=== PATIENT | female | born 1955 | race Caucasian/White ===

== ENCOUNTER → 2018-04-14 12:47 | Outpatient (CLI) | payer MEDICAID, SELFPAY ==
--- NOTE | 2018-04-14 12:51 | BI_ITS ---
MAMMOGRAPHY - BILATERAL SCREENING REASON FOR EXAM: Female, 62 years old. Routine annual screening examination. PERTINENT HISTORY: Mother with breast cancer. History of prior right stereotactic breast biopsy. Aunts with breast cancer. TECHNIQUE: Digital bilateral breast nilsa (3D mammographic acquisition) in the CC and MLO projections. 2-D mediolateral oblique (MLO) and craniocaudad (CC) views of both breasts were obtained. CAD: Full Field Digital Mammography with Computer Added Detection was performed. COMPARISON: Comparison is made with prior study dated April 21, 2016 and January 08, 2015. FINDINGS: Breast Composition: The breasts are heterogeneously dense, which may obscure small masses. There are no dominant masses or suspicious calcifications. Small bilateral axillary lymph nodes. A tissue clip marker is seen in the upper medial portion of the right breast. No other significant abnormalities are identified. There has been no significant change since the prior study. BI/SCREENING MAMM (CAD), BILAT IMPRESSION: Stable bilateral screening mammogram. Yearly follow-up mammogram recommended. (A) ASSESSMENT CATEGORY: BIRADS Category 2: Benign. A letter regarding these results will be sent to the patient by the facility within 30 days. Approximately 10% of breast cancers are not detected by mammography. A normal mammogram should not delay biopsy of a clinically suspicious abnormality. [id number] Electronically Signed: Ronnie Noriega, at 15:11 EST , Service support ,
== END ==
PROVIDERS: Family Provider Family Medicine; PCP Family Medicine; Visit Provider Family Medicine
DX: Z12.31 Encounter for screening mammogram for malignant neoplasm of breast (principal)
CPT/HCPCS: 77063; 77067

== ENCOUNTER 2019-04-11 10:25 | Observation (INO) | payer MEDICAID, SELFPAY ==
[2019-04-11] VITALS (34 sets, daily range): BP systolic 69–135; BP diastolic 39–104; PULSE 57–110; RESP 12–32; TEMP 35.8–36.7; O2SAT 61–99; BMI 22.6
--- NOTE | 2019-04-11 06:07 | PCM.HP.STD ---
Problem List (1) Screening for intestinal cancer Status: Acute History of Present Illness Date of Admission: 04/11/19 The patient is a 63 year old F who presents for screening colonoscopy today. The patient has a personal history of colon polyps. She is a twin sister also with a history of colon polyps. Her most recent colonoscopy was June 23, [address] Luther Quiros. 1 diminutive polyp in the proximal transverse colon was removed. The patient was noted to have a tortuous colon. Final pathology was a minute tubular adenoma less than 2 mm on the slide. The patient now returns for follow-up examination. The patient now states that apparently approximately once a year she will have severe cramping and then feeling as if she is going to faint and then explosive diarrhea. This happened to her fairly recently where she actually did faint. She denies bright red blood per rectum or melena. She denies any current abdominal pain. She has increased her fiber and fiber supplement and MiraLAX and has not had a recurrent problem. Past Medical History Allergies Sulfa (Sulfonamide Antibiotics) Allergy (Verified 04/10/19 09:17) not known zolpidem [From Ambien] Allergy (Verified 04/10/19 09:17) Unknown Home Medications: Ambulatory Orders Medication Instructions Recorded Citalopram [Celexa] 20 mg PO DAILY 12/18/13 Lorazepam [Ativan] 0.5 mg PO DAILY PRN PRN 12/18/13 Simvastatin [Zocor] 20 mg PO QHS 12/18/13 Meclizine HCl [Antivert] 25 mg PO BID PRN PRN 04/10/19 Smoking Status: Current every day smoker Tobacco Use: Cigarettes Review of Systems Constitutional: Denies: Anorexia HEENT: Denies: Difficulty Swallowing Cardiovascular: Denies: Chest Pain Respiratory: Denies: Cough Gastrointestinal: Denies: Abdominal Pain, Melena Endocrine: Denies: Change in Body Habitus VTE Information - Inpt Only VTE Present on Admission: No Patient Problems: Active and Suspected Problems Screening for intestinal cancer (Acute) - Physical Exam General: Alert, Oriented x3, Cooperative, No apparent distress HEENT: Atraumatic Oral: Moist Mucosa Lungs: Clear to auscultation Cardiovascular: Regular rate, Regular Rhythm Abdomen: Bowel Sounds Present, Soft, Non Tender Extremities: No Calf Tenderness Assessment/Plan All Active Problems Screening for intestinal cancer (Acute) The patient presents via our open access program today. I anticipate proceeding with a colonoscopy with possible biopsy or polypectomy is indicated. She has had an opportunity to ask and have questions answered. We will proceed as noted. Eduardo Caputo M.D., F.A.C.S.
[2019-04-11] MEDS: Lactated Ringers 1,000 ML 100 ML IV ×2 (06:28→11:25)
--- NOTE | 2019-04-11 07:00 | COLBX_PTH ---
PATIENT: SAKINA JASON LOC: [facility] U#:[id number] AGE/SX: 63/F ROOM: ICU04 RE04/11/[address]: Dr. Eduardo Caputo MD : 1955 BED: 1 DIS: 04/12/2019 SPEC #: [id number] RECD: 04/11/19 10:45 STATUS: IGOR REReza #: [id number] REECE: 04/11/19 07:[address]: Eduardo aCputo DEPT: SURGICAL PATHOLOGY RECD BY: Wilmer Hearn ENTERED: 04/11/19 13:31 SP TYPE: COLON BX OTHR DR: MD Dr. John Hernandez III, MD Dr. Mark Tereletsky, DO Tissues: Ascending colon Procedures: Surgery Specimen Level IV HEADER OPERATION: Colonoscopy - open access (MAC) PRE-OP DIAGNOSIS: Screening TISSUE SUBMITTED: Distal ascending colon polyp biopsies MICROSCOPIC DIAGNOSIS Distal ascending colon polyp, biopsy: Fragments of tubular adenoma. HAWA:rei 04/12/19 MICROSCOPIC DESCRIPTION Slides are reviewed. GROSS DESCRIPTION Received in fixative is one container labeled with the patient's name and designated distal ascending colon polyp biopsy. The specimen consists of multiple irregular fragments of light hermosillo soft tissue that in aggregate measure 0.7 x 0.5 x 0.1 cm. The specimen is totally submitted in one cassette. / HAWA:rei 04/11/19 TC:1 CPT: 87606
--- NOTE | 2019-04-11 07:29 | OP.COLON_ITS ---
Patient Name: Jaymie Trotter Procedure Date: 04/11/2019 6:58 AM Date of : 1955 Age: 63 Procedure: Colonoscopy Indications: High risk colon cancer surveillance: Personal history of colonic polyps Providers: Eduardo Caputo MD Referring MD: John Caputo Iii Medicines: See the Anesthesia note for documentation of the administered medications Patient Profile: This is a 63 year old female. Last Colonoscopy: 2011. Complications: No immediate complications. Procedure: Pre-Anesthesia Assessment: - Prior to the procedure, a History and Physical was performed, and patient medications and allergies were reviewed. The patient's tolerance of previous anesthesia was also reviewed. The risks and benefits of the procedure and the sedation options and risks were discussed with the patient. All questions were answered, and informed consent was obtained. Prior Anticoagulants: The patient has taken no previous anticoagulant or antiplatelet agents. ASA Grade Assessment: II - A patient with mild systemic disease. After reviewing the risks and benefits, the patient was deemed in satisfactory condition to undergo the procedure. After I obtained informed consent, the scope was passed under direct vision. Throughout the procedure, the patient's blood pressure, pulse, and oxygen saturations were monitored continuously. The colonoscope was introduced through the anus and advanced to the cecum, identified by appendiceal orifice and ileocecal valve. The colonoscopy was performed with moderate difficulty due to a tortuous colon. Successful completion of the procedure was aided by using manual pressure. Scope In: 7:07:09 AM Scope Withdrawal Time 0 hours 6 minutes 34 seconds Scope Out: 7:20:58 AM Total Procedure Duration Time 0 hours 13 minutes 49 seconds Findings: Hemorrhoids were found on perianal exam. Multiple diverticula were found in the sigmoid colon. The sigmoid colon and descending colon were moderately tortuous. Two sessile polyps were found in the distal ascending colon. The polyps were 3 mm in size. These polyps were removed with a cold biopsy forceps. Resection and retrieval were complete. Impression: - Hemorrhoids found on perianal exam. - Diverticulosis in the sigmoid colon. - Tortuous colon. - No specimens collected. Recommendation: - Await pathology results. - Repeat colonoscopy in 5 years for surveillance. - Telephone my office for pathology results in 1 week. - Resume previous diet. - Continue present medications. Procedure Code(s): --- Professional --- 45129, Colonoscopy, flexible; with biopsy, single or multiple Diagnosis Code(s): --- Professional --- Z86.010, Personal history of colonic polyps K64.9, Unspecified hemorrhoids K57.30, Diverticulosis of large intestine without perforation or abscess without bleeding Q43.8, Other specified congenital malformations of intestine CPT copyright 2017 [employer] [place] [employer]. All rights reserved. The codes documented in this report are preliminary and upon information security engineer review may be revised to meet current compliance requirements. Eduardo Caputo MD 04/11/2019 7:28:29 AM This report has been signed electronically. Number of Addenda: 0 Note Initiated On: 04/11/2019 6:58 AM
--- NOTE | 2019-04-11 07:29 | OP.CCLET_ITS ---
04/11/2019 John Caputo Iii [address] [place] [address] Re : Colonoscopy procedure for Jaymie Trotter Dear Dr. Caputo This procedure was performed on Thursday, April 11, 2019. My impressions and recommendations are as follows: Impressions : - Hemorrhoids found on perianal exam. - Diverticulosis in the sigmoid colon. - Tortuous colon. - No specimens collected. Recommendations : - Await pathology results. - Repeat colonoscopy in 5 years for surveillance. - Telephone my office for pathology results in 1 week. - Resume previous diet. - Continue present medications. My findings are described in the full procedure note, which is enclosed. If I can be of further assistance, please feel free to contact me at Doctor phone number(s): Work: . Sincerely, Eduardo Caputo MD 04/11/2019 7:28:29 AM This report has been signed electronically.
--- NOTE | 2019-04-11 07:30 | SUR.PHASEI ---
pt arrives to pacu laying on lt side, hob flat, immediately connected to monitor to find pt in NSR with HR in 70's, bp wnl, but limited resp and sp02 found to be 60-62% immediately turned pt over to back noted lips dusky, attempts to stimulate pt, some moaning noted and grunting resp immediate chin thrust/head tilt to open arirway with no effects, begin bagging pt with 10 lm o2 connected spo2 up to 90-91% within minute and dr murillo to bedside to assess. See orders
--- NOTE | 2019-04-11 08:03 | EKG12_ITS ---
Test Reason : ARRYTH Blood Pressure : / mmHG Vent. Rate : 069 BPM Atrial Rate : 069 BPM P-R Int : 156 ms QRS Dur : 066 ms QT Int : 404 ms P-R-T Axes : 068 039 042 degrees QTc Int : 432 ms Sinus rhythm with occasional Premature ventricular complexes Otherwise normal ECG When compared with ECG of 31-DEC-2004 15:32, Premature ventricular complexes are now Present Confirmed by MINI FREY, GUSTAVO ([id number]), society editor CAIN SANTANA ([id number]) on 04/17/2019 4:10:12 PM Referred By: John Caputo Confirmed By:GUSTAVO MORSE MD
--- NOTE | 2019-04-11 08:03 | RAD_ITS ---
STUDY: X-RAY CHEST REASON FOR EXAM: Female, 63 years old. DYSPNEA S/P COLONOSCOPY TECHNIQUE: Single AP portable view of the chest. COMPARISON: None. FINDINGS: The lungs are clear and expanded. There is no demonstrated pleural abnormality. Normal size heart. Normal mediastinum and ingrid. Normal visualized pulmonary arteries. Normal visualized aortic arch and descending thoracic aorta. Normal visualized thoracic spine. Normal visualized ribs, clavicles, and shoulders. There is no demonstrated abnormality of the visualized soft tissue structures of the upper abdomen. RAD/Chest 1 View (Portable) IMPRESSION: Normal x-ray examination of the chest. Electronically Signed: Kraig Graham MD at 8:18 EST Tel , Service support ,
[2019-04-11] MEDS: Ipratropium/Albuterol Sulfate 3 ML AMPUL.NEB INHALATION ×3 (08:15→19:02)
[2019-04-11 09:06] LABS: Allen Test POS; Base Excess -2 mmol/L (-2 to +2); Bicarbonate 22.5 mmol/L (22-26); Blood Gas Specimen Type ART; EPAP 6; FI02 30; IPAP 12; PO2 56 mmHG (75-100); RR 12; SITE L Radial; SO2 90 % (95-99); Time Given 910; Total Carbon Dioxide 23 mmol/L; pH 7.43 (7.35-7.45)
[2019-04-11 10:00] LABS: Absolute Lymphocyte Count 1.43 X10^3/uL (0.83-4.51); Absolute Neutrophil Count 9.9 X10^3/uL (2.0-7.7); Basophil# 0.03 X10^3/uL; Basophil% 0.3 % (0-1); Eosinophil# 0.02 X10^3/uL; Eosinophils% 0.2 % (0-5); Hematocrit 38.2 % (37-47); Hemoglobin 12.6 g/dL (12.0-15.0); Lymphocyte # 1.43 X10^3/ul (4.0); Mean Corpuscular Hgb 31.9 pg (27.0-32.0); Mean Corpuscular Volume 96.7 fL (81-99); Mean Platelet Vol. 9.2 fl (6.2-12.0); Monocyte# 0.54 X10^3/uL; Monocyte% 4.5 % (0-10); NRBC Flagged by Analyzer 0 % (0-5); Neutrophil # 9.91 X10^3/uL (2.7-7.7); Neutrophil % 82.7 % (47-70); Platelet Count 242 K/mm3 (150-450); RBC Distribution Width CV 13.2 % (11.6-14.6); RBC Distribution Width SD 47.1 fl (35.1-43.9); Red Blood Count 3.95 M/mm3 (4.2-5.4)
[2019-04-11 10:19] LABS: Anion Gap 5 (5-15); BUN 13 mg/dL (7-18); BUN/Creat Ratio 16.7 RATIO (10-20); Chloride 110 mmol/L (98-107); Creatinine, Serum 0.78 mg/dL (0.55-1.02); EST Glomerular Filtration Rate 79 mL/min (>60); Est Glom Filt Rate - Afr Amer 96 mL/min (>60); Estimated Creatinine Clearance 61.07 ml/min; Glucose 111 mg/dL (74-106); Magnesium 1.8 mg/dL (1.6-2.6); Potassium 3.4 mmol/L (3.5-5.1); Sodium Level 141 mmol/L (136-145)
--- NOTE | 2019-04-11 11:45 | RAD_ITS ---
STUDY: X-RAY CHEST REASON FOR EXAM: Female, 63 years old. RESPIRATORY FAILURE; -- S/P COLONOSCOPY THIS AM TECHNIQUE: Single AP portable view of the chest. COMPARISON: None. FINDINGS: Alveolar opacity in the lower left lung which silhouettes left heart border consistent with lingular pneumonia. This may be from aspiration. There is no demonstrated pleural abnormality. Normal size heart. Normal mediastinum and ingrid. Normal visualized pulmonary arteries. Normal visualized aortic arch and descending thoracic aorta. Normal visualized thoracic spine. Normal visualized ribs, clavicles, and shoulders. There is no demonstrated abnormality of the visualized soft tissue structures of the upper abdomen. RAD/Chest 1 View (Portable) IMPRESSION: Lingular pneumonia or aspiration. Electronically Signed: Kraig Graham MD at 12:36 EST Tel , Service support ,
--- NOTE | 2019-04-11 14:08 | PCM.CON.CC ---
Problem List (1) Acute respiratory failure with hypoxia Status: Acute (2) COPD (chronic obstructive pulmonary disease) Status: Suspected Qualifiers: Emphysema type: unspecified (3) Screening for intestinal cancer Status: Acute Reason for Consult Date of Consultation: 04/11/19 Reason for Consultation: Respiratory failure History of Present Illness: The patient is a 63 year old F, with past medical history listed below, who presented to [facility] 04[facility]11/2019 secondary to a screening colonoscopy. Patient did have a history of colon polyps in the past. With a reported tortuous colon. Patient has had episodes of severe cramping and then explosive diarrhea in the past. Patient denied any bright red blood or melena from the rectum. Patient presented and was reportedly of her usual health. Patient denied any recent increase in cough, fever, chills, nausea or vomiting. Patient did report some shortness of breath with significant exertion, but overall felt her breathing was at its usual. Patient did report coughing at baseline of clear to white sputum, typically in the morning upon waking from sleep. Following the colonoscopy, patient reportedly was transported to the PACU and became significantly cyanotic. Patient was noted to have perioral cyanosis and a saturation of 60%. Patient received bag mask ventilation for a short period of time and then had to be placed on BiPAP therapy. Patient received multiple medications in PACU, but I was asked to evaluate the patient following these interventions. On my evaluation in the PACU, patient was essentially BiPAP dependent. Patient did have some conversational dyspnea, but was very clear that she was fine before all of this. Patient did feel better with BiPAP in place and had stated that she had a cough productive of pink frothy sputum immediately following the procedure. Patient also reported that she has seen a documentation engineer in the past, approximately 5 years ago, at [facility] and was told that she was at 70% lung function. Patient does not use any inhalers at baseline. Patient does smoke on a daily basis, but denies any vaping or environmental exposures. Patient denies any exposure to TB or asbestos. Following PACU stay, patient was transported to the intensive care unit. Patient continues to improve and is now back on 4 to 5 L nasal cannula oxygen. Patient states her cough is improving and denies any chest pain. Patient does have some abdominal cramping, but does not believe that this is significant. Review of systems otherwise negative from a constitutional, HEENT, respiratory, cardiovascular, GI, genitourinary, musculoskeletal, skin, neurologic, psychiatric and hematologic system unless stated above. Past Medical History Allergies Sulfa (Sulfonamide Antibiotics) Allergy (Verified 04/10/19 09:17) not known zolpidem [From Ambien] Allergy (Verified 04/10/19 09:17) Unknown Home Medications: Ambulatory Orders Medication Instructions Recorded Citalopram [Celexa] 20 mg PO DAILY 12/18/13 Lorazepam [Ativan] 0.5 mg PO DAILY PRN PRN 12/18/13 Simvastatin [Zocor] 20 mg PO QHS 12/18/13 Meclizine HCl [Antivert] 25 mg PO BID PRN PRN 04/10/19 Smoking Status: Current every day smoker Tobacco Use: Cigarettes Review of Systems Comment: See HPI Patient Problems: Active and Suspected Problems Screening for intestinal cancer (Acute) Acute respiratory failure with hypoxia (Acute) COPD (chronic obstructive pulmonary disease) (Suspected) - Physical Exam Vitals/I&O's: Vital Signs Temp Pulse Resp BP Pulse Ox 36.6 C 96 28 H 114/70 96 04/11/19 11:41 04/11/19 13:41 04/11/19 13:41 04/11/19 11:41 04/11/19 13:41 Oxygen Flow Rate (L/min) 3 Oxygen Delivery Method Nasal Cannula Weight: 57.9 kg Body Mass Index (BMI) 22.6 Intake and Output for Last 24 Hours 04/09/19 04/10/19 04/11/19 23:59 23:59 23:59 Intake Total 710 / 710 Output Total 150 / 150 Balance 560 / 560 General: Alert, Oriented x3, Cooperative, Well developed, Well nourished, - - Significant dyspnea with BiPAP initially. Improved significantly in the ICU HEENT: Atraumatic, PERRLA, EOMI, Normocephalic Oral: Moist Mucosa, No Gingival or Mucosal Lesions/ Ulcerations Neck: Supple, No JVD, No Nodes, Trachea Midline Lungs: No wheeze, Diminished, Rales - Right Cardiovascular: Regular rate, Regular Rhythm, Normal S1, Normal S2, No murmurs, No rub noted, No Gallop Abdomen: Bowel Sounds Present, Soft, Non Tender, Non-Distended Extremities: No clubbing, No cyanosis, No edema, Capillary Refill Less than 3 Seconds Skin: No rashes, No breakdown Musculoskeletal: No Tenderness to Palpation of Joints or Extremities Lymphatic: No Cervical, Supraclavicular, or Inguinal Adenopathy Neurological: Cranial nerves II-XII grossly intact, Neuro grossly intact, Motor Exam 5/5 strength throughout Psych/Mental Status: Alert and oriented to time, place, person, mood and affect Laboratory Results 04/11/19 09:03: Specimen Type ART, Sample Site L Radial, pH 7.43, Bicarbonate Actual 22.5, POC Total CO2 23, Base Excess -2, O2 Saturation 90 L, O2 % 30, ABG pCO2 34.0 L, ABG pO2 56 L, Abdelrahman Test POS, Respiration Rate 12, O2 Delivery Device Bi / C PAP, EPAP 6, IPAP 12, Blood Gas Notified Whom OTHER, Blood Gas Notified Time 910 04/11/19 09:54: WBC 12.0 H, RBC 3.95 L, Hgb 12.6, Hct 38.2, MCV 96.7, MCH 31.9, MCHC 33.0, RDW Std Deviation 47.1 H, RDW Coeff of Twan 13.2, Plt Count 242, MPV 9.2, Immature Gran % (Auto) 0.300, Neut % (Auto) 82.7 H, Lymph % (Auto) 12.0 L, [place] % (Auto) 4.5, Eos % (Auto) 0.2, Baso % (Auto) 0.3, Absolute Neuts (auto) 9.9 H, Absolute Lymphs (auto) 1.43, Nucleated RBC % 0 04/11/19 09:54: Sodium 141, Potassium 3.4 L, Chloride 110 H, Carbon Dioxide 26.0, Anion Gap 5, BUN 13, Creatinine 0.78, Estim Creat Clear Calc 61.07, Est GFR (MDRD) Af Amer 96, Est GFR (MDRD) Non-Af 79, BUN/Creatinine Ratio 16.7, Glucose 111 H, Calcium 9.0, Magnesium 1.8, Troponin I < 0.015 04/11/19 13:00: Troponin I < 0.015 Current Medications Albuterol/Ipratropium (Duoneb) 3 ml INHALATION Q6H.RT CHARLES Last Admin: 04/11/19 13:20 Dose: 3 ml Documented by: Prochlorperazine Edisylate (Compazine Iv) 5 mg IV Q4H PRN PRN PRN Reason: Breakthrough Nausea/Vomiting Sodium Chloride () 10 - 40 ml IV UD PRN PRN Reason: SALINE FLUSH Clinical Impression(s) from Imaging Studies Chest X-Ray 04/11/19 08:03 IMPRESSION: Normal x-ray examination of the chest. Electronically Signed: Kraig Graham MD at 8:18 EST Tel , Service support , Chest X-Ray 04/11/19 11:45 IMPRESSION: Lingular pneumonia or aspiration. Electronically Signed: Kraig Graham MD at 12:36 EST Tel , Service support , Assessment/Plan Active and Suspected Problems Screening for intestinal cancer (Acute) Acute respiratory failure with hypoxia (Acute) COPD (chronic obstructive pulmonary disease) (Suspected) RECOMMENDATIONS: 1. Continue supportive care as necessary 2. BiPAP PRN 3. OK to initiate bronchodilators, but would avoid steroid therapy 4. Outpatient complete PFT 5. Hold on any diuretics. 6. Okay to take p.o. from a pulmonary perspective. Please check with surgery prior to initiation IMPRESSIONS: 1. Acute hypoxic respiratory failure secondary to probable negative pressure pulmonary edema Patient reported pink frothy sputum initially with significant hypoxemia. Chest x-ray was relatively unremarkable, but patient did respond to BiPAP therapy. Patient is slowly improving on her own. It is unlikely the diuretics are needed actively. Patient can use BiPAP therapy as rescue if necessary, but anticipate slow improvement from this point forward. Okay to use bronchodilators, but would not suggest steroid therapy at this time. Patient may be able to be discharged tomorrow. 2. Probable COPD Patient does have an extensive smoking history with a chronic daily cough. Would recommend patient having outpatient complete PFT for quantification and clarification of lung function. Patient is not giving any history that would be suggestive of a COPD exacerbation prior to colonoscopy. 3. Anxiety/depression/hyperlipidemia Uppercase care, management, recovery and prognosis. Okay to continue with baseline medications from my perspective. May avoid Ativan given respiratory issues initially. Code Visit Inpatient E&M: 06013 Init Hosp L3
--- NOTE | 2019-04-11 15:54 | PCM.HP.STD ---
Problem List (1) Respiratory failure Status: Acute Qualifiers: Chronicity: acute Respiratory failure complication: hypoxia Qualified Code(s): J96.01 - Acute respiratory failure with hypoxia History of Present Illness Date of Admission: 04/11/19 Chief Complaint: Respiratory failure The patient is a 63 year old F who was admitted directly to ICU following a colonoscopy. Patient went into respiratory failure after the colonoscopy, she was given Benadryl and epinephrine subcu by anesthesia due to concerns of allergic reaction. Patient had a chest x-ray performed which was unremarkable. Patient was placed on BiPAP lab was performed and she was transferred to the ICU. At the time of my examination later on, patient was on nasal cannula O2 and was alert and did not appear to be in respiratory distress. Lab obtained in PACU showed an elevated white blood cell count at 12, blood gas on BiPAP showed a pH 7.43, PCO2 was 34, and PO2 was 56. Chemistry profile showed a potassium of 3.4-otherwise was unremarkable. Troponin was normal. Again patient was placed in the ICU under observation care, she will be seen by pulmonary medicine. Past Medical History Allergies Sulfa (Sulfonamide Antibiotics) Allergy (Verified 04/10/19 09:17) not known zolpidem [From Ambien] Allergy (Verified 04/10/19 09:17) Unknown Home Medications: Ambulatory Orders Medication Instructions Recorded Citalopram [Celexa] 20 mg PO DAILY 12/18/13 Lorazepam [Ativan] 0.5 mg PO DAILY PRN PRN 12/18/13 Simvastatin [Zocor] 20 mg PO QHS 12/18/13 Meclizine HCl [Antivert] 25 mg PO BID PRN PRN 04/10/19 Surgical History: noncontributory Psychiatric History: No pertinent psych hx ORDER ADMINISTRATOR History: No pertinent ORDER ADMINISTRATOR history Smoking Status: Current every day smoker Tobacco Use: Cigarettes Alcohol: None Drugs: None - *Family History Maternal History Items: No pertinent history Paternal History Items: No pertinent history Review of Systems Constitutional: Denies: Anorexia, Chills, Fever, Night Sweats, Malaise, Weakness, Weight Change Eyes: Denies: Cataracts, Conjunctivae Inflammation, Double vision, Drainage, Redness, Vision Change HEENT: Denies: Difficulty Swallowing, Dysphasia, Ear Pain, Eye Pain, Hearing Changes, Nasal bleeding, Nasal Congestion, Post Nasal Drip Cardiovascular: Denies: Chest Pain, Claudication, Chest Pressure, Chest Tightness, Edema, Palpitations Respiratory: Reports: Shortness of Breath, Shortness of breath at rest, Shortness of breath upon exertion. Denies: Cough, Hemoptysis, Pleuritic Pain, Sputum production, Wheezing Gastrointestinal: Denies: Abdominal Pain, Constipation, Diarrhea, Hematemesis, Hematochezia, Nausea, Melena, Vomiting Genitourinary: Denies: Dysuria, Frequency, Hematuria, Hesitancy, Nocturia, Urgency Musculoskeletal: Denies: Back Pain, Foot Pain, Hand Pain, Joint Pain, Joint stiffness, Joint swelling, Joint Tenderness, Leg Pain Skin: Denies: Dryness, Pruritis, Rash Neurological: Denies: Blurred vision, Double vision, Change in Speech, Slurred speech, Difficulty swallowing, Focal weakness, Headaches, Incoordination, Numbness, Tingling Psychiatric: Denies: Anxiety, Depression, Homicidal Ideations, Suicidal Ideations Endocrine: Denies: Change in Body Habitus, Heat/ Cold Intolerance, Polydipsia, Polyuria Hematologic/ Lymphatic: Denies: Adenopathy, Anemia, Easy Bruising, Easy Bleeding, Petechiae, Purpura VTE Information - Inpt Only VTE Present on Admission: No VTE Mechan Device Prophylaxis: None VTE Pharm Prophylaxis ordered?: No Reason prophylaxis not ordered:: Treatment Not Indicated Patient Problems: Active and Suspected Problems Screening for intestinal cancer (Acute) Acute respiratory failure with hypoxia (Acute) COPD (chronic obstructive pulmonary disease) (Suspected) Respiratory failure (Acute) - Physical Exam Vitals/I&O's: Vital Signs Temp Pulse Resp BP Pulse Ox 97.9 F 96 28 H 114/70 95 04/11/19 12:00 04/11/19 14:00 04/11/19 13:41 04/11/19 12:00 04/11/19 15:22 Oxygen Flow Rate (L/min) 3 Oxygen Delivery Method Nasal Cannula Weight: 57.9 kg Body Mass Index (BMI) 22.6 Intake and Output for Last 24 Hours 04/09/19 04/10/19 04/11/19 23:59 23:59 23:59 Intake Total 710 / 710 Output Total 150 / 150 Balance 560 / 560 General: Alert, Oriented x3, Cooperative, No apparent distress, Well developed HEENT: Atraumatic, PERRLA, EOMI, Normocephalic Oral: Moist Mucosa Neck: Supple, No JVD, Trachea Midline, Thyroid Normal Size and Texture Lungs: Clear to auscultation, Normal air movement, No rhonchi, No wheeze, No rales Cardiovascular: Regular rate, Regular Rhythm, Normal S1, Normal S2, No murmurs, PMI Normal, No rub noted Abdomen: Bowel Sounds Present, Soft, Non Tender, Non-Distended Extremities: No clubbing, No cyanosis, No edema, Capillary Refill Less than 3 Seconds Skin: No rashes, No breakdown Musculoskeletal: No Tenderness to Palpation of Joints or Extremities Neurological: Cranial nerves II-XII grossly intact, Neuro grossly intact, Sensory exam intact to light touch and pain Psych/Mental Status: Normal Affect, Appropriate, Alert and oriented to time, place, person, mood and affect Laboratory Results 04/11/19 09:03: Specimen Type ART, Sample Site L Radial, pH 7.43, Bicarbonate Actual 22.5, POC Total CO2 23, Base Excess -2, O2 Saturation 90 L, O2 % 30, ABG pCO2 34.0 L, ABG pO2 56 L, Abdelrahman Test POS, Respiration Rate 12, O2 Delivery Device Bi / C PAP, EPAP 6, IPAP 12, Blood Gas Notified Whom OTHER, Blood Gas Notified Time 910 04/11/19 09:54: WBC 12.0 H, RBC 3.95 L, Hgb 12.6, Hct 38.2, MCV 96.7, MCH 31.9, MCHC 33.0, RDW Std Deviation 47.1 H, RDW Coeff of Twan 13.2, Plt Count 242, MPV 9.2, Immature Gran % (Auto) 0.300, Neut % (Auto) 82.7 H, Lymph % (Auto) 12.0 L, [place] % (Auto) 4.5, Eos % (Auto) 0.2, Baso % (Auto) 0.3, Absolute Neuts (auto) 9.9 H, Absolute Lymphs (auto) 1.43, Nucleated RBC % 0 04/11/19 09:54: Sodium 141, Potassium 3.4 L, Chloride 110 H, Carbon Dioxide 26.0, Anion Gap 5, BUN 13, Creatinine 0.78, Estim Creat Clear Calc 61.07, Est GFR (MDRD) Af Amer 96, Est GFR (MDRD) Non-Af 79, BUN/Creatinine Ratio 16.7, Glucose 111 H, Calcium 9.0, Magnesium 1.8, Troponin I < 0.015 04/11/19 13:00: Troponin I < 0.015 Current Medications Albuterol/Ipratropium (Duoneb) 3 ml INHALATION Q6H.RT CHARLES Last Admin: 04/11/19 13:20 Dose: 3 ml Documented by: Prochlorperazine Edisylate (Compazine Iv) 5 mg IV Q4H PRN PRN PRN Reason: Breakthrough Nausea/Vomiting Sodium Chloride () 10 - 40 ml IV UD PRN PRN Reason: SALINE FLUSH Assessment/Plan All Active Problems Screening for intestinal cancer (Acute) Acute respiratory failure with hypoxia (Acute) Respiratory failure (Acute) #1 acute hypoxic respiratory failure-most likely secondary to negative pressure pulmonary edema-patient at this time is on nasal cannula O2, she states she is afraid to go home tonight, I will continue to wean oxygen #2 chronic obstructive pulmonary disease-pulmonary medicine is seeing patient #3 anxiety/depression Code Visit OBSV E&M: 66168 Initial observation care L3
[2019-04-12] VITALS (22 sets, daily range): BP systolic 86–118; BP diastolic 55–84; PULSE 67–87; RESP 10–27; TEMP 37.2–37.4; O2SAT 87–97
[2019-04-12] MEDS: Ipratropium/Albuterol Sulfate 3 ML AMPUL.NEB INHALATION ×3 (01:20→13:57)
[2019-04-12] MEDS: LORazepam 0.5 MG Tablet PO (02:03)
--- NOTE | 2019-04-12 06:03 | PN.SURG_ITS ---
Patient Problems: Active and Suspected Problems Screening for intestinal cancer (Acute) Acute respiratory failure with hypoxia (Acute) COPD (chronic obstructive pulmonary disease) (Suspected) Respiratory failure (Acute) Subjective: Pt states she feels much better, no abdominal pain - Physical Exam Vitals/I&O's: Vital Signs Temp Pulse Resp BP Pulse Ox 98.9 F 68 21 H 96/61 96 04/12/19 04:00 04/12/19 05:00 04/12/19 05:00 04/12/19 05:00 04/12/19 05:00 Oxygen Flow Rate (L/min) 2 Oxygen Delivery Method Nasal Cannula Weight: 125 lb 7.088 oz Body Mass Index (BMI) 22.6 Intake and Output for Last 24 Hours 04/10/19 04/11/19 04/12/19 23:59 23:59 23:59 Intake Total 1010 / 1490 480 / 480 Output Total 800 / 800 Balance 210 / 690 480 / 480 Abdomen: Bowel Sounds Present, Soft, Non Tender Laboratory Results 04/11/19 09:03: Specimen Type ART, Sample Site L Radial, pH 7.43, Bicarbonate Actual 22.5, POC Total CO2 23, Base Excess -2, O2 Saturation 90 L, O2 % 30, ABG pCO2 34.0 L, ABG pO2 56 L, Abdelrahman Test POS, Respiration Rate 12, O2 Delivery Device Bi / C PAP, EPAP 6, IPAP 12, Blood Gas Notified Whom OTHER, Blood Gas Notified Time 910 04/11/19 09:54: WBC 12.0 H, RBC 3.95 L, Hgb 12.6, Hct 38.2, MCV 96.7, MCH 31.9, MCHC 33.0, RDW Std Deviation 47.1 H, RDW Coeff of Twan 13.2, Plt Count 242, MPV 9.2, Immature Gran % (Auto) 0.300, Neut % (Auto) 82.7 H, Lymph % (Auto) 12.0 L, [place] % (Auto) 4.5, Eos % (Auto) 0.2, Baso % (Auto) 0.3, Absolute Neuts (auto) 9.9 H, Absolute Lymphs (auto) 1.43, Nucleated RBC % 0 04/11/19 09:54: Sodium 141, Potassium 3.4 L, Chloride 110 H, Carbon Dioxide 26.0, Anion Gap 5, BUN 13, Creatinine 0.78, Estim Creat Clear Calc 61.07, Est GFR (MDRD) Af Amer 96, Est GFR (MDRD) Non-Af 79, BUN/Creatinine Ratio 16.7, Glucose 111 H, Calcium 9.0, Magnesium 1.8, Troponin I < 0.015 04/11/19 13:00: Troponin I < 0.015 Current Medications Albuterol/Ipratropium (Duoneb) 3 ml INHALATION Q6H.RT CHARLES Last Admin: 04/12/19 01:20 Dose: 3 ml Documented by: Prochlorperazine Edisylate (Compazine Iv) 5 mg IV Q4H PRN PRN PRN Reason: Breakthrough Nausea/Vomiting Sodium Chloride () 10 - 40 ml IV UD PRN PRN Reason: SALINE FLUSH Medical Necessity - Tobacco Use Smoking Status: Current every day smoker Tobacco Use: Cigarettes Assessment/Plan All Active Problems Screening for intestinal cancer (Acute) Acute respiratory failure with hypoxia (Acute) Respiratory failure (Acute) Pt instructed re: two small polyps and we will contact her with pathology Further diagnosis and care as per Anesth, hospitalist, and manager of community relations in treatment of post anesthetic complication Appreciate the assistance
--- NOTE | 2019-04-12 07:36 | PCM.PN.PUL ---
Patient Problems: Active and Suspected Problems Screening for intestinal cancer (Acute) Acute respiratory failure with hypoxia (Acute) COPD (chronic obstructive pulmonary disease) (Suspected) Respiratory failure (Acute) Subjective: Patient did well overnight. Patient states that she feels drained from yesterday's events. Patient was on supplemental oxygen overnight for comfort. Patient states that her incentive spirometer tends to make her cough. Patient is not reporting any chest pain, abdominal pain, nausea or vomiting. No fevers were noted overnight. - Physical Exam Vitals/I&O's: Vital Signs Temp Pulse Resp BP Pulse Ox 37.2 C 73 21 H 110/84 H 90 04/12/19 04:00 04/12/19 07:00 04/12/19 07:00 04/12/19 07:00 04/12/19 07:00 Oxygen Flow Rate (L/min) 2 Oxygen Delivery Method Room Air Weight: 56.9 kg Body Mass Index (BMI) 22.6 Intake and Output for Last 24 Hours 04/10/19 04/11/19 04/12/19 23:59 23:59 23:59 Intake Total 1010 / 1490 720 / 720 Output Total 800 / 800 Balance 210 / 690 720 / 720 General: Alert, Oriented x3, Cooperative, No apparent distress, Well developed, Well nourished HEENT: Atraumatic, PERRLA, EOMI, Normocephalic, - - No scleral icterus or injection noted Oral: Moist Mucosa, No Gingival or Mucosal Lesions/ Ulcerations Neck: Supple, No JVD, No Nodes, Trachea Midline Lungs: No rhonchi, No wheeze, Diminished, Rales - Right greater than left base, - - Symmetric expansion. Cough with deep inhalation. Cardiovascular: Regular rate, Regular Rhythm, Normal S1, Normal S2, No murmurs, No rub noted, No Gallop Abdomen: Bowel Sounds Present, Soft, Non Tender, Non-Distended Extremities: No clubbing, No cyanosis, No edema, Capillary Refill Less than 3 Seconds Skin: No rashes, No breakdown Musculoskeletal: No Tenderness to Palpation of Joints or Extremities Lymphatic: No Cervical, Supraclavicular, or Inguinal Adenopathy Neurological: Cranial nerves II-XII grossly intact, Neuro grossly intact, Motor Exam 5/5 strength throughout Psych/Mental Status: Alert and oriented to time, place, person, mood and affect Laboratory Results 04/11/19 09:03: Specimen Type ART, Sample Site L Radial, pH 7.43, Bicarbonate Actual 22.5, POC Total CO2 23, Base Excess -2, O2 Saturation 90 L, O2 % 30, ABG pCO2 34.0 L, ABG pO2 56 L, Abdelrahman Test POS, Respiration Rate 12, O2 Delivery Device Bi / C PAP, EPAP 6, IPAP 12, Blood Gas Notified Whom OTHER, Blood Gas Notified Time 910 04/11/19 09:54: WBC 12.0 H, RBC 3.95 L, Hgb 12.6, Hct 38.2, MCV 96.7, MCH 31.9, MCHC 33.0, RDW Std Deviation 47.1 H, RDW Coeff of Twan 13.2, Plt Count 242, MPV 9.2, Immature Gran % (Auto) 0.300, Neut % (Auto) 82.7 H, Lymph % (Auto) 12.0 L, [place] % (Auto) 4.5, Eos % (Auto) 0.2, Baso % (Auto) 0.3, Absolute Neuts (auto) 9.9 H, Absolute Lymphs (auto) 1.43, Nucleated RBC % 0 04/11/19 09:54: Sodium 141, Potassium 3.4 L, Chloride 110 H, Carbon Dioxide 26.0, Anion Gap 5, BUN 13, Creatinine 0.78, Estim Creat Clear Calc 61.07, Est GFR (MDRD) Af Amer 96, Est GFR (MDRD) Non-Af 79, BUN/Creatinine Ratio 16.7, Glucose 111 H, Calcium 9.0, Magnesium 1.8, Troponin I < 0.015 04/11/19 13:00: Troponin I < 0.015 Current Medications Albuterol/Ipratropium (Duoneb) 3 ml INHALATION Q6H.RT CHARLES Last Admin: 04/12/19 06:53 Dose: 3 ml Documented by: Prochlorperazine Edisylate (Compazine Iv) 5 mg IV Q4H PRN PRN PRN Reason: Breakthrough Nausea/Vomiting Sodium Chloride () 10 - 40 ml IV UD PRN PRN Reason: SALINE FLUSH Clinical Impression(s) from Imaging Studies Chest X-Ray 04/11/19 08:03 IMPRESSION: Normal x-ray examination of the chest. Electronically Signed: Kraig Graham MD at 8:18 EST Tel , Service support , Chest X-Ray 04/11/19 11:45 IMPRESSION: Lingular pneumonia or aspiration. Electronically Signed: Kraig Graham MD at 12:36 EST Tel , Service support , Medical Necessity - Tobacco Use Smoking Status: Current every day smoker Tobacco Use: Cigarettes Assessment/Plan All Active Problems Screening for intestinal cancer (Acute) Acute respiratory failure with hypoxia (Acute) Respiratory failure (Acute) RECOMMENDATIONS: 1. Continue supportive care as necessary 2. Encouraging aggressive incentive spirometer 3. OK to continue bronchodilators, but would avoid steroid therapy 4. Outpatient complete PFT 5. Walking oximetry prior to discharge 6. Possible discharge later today if no supplemental oxygen requirements IMPRESSIONS: 1. Acute hypoxic respiratory failure secondary to probable negative pressure pulmonary edema Patient reported pink frothy sputum initially with significant hypoxemia. Chest x-ray was relatively unremarkable, but patient did respond to BiPAP therapy. Patient is slowly improving on her own. It is unlikely the diuretics are needed actively. Okay to use bronchodilators, but would not suggest steroid therapy at this time. Clinical suspicion for decreased saturations secondary to atelectasis. Patient was advised to use incentive spirometer aggressively. Will need to have a walking oximetry prior to discharge. If does not require supplemental oxygen, likely discharge later today. 2. Probable COPD Patient does have an extensive smoking history with a chronic daily cough. Would recommend patient having outpatient complete PFT for quantification and clarification of lung function. Patient is not giving any history that would be suggestive of a COPD exacerbation prior to colonoscopy. 3. Anxiety/depression/hyperlipidemia Complicates care, management, recovery and prognosis. Okay to continue with baseline medications from my perspective. May avoid Ativan given respiratory issues initially. Code Visit Inpatient E&M: 48006 [facility] Hosp L2
--- NOTE | 2019-04-12 10:26 | CASEMGMT ---
RN CM Note. Per nursing, pt pulse ox 88% with ambulation. Spoke with Dr. Garay re: need for home O2. Recommendation was to ambulate pt more today and retest for Home Oxygen after pt has been more active. -Per insurance review on website- [employer] [facility]) is nearest supplier. Call to company to confirm they do take [facility] Community Plan KAMRAN Gautam [address] [place] [address] (PH) [phone] (FX) [phone] -Pt is aware she may need home O2. Ignacio LANIERN RN ACM
--- NOTE | 2019-04-12 11:10 | CASEMGMT ---
Addendum entered by Devyn Johnson 04/12/19 12:09: Call to [place] office of medical service company (will be servicing this area) (ph) [phone]. Per Estela, she is processing request and once approved, will send mechanic driver with tank to [facility]. Ignacio HAWKINS Original Note: RN CM Note. Discussed need for Home O2 with pt and her insurance choice was [facility] in [place]. Pt is agreeable. Clinical documentation, demographics and script for Home O2 faxed to [employer] with request for portable tank be delivered to [facility] ICU bed 4. Ignacio PRAKASH RN ACM
--- NOTE | 2019-04-12 11:10 | PCM.HOSP.N ---
Hospitalist Note Patient's oxygen sat today was 92%, it was 87% on room air when ambulating, it was 93 % on 2 liters with ambulation. Patient needs home oxygen and is ambulating in the home. She is expected to wear oxygen and has agreed to wear oxygen.
--- NOTE | 2019-04-12 11:40 | DCINST_ITS ---
- Discharge Diagnoses Current Active Problems: Current Active and Chronic Problems Screening for intestinal cancer (Acute) Acute respiratory failure with hypoxia (Acute) Respiratory failure (Acute) You will use the following diet at home:: No restrictions Your food should be the consistency of: Regular Your liquids should be the consistency of: Regular/Thin Discharge Activity: Return to Normal Activity Additional Instructions: do not smoke Allergies/Adverse Reactions: Allergies Sulfa (Sulfonamide Antibiotics) Allergy (Verified 04/10/19 09:17) not known zolpidem [From Ambien] Allergy (Verified 04/10/19 09:17) Unknown Medications to take at Discharge Citalopram [Celexa] 20 mg PO DAILY 12/18/13 Lorazepam [Ativan] 0.5 mg PO DAILY PRN PRN 12/18/13 Simvastatin [Zocor] 20 mg PO QHS 12/18/13 Meclizine HCl [Antivert] 25 mg PO BID PRN PRN 04/10/19 Primary Care Physician: John Caputo III, MD [Primary Care Provider] - Please follow up with your Primary Care Physician in: in 2-3 weeks Test Results: Test results from this visit will be discussed in further detail at your follow- up appointment, if applicable. Please Follow Up With: Shahzad Garay MD When: in 2 weeks
--- NOTE | 2019-04-12 14:33 | CASEMGMT ---
RN CM Note: call to [facility], message left requesting time of portable oxygen delivery. Ignacio PRAKASH RN ACM
--- NOTE | 2019-04-12 15:03 | CASEMGMT ---
CORTNEY CM Note: portable Oxygen tank has been delivered. Ignacio LANIERN CORTNEY ACM
--- NOTE | 2019-04-13 17:42 | PCM.DC.SUM ---
Discharge Date and Diagnosis Date of Admission: 04/11/19 Date of Discharge: 04/12/19 - Primary Discharge Diagnosis #1 acute hypoxic respiratory failure-most likely secondary to negative pressure pulmonary edema #2 chronic obstructive pulmonary disease #3 anxiety/depression Hospital Course and Treatment Operations: None Procedures: None Summary of Care Provided: The patient is a 63 year old F who was placed in observation status in the ICU after undergoing colonoscopy and experiencing acute hypoxic respiratory failure afterwards in recovery. It was felt that the patient probably had negative pressure pulmonary edema. Patient was seen in consultation by pulmonary medicine in the ICU, initially she was on BiPAP from PACU and this was titrated downward to nasal cannula O2. With following day, patient was evaluated and was found to need oxygen as an outpatient at the time of discharge to home. On 04/12/2019, patient was seen and examined: On examination she appeared in good health and spirits. Vital signs as documented. Skin warm and dry and without overt rashes. Neck without JVD. Lungs clear. Heart exam notable for regular rhythm, normal sounds and absence of murmurs, rubs or gallops. Abdomen unremarkable and without evidence of organomegaly, masses, or abdominal aortic enlargement. Extremities nonedematous. Neuro: Cranial nerves II through XII are grossly intact, no focal motor deficits were noted, sensation to light touch and pinprick is intact. Psych: Patient is alert and oriented x3, she does not appear anxious or depressed On 04/12/2019, patient was seen and examined and felt to be stable for discharge home, she was set up for home O2. - Physical Exam Vitals/I&O's: Vital Signs Temp Pulse Resp BP Pulse Ox 98.9 F 84 20 H 118/65 92 04/12/19 12:00 04/12/19 15:11 04/12/19 15:11 04/12/19 15:11 04/12/19 15:11 Oxygen Flow Rate (L/min) [ 2 AMBULATION with Oxygen] Oxygen Flow Rate (L/min) 2 Oxygen Delivery Method Room Air Weight: 56.9 kg Body Mass Index (BMI) 22.6 Intake and Output for Last 24 Hours 04/11/19 04/12/19 04/13/19 23:59 23:59 23:59 Intake Total 1010 / 1490 720 / 720 Output Total 800 / 800 Balance 210 / 690 720 / 720 Discharge Activity: Return to Normal Activity Home Medications: Medications to take at Discharge Citalopram [Celexa] 20 mg PO DAILY 12/18/13 Lorazepam [Ativan] 0.5 mg PO DAILY PRN PRN 12/18/13 Simvastatin [Zocor] 20 mg PO QHS 12/18/13 Meclizine HCl [Antivert] 25 mg PO BID PRN PRN 04/10/19 Primary Care Physician: John Caputo III, MD [Primary Care Provider] - Please follow up with your Primary Care Physician in: in 2-3 weeks Please Follow Up With: Shahzad Garay MD When: in 2 weeks Disposition: Home Minutes spent on discharge:: 30 Patient Condition:: Stable Medical Necessity - Tobacco Use Smoking Status: Current every day smoker Tobacco Use: Cigarettes Meaningful Use Info Meaningful Use Diagnoses (Choose all that apply): None applicable OBSV E&M: 41505 Observation care discharge
== END 2019-04-12 15:26 | disposition home or self-care (01) ==
LOC: ICU 04-12 07:00 → EN 04-12 07:00 → ICU 04-12 07:00
PROVIDERS: Anesthesiology; Admitting Provider Internal Medicine; PCP Family Medicine; Referring Provider Family Medicine; Visit Provider Surgery
PROC: 0DJD8ZZ Inspection of Lower Intestinal Tract, Via Natural or Artificial Opening Endoscopic (ICD-10-PCS; CPT 45378; principal; 2019-04-11 06:55)
DX: J96.01 Acute respiratory failure with hypoxia (principal); Z12.11 Encounter for screening for malignant neoplasm of colon; D12.2 Benign neoplasm of ascending colon; K64.9 Unspecified hemorrhoids; K57.30 Diverticulosis of large intestine without perforation or abscess without bleeding; Q43.8 Other specified congenital malformations of intestine; F17.210 Nicotine dependence, cigarettes, uncomplicated; J44.9 Chronic obstructive pulmonary disease, unspecified; E78.5 Hyperlipidemia, unspecified; F41.9 Anxiety disorder, unspecified; F32.9 Major depressive disorder, single episode, unspecified; Z86.010 Personal history of colon polyps; Z79.899 Other long term (current) drug therapy
CPT/HCPCS: 45380; 36415; 36600; 71045; 80048; 82803; 83735; 84484; 85025; 88305; 93005; 94002; 94003; 94640; 96360; 96361; 99218; 99406; J7120; G0378; G0379; J2405

== ENCOUNTER → 2019-04-26 14:37 | Outpatient (CLI) | payer MEDICAID, SELFPAY ==
[2019-04-11 11:41] VITALS: BMI 22.6
--- NOTE | 2019-04-26 14:41 | BI_ITS ---
MAMMOGRAPHY - BILATERAL SCREENING REASON FOR EXAM: Female, 63 years old. Routine annual screening examination. PERTINENT HISTORY: Mother with breast cancer. Aunts with breast cancer. Prior right stereotactic breast biopsy. TECHNIQUE: Digital bilateral breast candy (3D mammographic acquisition) in the CC and MLO projections. 2-D mediolateral oblique (MLO) and craniocaudad (CC) views of both breasts were obtained. CAD: Full Field Digital Mammography with Computer Added Detection was performed. COMPARISON: Comparison is made with prior examination of April 14, 2018 and April 21, 2016. FINDINGS: Breast Composition: The breasts are heterogeneously dense, which may obscure small masses. There are no dominant masses or suspicious calcifications. A tissue clip marker is seen in the upper the selectively medial portion of the right breast. Stable benign-appearing bilateral axillary lymph nodes. No other significant abnormalities are identified. There has been no significant change since the prior study. BI/SCREEN MAMM (CAD) W/CANDY BILAT IMPRESSION: Stable bilateral screening mammogram. Yearly follow-up mammogram recommended. (A) ASSESSMENT CATEGORY: BIRADS Category 2: Benign. A letter regarding these results will be sent to the patient by the facility within 30 days. Approximately 10% of breast cancers are not detected by mammography. A normal mammogram should not delay biopsy of a clinically suspicious abnormality. [id number] Electronically Signed: Ronnie Noriega, at 8:20 EDT , Service support ,
== END ==
PROVIDERS: PCP Family Medicine; Referring Provider Family Medicine; Visit Provider Family Medicine
DX: Z12.31 Encounter for screening mammogram for malignant neoplasm of breast (principal)
CPT/HCPCS: 77063; 77067

== ENCOUNTER → 2019-04-27 | Outpatient (CLI) | payer MEDICAID, SELFPAY ==
[2019-04-11 11:41] VITALS: BMI 22.6
--- NOTE | 2019-04-27 08:29 | CT_ITS ---
STUDY: CT ABDOMEN AND PELVIS WITH CONTRAST REASON FOR EXAM: Female, 63 years old. PT STATED LOWER ABDOM PAIN POST COLONOSCOPY ON 04/11/19 RADIATION DOSAGE (If Supplied By Facility): CTDIvol = ( 9.75 ) mGy, DLP = ( 450.01 ) mGycm TECHNIQUE: Transaxial images were obtained from the dome of the diaphragm to the symphysis pubis with oral contrast. Oral and amp; IV Readi-CAT and amp; 100mL Isovue-300 was administered. Sagittal and coronal images were reconstructed. Individualized dose optimization techniques were used for this CT. COMPARISON: None. FINDINGS: Minimal thickening of the left major fissure. The visualized portions of the heart are within normal limits. Normal liver. Normal gallbladder and extrahepatic biliary system. Normal spleen. Normal pancreas. There is a small, circumscribed, smooth, low attenuation right adrenal mass, consistent with an adrenal adenoma. This measures 1 cm. Normal left adrenal gland. Normal right kidney. Normal left kidney. There is a small hiatal hernia. Normal small intestine. Normal colon. The appendix is visualized and appears normal. Normal abdominal aorta. Normal inferior vena cava. Normal retroperitoneum. The bladder is empty at the time of the examination. Phleboliths are seen within the pelvis. Normal abdominal wall. Straightening of the normal lumbar lordosis. CT/Abdomen/Pelvis WITH Contrast IMPRESSION: 1 cm adenoma in the right adrenal gland. Straightening of the normal lumbar lordosis. Electronically Signed: Ronnie Noriega, at 9:59 EDT , Service support ,
== END | disposition home or self-care (01) ==
LOC: CT 08:29
PROVIDERS: PCP Family Medicine; Referring Provider Surgery; Visit Provider Surgery
DX: R10.30 Lower abdominal pain, unspecified (principal)
CPT/HCPCS: 74177; Q9967

== ENCOUNTER → 2019-08-14 | Outpatient (CLI) | payer MEDICAID, SELFPAY ==
[2019-05-01 08:14] VITALS: BMI 23.7
[2019-08-14 11:20] VITALS: PULSE 65; PULSE 66; PULSE 81; PULSE 83; PULSE 84; PULSE 85; PULSE 86; O2SAT 95; O2SAT 96; O2SAT 97
--- NOTE | 2019-08-14 12:06 | PCM.PSN.6M ---
PSN 6 Minute Walk Test - 6 Minute Walk Test 6 Minute Walk Test: 6 Minute Walk Test PSN:6-Minute Walk Test Start: 08/14/19 11:20 Freq: Status: Active Protocol: RESP.6MINW Document 08/14/19 11:20 BRIANNA (Rec: 08/14/19 11:22 BRIANNA [id number]) 6 Minute Walk Test Date Performed 08/14/19 Time Performed 11:00 Height 5 ft 3 in Weight: 58.967 kg Weight in Pounds 130.[address]: Inga Ferrell Assistive device used: None Pre-test Oxygen Delivery Method Room Air Pulse Ox (%) 95 Pulse Rate (60-100 beats/min) 65 Dyspnea Obed Scale (0-10) 0 Exertion Obed Scale (6-20) 6 1st minute Oxygen Delivery Method Room Air Pulse Ox (%) 95 Pulse Rate (60-100 beats/min) 81 2nd minute Oxygen Delivery Method Room Air Pulse Ox (%) 96 Pulse Rate (60-100 beats/min) 83 3rd minute Oxygen Delivery Method Room Air Pulse Ox (%) 95 Pulse Rate (60-100 beats/min) 83 4th minute Oxygen Delivery Method Room Air Pulse Ox (%) 96 Pulse Rate (60-100 beats/min) 84 5th minute Oxygen Delivery Method Room Air Pulse Ox (%) 95 Pulse Rate (60-100 beats/min) 85 6th minute Oxygen Delivery Method Room Air Pulse Ox (%) 96 Pulse Rate (60-100 beats/min) 86 Dyspnea Obed Scale (0-10) 0.5 Exertion Obed Scale (6-20) 13 Post-test Oxygen Delivery Method Room Air Pulse Ox (%) 97 Pulse Rate (60-100 beats/min) 66 Full Laps Walked 22 Partial Lap, Number of Tiles Walked 52 Total Distance Walked (ft) 1350 - Interpretation Interpretation: The patient was able to ambulate 1350 feet over the course of 6 minutes on room air with no assistive devices or breaks. The patient experienced no significant desaturation or tachycardia during testing. These findings are consistent with a normal walking oximetry. - Recommendations Recommendations: No supplemental oxygen is indicated at this time.
== END | disposition home or self-care (01) ==
LOC: PSN 10:56
PROVIDERS: PCP Family Medicine; Referring Provider Nurse Practitioner Acute Care; Visit Provider Nurse Practitioner Acute Care
DX: J44.9 Chronic obstructive pulmonary disease, unspecified (principal)
CPT/HCPCS: 94618

== ENCOUNTER → 2019-08-15 | Outpatient (CLI) | payer MEDICAID, SELFPAY ==
[2019-05-01 08:14] VITALS: BMI 23.7
--- NOTE | 2019-08-15 14:25 | PFTCOMP_ITS ---
COMPLETE PULMONARY FUNCTION TEST INTERPRETATION Brief HPI: Patient is a 64 year old female, currently under the care of myself, who presents to [facility] for complete pulmonary function tests secondary to diagnosis of dyspnea. Respiratory therapist reports good effort and reproducible results. Interpretation: Forced expiration spirometry shows a moderate large airways obstructive ventilatory defect with an FEV1 of 77% predicted. There is a significant bronchodilator response in FEV1 by strict ATS criteria. Spirograms are of good quality and plateau slowly, indicating slowly emptying areas of the lungs. The respiratory flow volume loop shows decreased expiratory flow rates at all lung volumes consistent with airway obstruction. Lung volumes by body plethysmography show a normal total lung capacity at 4.23 L, 91% predicted. All other lung volumes are within normal limits. Diffusion capacity by carbon monoxide is normal at 77% predicted. The airway resistance is elevated. No previous pulmonary function tests were available for review. Impression: Fully reversible moderate large airways obstructive ventilatory defect and a pattern consistent with asthma
== END | disposition home or self-care (01) ==
LOC: PSN 12:55
PROVIDERS: PCP Family Medicine; Referring Provider Nurse Practitioner Acute Care; Visit Provider Nurse Practitioner Acute Care
DX: J44.9 Chronic obstructive pulmonary disease, unspecified (principal)
CPT/HCPCS: 94060; 94726; 94729

== ENCOUNTER 2020-02-02 12:14 | Emergency (ER) | payer MEDICAID, SELFPAY ==
[2019-11-27 14:04] VITALS: BMI 22.6
[2020-02-02 12:14] VITALS: BP 186/83; PULSE 67; RESP 18; TEMP 36.6; O2SAT 99; BMI 23.0
--- NOTE | 2020-02-02 12:31 | ED.VISSUMM ---
- ER Visit Summary Date of Service: 02/02/20 Chief Complaint: [Rash and itching] History of Present Illness: The patient is a 64 F [presents to the emergency department with suspected allergic reaction. Patient states that 2 days ago she put an old coat and about a hour later she developed a red itchy rash on her wrists.] Patient states that she felt relatively well yesterday until the evening when she started experiencing severe itching. Patient tells me that she is not had any new soaps or detergents. The only new medications are ibuprofen and amoxicillin which she has been on for a extracted tooth. Patient states that she only has 1 or 2 tablets left of the amoxicillin to take. Patient states her tooth is feeling better. Patient also complains of itching to her lips. She denies lip or throat swelling. She denies difficulty breathing. Physical Examination: [HEENT-PERRLA, EOMI. Cranial nerves II through XII grossly intact. TMs clear. Mucous membranes moist. No adenopathy. No evidence of angioedema to the oropharynx or the lips or tongue. Cardiovascular-regular rate and rhythm without murmur or ectopy Lungs-clear to auscultation, chest wall stable without crepitus or subcu emphysema Abdomen-normoactive bowel sounds, soft, nontender, no rebound or rigidity, no peritoneal signs. Skin exam-patient does have a faint slightly raised erythematous rash that is diffuse. Patient has some faint erythema to the palms. No ulcerations or vesicles noted. No purpura noted. Extremities-intact ?4, normal range of motion, normal pulses, atraumatic] Test Results: [None indicated] Emergency Department Course and Treatment: [Patient was started on prednisone and Atarax. I suspect patient likely reacting to the amoxicillin.] Treatment Plan: [Patient advised to discontinue the amoxicillin and she will be treated with prednisone and Atarax for itching. Patient advised to return if increased difficulty breathing, lip or tongue swelling, or condition should worsen anyway.] Patient advised to avoid amoxicillin and penicillin based drugs in the future. Disposition: [Discharged home in stable condition] Impression: [Drug eruption rash Allergic reaction to amoxicillin] This note was generated with [employer]en[employer] software. It may contain incorrect words, spelling, and punctuation that were not noted in review of the chart prior to signing ED Disposition - Plan for ED Patient: Referrals: Jhon Caputo III, MD [Primary Care Provider] -
--- NOTE | 2020-02-02 12:33 | ED.DEP ---
ED Disposition - Plan for ED Patient: Instructions: ED Drug Reaction, Other Prescriptions: hydrOXYzine tablet [Atarax tablet] 10 mg PO 4X/DAY PRN PRN #20 tab PRN Reason: Itching Prescription Printed Prednisone [Deltasone] 20 mg PO DAILY #10 tab Prescription Printed Referrals: John Caputo III, MD [Primary Care Provider] - 5-7 Days
[2020-02-02] MEDS: predniSONE 20 MG Tablet 40 MG PO (12:45)
[2020-02-02] MEDS: hydrOXYzine 10 MG Tablet PO (12:45)
[2020-02-02 12:57] VITALS: PULSE 72; RESP 16; O2SAT 98
== END 2020-02-02 13:04 | disposition home or self-care (01) ==
LOC: ED 13:00
PROVIDERS: Emergency Provider Emergency Medicine; PCP Family Medicine
DX: L27.0 Generalized skin eruption due to drugs and medicaments taken internally (principal); T36.0X5A Adverse effect of penicillins, initial encounter; J44.9 Chronic obstructive pulmonary disease, unspecified; Z79.51 Long term (current) use of inhaled steroids
CPT/HCPCS: 99283

== ENCOUNTER → 2020-06-24 12:35 | Outpatient (CLI) | payer MEDICAID, SELFPAY ==
[2020-03-04 15:08] VITALS: BMI 22.6
[2020-06-05 08:01] VITALS: BMI 22.6
--- NOTE | 2020-06-24 12:37 | BI_ITS ---
MAMMOGRAPHY - BILATERAL SCREENING 3-D TOMOSYNTHESIS REASON FOR EXAM: Female, 64 years old. Routine screening PERTINENT HISTORY: Mother with breast cancer.. TECHNIQUE: 2-D mammograms and 3-D Tomosynthesis of the breast (s) were performed. CAD was performed. COMPARISON: 04/14/2018 FINDINGS: The breast composition is composed of scattered fibroglandular density. Scattered benign calcifications are seen. No dense spiculated masses or suspicious microcalcifications are identified. No architectural distortion is identified. There is no skin thickening or retraction. There has been no significant change since the prior study. BI/SCRN MAMM (CAD)W/CANDY BILAT IMPRESSION: No mammographic signs of malignancy. Routine yearly mammograms recommended. ASSESSMENT CATEGORY: BIRADS Category 2: Benign. A letter regarding these results will be sent to the patient by the facility within 30 days. FOLLOW UP RECOMMENDATION: Yearly follow up mammogram recommended. (A) Approximately 10% of breast cancers are not detected by mammography. A normal mammogram should not delay biopsy of a clinically suspicious abnormality. Electronically Signed: Jose Hartley MD at 13:49 EDT , Service support ,
== END ==
PROVIDERS: PCP Family Medicine; Referring Provider Family Medicine; Visit Provider Family Medicine
DX: Z12.31 Encounter for screening mammogram for malignant neoplasm of breast (principal)
CPT/HCPCS: 77063; 77067

== ENCOUNTER → 2020-10-09 | Outpatient (CLI) | payer MEDICARE, SELFPAY ==
[2020-10-15 23:49] LABS: HPV Reflexed? NOT INDICATED
== END | disposition home or self-care (01) ==
LOC: LABSPEC 15:18
PROVIDERS: PCP Family Medicine; Visit Provider Obstetrics & Gynecology
DX: Z12.4 Encounter for screening for malignant neoplasm of cervix (principal)
CPT/HCPCS: 88175; G0145

== ENCOUNTER → 2020-12-11 12:52 | Outpatient (CLI) | payer MEDICARE, SELFPAY ==
--- NOTE | 2020-12-11 12:55 | ECHOD_ITS ---
Reason For Study: DYSPNEA/SOB Procedure This was a 2D Doppler, Color Flow transthoracic echocardiogram. The study was technically difficult. PT struggled with arthritic pain throughout exam and had difficulty tolerating probe pressure. Exam performed in department. Left Ventricle Normal LV size. Left ventricular systolic function is normal. The estimated ejection fraction is 60 %. No evidence for diastolic dysfunction. No regional wall motion abnormalities noted. Right Ventricle Normal RV size. Normal systolic function. Atria Normal left atrium. Normal right atrium. No doppler evidence for ASD. Mitral Valve There is no mitral annular calcification. Normal mitral valve. Mild (1+) mitral valve insufficiency. Tricuspid Valve Normal tricuspid valve. Mild tricuspid valve insufficiency. Right ventricular systolic pressure estimated to be 21 mmHg. Aortic Valve Trisinus/trileaflet aortic valve. Normal aortic valve. Mild (1+) aortic valve insufficiency. Pulmonic Valve The pulmonic valve is not well visualized. Great Vessels Normal sized aortic root. Pericardium/Pleural No pericardial effusion. MMode/2D Measurements & Calculations LVIDd: 4.2 cm IVSd: 0.93 cm Ao root diam: 3.1 cm LVIDs: 2.6 cm LVPWd: 0.86 cm RVDd: 3.2 cm FS: 38.9 % LAV(MOD-bp): 38.3 ml LA A4 area: 15.2 cm2 LA dimension(2D): 2.7 cm LAV(MOD-bp) Indexed: 24.2 ml/m2 LAV(MOD-sp2): 38.1 ml LAV(MOD-sp4): 38.3 ml RA A4 area: 12.6 cm2 Time Measurements MV dec time: 0.21 sec Doppler Measurements & Calculations MV E max kelvin: 56.2 cm/sec Lat Peak E' Kelvin: 6.7 cm/sec Med Peak E' Kelvin: 5.7 cm/sec MV A max kelvin: 60.3 cm/sec E/E' lat: 8.4 E/E' med: 9.9 MV E/A: 0.93 Ao V2 max: 119.8 cm/sec AI max kelvin: 413.8 cm/sec LV V1 max: 104.0 cm/sec Ao max P.7 mmHg AI max P.5 mmHg LV V1 max P.3 mmHg AI dec slope: 158.9 cm/sec2 AI P1/2t: 763.0 msec PA V2 max: 83.5 cm/sec TR max kelvin: 211.3 cm/sec TR max P.9 mmHg ECHO/Echo Complete Interpretation Summary The study was technically difficult. Left ventricular systolic function is normal. The estimated ejection fraction is 60 %. Mild (1+) mitral valve insufficiency. Mild tricuspid valve insufficiency. Mild (1+) aortic valve insufficiency. Right ventricular systolic pressure estimated to be 21 mmHg. No evidence for diastolic dysfunction. Ordering Physician: Shahzad Garay Referring Physician: Richie Forde Performed By: Tracey Beckwith RDCS, RVT
== END ==
PROVIDERS: PCP Family Medicine; Referring Provider Internal Medicine Critical Care Medicine; Visit Provider Internal Medicine Critical Care Medicine
DX: J96.01 Acute respiratory failure with hypoxia (principal); R06.02 Shortness of breath; R06.00 Dyspnea, unspecified
CPT/HCPCS: 93306

== ENCOUNTER → 2020-12-30 09:39 | Outpatient (CLI) | payer MEDICARE, SELFPAY ==
--- NOTE | 2020-12-30 14:00 | PFTCOMP_ITS ---
COMPLETE PULMONARY FUNCTION TEST INTERPRETATION Brief HPI: Patient is a 65 year old female, currently under the care of myself, who presents to [facility] for complete pulmonary function tests secondary to diagnosis of asthma. Respiratory therapist reports good effort and reproducible results. Interpretation: Forced expiration spirometry shows no large airways obstructive ventilatory defect with an FEV1 of 74% predicted. There is no significant bronchodilator response by strict ATS criteria. Spirograms are of good quality and plateau slowly, indicating slowly emptying areas of the lungs. The respiratory flow volume loop shows decreased expiratory flow rates at high lung volumes co nsistent with small airways obstruction. Lung volumes by body plethysmography show a slightly decreased total lung capacity at 3.8 L, 82% predicted. All other lung volumes are reduced symmetrically. Diffusion capacity by carbon monoxide is normal at 77% predicted. The airway resistance is elevated. Compared to previous pulmonary function tests from 08/15/2019, there has been no significant change. Impression: Grossly normal pulmonary function test with some stigmata of small airways disease. There has been no significant change compared to 2019.
== END ==
PROVIDERS: PCP Family Medicine; Referring Provider Internal Medicine Critical Care Medicine; Visit Provider Internal Medicine Critical Care Medicine
DX: J45.40 Moderate persistent asthma, uncomplicated (principal)
CPT/HCPCS: 94060; 94726; 94729

== ENCOUNTER → 2021-07-15 | Outpatient (CLI) | payer MEDICARE, SELFPAY ==
--- NOTE | 2021-07-15 11:57 | BI_ITS ---
MAMMOGRAPHY - BILATERAL SCREENING REASON FOR EXAM: Female, 65 years old. Routine annual screening examination. PERTINENT HISTORY: Mother with breast cancer. Aunts with breast cancer. TECHNIQUE: Digital bilateral breast candy (3D mammographic acquisition) in the CC and MLO projections. 2-D mediolateral oblique (MLO) and craniocaudad (CC) views of both breasts were obtained. CAD: Full Field Digital Mammography with Computer Added Detection was performed. COMPARISON: Comparison is made with prior study dated 06/24/2020 and 04/26/2019. FINDINGS: Breast Composition: There are scattered areas of fibroglandular density. There are no dominant masses or suspicious calcifications. Stable small benign-appearing bilateral axillary lymph nodes. Once again, a tissue clip marker is seen in the deep upper slightly medial aspect of the right breast. No other significant abnormalities are identified. There has been no significant change since the prior study. BI/SCRN MAMM (CAD)W/CANDY BILAT IMPRESSION: Stable bilateral screening mammogram. Yearly follow-up mammogram recommended. (A) ASSESSMENT CATEGORY: BIRADS Category 2: Benign. A letter regarding these results will be sent to the patient by the facility within 30 days. Approximately 10% of breast cancers are not detected by mammography. A normal mammogram should not delay biopsy of a clinically suspicious abnormality. [id number] Electronically Signed: Ronnie Noriega MD at 13:39 EDT ,
== END | disposition home or self-care (01) ==
LOC: OPBI 11:55
PROVIDERS: PCP Family Medicine; Visit Provider Family Medicine
DX: Z12.31 Encounter for screening mammogram for malignant neoplasm of breast (principal); Z85.3 Personal history of malignant neoplasm of breast
CPT/HCPCS: 77063; 77067

== ENCOUNTER 2021-11-01 10:57 | Emergency (ER) | payer MEDICARE, SELFPAY ==
[2021-11-01 10:58] VITALS: BP 143/76; PULSE 71; RESP 16; TEMP 36; O2SAT 100; BMI 22.0
--- NOTE | 2021-11-01 11:43 | CT_ITS ---
STUDY: CT ABDOMEN AND PELVIS WITH CONTRAST REASON FOR EXAM: Female, 66 years old. Left lower quadrant pain RADIATION DOSAGE (If Supplied By Facility): CTDIvol = ( 15.25 ) mGy, DLP = ( 338.69 ) mGycm TECHNIQUE: Transaxial images were obtained from the dome of the diaphragm to the symphysis pubis without oral contrast. IV 100mL Isovue-370 was administered. Sagittal and coronal images were reconstructed. Individualized dose optimization techniques were used for this CT. COMPARISON: 04/27/2019 FINDINGS: The visualized lung bases are unremarkable. The visualized portions of the heart are within normal limits. Small cyst in the left lower the liver unchanged. Normal gallbladder and extrahepatic biliary system. Normal spleen. Normal pancreas. There is a small, circumscribed, smooth, low attenuation right adrenal mass, consistent with an adrenal adenoma measuring about 1 cm unchanged. Normal left adrenal gland. Normal right kidney. Normal left kidney. Normal visualized stomach. Normal small intestine. Mild thickening and inflammatory changes of the proximal sigmoid colon consistent with diverticulitis. No evidence of drainable abscess. Adjacent mild free fluid. The appendix is visualized and appears normal. Normal abdominal aorta. Normal inferior vena cava. Normal retroperitoneum. Normal urinary bladder. Probable small right inguinal hernia containing fat. No demonstrated acute osseous changes. CT/Abdomen/Pelvis W IV Cont ONLY IMPRESSION: Mild thickening and inflammatory changes of the sigmoid colon with adjacent mild fluid consistent with acute diverticulitis. No evidence of drainable abscess or free air. Otherwise no focal acute inflammatory process. Stable right adrenal adenoma. Electronically Signed: Alvaro Donovan MD at 13:07 EDT ,
--- NOTE | 2021-11-01 11:44 | EDS_ITS ---
HPI History of Present Illness Chief Complaint: Abd Pain Informant: patient Narrative Narrative: 66-year-old female presenting to the emergency room with the chief complaint of abdominal pain. She notes the pain is in the left lower quadrant. Symptoms been present for approximately 4 days. She notes constipation which is not exactly abnormal for her but has been more pronounced in the past few days. No blood in the stool. She states that she has not had any vomiting or fevers. She has had prior colonoscopy and states that that was normal. She notes an allergy to penicillin but that has been questioned recently through allergy testing. [facility] Medical History Acute respiratory failure with hypoxia COPD (chronic obstructive pulmonary disease) Respiratory failure Screening for intestinal cancer Home Medications citalopram 10 mg tablet 20 mg PO DAILY 12/18/13 [History Last Taken Unknown] lorazepam 0.5 mg tablet 0.5 mg PO DAILY PRN PRN Anxiety 12/18/13 [History Last Taken Unknown] hydroxyzine HCl 10 mg tablet 10 mg PO 4X/DAY PRN PRN Itching #20 tabs 02/02/20 [ Rx Last Taken Unknown] montelukast 5 mg chewable tablet 10 mg PO DAILY #180 tabs 02/27/21 [Rx Last Taken Unknown] budesonide-formoterol HFA 80 mcg-4.5 mcg/actuation aerosol inhaler 2 inh inhalation BID #10.2 grams 03/04/21 [Rx Last Taken Unknown] meclizine 25 mg tablet 25 mg PO TID PRN dizziness 08/20/21 [History Last Taken Unknown] simvastatin 20 mg tablet 20 mg PO DAILY 08/20/21 [History Last Taken Unknown] Allergy/AdvReac Type Severity Reaction Status Date / Time amoxicillin Allergy Intermediate Rash Verified 11/01/21 10:58 Sulfa (Sulfonamide Allergy not known Verified 11/01/21 10:58 Antibiotics) zolpidem [From Ambien] Allergy Unknown Verified 11/01/21 10:58 Family History Aunt Cancer Breast Surgical History Hx of rotator cuff surgery Social History (Updated 11/01/21 @ 11:[address] Aaron Poon, DO) current gender identity: female Smoking Status: Current every day smoker tobacco type: cigarettes Tobacco: How many years used: 40 ROS ROS ED Constitutional Constitutional ED: Denies chills or weight loss Eyes Eyes: Denies change in vision or diplopia ENT ENT ED: Denies ear pain, rhinorrhea or sore throat Cardiovascular Cardiovascular: Denies chest pain, orthopnea, palpitations or racing heartbeat Respiratory/Chest Respiratory/Chest: Denies cough, dyspnea or orthopnea Gastrointestinal Gastrointestinal: Reports abdominal pain and constipation; Denies diarrhea, nausea or vomiting Genitourinary Genitourinary ED: Denies dysuria, hematuria or urinary frequency Musculoskeletal Musculoskeletal: Denies arthralgias or myalgias Integumentary Denies abscess or rash Neurologic Neurologic: Denies headache(s) or weakness Psychiatric Psychiatric: Denies anxiety, depression, suicidal ideation or suicidal thoughts Endocrine Endocrinology: Denies polydipsia, polyphagia or polyuria Allergic/Immunologic Allergic/Immunologic ED: Denies mouth swelling, tongue swelling or urticaria EXAM Physical Exam Const Vital Signs: 11/01/21 10:58 Temperature 96.8 F L Temperature Source Temporal Pulse Rate 71 Respiratory Rate 16 Blood Pressure 143/76 H Blood Pressure Mean 98 Pulse Ox 100 Oxygen Delivery Method Room Air Positive well nourished and well developed General Appearance ED: well developed HEENT Reports normocephalic, head/scalp atraumatic and moist mucous membranes Eyes PERRL and EOMs intact bilaterally Neck no lymphadenopathy, supple and no JVD Resp normal respiratory effort and clear to auscultation bilaterally Cardio regular rate, regular rhythm and no murmurs GI Auscultation: normoactive bowel sounds Palpation: soft and tender LLQ; Negative for guarding or rebound tenderness present Back/Spine no CVA tenderness and normal ROM Extremity normal to inspection General Extremety ED: Negative for edema General Extremity: Negative for edema Neuro oriented x3 and CN's II-XII intact bilaterally Sensorium / Orientation: alert Motor Exam: strength 5/5 throughout Psych mental status grossly normal Mood & Affect: Negative for depressed or tearful Skin no rashes or lesions noted and no wounds Discharge Plan Triage Chief Complaint: Abd Pain ED Provider: Aaron Poon Dx/Rx/DC Orders Prescriptions: No Action montelukast 5 mg tablet,chewable 10 mg PO DAILY Qty: 180 3RF meclizine 25 mg tablet 25 mg PO TID PRN (Reason: dizziness) simvastatin 20 mg tablet 20 mg PO DAILY citalopram 10 MG tablet 20 mg PO DAILY lorazepam 0.5 MG tablet 0.5 mg PO DAILY PRN PRN (Reason: Anxiety) hydroxyzine HCl 10 MG tablet 10 mg PO 4X/DAY PRN PRN (Reason: Itching) Qty: 20 0RF budesonide-formoterol 80-4.5 mcg/actuation HFA aerosol inhaler 2 inh inhalation BID Qty: 10.2 6RF Primary Care Provider: Juan Manuel Forde Referrals: Juan Manuel Forde MD [Primary Care Provider] -
[2021-11-01 11:58] LABS: Absolute Lymphocyte Count 2.19 X10^3/uL (0.83-4.51); Absolute Neutrophil Count 8.7 X10^3/uL (2.0-7.7); Basophil# 0.03 X10^3/uL; Basophil% 0.3 % (0-1); Eosinophil# 0.06 X10^3/uL; Eosinophils% 0.5 % (0-5); Hematocrit 39.9 % (37-47); Hemoglobin 13.4 g/dL (12.0-15.0); Lymphocyte # 2.19 X10^3/ul (0.83-4.51); Lymphocyte % 18.6 % (19-41); Mean Corp Hgb Conc 33.6 g/dL (32-36); Mean Corpuscular Hgb 32.6 pg (27.0-32.0); Mean Corpuscular Volume 97.1 fL (81-99); Mean Platelet Vol. 9.6 fl (6.2-12.0); Monocyte# 0.78 X10^3/uL; Monocyte% 6.6 % (0-10); NRBC Flagged by Analyzer 0 % (0-5); Neutrophil # 8.69 X10^3/uL (2.7-7.7); Neutrophil % 73.7 % (47-70); Platelet Count 278 K/mm3 (150-450); RBC Distribution Width CV 12.5 % (11.6-14.6); RBC Distribution Width SD 45.1 fl (35.1-43.9); Red Blood Count 4.11 M/mm3 (4.2-5.4); White Blood Count 11.8 K/mm3 (4.4-11.0)
[2021-11-01 12:10] LABS: ALB/GLOB Ratio 1.1 RATIO (0.9-2.4); AST(SGOT) 20 U/L (15-37); Alanine Aminotransfer ALT/SGPT 45 U/L (13-56); Alkaline Phosphatase 96 U/L (45-117); Anion Gap 8 (5-15); BUN 15 mg/dL (7-18); Calcium,Total 9.6 mg/dL (8.5-10.1); Chloride 104 mmol/L (98-107); Creatinine, Serum 0.75 mg/dL (0.55-1.02); EST Glomerular Filtration Rate 82 mL/min (>60); Est Glom Filt Rate - Afr Amer 99 mL/min (>60); Estimated Creatinine Clearance 45.78 ml/min; Globulin 3.5 g/dL (2.2-4.2); Glucose 113 mg/dL (74-106); Lipase 75 U/L (73-393); Potassium 3.7 mmol/L (3.5-5.1); Protein, Total 7.5 g/dL (6.4-8.2); Sodium Level 138 mmol/L (136-145)
[2021-11-01 12:15] LABS: Bacteria 0 SEEN /hpf (None Seen); Mucous, Urine 0 SEEN /hpf (<or=2+); Red Blood Cells-Urine 0 SEEN /hpf (0-5); Squamous Epithelial Cells - UA 0 SEEN /hpf (5-10); White Blood Cells 0 SEEN /hpf (0-5)
[2021-11-01 12:22] LABS: Color, Urine Yellow (Yellow); Glucose, Dipstick Normal (Normal); Ketone-Dipstick Negative (Negative); Leukocyte Esterase-Dipstick Negative /ul (Negative); Nitrite-Dipstick Negative (Negative); Occult Blood-Urine Negative /ul (Negative); Protein-Dipstick Negative (Negative); Specific Gravity, Urine 1.005 (1.002-1.030); Urine Bilirubin Dipstick Negative (Negative); Urine Clarity Clear (Clear); Urine Urobilinogen Normal (Normal)
[2021-11-01 13:35] VITALS: BP 134/78; PULSE 82; RESP 15; O2SAT 98
== END 2021-11-01 13:36 | disposition home or self-care (01) ==
PROVIDERS: Emergency Provider Emergency Medicine; PCP Family Medicine; Visit Provider Emergency Medicine
DX: R10.32 Left lower quadrant pain (principal); J44.9 Chronic obstructive pulmonary disease, unspecified; F17.210 Nicotine dependence, cigarettes, uncomplicated; K59.00 Constipation, unspecified
CPT/HCPCS: 74177; 80053; 81001; 83690; 85025; 99283; Q9967; A4216

== ENCOUNTER 2021-12-08 15:58 | Observation (INO) | payer MEDICARE, SELFPAY ==
--- NOTE | 2021-11-26 12:20 | EKG12_ITS ---
Test Reason : PRE OP Blood Pressure : / mmHG Vent. Rate : 059 BPM Atrial Rate : 059 BPM P-R Int : 168 ms QRS Dur : 078 ms QT Int : 420 ms P-R-T Axes : 078 059 062 degrees QTc Int : 415 ms Sinus bradycardia Otherwise normal ECG Confirmed by FELIZ FREY, BRAYDEN ([id number]), assignment editor GOLDIE BERGER ([id number]) on 11/27/2021 12:44:46 PM Referred By: Balaji Auguste Confirmed By:BRAYDEN PIPER MD
[2021-11-26 12:28] LABS: Absolute Lymphocyte Count 1.92 X10^3/uL (0.83-4.51); Absolute Neutrophil Count 4.5 X10^3/uL (2.0-7.7); Basophil# 0.04 X10^3/uL; Basophil% 0.6 % (0-1); Eosinophils% 1.4 % (0-5); Hematocrit 38.4 % (37-47); Hemoglobin 13.3 g/dL (12.0-15.0); Lymphocyte # 1.92 X10^3/ul (0.83-4.51); Lymphocyte % 27.2 % (19-41); Mean Corp Hgb Conc 34.6 g/dL (32-36); Mean Corpuscular Hgb 33.2 pg (27.0-32.0); Mean Corpuscular Volume 95.8 fL (81-99); Mean Platelet Vol. 9.1 fl (6.2-12.0); Monocyte# 0.51 X10^3/uL; Monocyte% 7.2 % (0-10); NRBC Flagged by Analyzer 0 % (0-5); Neutrophil # 4.47 X10^3/uL (2.7-7.7); Neutrophil % 63.2 % (47-70); Platelet Count 226 K/mm3 (150-450); RBC Distribution Width CV 12.8 % (11.6-14.6); RBC Distribution Width SD 45.4 fl (35.1-43.9); Red Blood Count 4.01 M/mm3 (4.2-5.4); White Blood Count 7.1 K/mm3 (4.4-11.0)
--- NOTE | 2021-11-26 12:40 | RAD_ITS ---
STUDY: X-RAY CHEST REASON FOR EXAM: Female, 66 years old. Pre-op for abdominal surgery TECHNIQUE: PA and lateral views of the chest. COMPARISON: 04/11/2019 FINDINGS: The lungs are clear and expanded. There is no demonstrated pleural abnormality. Normal size heart. Normal mediastinum and ingrid. Normal visualized pulmonary arteries. Normal visualized aortic arch and descending thoracic aorta. Normal visualized thoracic spine. Normal visualized ribs, clavicles, and shoulders. There is no demonstrated abnormality of the visualized soft tissue structures of the upper abdomen. RAD/Chest PA and Lateral IMPRESSION: Normal x-ray examination of the chest. Electronically Signed: Jose Hartley MD at 12:55 EDT ,
[2021-11-26 12:54] LABS: Anion Gap 8 (5-15); BUN 18 mg/dL (7-18); BUN/Creat Ratio 20.6 RATIO (10-20); Calcium,Total 9.1 mg/dL (8.5-10.1); Chloride 105 mmol/L (98-107); Creatinine, Serum 0.87 mg/dL (0.55-1.02); EST Glomerular Filtration Rate 69 mL/min (>60); Est Glom Filt Rate - Afr Amer 83 mL/min (>60); Glucose 110 mg/dL (74-106); Sodium Level 138 mmol/L (136-145)
[2021-12-08] VITALS (16 sets, daily range): BP systolic 99–138; BP diastolic 46–83; PULSE 56–103; RESP 16–18; TEMP 36.2–36.6; O2SAT 96–100; BMI 21.8
[2021-12-08] MEDS: Lactated Ringers 1,000 ML 15 ML IV (10:40)
[2021-12-08 11:25] LABS: Bedside Glucose 92 mg/dL (74-106)
[2021-12-08] MEDS: Magnesium 1 GM over 15 mins IV (11:25)
[2021-12-08] MEDS: Scopolamine 1mg/72hr Patch 1 PATCH TD (11:26)
[2021-12-08] MEDS: Acetaminophen 500 MG Tablet 1000 MG PO (11:28)
[2021-12-08] MEDS: Ipratropium/Albuterol Sulfate 3 ML AMPUL.NEB INHALATION (12:04)
--- NOTE | 2021-12-08 13:00 | FEM_PTH ---
PATIENT: SAKINA JASON LOC: MS3 U#:[id number] AGE/SX: 66/F ROOM: [facility] RE12/08/[address]: Dr. Balaji Auguste MD : 1955 BED: 1 DIS: 12/09/2021 SPEC #: [id number] RECD: 12/09/21 08:26 STATUS: IGOR REReza #: [id number] REECE: 12/08/21 13:[address]: Balaji Auguste DEPT: SURGICAL PATHOLOGY RECD BY: Evelin Knutson ENTERED: 12/09/21 08:52 SP TYPE: FEM HEAD OTHR DR: MD Dr. Luis Maria MD Tissues: Femoral region, NOS Procedures: Decalcification bone/plaque Surgery Specimen Level IV HEADER OPERATION: ERAS, total hip replacement PRE-OP DIAGNOSIS: Right hip grade 4 primary osteoarthritis TISSUE SUBMITTED: Right femoral head MICROSCOPIC DIAGNOSIS Right femoral head, total hip resection: Severe degenerative joint disease. AM:rei 12/12/2021 MICROSCOPIC DESCRIPTION Slides are reviewed. GROSS DESCRIPTION Received is one container labeled with the patient's name and designated right femoral head. The specimen consists of a slightly deformed hermosillo femoral head measuring 5 x 4 x 4 cm. The articular surface displays prominent osteophyte formation, eburnation and bone erosion. Also present in the specimen container are multiple irregular fragments of bone reamings measuring in aggregate 7 x 6 x 1 cm. Tumor Registrar sections are submitted in two cassettes as follows: 1 - bone reamings, 2 - bone after decalcification. / AM:rei 12/09/2021 TC:5 CPT: 29441, 84493
--- NOTE | 2021-12-08 13:47 | SUR.PREOP ---
update given about surgery delay
[2021-12-08] MEDS: Cefazolin 2 GM in 0.9% Normal Saline 100 ML IV (14:02)
[2021-12-08] MEDS: TXA 1000mg in NS100 100ml (IVPB at Incision) 660 MG IV (14:14)
[2021-12-08] MEDS: TXA 1000mg in NS100 100ml (IVPB at Closure) 660 MG IV (15:15)
--- NOTE | 2021-12-08 15:23 | OP.PCM_ITS ---
Operative Report Date of Procedure: 12/08/21 Preoperative diagnosis: [Right] hip primary osteoarthritis Postoperative diagnosis: Same Operation: [Right] total hip replacement surgery Surgeon: Dr. Balaji Auguste MD Licensing Director: Ciarra Morris PA-C Second certified medical assistant or nurse Anesthesia: Spinal Anesthesiologist Dr. Ndiaye/EFREN Special medications: 2 gm IV [Ancef], IV Tranexamic acid Indications for surgery : Patient is a [ 66]-year-old female with a long- standing history of [right] severe hip pain that has failed adequate no noperative treatment. Due to persistent pain and disability, they decided to proceed with hip replacement surgery. Appropriate informed consent was obtained and signed. Appropriate medical workup was performed preoperatively and patient was deemed safe for surgery by the anesthesia department as well. assistant construction superintendent, physician certified medical assistant, was utilized throughout the entire procedure. They were vital in helping with patient positioning, holding of retractors, exposing the tissues adequately for safe completion of the procedure including cutting of the bone, helping architectural drafter appropriate alignment and sizing of the components, implantation of the components, as well as wound closure, bandage application, and safe patient transfer. Without surgical assist, physician certified medical assistant, surgical time would have been significantly increased, and surgical outcome would have been less optimal. Operative findings: Patient had severe arthritis of the involved hip joint. They underwent a small posterior approach to the hip. We utilized a size [5 press-fit Accolade 2 stem] 127 degree neck angle, a press fit acetabular component size [50] titanium cluster, Trident X3 polyethylene liner with a 36 mm inner diameter, a Biolox ceramic femoral head size [36] with a +0 neck length. 6.5 mm x 25 mm screw in the acetabular component. This reproduced their anatomy nicely. Clinically good leg lengths were noted. Good hip stability through range of motion with no undue pistoning. Standard wound closure in layers, followed by maldonado, followed by Mepilex dressing Details of procedure: Patient was taken to the operating room and transferred to the operating table. Given appropriate anesthetic agent by that department. Patient was then rolled into a lateral decubitus position with the involved painful hip up in the air. Appropriate timeouts had been performed. Hip had been appropriately marked with my initials. Padded anterior and posterior position was utilized. Axillary roll placed. ANITA hose and SCDs on the nonoperative limb utilized throughout the procedure. Tranexamic acid and IV antibiotics given preoperatively. Operative lower extremity was prepped padded and draped in the usual orthopedic sterile fashion for the procedure. I injected the pain relieving solution in the standard sterile technique of the soft tissues of the hip carefully. Incision was made curving over the tip of the greater trochanter posteriorly. Full thickness skin flaps are raised down on the fascia kirsten. Fascia kirsten was opened in length with our incision. Charnley self-retaining hip retractor was carefully placed by the surgeon. Leg was appropriately rotated and held by the certified medical assistant. Retractor was used to lift the abductors anteriorly to visualize the piriformis tendon and external rotators. Area was infiltrated with pain relieving cocktail. Piriformis tendon and external rotators released off the greater trochanter with the Bovie. Tagging suture was placed in each of these separately. We then split the tissue superior to the piriformis tendon through capsule and onto the pelvis. Acetabular labrum was also divided. With traction and manipulation arthritic femoral head was dislocated from the acetabulum. Retractors were carefully placed around the femoral neck. Cutting guide was utilized to map out the proposed cut approximately 1 fingerbreadth above the lesser trochanter. This femoral neck cut was carried out with a saw. Arthritic femoral head removed and measured and inspected. Inferior acetabular retractor was placed by the surgeon, held by the certified medical assistant. Bone hook utilized to pull the proximal femur anteriorly. Labrum removed from about the acetabulum a long knife. Tissue removed from the depth of the acetabulum with the Bovie. Arthritic acetabulum was noted. We began reaming with the appropriate sized reamer based on the measurement of the femoral head. Reaming was done with 45? of abduction, 20? of anteversion, reproducing there anatomy. Reaming was done incrementally up to the appropriate size creating a smooth cylindrical acetabulum and was done down to healthy bone. Trial acetabular component 1 millimeters smaller than the largest reamer was utilized with the outrigger device. Appropriate abduction and anteversion confirmed as well as size and position of cup. We irrigated with bulb syringe saline. Appropriate acetabular opponent was opened and hammered into position with the outrigger device, with 45? of abduction and 20 degrees of anteversion. We could see through the hole in the cup it was ad equately down onto the bone in the pelvis. Good stability was noted. 1 acetabular bone screw was placed to further stabilize the cup. trial liner was appropriately positioned. Acetabular retractors removed. A proximal femoral elevator utilized. Held by the certified medical assistant. We used a sharp awl entering down inside the bone of the proximal femur. Utilized the teresa cutting osteotome in the proximal lateral greater trochanteric region. The fragment removed. Broaching was then done from the smallest broach, upto the appropriate size. Good stability was confirmed. We then trialed the construct with a standard neck length and appropriate sized femoral head on 127? angle neck. We were happy with the construct. Good stability to flexion, rotation by the certified medical assistant. At this point trials removed. I now placed the appropriate polyethylene acetabular liner into a clean dry previously placed shell. This was hammered into position. Suction device was used to confirm its stability. We now exposed the proximal femur with appropriate retractors in place, held by the certified medical assistant, actual femoral stem was checked, opened, and then hammered into the proximal femur and seated down to a similar position as the trial had. We now again trialed appropriate neck length upon. It was then opened. Now impacted the appropriate sized femoral head, neck construct onto the clean dried trunion. Was noted to be stable. Hip was inspected, and joint was reduced for a final time. Good hip stability and leg lengths noted. This was then irrigated with saline and cleaned. Next the remainder of the pain relieving solution was injected carefully throughout the soft tissues of the hip joint. Closure was carried out with a combination of #1 Vicryl, running #2 strata fix in the fascia kirsten, followed by mid layer #1 Vicryl with #1 strata fix running. Next running 0 strata fix, followed by skin maldonado, Xeroform, Mepilex dressing. We placed ANITA hose and SCD on the operative leg. Patient awoken from the anesthetic and transferred back to room bed in recovery room in satisfactory condition. Patient will be brought into the hospital for pain management, PT, IV antibiotics, medication for DVT prevention. Hospitalist consulted for postoperative medical management. Hopeful discharge to home tomorrow Ancef 2 g IV was given preoperatively. We will plan aspirin 81 mg chew twice daily for 1 month for DVT prevention. This note was generated with [employer] dictation software. It may contain incorrect words, spelling, and punctuation that were not noted in checking the note before signing.
--- NOTE | 2021-12-08 15:55 | RAD_ITS ---
STUDY: X-RAY - PELVIS AND RIGHT HIP REASON FOR EXAM: Female, 66 years old. Post Op -- AP both hips on single conrad/lateral of op hip PACU TECHNIQUE: 2 views of the pelvis and hip. COMPARISON: None. FINDINGS: Status post right hip replacement. Acetabular and femoral components are in situ. Alignment is anatomic. Postsurgical changes include soft tissue gas and skin maldonado. Left hip shows no fracture or dislocation. Normal hip joint. Phleboliths in the pelvis. Soft tissues and bony structures are otherwise unremarkable. RAD/Hip Min 2 Views (Portable) IMPRESSION: Anatomic alignment status post right hip replacement. Electronically Signed: Nuria Palacios MD at 17:21 EDT Reading Location ID and State: [id number] / Tel , Service support ,
--- NOTE | 2021-12-08 16:54 | CON.PCM.HO_ITS ---
Assessment & Plan Assessment/Plan (1) Arthritis of right hip: PLAN: Plan The patient is a 66 y/o F w/ PMHx: HLD, Asthma/COPD, Tobacco use, BPPV, Anxiety and Depression, OA, RLS, GERD who presents to the [facility] on 12/08/21 secondary to severe ongoing right hip osteoarthritis which failed outpatient conservative th erapies and interventions for planned right total hip replacement per Dr. Auguste. #1. Severe Osteoarthritis, right hip: Failed conservative therapies and treatments, admitted per Dr. Aguuste for planned 12/08/2021 right total hip replaced, post-operative pain management, bowel regimen, DVT Prophylaxis, PT/OT/CM per Orthopedic surgery discretion. #2. Chronic COPD/Asthma with allergic rhinitis: Continue patient budesonide aerosols with as needed albuterol as needed, encourage HOB, IS parameters, continue patient home montelukast regimen. #3. Tobacco Abuse: Patient with recently decreased tobacco intake over the last several weeks in preparation for surgery, no cigarette usage at all for the last week, encouraged continued cessation, inpatient consultation per RT, NR if desired. #4. Anxiety and depression: We will continue patient home citalopram and hydroxyzine regimen. #5. Restless leg syndrome: From current list not any chronic regimen, if necessary may add Mirapex. #6. Hyperlipidemia: We will continue patient on statin therapy. #7. DVT prophylaxis: SCDs, chemoprophylaxis per surgery discretion given recent OR. HPI Consult Data Date of Consult: 12/08/21 HPI Narrative Reason for Consultation: Medical consultation. HPI Narrative: The patient is a 66 y/o F w/ PMHx: HLD, Asthma/COPD, Tobacco use, BPPV, Anxiety and Depression, OA, RLS, GERD who presents to the [facility] on 12/08/21 secondary to severe ongoing right hip osteoarthritis which failed outpatient conservative therapies and interventions for planned right total hip replacement per Dr. Auguste. In PACU patient denies any pain however spinal effects are still ongoing with diminished sensation and movement ability to bilateral lower extr emity. Patient tolerating ice chips and liquids without issue. Hospitalist service requested medical management consultation. [facility] Medical History (Updated 12/08/21 @ 17:[address] Latia Green MD) Acute respiratory failure with hypoxia Ambulates with cane Anxiety and depression Arthritis Asthma Benign paroxysmal positional vertigo COPD (chronic obstructive pulmonary disease) Difficulty swallowing GERD (gastroesophageal reflux disease) History of pain when walking HLD (hyperlipidemia) Injury of head and neck Loss of hearing Migraine headache Post-menopausal Restless legs Smoker Tortuous colon Vasovagal episode Vertigo Wears glasses Home Medications citalopram 10 mg tablet 20 mg PO DAILY 12/18/13 [History Last Taken Unknown] budesonide-formoterol HFA 80 mcg-4.5 mcg/actuation aerosol inhaler 2 inh inhalation BID #10.2 grams 03/04/21 [Rx Last Taken Unknown] meclizine 25 mg tablet 25 mg PO TID PRN dizziness 08/20/21 [History Last Taken Unknown] simvastatin 20 mg tablet 40 mg PO DAILY 08/20/21 [History Last Taken Unknown] albuterol sulfate 90 mcg/actuation aerosol inhaler 1 inh inhalation Q6H PRN SOB 11/24/21 [History Last Taken Unknown] hydroxyzine HCl 10 mg tablet 25 mg PO 4X/DAY PRN PRN Anxiety 11/24/21 [History Last Taken 12/08/21] montelukast 5 mg chewable tablet 10 mg PO QHS 11/24/21 [History Last Taken Unknown] Allergy/AdvReac Type Severity Reaction Status Date / Time amoxicillin Allergy Intermediate Rash Verified 12/08/21 11:04 Sulfa (Sulfonamide Allergy not known Verified 12/08/21 11:04 Antibiotics) zolpidem [From Ambien] Allergy Unknown Verified 12/08/21 11:04 Family History (Updated 12/08/21 @ 16:[address] Latia Green MD) Aunt Cancer Breast Mother Heart disease Father COPD (chronic obstructive pulmonary disease) Concurrent tobacco use history. Liver cancer Unclear if was metastatic, was not worked up. Surgical History (Updated 12/08/21 @ 16:[address] Latia Green MD) History of total right hip replacement Hx of colonoscopy Hx of rotator cuff surgery Social History (Updated 12/08/21 @ 16:[address] Latia Green MD) Smoking Status: Current every day smoker tobacco type: cigarettes Tobacco: How many years used: 40 how long ago did patient quit smoking: Decreased chronic 1ppd->2-3 cig x 4-6 weeks, now no cig x 1 week. substance use type: does not use ROS ROS Narrative Admission Review of Systems: CONSTITUTIONAL: No weight loss, fever, chills, + weakness or fatigue. HEENT: Eyes: No visual loss, blurred vision, double vision or yellow sclerae. Ears, Nose, Throat: No hearing loss, sneezing, congestion, runny nose or sore throat. SKIN: + s/p R THR, dressing in place, no drainage. CARDIOVASCULAR: No chest pain, chest pressure or chest discomfort, palpitations, edema, orthopnea, syncopal events. RESPIRATORY: + Chronic nonproductive cough. No shortness of breath, wheezing, hemoptysis. GASTROINTESTINAL: + Chronic swallowing issues. No anorexia, nausea, vomiting or diarrhea, abdominal pain, melena, BRBPR. GENITOURINARY: No dysuria, frequency, urgency or retention. NEUROLOGICAL: + Currently s/p spinal--lack of sensation BL LE, focal weakness associated. No headache, dizziness, syncope, change in bowel or bladder control, seizure. MUSCULOSKELETAL: + muscle, back pain, joint pain or stiffness. HEMATOLOGIC: No anemia, bleeding or bruising. LYMPHATICS: No enlarged nodes. No history of splenectomy. PSYCHIATRIC: + history of depression or anxiety. ENDOCRINOLOGIC: No reports of sweating, cold or heat intolerance. No polyuria or polydipsia. ALLERGIES: + history of asthma. Physical Exam Narrative Physical Examination: General: Awake, alert, oriented x 3 and cooperative, seated upright in the PACU bed, NAD, denies pain but still has effects of spinal. Skin: Normal color, normal turgor, no icterus, no cyanosis except for right hip with incision status post right total hip replacement with no drainage, ecchymoses expected. HEENT: AT/NC, EOMI, PERRLA, mildly dry MM, no carotid bruits or JVD noted. Lungs: Diminished, greater bases, appropriate for no rales, ronchi or wheezing. Heart: Regular rate and rhythm; no gallop, rub audible. Abdomen: Soft, NTTP, ND, mildly hyperactive BS, no HSM. Extremities: No cyanosis, clubbing, or edema, status post right total hip replacement, dressing in place, no drainage, still ongoing effects of spinal with lack of sensation and diminished movement abilities. Neurological: Patient awake, alert, oriented as noted, cognitive function intact; pupils equally reactive to light and accommodation, cranial nerves II- XII grossly normal, ongoing effects of spinal, bilateral lower extremities with lack of sensation and diminished movement ability, strength accordingly moderately to severely global decreased. Psychiatric: Affect appears normal, no acute evidence of depressive or anxiety feelings. Lab / Micro Data Result Diagrams: 11/26/21 12:09 11/26/21 12:09 Labs: Laboratory Results - last 24 hr 12/08/21 10:53: POC Glucose 92 Charges/Coding Visit Charges Office Visits / Consults: 31664 OP Consult L3
[2021-12-08] MEDS: Lactated Ringers 1,000 ML 125 ML IV ×2 (17:55→20:32)
[2021-12-08] MEDS: Budesonide Respules 0.5 MG/2 ML AMPUL.NEB. INHALATION (18:33)
[2021-12-08] MEDS: Albuterol 2.5 MG/3 ML VIAL.NEB. INHALATION (18:33)
[2021-12-08] MEDS: Acetaminophen 650 MG/20 ML UDC PO (20:14)
[2021-12-08] MEDS: Senna/Docusate Sodium 1 Tablet 2 TABLET PO (20:17)
[2021-12-08] MEDS: Montelukast 10 MG Tablet PO (20:18)
[2021-12-08] MEDS: Atorvastatin Calcium 20 MG Tablet PO (20:18)
[2021-12-08] MEDS: Cefazolin 1 GM/50 ML BAG IV (20:31)
[2021-12-08] MEDS: oxyCODONE Soln 5 MG/0.25 ML PO.SYRINGE SL ×2 (21:57→23:00)
[2021-12-09] VITALS (9 sets, daily range): BP systolic 98–125; BP diastolic 57–76; PULSE 52–65; RESP 17–20; TEMP 36.3–37.2; O2SAT 97–100
[2021-12-09] MEDS: Acetaminophen 650 MG/20 ML UDC PO ×3 (00:38→14:43)
[2021-12-09] MEDS: hydrOXYzine PAM 25 MG Capsule PO (00:39)
[2021-12-09] MEDS: Morphine 4 MG/ML Syringe IV (01:21)
[2021-12-09 05:49] LABS: Hematocrit 32.5 % (37-47); Mean Corp Hgb Conc 33.8 g/dL (32-36); Mean Corpuscular Hgb 32.8 pg (27.0-32.0); Mean Platelet Vol. 9.5 fl (6.2-12.0); Platelet Count 247 K/mm3 (150-450); RBC Distribution Width CV 13.2 % (11.6-14.6); RBC Distribution Width SD 47.8 fl (35.1-43.9); Red Blood Count 3.35 M/mm3 (4.2-5.4); White Blood Count 11.3 K/mm3 (4.4-11.0)
[2021-12-09] MEDS: Cefazolin 1 GM/50 ML BAG IV (06:09)
[2021-12-09] MEDS: oxyCODONE Soln 5 MG/0.25 ML PO.SYRINGE SL ×3 (06:11→16:38)
[2021-12-09 06:24] LABS: Anion Gap 6 (5-15); BUN 7 mg/dL (7-18); BUN/Creat Ratio 9.2 RATIO (10-20); Calcium,Total 8.8 mg/dL (8.5-10.1); Chloride 104 mmol/L (98-107); Creatinine, Serum 0.76 mg/dL (0.55-1.02); EST Glomerular Filtration Rate 81 mL/min (>60); Est Glom Filt Rate - Afr Amer 98 mL/min (>60); Glucose 102 mg/dL (74-106); Potassium 4.1 mmol/L (3.5-5.1); Sodium Level 137 mmol/L (136-145)
[2021-12-09] MEDS: Albuterol 2.5 MG/3 ML VIAL.NEB. INHALATION ×2 (06:42→14:15)
[2021-12-09] MEDS: Budesonide Respules 0.5 MG/2 ML AMPUL.NEB. INHALATION (06:42)
--- NOTE | 2021-12-09 07:24 | PN.HOSP_ITS ---
Subjective Subjective Follow-up for the right hip total replacement. Objective Data Objective Data Vital Signs: Vital Signs Temp Pulse Resp BP Pulse Ox O2 Del Method O2 Flow Rate 97.3 F L 54 L 18 125/76 H 98 Room Air 4 12/09/21 05:55 12/09/21 06:42 12/09/21 06:42 12/09/21 05:55 12/09/21 06:42 12/09/21 06:42 12/09/21 01:20 Oxygen Flow Rate (L/min) 4 Oxygen Delivery Method Room Air Weight: 114 lb 5.231 oz Body Mass Index (BMI) 20.0 Intake & Output: Intake and Output for Last 24 Hours 12/07/21 12/08/21 12/09/21 23:59 23:59 23:59 Intake Total 923.33 / 2423.33 3041.67 / 3041.67 Output Total 400 / 400 Balance 923.33 / 2023.33 2641.67 / 2641.67 Lab / Micro Data Result Diagrams: 12/09/21 04:37 12/09/21 04:37 Labs: Laboratory Results - last 24 hr 12/08/21 10:53: POC Glucose 92 12/09/21 04:37: WBC 11.3 H, RBC 3.35 L, Hgb 11.0 L, Hct 32.5 L, MCV 97.0, MCH 32.8 H, MCHC 33.8, RDW Std Deviation 47.8 H, RDW Coeff of Twan 13.2, Plt Count 247, MPV 9.5 12/09/21 04:37: Sodium 137, Potassium 4.1, Chloride 104, Carbon Dioxide 27.0, Anion Gap 6, BUN 7, Creatinine 0.76, Estim Creat Clear Calc 45.30, Est GFR (MDRD) Af Amer 98, Est GFR (MDRD) Non-Af 81, BUN/Creatinine Ratio 9.2 L, Glucose 102, Calcium 8.8 Micro: Microbiology 11/26/21 12:09 Swab (Method) Nasal Screen MRSA/MSSA - Final Radiography Diagnostic Testing: Radiology Impression Hip X-Ray 12/08/21 15:55 IMPRESSION: Anatomic alignment status post right hip replacement. Electronically Signed: Nuria Palacios MD at 17:21 EDT Reading Location ID and State: [place] / Tel , Service support , Physical Exam Narrative Physical exam Heart rate and blood pressure controlled. General: Alert, Oriented x3, Cooperative HEENT: Atraumatic, PERRLA, EOMI, Normocephalic Oral: No Gingival or Mucosal Lesions/ Ulcerations Neck: Supple, No JVD, Negative Carotid Bruits Lungs: Air entry diminished in bilateral lung bases. No crepitation/rhonchi Cardiovascular: Regular rate, Regular Rhythm, Normal S1, Normal S2, No murmurs Abdomen: Bowel Sounds Present, Soft, Non Tender, Non-Distended : No renal angle tenderness. No suprapubic tenderness. Extremities: No edema, Capillary Refill Less than 3 Seconds Skin: Surgical dressing over right hip posterior lateral is dry. No hematoma or bruise. Rash over right upper thigh and groin area probably due to allergy from ANITA hose. Musculoskeletal: Mild tenderness over perioperative region around right hip. No Tenderness to Palpation of other joints or Extremities Neurological: Cranial nerves II-XII grossly intact, DTR 2+/4 and Symmetrical, Neuro grossly intact Psych/Mental Status: Normal Affect, Appropriate. Assessment & Plan Assessment/Plan (1) Arthritis of right hip: PLAN: Plan The patient is a 66 y/o F was admitted after elective right hip total replacement after failed conservative management of prolonged protracted course of right hip osteoarthritis #1. Right hip primary osteoarthritis status post total hip replacement by Dr. Balaji Auguste: The patient had right hip total replacement on 12/08/2021. Patient on perioperative IV antibiotic, pain management, bowel regimen VTE prophylaxis, PT OT. VT prophylaxis as per discretion of orthopedic surgeon. Patient had rash around anterior medial upper thigh and groin region probably due to ANITA hose. Does not look penicillin or antibiotic rash. Hydrocortisone cream ordered. #2. COPD/Asthma with allergic rhinitis: Continue patient budesonide aerosols with as needed albuterol as needed, encourage incentive spirometry, continue pat ient home montelukast regimen. #3. Tobacco Abuse: Patient with recently decreased tobacco intake over the last several weeks in preparation for surgery, no cigarette usage at all for the last week, encouraged continued cessation. #4. Anxiety and depression: continue patient home citalopram and hydroxyzine regimen. #5. Restless leg syndrome: Mirapex. #6. Hyperlipidemia: continue patient on statin therapy. #7. DVT prophylaxis: SCDs, Charges/Coding Visit Charges OBSV E&M: 40391 Subsequent observation care L2
[2021-12-09] MEDS: Aspirin 81 MG TAB.CHEW PO ×2 (08:20→16:38)
[2021-12-09] MEDS: Citalopram 20 MG Tablet PO (08:20)
[2021-12-09] MEDS: Senna/Docusate Sodium 1 Tablet 2 TABLET PO (08:20)
--- NOTE | 2021-12-09 10:25 | CASEMGMT ---
RN KELSY Face to Face with patient for initial transition planning/care coordination assessment. RN CM introduced self and role at [facility]. Patient lying in bed, alert and oriented. Patient willing to participate in assessment and is able to answer all questions appropriately. Care providers, pharmacy, and demographics verified. Patient wishes to discharge home and is scheduled for outpatient therapy at [facility]. Patient states she has no further needs or concerns at this time. CM to follow for discharge planning needs that may arise. PCP: Eula Specialists: [facility]; [facility] Preferred Pharmacy: [facility]. Insurance: [email or web address] Prescription Benefit: yes Living Will/HPOA: yes, sister Geraldine Stiles, HPOA LNOK: sister Living Arrangements: Patient lives alone in a single story home with 3 steps and railing to enter the home. Patient states she was independent prior to surgery. Patient's sister will be staying with patient while recovering at home. Transportation: sister DME/HHC: Patient states she has shower chair, BSC, raised toilet, cane, grab bars, hip kit, walker, wheelchair, and pulse ox at home. Patient denies previous HHC or SNF Disposition Plan: Patient to discharge home with family support and follow-up plans in place. Lamar PRAKASH, RN, CM
--- NOTE | 2021-12-09 11:02 | CASEMGMT ---
Social Work SW met with pt to verify advanced directives. Pt named sister Geraldine Gómez as HCPOA agent. Pt made aware documents are not on file at [facility] [place]. Pt to bring them in when possible in future. LAMAR Handley
--- NOTE | 2021-12-09 11:05 | CASEMGMT ---
Social Work While in pt room to verify AD pt discussed discharge plan with SW. Pt reports has appointment set to meet with Dr. Auguste tomorrow at [facility] for OP therapy. PLAN: OP therapy with [facility], upon discharge LAMAR Handley
[2021-12-09] MEDS: Hydrocortisone 2.5% Crm 1 APPLIC TOPICAL (11:09)
--- NOTE | 2021-12-09 15:27 | PCM.PN.ORT ---
Subjective Subjective Patient is s/p right sided total hip arthroplasty with Dr. Auguste. Patient resting comfortably in bed. Rates pain 5/ 10 at rest. With movement 8/10. States taking Tylenol and oxycodone and ice help to relieve pain. Patient has been up with therapy. Walking with the assit of a walker. Afebrile, no chest pain, shortness of breath, negative calf pain/ erythema, and no other signs of DVT. Objective Data Objective Data Vital Signs: Vital Signs Temp Pulse Resp BP Pulse Ox O2 Del Method O2 Flow Rate 99.0 F 62 18 104/57 L 99 Room Air 4 12/09/21 14:49 12/09/21 14:49 12/09/21 14:49 12/09/21 14:49 12/09/21 14:49 12/09/21 14:49 12/09/21 14:49 Oxygen Flow Rate (L/min) 4 Oxygen Delivery Method Room Air Weight: 51.858 kg Body Mass Index (BMI) 20.0 Intake & Output: Intake and Output for Last 24 Hours 12/07/21 12/08/21 12/09/21 23:59 23:59 23:59 Intake Total 923.33 / 2423.33 3156.67 / 3156.67 Output Total 400 / 400 Balance 923.33 / 2023.33 2756.67 / 2756.67 Lab / Micro Data Result Diagrams: 12/09/21 04:37 12/09/21 04:37 Labs: Laboratory Results - last 24 hr 12/09/21 04:37: WBC 11.3 H, RBC 3.35 L, Hgb 11.0 L, Hct 32.5 L, MCV 97.0, MCH 32.8 H, MCHC 33.8, RDW Std Deviation 47.8 H, RDW Coeff of Twan 13.2, Plt Count 247, MPV 9.5 12/09/21 04:37: Sodium 137, Potassium 4.1, Chloride 104, Carbon Dioxide 27.0, Anion Gap 6, BUN 7, Creatinine 0.76, Estim Creat Clear Calc 45.30, Est GFR (MDRD) Af Amer 98, Est GFR (MDRD) Non-Af 81, BUN/Creatinine Ratio 9.2 L, Glucose 102, Calcium 8.8 Micro: Microbiology 11/26/21 12:09 Swab (Method) Nasal Screen MRSA/MSSA - Final Radiography Diagnostic Testing: Radiology Impression Hip X-Ray 12/08/21 15:55 IMPRESSION: Anatomic alignment status post right hip replacement. Electronically Signed: Nuria Palacios MD at 17:21 EDT , Physical Exam Narrative Patient resting comfortably in bed No signs of acute distress Satting well on room air Limb is warm to touch, Sensation intact throughout entire lower extremity, including saphenous, sural, superficial and deep peroneal, and tibial distribution. DP/PT pulses bounding. Dorsiflexion strength 5/5 Dressing [with small amount of sanguinous draining at the most superior aspect] Calf nontender to palpation, no erythema, no edema. Negative Homans Assessment & Plan Assessment/Plan (1) Arthritis of right hip: (2) S/P total right hip arthroplasty: PLAN: 1. Will continue PT today. Weightbearing as tolerated 2. plan for discharge this afternoon following PT 3. Patient will follow up for post op appointment in 2 weeks as previously scheduled 4. Patient has outpatient PT appointment scheduled 5. WBC 11.3 acute reactive leukocytosis: secondary to pre operative decadron. no acute systemic signs of infection. will monitor, and likely self resolve. 6. H/H 11.32.5: post operavtive anemia secondary to acute blood loss intraoperatively. Patient is asymptomatic at this time. No intraoperative complications. will continue to monitor. no acute interventions. 7. DVT prophylaxis : Aspirin 81 mg twice daily x4 weeks 8. Pain control: patient instructed to take tylenol 500mg 2 tablets TID. and oxycodone 1-2 tablets every 4-6 hours only as needed for pain control.
--- NOTE | 2021-12-09 15:32 | DCINST_ITS ---
Discharge Instructions Diet Discharge Diet: No restrictions Activity Discharge Activity: Return to Normal Activity and May Shower Weight Bearing Status: Weight bearing as tolerated Dressing / Incision Call your doctor if your incision/area has: Continuous Slow Oozing, Sudden Increased Bleeding, Increased Pain/ Swelling, Increased Redness, Foul Smelling Discharge and Swelling at the incision site Call your doctor if you observe: Fever of 101 or Higher, Shortness of breath, Dizziness, Chest pain and Calf discomfort Remove Dressing in: 5 days Cleanse incision/area with: Soap & Water and Keep Dressing Clean & Dry Follow Up Care Test Results: Test results from this visit will be discussed in further detail at your follow- up appointment, if applicable. Discharge Plan Admission Admit Date/Time: 12/08/21 15:58 Attending Provider: Balaji Auguste Primary Care Provider: Juan Manuel Forde Consulting Providers: Luis Rodriguez Discharge Orders/Prescriptions Prescriptions: No Action meclizine 25 mg tablet 25 mg PO TID PRN (Reason: dizziness) simvastatin 20 mg tablet 40 mg PO DAILY citalopram 10 MG tablet 20 mg PO DAILY montelukast 5 mg tablet,chewable 10 mg PO QHS hydroxyzine HCl 10 MG tablet 25 mg PO 4X/DAY PRN PRN (Reason: Anxiety) albuterol sulfate 90 mcg/actuation Hfa Aerosol Inhaler 1 inh INHALATION Q6H PRN (Reason: SOB) budesonide-formoterol 80-4.5 mcg/actuation HFA aerosol inhaler 2 inh inhalation BID Qty: 10.2 6RF Referrals / Follow Up: Juan Manuel Forde MD [Primary Care Provider] -
== END 2021-12-09 17:15 | disposition home or self-care (01) ==
LOC: SDC 16:11 → MS3 16:11
PROVIDERS: Admitting Provider Orthopaedic Surgery; PCP Family Medicine; Referring Provider Orthopaedic Surgery; Visit Provider Orthopaedic Surgery
PROC: 0SR90JZ Replacement of Right Hip Joint with Synthetic Substitute, Open Approach (ICD-10-PCS; CPT 27130; principal; 2021-12-08 12:35)
DX: M16.11 Unilateral primary osteoarthritis, right hip (principal); J44.9 Chronic obstructive pulmonary disease, unspecified; F17.210 Nicotine dependence, cigarettes, uncomplicated; F41.9 Anxiety disorder, unspecified; E78.5 Hyperlipidemia, unspecified; Z79.899 Other long term (current) drug therapy; F32.A Depression, unspecified; R13.10 Dysphagia, unspecified; Z87.19 Personal history of other diseases of the digestive system; Q43.8 Other specified congenital malformations of intestine; R00.1 Bradycardia, unspecified; K21.9 Gastro-esophageal reflux disease without esophagitis; G25.81 Restless legs syndrome
CPT/HCPCS: 27130; 01214; 36415; 71046; 73502; 80048; 82962; 83735; 85025; 85027; 87081; 88305; 88307; 88311; 93005; 94640; 96361; 96365; 96366; 96375; 97110; 97116; 97162; 97166; 97530; 97535; 99218; 99251; 99406; C1776; J7120; G0378; G0463; J3475

== ENCOUNTER → 2022-04-01 | Outpatient (CLI) | payer MEDICARE, SELFPAY ==
--- NOTE | 2022-04-01 16:34 | RAD_ITS ---
INDICATION: PRESENCE OF ARTIFICIAL HIP JOINT EXAMINATION/TECHNIQUE: X-RAY - XR Bone Length Studies Scanograms 3 frontal frontal images of the lower legs with additional composite image. COMPARISON: Chest radiograph November 26, 2021. FINDINGS: 1 to 2 degrees leftward down pelvic tilt. Right hip arthroplasty with expected alignment with no evidence of hardware failure. Right superior acetabulum to distal intercondylar notch 47.7 cm Right superior acetabulum to ankle tibial plafond 87.1 cm Left superior acetabulum to distal intercondylar notch 46.1 cm Left superior acetabulum to ankle tibial plafond 86.1 cm No abnormal genu valgus or varus. No abnormal coxa valgus or varus. RAD/Bone Length IMPRESSION: Right hip arthroplasty in expected alignment without evidence of hardware failure. Left leg measures 1 cm shorter than right from superior acetabulum to ankle tibial plafond with mild leftward down pelvic tilt Electronically Signed: Ousmane Velázquez MD at 6:29 EST ,
[2022-04-01 17:11] LABS: Absolute Lymphocyte Count 1.93 X10^3/uL (0.83-4.51); Absolute Neutrophil Count 7.3 X10^3/uL (2.0-7.7); Basophil# 0.04 X10^3/uL; Basophil% 0.4 % (0-1); Eosinophil# 0.06 X10^3/uL; Eosinophils% 0.6 % (0-5); Hematocrit 42.4 % (37-47); Hemoglobin 13.8 g/dL (12.0-15.0); Lymphocyte # 1.93 X10^3/ul (0.83-4.51); Lymphocyte % 19.5 % (19-41); Mean Corp Hgb Conc 32.5 g/dL (32-36); Mean Corpuscular Hgb 31.7 pg (27.0-32.0); Mean Corpuscular Volume 97.2 fL (81-99); Mean Platelet Vol. 9.2 fl (6.2-12.0); Monocyte# 0.51 X10^3/uL; Monocyte% 5.2 % (0-10); NRBC Flagged by Analyzer 0 % (0-5); Neutrophil % 73.8 % (47-70); Platelet Count 313 K/mm3 (150-450); RBC Distribution Width SD 46.4 fl (35.1-43.9); Red Blood Count 4.36 M/mm3 (4.2-5.4); White Blood Count 9.9 K/mm3 (4.4-11.0)
[2022-04-01 17:32] LABS: CRP < 2.90 mg/L (0.0-3.0)
[2022-04-01 17:45] LABS: Erythrocyte Sedimentation Rate 3 mm/hr (0-30)
== END | disposition home or self-care (01) ==
PROVIDERS: PCP Family Medicine; Referring Provider Orthopaedic Surgery; Visit Provider Orthopaedic Surgery
DX: Z96.641 Presence of right artificial hip joint (principal)
CPT/HCPCS: 36415; 77073; 85025; 85652; 86140

== ENCOUNTER → 2022-08-17 | Outpatient (CLI) | payer MEDICARE, SELFPAY ==
--- NOTE | 2022-08-17 12:42 | BI_ITS ---
MAMMOGRAPHY - BILATERAL SCREENING REASON FOR EXAM: Female, 67 years old. Routine annual screening examination. PERTINENT HISTORY: Mother with breast cancer. Prior right stereotactic breast biopsy. Aunts with breast cancer TECHNIQUE: Digital bilateral breast candy (3D mammographic acquisition) in the CC and MLO projections. 2-D mediolateral oblique (MLO) and craniocaudad (CC) views of both breasts were obtained. CAD: Full Field Digital Mammography with Computer Added Detection was performed. COMPARISON: Comparison is made with prior study dated July 15, 2021 and June 24, 2020. FINDINGS: Breast Composition: There are scattered areas of fibroglandular density. There are no dominant masses or suspicious calcifications. Stable small benign appearing bilateral axillary lymph nodes. A tissue clip marker is once again seen in the upper slightly medial aspect of the right breast. No other significant abnormalities are identified. There has been no significant change since the prior study. BI/SCRN MAMM (CAD)W/CANDY BILAT IMPRESSION: Stable bilateral screening mammogram. Yearly follow-up mammogram recommended. (A) ASSESSMENT CATEGORY: BIRADS Category 2: Benign. A letter regarding these results will be sent to the patient by the facility within 30 days. Approximately 10% of breast cancers are not detected by mammography. A normal mammogram should not delay biopsy of a clinically suspicious abnormality. [id number] Electronically Signed: Ronnie Noriega MD at 14:54 EDT ,
== END | disposition home or self-care (01) ==
PROVIDERS: PCP Family Medicine; Referring Provider Family Medicine; Visit Provider Family Medicine
DX: Z12.31 Encounter for screening mammogram for malignant neoplasm of breast (principal); Z80.3 Family history of malignant neoplasm of breast
CPT/HCPCS: 77063; 77067

== ENCOUNTER → 2022-08-31 | Outpatient (CLI) | payer MEDICARE, SELFPAY ==
--- NOTE | 2022-08-31 13:31 | RAD_ITS ---
INDICATION: dyspnea EXAMINATION/TECHNIQUE: X-RAY - XR Chest 2 Views COMPARISON: November 26, 2021. FINDINGS: LINES/DEVICES: None. LUNGS: No consolidation, edema or effusion. No pneumothorax. MEDIASTINUM AND CARDIOVASCULAR STRUCTURES: Cardiac silhouette not enlarged. BONES AND SOFT TISSUES: Unremarkable. Lower thoracic vertebral bridging osteophytes. RAD/Chest PA and Lateral IMPRESSION: No radiographic evidence of acute cardiopulmonary disease. Electronically Signed: Ousmane Velázquez MD at 4:13 EDT ,
== END | disposition home or self-care (01) ==
LOC: RAD 13:30
PROVIDERS: PCP Family Medicine; Referring Provider Internal Medicine Critical Care Medicine; Visit Provider Internal Medicine Critical Care Medicine
DX: J45.40 Moderate persistent asthma, uncomplicated (principal)
CPT/HCPCS: 71046

== ENCOUNTER → 2022-09-10 | Outpatient (CLI) | payer MEDICARE, SELFPAY ==
--- NOTE | 2022-09-10 13:48 | ECHOD_ITS ---
Reason For Study: DYSPNEA Procedure This was a 2D Doppler, Color Flow transthoracic echocardiogram. Exam performed in department. Left Ventricle Normal LV size. The estimated ejection fraction is 55 %. No evidence for diastolic dysfunction. No regional wall motion abnormalities noted. Right Ventricle Normal RV size. Normal systolic function. Atria Normal left atrium. Normal right atrium. No doppler evidence for ASD. Mitral Valve There is no mitral valve stenosis. Trivial mitral valve insufficiency. Tricuspid Valve There is no tricuspid stenosis. Mild tricuspid valve insufficiency. Pulmonary artery systolic pressure is 20 mmHg. Aortic Valve Trisinus/trileaflet aortic valve. There is no aortic stenosis. Mild (1+) aortic valve insufficiency. Pulmonic Valve There is no pulmonic valvular stenosis. No pulmonic valve insufficiency. Great Vessels Normal aortic root. Pericardium/Pleural No pericardial effusion. MMode/2D Measurements & Calculations LVIDd: 4.2 cm IVSd: 0.63 cm Ao root diam: 3.2 cm LVIDs: 2.8 cm LVPWd: 1.00 cm FS: 34.5 % LAV(MOD-bp): 32.7 ml LVAd ap4: 20.5 cm2 SV(MOD-sp4): 26.8 ml LAV(MOD-bp) Indexed: 21.0 ml/m2 LVLd ap4: 7.3 cm LAV(MOD-sp2): 32.9 ml EDV(MOD-sp4): 46.4 ml LAV(MOD-sp4): 31.1 ml EDV(sp4-el): 48.7 ml LVAs ap4: 11.6 cm2 LVLs ap4: 6.3 cm ESV(MOD-sp4): 19.6 ml ESV(sp4-el): 18.1 ml EF(MOD-sp4): 57.7 % EF(sp4-el): 62.8 % SV(sp4-el): 30.6 ml LA A4 area: 13.2 cm2 LA dimension(2D): 2.8 cm RA A4 area: 12.8 cm2 TAPSE: 2.1 cm Time Measurements MV dec time: 0.27 sec Doppler Measurements & Calculations MV E max kelvin: 55.4 cm/sec Lat Peak E' Kelvin: 11.1 cm/sec Med Peak E' Kelvin: 6.5 cm/sec MV A max kelvin: 53.3 cm/sec E/E' lat: 5.0 E/E' med: 8.5 MV E/A: 1.0 MV V2 max: 67.1 cm/sec Ao V2 max: 128.1 cm/sec MV max P.8 mmHg MV dec slope: 206.3 cm/sec2 Ao max P.6 mmHg MV V2 mean: 42.8 cm/sec Ao V2 mean: 84.3 cm/sec MV mean P.81 mmHg Ao mean P.3 mmHg MV V2 VTI: 30.8 cm Ao V2 VTI: 26.8 cm AV (velocity ratio): 0.80 LV V1 max: 102.9 cm/sec PA V2 max: 85.0 cm/sec LV V1 max P.2 mmHg PA V2 mean: 62.0 cm/sec LV V1 mean P.2 mmHg LV V1 mean: 68.9 cm/sec LV V1 VTI: 21.4 cm ECHO/Echo Complete Interpretation Summary The estimated ejection fraction is 55 %. No evidence for diastolic dysfunction. Mild (1+) aortic valve insufficiency. Ordering Physician: Shahzad Garay Referring Physician: Shahzad Garay Performed By: Pham Parra RCS
== END | disposition home or self-care (01) ==
LOC: CVS 13:41
PROVIDERS: PCP Family Medicine; Referring Provider Internal Medicine Critical Care Medicine; Visit Provider Internal Medicine Critical Care Medicine
DX: J96.01 Acute respiratory failure with hypoxia (principal)
CPT/HCPCS: 93306

== ENCOUNTER → 2022-09-21 | Outpatient (CLI) | payer MEDICARE, SELFPAY ==
--- NOTE | 2022-09-22 09:50 | PFT ---
INTRODUCTION: The patient is a 67-year-old female who presents for pulmonary function studies secondary to a diagnosis of asthma. Respiratory therapy reported good patient effort. Bronchodilators were used during testing. INTERPRETATION: Forced expiration spirometry demonstrates no evidence of a large airways obstructive ventilatory defect. There was no significant response to aerosolized bronchodilators. Spirograms are of good quality and plateau gradually indicating slow emptying of the lungs. Body plethysmography was performed and revealed lung volumes to be within normal limits. Diffusing capacity by single breath CO was also within normal limits. IMPRESSION: Grossly normal pulmonary function studies.
== END | disposition home or self-care (01) ==
PROVIDERS: PCP Family Medicine; Referring Provider Internal Medicine Critical Care Medicine; Visit Provider Internal Medicine Critical Care Medicine
DX: J45.40 Moderate persistent asthma, uncomplicated (principal)
CPT/HCPCS: 94060; 94726; 94729

== ENCOUNTER → 2022-12-09 | Outpatient (CLI) | payer MEDICARE, SELFPAY ==
--- NOTE | 2022-12-09 17:40 | CT_ITS ---
INDICATION: smoker EXAMINATION: - CT Low Dose CT Chest for Lung Cancer Screening A radiation dose optimization technique was used for this scan. Radiation CTDIvol 1.59 Radiation DLP 49.63 COMPARISON: Chest radiograph 08/31/2022 FINDINGS: Noncontrast serial CT axial images through the chest with coronal and sagittal reformatted series. MEDIASTINUM: Minimal coronary artery atherosclerotic calcifications. Noncontrast mediastinum is otherwise unremarkable. LUNG PARENCHYMA: No acute pulmonary parenchymal abnormality. 2 mm posterior right upper lobe pulmonary nodule on axial image 82 of series 2 and coronal image 42 of series 601. PLEURA: No pleural effusion. No pneumothorax. BONES: Osseous structures are unremarkable for age. UPPER ABDOMEN: Unremarkable. CT/Low Dose CT Lung Screening IMPRESSION: 2 mm posterior right upper lobe pulmonary nodule. Lung-RADS CATEGORY 2: Benign Appearance Nodules. Annual screening with low dose CT in 12 months. Electronically Signed: Nicholas Norman MD at 23:53 EDT ,
== END | disposition home or self-care (01) ==
PROVIDERS: PCP Family Medicine; Referring Provider Nurse Practitioner Acute Care; Visit Provider Nurse Practitioner Acute Care
DX: F17.210 Nicotine dependence, cigarettes, uncomplicated (principal)
CPT/HCPCS: 71271

== ENCOUNTER → 2023-02-17 | Outpatient (CLI) | payer MEDICARE, SELFPAY ==
--- NOTE | 2023-02-16 15:15 | ASPS_PTH ---
PATHOLOGY RESULTS PATIENT: SAKINA JASON LOC: [facility] U#:[id number] AGE/SX: 67/F ROOM: RE02/17/[address]: Dr. Eduardo Caputo MD : 1955 BED: DIS: 02/17/2023 SPEC #: [id number] RECD: 02/17/23 07:21 STATUS: IGOR QUIGLEY #: [id number] REECE: 02/16/23 15:[address]: Eduardo Caputo DEPT: CYTOLOGY RECD BY: Sadie Diaz ENTERED: 02/17/23 07:23 SP TYPE: ASPIRATION OTHR DR: Dr. Juan Manuel Forde MD Tissues: Thyroid isthmus Thyroid isthmus Procedures: Special Stain Group II Cytology Other HEADER OPERATION: Fine needle aspiration, right and left thyroid nodules PRE-OP DIAGNOSIS: Right and left thyroid nodules TISSUE SUBMITTED: A - Right thyroid nodule x6 slides, B - Left thyroid nodule x6 slides DIAGNOSIS CYTOLOGY A. Right thyroid nodule, fine needle aspiration (smears): Atypical follicular cells of undetermined significance (Acton Category III). Adequate for evaluation. See comment. B. Left thyroid nodule, fine needle aspiration (smears): Atypical follicular cells of undetermined significance (Acton Category III). Adequate for evaluation. See comment. SJ:rg 02/17/2023 COMMENT A & B. Per recommendations and a clinician-approved plan (a call was made to the referring doctor about the recommendation), genomic testing (Afirma) has been submitted. Results will be reported as an addendum and faxed to clinician. Correlation with clinical, radiologic findings and appropriate follow up are necessary. The Acton System for thyroid diagnostic categorization was used in the evaluation of this case. Case has been reviewed in consultation with Dr. Gibbons who concurs with the above diagnosis. IDC:AM CYTOLOGY STUDY Slides are reviewed. CYTOLOGY GROSS A - Received are six smears labeled with the patient's name and designated per the requisition as right thyroid nodule. Submitted for staining. B - Received are six smears labeled with the patient's name and designated per the requisition as left thyroid nodule. Submitted for staining. / rei 02/16/2023 TC:5 CPT: 20818 x2 ADDENDUM ADDENDUM 03/04/2023 10:04 [place] RESULTS REPORT RESULTS INTERPRETATION: A. The result of this 1.5 cm Acton III nodule A is Afirma GSC benign, which suggests a low risk of cancer of approximately 4%. B. The result of this 2.6 cm Acton III nodule B is Afirma GSC benign, which suggests a low risk of cancer of approximately 4%. Please see complete report in e-chart or EMR
--- OUTSIDE RECORDS SUMMARY | 2023-02-17 07:23 | XMS RPT_ITS | CCD ---
Author Name Unknown Address [address] [place] [address] Organization [facility] Care Team Providers Care Cyber Software Engineer Name Role Phone Vin Davila MD Unavailable Divina Forde MD Primary Care Provider Divina Forde MD Primary Care Provider Divina Forde MD Primary Care Provider Divina Forde MD Primary Care Provider DIVINA FORDE Attending Unavailab DIVINA Carranza Primary Care Unavailab TERA Adams Referring Unavailable DIVINA FORDE Primary Care Unavailab le PODLOGKEYANA STARR Referring Unavailable DIVINA FORDE Primary Care Unavailab le KEYANA MCNULTY Attending Unavailable DIVINA FORDE Referring Unavailab MARICARMEN Campbell Attending Unavailable DIVINA FORDE Primary Care Unavailab DIVINA Carranza Referring Unavailab DIVINA Carranza Primary Care Unavailab DIVINA Carranza Primary Care Unavailab le DIVINA FORDE Referring Unavailab le Allergies Allergy Classification Reported Allergen(s) Allergy Type Date of Onset Reaction(s) Facility (1 source) sulfacetamide Drug Allergy [address] [facility] Work Phone: (20 sources) Amoxicillin; Translations: [AMOXICILLIN] Drug Allergy 1 Other: See Comments [facility] (20 sources) Sulfonamides (Antibiotic); Translations: [SULFA (SULFONAMIDE ANTIBIOTICS)] Drug Allergy 6 Kevin [facility] (20 sources) zolpidem; Translations: [ZOLPIDEM TARTRATE] Drug Allergy 6 Other: See Comments [facility] Medications Current Medications Medication Drug Class(es) Dates Sig (Normalized) Sig (Original) citalopram 20 mg oral tablet (20 sources) Serotonin Reuptake Inhibitor Start: 01-05-2023 End: 07-04-2023 take 1 tablet by mouth once daily citalopram (CELEXA) 20 mg tablet Indications: Anxiety state Take 1 tablet by mouth once daily. 90 tablet 1 01/05/2023 07/04/2023 Active Completed/Discontinued Medications Medication Drug Class(es) Dates Sig (Normalized) Sig (Original) [id number] 200 actuat albuterol 0.09 mg/actuat metered dose inhaler (20 sources) beta2-Adrenergic Agonist Start: 07-31-2020 take 2 puff(s) by inhalation every four hours as needed for wheezing albuterol HFA (VENTOLIN HFA) 90 mcg/actuation inhaler Inhale 2 Puffs as instructed every 4 hours as needed for wheezing/shortnes s of breath. 0 07/31/2020 Active Problems Active Problems Problem Classification Problem Date Documented Date Episodic/Chronic Abdominal pain (1 source) Lower abdominal pain; Translations: [Lower abdominal pain, unspecified] Episodic Anxiety disorders (20 sources) Anxiety state; Translations: [Generalized anxiety disorder] Onset: 03-02-2005 11-26-2014 Chronic Asthma (20 sources) Asthma; Translations: [Unspecified asthma, uncomplicated] Onset: 07-31-2020 07-31-2020 Chronic Chronic obstructive pulmonary disease and bronchiectasis (20 sources) Chronic obstructive lung disease; Translations: [Chronic obstructive pulmonary disease, unspecified] Onset: 05-04-2019 05-04-2019 Chronic Disorders of lipid metabolism (20 sources) Hyperlipidemia; Translations: [Hyperlipidemia, unspecified] Onset: 11-26-2014 11-26-2014 Chronic Diverticulosis and diverticulitis (1 source) Diverticulitis; Translations: [Diverticulitis of intestine, part unspecified, without perforation or abscess without bleeding] Chronic Nonmalignant breast conditions (20 sources) Fibrocystic disease of breast; Translations: [Diffuse cystic mastopathy of unspecified breast] Onset: 04-24-2009 04-24-2009 Chronic Osteoarthritis (1 source) Osteoarthritis of right hip joint; Translations: [Unilateral primary osteoarthritis, right hip] Chronic Osteoporosis (19 sources) Osteoporosis; Translations: [Age-related osteoporosis without current pathological fracture] Onset: 11-07-2021 Chronic Other aftercare (1 source) Post-discharge follow-up; Translations: [Encounter for follow-up examination after completed treatment for conditions other than malignant neoplasm] Episodic Other connective tissue disease (1 source) Impingement syndrome of shoulder region; Translations: [Impingement syndrome of right shoulder] Onset: 07-20-2017 07-20-2017 Episodic Other nervous system disorders (1 source) Impairment of balance; Translations: [Other abnormalities of gait and mobility] 09-22-2022 Episodic Other non-traumatic joint disorders (1 source) Pain in right hip joint; Translations: [Pain in right hip] Episodic Other screening for suspected conditions (not mental disorders or infectious disease) (3 sources) Patient encounter status; Translations: [Encounter for screening mammogram for malignant neoplasm of breast] Episodic Residual codes; unclassified (2 sources) Postmenopausal state; Translations: [Asymptomatic menopausal state] Episodic Substance-related disorders (20 sources) Tobacco user; Translations: [Nicotine dependence, unspecified, uncomplicated] Onset: 04-24-2009 04-24-2009 Chronic Superficial injury; contusion (2 sources) Contusion of trunk; Translations: [Contusion of abdominal wall, initial encounter] Onset: 01-13-2023 01-14-2023 Episodic Thyroid disorders (5 sources) Thyroid nodule; Translations: [Nontoxic single thyroid nodule] Onset: 01-13-2023 01-13-2023 Chronic Transient cerebral ischemia (3 sources) Cerebral ischemia; Translations: [Transient cerebral ischemic attack, unspecified] Chronic Past or Other Problems Problem Classification Problem Date Documented Date Episodic/Chronic Complications of surgical procedures or medical care (20 sources) Postprocedural respiratory failure; Translations: [Acute postprocedural respiratory failure] Onset: 05-04-2019 05-04-2019 Episodic Conditions associated with dizziness or vertigo (20 sources) Benign paroxysmal positional vertigo; Translations: [Benign paroxysmal vertigo, left ear] Onset: 03-16-2017 03-16-2017 Episodic Hemorrhoids (20 sources) Internal hemorrhoids; Translations: [Other hemorrhoids] Onset: 06-23-2011 06-23-2011 Episodic Other aftercare (20 sources) Supraspinatus tear; Translations: [Supraspinatus tendon tear, right, subsequent encounter] Onset: 03-16-2017 03-16-2017 Episodic Other and unspecified benign neoplasm (20 sources) Tubular adenoma of colon; Translations: [Benign neoplasm of colon, unspecified] Onset: 06-23-2011 02-09-2019 Episodic Other lower respiratory disease (20 sources) History of acute respiratory failure; Translations: [Personal history of other diseases of the respiratory system] Onset: 05-04-2019 05-04-2019 Episodic Other nervous system disorders (1 source) Other abnormalities of gait and mobility; Translations: [Balance problems] Onset: 09-22-2022 Episodic Spondylosis; intervertebral disc disorders; other back problems (20 sources) Radiculopathy due to lumbar intervertebral disc disorder; Translations: [Intervertebral disc disorders with radiculopathy, lumbar region] Onset: 11-26-2014 11-26-2014 Episodic Sprains and strains (20 sources) Injury of superior glenoid labrum of shoulder joint; Translations: [Superior glenoid labrum lesion of right shoulder, initial encounter] Onset: 03-16-2017 03-16-2017 Episodic Unclassified (1 source) Problem Results Test Name Value Interpretation Reference Range Facil ity Vital Signs Date Time Vital Sign Value Performing Clinician Facility 01-13-2023 16:20-0500 Body weight 57.15 kg Divina Forde MD Work Phone: [facility] 01-13-2023 16:20-0500 Diastolic blood pressure 80 mm[Hg] Divina Forde MD Work Phone: [facility] 01-13-2023 16:20-0500 Heart rate 60 /min Divina Forde MD Work Phone: [facility] 01-13-2023 16:20-0500 Respiratory rate 16 /min Divian Forde MD Work Phone: [facility] 01-13-2023 16:20-0500 Systolic blood pressure 130 mm[Hg] Divina Forde MD Work Phone: [facility] 09-22-2022 13:01-0400 Body height 159 cm Keyana Mcnulty APRN.CNP Work Phone: [facility] 09-22-2022 13:01-0400 Body weight 54.88 kg Keyana Podlogar SATELLITE COMMUNICATIONS ENGINEER.BULL GANG WORKER Work Phone: [facility] 09-22-2022 13:01-0400 Diastolic blood pressure 72 mm[Hg] Keyana Podlogar SATELLITE COMMUNICATIONS ENGINEER.BULL GANG WORKER Work Phone: [facility] 09-22-2022 13:01-0400 Heart rate 68 /min Keyana Podlogar SATELLITE COMMUNICATIONS ENGINEER.BULL GANG WORKER Work Phone: [facility] 09-22-2022 13:01-0400 Respiratory rate 20 /min Keyana Podlogar SATELLITE COMMUNICATIONS ENGINEER.BULL GANG WORKER Work Phone: [facility] 09-22-2022 13:01-0400 SaO2% (BldA) [Mass fraction] 98 % Keyana Podlogar SATELLITE COMMUNICATIONS ENGINEER.BULL GANG WORKER Work Phone: [facility] 09-22-2022 13:01-0400 Systolic blood pressure 116 mm[Hg] Keyana Podlogar SATELLITE COMMUNICATIONS ENGINEER.BULL GANG WORKER Work Phone: [facility] 11-07-2021 11:41-0400 Body temperature 97.39 [degF] Keyana Podlogar SATELLITE COMMUNICATIONS ENGINEER.BULL GANG WORKER Work Phone: [facility] 11-07-2021 11:41-0400 Body weight 55.97 kg Keyana Podlogar SATELLITE COMMUNICATIONS ENGINEER.BULL GANG WORKER Work Phone: [facility] 11-07-2021 11:41-0400 Diastolic blood pressure 82 mm[Hg] Keyana Podlogar SATELLITE COMMUNICATIONS ENGINEER.BULL GANG WORKER Work Phone: [facility] 11-07-2021 11:41-0400 Heart rate 66 /min Keyana Podlogar SATELLITE COMMUNICATIONS ENGINEER.BULL GANG WORKER Work Phone: [facility] 11-07-2021 11:41-0400 Respiratory rate 16 /min Keyana Podlogar SATELLITE COMMUNICATIONS ENGINEER.BULL GANG WORKER Work Phone: [facility] 11-07-2021 11:41-0400 SaO2% (BldA) [Mass fraction] 98 % Keyana Podlogar SATELLITE COMMUNICATIONS ENGINEER.BULL GANG WORKER Work Phone: [facility] 11-07-2021 11:41-0400 Systolic blood pressure 124 mm[Hg] Keyana Podlogar SATELLITE COMMUNICATIONS ENGINEER.BULL GANG WORKER Work Phone: [facility] 11-05-2021 10:36-0400 Body temperature 97.3 [degF] Keyana Podlogar SATELLITE COMMUNICATIONS ENGINEER.BULL GANG WORKER Work Phone: [facility] 11-05-2021 10:36-0400 Body weight 56.06 kg Keyana Podlogar SATELLITE COMMUNICATIONS ENGINEER.BULL GANG WORKER Work Phone: [facility] 11-05-2021 10:36-0400 Diastolic blood pressure 80 mm[Hg] Keyana Podlogar SATELLITE COMMUNICATIONS ENGINEER.BULL GANG WORKER Work Phone: [facility] 11-05-2021 10:36-0400 Heart rate 68 /min Keyana Podlogar SATELLITE COMMUNICATIONS ENGINEER.BULL GANG WORKER Work Phone: [facility] 11-05-2021 10:36-0400 Respiratory rate 16 /min Keyana Podlogar SATELLITE COMMUNICATIONS ENGINEER.BULL GANG WORKER Work Phone: [facility] 11-05-2021 10:36-0400 SaO2% (BldA) [Mass fraction] 100 % Keyana Podlogar SATELLITE COMMUNICATIONS ENGINEER.BULL GANG WORKER Work Phone: [facility] 11-05-2021 10:36-0400 Systolic blood pressure 122 mm[Hg] Keyana Podlogar SATELLITE COMMUNICATIONS ENGINEER.BULL GANG WORKER Work Phone: [facility] 11-01-2021 10:21-0400 Body temperature 98.29 [degF] Sal Gonsales MD Work Phone: [facility] 11-01-2021 10:21-0400 Body weight 56.25 kg Sal Gonsales MD Work Phone: [facility] 11-01-2021 10:21-0400 Diastolic blood pressure 82 mm[Hg] Sal Gonsales MD Work Phone: [facility] 11-01-2021 10:21-0400 Systolic blood pressure 142 mm[Hg] Sal Gonsales MD Work Phone: [facility] 10-07-2021 13:33-0400 Body weight 56.88 kg Divina Forde MD Work Phone: [facility] 10-07-2021 13:33-0400 Diastolic blood pressure 82 mm[Hg] Divina Forde MD Work Phone: [facility] 10-07-2021 13:33-0400 Heart rate 68 /min Divina Forde MD Work Phone: [facility] 10-07-2021 13:33-0400 Respiratory rate 16 /min Divina Forde MD Work Phone: [facility] 10-07-2021 13:33-0400 SaO2% (BldA) [Mass fraction] 96 % Divina Forde MD Work Phone: [facility] 10-07-2021 13:33-0400 Systolic blood pressure 126 mm[Hg] Divina Forde MD Work Phone: [facility] 07-22-2021 15:37-0400 Body weight 57.34 kg Divina Forde MD Work Phone: [facility] 07-22-2021 15:37-0400 Diastolic blood pressure 70 mm[Hg] Divina Forde MD Work Phone: [facility] 07-22-2021 15:37-0400 Heart rate 68 /min Divina Forde MD Work Phone: [facility] 07-22-2021 15:37-0400 Respiratory rate 16 /min Divina Forde MD Work Phone: [facility] 07-22-2021 15:37-0400 SaO2% (BldA) [Mass fraction] 95 % Divina Forde MD Work Phone: [facility] 07-22-2021 15:37-0400 Systolic blood pressure 116 mm[Hg] Divina Forde MD Work Phone: [facility] NEGATED: Highlighted [id number] 08:32-0400 BMI (Body Mass Index) 25.6 kg/m2 Sam Spencer OT-C [facility] Work Phone: NEGATED: Highlighted [id number] 08:32-0400 BP Diastolic 79 mm[Hg] Sam Spencer OT-C [facility] Work Phone: NEGATED: Highlighted [id number] 08:32-0400 BP Systolic 113 mm[Hg] Sam Spencer OT-C [facility] Work Phone: NEGATED: Highlighted [id number] 08:32-0400 Height 160.02 cm Sam Spencer OT-C [facility] Work Phone: NEGATED: Highlighted [id number] 08:32-0400 Height 160 cm Sam Spencer OT-C [facility] Work Phone: NEGATED: Highlighted [id number] 08:32-0400 Pulse (Heart Rate) 68 /min Sam Spencer OT-C [facility] Work Phone: NEGATED: Highlighted [id number] 08:32-0400 Weight 65.32 kg Sam Spencer OT-C [facility] Work Phone: NEGATED: Highlighted [id number] 08:32-0400 Weight 65 kg Sam Spencer OT-C [facility] Work Phone: Encounters Encounter Date Encounter Type Care Provider Facility Start: 01-26-2023 End: 01-27-2023 ambulatory DIVINA FORDE Facility:[facility] Start: 01-15-2023 Telephone encounter Juan Manuel Forde MD Work Phone: [facility] Procedures Date Procedure Procedure Detail Performing Clinician Start: 01-15-2023 Us soft tissue head & neck real time imge docm Divina Forde MD Work Phone: Start: 10-06-2022 Lipid 1996 panel - S jenifer or Plasma Monisha Mullen MA Start: 11-04-2021 Dxa bone density óscar dy 1/> sites axial skel Divina Forde MD Work Phone: Start: 11-01-2021 Urnls dip stick/tabl et rgnt auto w/o microscopy Sal Gonsales MD Work Phone: Start: 10-07-2021 Ecg routine ecg w/le ast 12 lds w/i&r [facility] Provider Start: 07-25-2021 Mra head w/o contrst material Divina Forde MD Work Phone: Start: 07-31-2020 Adult depression screening assessment Divina Forde MD Work Phone: Start: 04-26-2019 Mammography Juan Manuel Forde MD Work Phone: Start: 04-11-2019 Colonoscopy Juan Manuel Forde MD Work Phone: Start: 07-20-2017 End: 07-20-2017 Blood pressure within normal parameters - no follow-up required Vin Davila MD Work Phone: Start: 07-20-2017 End: 07-20-2017 BMI outside of normal parameters - no follow-up plan/reason not given Vin Davila MD Work Phone: Start: 07-20-2017 End: 07-20-2017 Current medications documented Vin Davila MD Work Phone: Start: 07-20-2017 End: 07-20-2017 Pain assessment documented as positive - follow-up documented Vin Davila MD Work Phone: Start: 07-20-2017 End: 07-20-2017 Tobacco screening or cessation counseling not performed - unknown reason Vin Davila MD Work Phone: Start: 06-23-2011 Colonoscopy Sal Jc MD Work Phone: Plan of Treatment Date Care Activity Detail Author Start: 07-31-2030 Urine microalbumin profile [facility] Start: 04-10-2029 Colonoscopy COLONOSCOPY [facility] Start: 04-10-2029 COLORECTAL CANCER SCREENING COLORECTAL CANCER SCREENING [facility] Start: 10-07-2027 Lipid 1996 panel - Serum or Plasma Lipid Screening [facility] Start: 10-07-2026 LIPID SCREEN LIPID SCREEN [facility] Start: 01-13-2026 Diabetes Screening Diabetes Screening [facility] Start: 10-06-2025 Diabetes Screening Diabetes Screening [facility] Start: 07-29-2025 LIPID SCREEN LIPID SCREEN [facility] Start: 10-07-2024 DIABETES SCREEN DIABETES SCREEN [facility] Start: 07-22-2024 DIABETES SCREEN DIABETES SCREEN [facility] Start: 01-21-2024 DIABETES SCREEN DIABETES SCREEN [facility] Start: 01-14-2024 Annual PCP Team Chronic Disease Visit Annual PCP Team Chronic Disease Visit [facility] Start: 09-23-2023 ANNUAL PCP TEAM CHRONIC DISEASE VISIT ANNUAL PCP TEAM CHRONIC DISEASE VISIT [facility] Start: 08-18-2023 Mammography Mammogram Screening [facility] Start: 11-07-2022 ANNUAL PCP TEAM CHRONIC DISEASE VISIT ANNUAL PCP TEAM CHRONIC DISEASE VISIT [facility] Start: 11-05-2022 ANNUAL PCP TEAM CHRONIC DISEASE VISIT ANNUAL PCP TEAM CHRONIC DISEASE VISIT [facility] Start: 11-01-2022 ANNUAL PCP TEAM CHRONIC DISEASE VISIT ANNUAL PCP TEAM CHRONIC DISEASE VISIT [facility] Start: 10-09-2022 Covid-19 Vaccine ( season) Covid-19 Vaccine () [facility] Start: 10-09-2022 Influenza vaccination [facility] Start: 10-07-2022 ANNUAL PCP TEAM CHRONIC DISEASE VISIT ANNUAL PCP TEAM CHRONIC DISEASE VISIT [facility] Start: 09-22-2022 End: 11-22-2022 Comprehensive metabolic 2000 panel - Serum or Plasma COMP METABOLIC PANEL Lab Routine Hyperlipidemia LDL goal <100 Expected: 09/22/2022, Expires: 11/22/2022 [facility] Work Phone: Immunizations Immunization Date Immunization Notes Care Provider Fa ciliinna 01-20-2021 influenza, high-dose , quadrivalent vaccine (FLUZONE HIGH DOSE QUADRIVALENT) Divina Forde MD Work Phone: [facility] 01-20-2021 pneumococcal conjuga te vaccine, 13 valent Divnia Forde MD Work Phone: [facility] 01-20-2021 influenza virus vaccine, unspecified formulation Monishaantonina Mullen [facility] 07-31-2020 tetanus toxoid, redu jeremi diphtheria toxoid, and acellular pertussis vaccine, adsorbed Divina Forde MD Work Phone: [facility] 05-16-2020 COVID-19 vaccine, fu ll dose (MODERNA) Divina Forde MD Work Phone: [facility] 04-25-2020 COVID-19 vaccine, fu ll dose (MODERNA) Divina Forde MD Work Phone: [facility] 03-21-2020 zoster vaccine recombinant Divina Forde MD Work Phone: [facility] 12-28-2019 zoster vaccine recombinant Divina Forde MD Work Phone: [facility] 11-26-2014 pneumococcal polysaccharide vaccine, 23 valent Divina Forde MD Work Phone: [facility] 04-22-2006 tetanus toxoid, redu jeremi diphtheria toxoid, and acellular pertussis vaccine, adsorbed Divina Forde MD Work Phone: [facility] Work Phone: No information available. Sam ROSARIO [facility] Work Phone: Payers Date Payer Category Payer Medicare [employer] MEDICARE [employer] GOLD PLUS [id number] 2021-Present [phone] [address] [address] [place] [address] O [id number] 2021 Medicare [id number] 2021 Medicare [id number] Social History Date Type Detail Facility Start: 07-20-2017 End: 07-20-2017 Assertion Unknown if ever smoked [facility] Work Phone: Start: 10-07-2021 Tobacco smoking status NHIS Smokes tobacco daily [facility] History of tobacco use Cigarette Smoker [facility] Start: 01-20-2021 End: 01-13-2023 Alcohol intake Current drinker of alcohol (finding) [facility] Start: 1955 Sex Assigned At Not on file [facility] Start: 07-12-2021 End: 11-01-2021 Exposure to SARS-CoV-2 (event) Not sure [facility] Start: 10-07-2021 End: 09-22-2022 Cigarettes smoked current (pack per day) - Reported 1 [facility] Start: 10-07-2021 Tobacco use and exposure Smokeless tobacco non-user [facility] Start: 11-01-2021 End: 09-22-2022 Tobacco use panel [facility] Adult Depression Screening Assessment 0 [facility] NEGATED: Highlighted rowStart: 07-20-2017 End: 07-20-2017 Employment detail Current every day smoker [facility] Work Phone: Clinical Notes 08-08-2013 to 01-26-2023 Telephone Encounter - [address] LPN - 01/15/2023 12:26 PM ESTTelephone Encounter - Divina Forde MD - 01/15/2023 11:54 AM Shannan Robles RDMS - 01/15/2023 10:30 AM EST Note Date & Type Note Facility 01-26-2023 Note HNO ID: [id number] Author: Maricarmen Barcenas MD Service: ? Author Type: Physician Type: Progress Notes Filed: 01/28/2023 6:50 PM Note Text: Jaymie Eren 1955 REFERRING PHYSICIAN: Divina Forde,* CHIEF COMPLAINT: Consult (Multiple thyroid nodules) HPI: The patient is a 67 year old female presents with thyroid goiter and abnormal thyroid nodules. She was noted to have goiter and nodule by physical examination. She also notes swallowing issues with some foods. She has noted this for years She notes no thyroid problems in her family. She also has globus sensation. She denies history of thyroiditis or use of thyroid hormones. US 01/15/2023 Thyroid goiter; Multiple nodules right lower 1.5; left isthmus 2.6 PAST MEDICAL HISTORY Diagnosis Date Abnormal liver function tests 05/05/2010 Anxiety attack 05/05/[address] Garay Benign neoplasm of colon BPPV (benign paroxysmal positional vertigo) Depression 05/05/2010 Elevated liver function tests 02/08/2009 Fibrocystic disease of breast 02/09/2008 Hyperlipidemia LDL goal <100 11/26/2014 Internal hemorrhoids without mention of complication Intervertebral disc disorder with radiculopathy of lumbar region 11/26/2014 Other chronic cystitis Tobacco abuse PAST SURGICAL HISTORY Procedure Laterality Date COLONOSCOPY 04/2019 repeat in 5 years. acute respiratory failure due to vocal cord muscle spasm with negative pressure pulmonary edema. COLONOSCOPY W/BIOPSY SINGLE/MULTIPLE 06/23/2011 repeat 5 years ROTATOR CUFF REPAIR Right STEREO LOC FOR CORE BRST BX RT 11/28/2008 TOTAL HIP REPLACEMENT Right 12/30/2021 Current Outpatient Medications Medication Sig citalopram (CELEXA) 20 mg tablet Take 1 tablet by mouth once daily. montelukast chewable (SINGULAIR) 5 mg tablet Take 2 tablets by mouth daily at bedtime. meclizine (ANTIVERT) 25 mg tab Take 1 tablet by mouth three times daily as needed (dizziness). simvastatin (ZOCOR) 40 mg tablet TAKE 1 TABLET AT BEDTIME hydrOXYzine pamoate (VISTARIL) 25 mg capsule May take 1-2 tablets three times a day as needed for anxiety albuterol HFA (VENTOLIN HFA) 90 mcg/actuation inhaler Inhale 2 Puffs as instructed every 4 hours as needed for wheezing/shortness of breath. budesonide-formoterol (SYMBICORT) 80-4.5 mcg/actuation inhaler Inhale 2 Puffs as instructed twice daily. SYMBICORT 160-4.5 mcg/actuation inhaler Inhale 2 Puffs as instructed twice daily. No current facility-administered medications for this visit. ALLERGIES: Ambien [Zolpidem Tartrate], Amoxicillin, and Sulfa (Sulfonamide Antibiotics) PERSONAL HISTORY: Social History Tobacco Use Smoking status: Every Day Packs/day: 1.00 Years: 44.00 Additional pack years: 0.00 Total pack years: 44.00 Types: Cigarettes Smokeless tobacco: Never Vaping Use Vaping Use: Never used Substance Use Topics Alcohol use: Yes Comment: SOCIALLY Drug use: No FAMILY HISTORY Problem Relation Age of Onset Breast Cancer Mother Cancer Father GI Sister twin sister with recurrent benign colon polyps Coronary Artery Disease Maternal Grandfather Heart Paternal Grandmother CHF Heart Paternal Grandfather CHF Coronary Artery Disease Maternal Uncle The review of systems data was entered by the nurse and reviewed by me Nursing Notes: Hussain VICKEY Julian 01/26/2023 3:03 PM Signed REVIEW OF SYSTEMS: General: The patient denies fatigue, denies weight loss, denies weight gain, denies feeling hot, and denies feelings of cold. Eyes: The patient denies glaucoma, denies eye injury/surgery, wears glasses or contacts. Ear/Nose/Throat: The patient NOTES allergies, denies hayfever, denies ear infections, and denies bloody noses. Cardiovascular: The patient denies chest pain, denies heart disease, denies high blood pressure,denies cardiac stent, denies prior heart attack, denies irregular heart beat, NOTES high cholesterol, denies poor circulation, denies heart failure, other cardiac issues, denies claudication, denies cold feet, denies peripheral arterial stent. Respiratory: The patient denies tuberculosis, denies pneumonia, NOTES frequent cough, denies pulmonary embolism, NOTES shortness of breath, and denies coughing up blood., NOTES asthma, NOTES copd, NOTES respiratory failure Gastrointestinal: The patient NOTES difficulty swallowing, denies acid reflux, denies ulcers, denies vomiting, denies jaundice/hepatitis, denies gallbladder problems, denies black or tarry stools, NOTES hemorrhoids, denies bleeding from rectum, denies diverticulitis, denies constipation, denies diarrhea, denies loss of stool control, and denies hernias. Kidney/Bladder: The patient denies kidney stones, denies urine infections, and denies bloody urine. Skin: The patient denies a history of skin cancer, denies bleeding/changing moles, and denies a history of skin rash. Neurologic: The patient denies a histo (more content not included)... [facility] 01-15-2023 Note HNO ID: [id number] Author: Shannan Brown RDMS Service: ? Author Type: Billet Worker Type: Progress Notes Filed: 01/15/2023 11:04 AM Note Text: Radiology Service Progress Note PATIENT NAME: Jaymie Jason DATE OF SERVICE: January 15, 2023 TIME: 11:04 AM PATIENT IDENTITY VERIFICATION COMPLETED USING TWO (2) IDENTIFIERS: Name and Date of confirmed by patient verbally. FALL SCREENING: Has the patient had 2 falls in the last year or 1 fall with injury or currently using an Ambulatory Assistive Device (Walker, Cane, Wheelchair, Crutches, etc.)? No PATIENT GENDER DATA: Female. status: : No status: NO. PATIENT RELEVANT IMPLANT DATA REVIEWED: Not Applicable RADIOLOGY DEPARTMENT: Biopsy and Ultrasound PERIPHERAL IV DATA: Not applicable SIGNED BY: Shannan Brown RDMS January 15, 2023 11:04 AM [facility] 01-15-2023 Miscellaneous Notes Formattin g of this note might be different from the original. Phoned patient and updated her with results and recommendations. Patient voiced understanding and direscted to scheduling desk. Patient's US shows 3 nodules with 2 on right side and large 1 on left. Recommending biopsy for [address] referral to general surgery. Please assist with scheduling. documented in this encounter [facility] 01-15-2023 History of Presen t illness Narrative Radiology Service Progress Note PATIENT NAME: Jaymie Jason DATE OF SERVICE: January 15, 2023 TIME: 11:04 AM PATIENT IDENTITY VERIFICATION COMPLETED USING TWO (2) IDENTIFIERS: Name and Date of confirmed by patient verbally. FALL SCREENING: Has the patient had 2 falls in the last year or 1 fall with injury or currently using an Ambulatory Assistive Device (Walker, Cane, Wheelchair, Crutches, etc.)? No PATIENT GENDER DATA: Female. status: : No status: NO. PATIENT RELEVANT IMPLANT DATA REVIEWED: Not Applicable RADIOLOGY DEPARTMENT: Biopsy and Ultrasound PERIPHERAL IV DATA: Not applicable SIGNED BY: Shannan Brown RDMS January 15, 2023 11:04 AM documented in this encounter [facility] 01-13-2023 Note HNO ID: [id number] Author: Divina Forde MD Service: ? Author Type: Physician Type: Progress Notes Filed: 01/14/2023 10:05 AM Note Text: Chief Complaint Patient presents with: Thyroid Problem: Abdominal Pain: Fell on trash can wheel x2 weeks ago, tightness and burning HPI Jaymie Jason is a 67 year old female who presents here today for Above Complaints.. Patient states that she was at appointment with Dr. Painting today and they noted a thyroid nodule on her physical exam. Recommended f/u with our office LORE. Patient has never noticed this and was not noted on her exam at our last OV. Admits to occasional dysphagia, but cannot specify where. Admits to fatigue, constipation, hair loss. Denies weight loss/gain, hot/cold intolerance, diarrhea. Fell on trash can more than a month ago. Had some epigastric bruising and lump which has resolved. No pain today. Past medical history, appointments, medications, allergies reviewed. Previous Medical History PAST MEDICAL HISTORY Diagnosis Date Abnormal liver function tests 05/05/2010 Anxiety attack 05/05/[address] Garay Benign neoplasm of colon BPPV (benign paroxysmal positional vertigo) Depression 05/05/2010 Elevated liver function tests 02/08/2009 Fibrocystic disease of breast 02/09/2008 Hyperlipidemia LDL goal <100 11/26/2014 Internal hemorrhoids without mention of complication Intervertebral disc disorder with radiculopathy of lumbar region 11/26/2014 Other chronic cystitis Tobacco abuse Previous Surgical History PAST SURGICAL HISTORY Procedure Laterality Date COLONOSCOPY 04/2019 repeat in 5 years. acute respiratory failure due to vocal cord muscle spasm with negative pressure pulmonary edema. COLONOSCOPY W/BIOPSY SINGLE/MULTIPLE 06/23/2011 repeat 5 years ROTATOR CUFF REPAIR Right STEREO LOC FOR CORE BRST BX RT 11/28/2008 TOTAL HIP REPLACEMENT Right 12/30/2021 Family History FAMILY HISTORY Problem Relation Age of Onset Breast Cancer Mother Cancer Father GI Sister twin sister with recurrent benign colon polyps Coronary Artery Disease Maternal Grandfather Heart Paternal Grandmother CHF Heart Paternal Grandfather CHF Coronary Artery Disease Maternal Uncle Patient Allergies ALLERGIES Allergen Reactions Ambien [Zolpidem Ta* Other: See Comments gave her strange sensations on the inside of her body Amoxicillin Other: See Comments itching Sulfa (Sulfonamide * Rash Current Medications Current Outpatient Medications on File Prior to Visit Medication Sig citalopram (CELEXA) 20 mg tablet Take 1 tablet by mouth once daily. montelukast chewable (SINGULAIR) 5 mg tablet Take 2 tablets by mouth daily at bedtime. meclizine (ANTIVERT) 25 mg tab Take 1 tablet by mouth three times daily as needed (dizziness). simvastatin (ZOCOR) 40 mg tablet TAKE 1 TABLET AT BEDTIME hydrOXYzine pamoate (VISTARIL) 25 mg capsule May take 1-2 tablets three times a day as needed for anxiety albuterol HFA (VENTOLIN HFA) 90 mcg/actuation inhaler Inhale 2 Puffs as instructed every 4 hours as needed for wheezing/shortness of breath. SYMBICORT 160-4.5 mcg/actuation inhaler Inhale 2 Puffs as instructed twice daily. budesonide-formoterol (SYMBICORT) 80-4.5 mcg/actuation inhaler Inhale 2 Puffs as instructed twice daily. No current facility-administered medications on file prior to visit. Social History Social History Tobacco Use Smoking status: Every Day Packs/day: 1.00 Years: 44.00 Additional pack years: 0.00 Total pack years: 44.00 Types: Cigarettes Smokeless tobacco: Never Vaping Use Vaping Use: Never used Substance Use Topics Alcohol use: Yes Comment: SOCIALLY Drug use: No Review of Symptoms REVIEW OF SYSTEMS See HPI EXAM: BP 130/80 Pulse 60 Resp 16 Wt 57.2 kg (126 lb) BMI 22.61 kg/m? General Appearance: Well appearing, alert, in no acute distress, well-hydrated, well nourished.. Skin: Skin color, texture, turgor normal, no suspicious rashes or lesions. Neck: 3 cm left thyroid nodule which is mildly TTP. No increased vascularity noted on auscultation. Lungs: Lungs clear to auscultation. No wheezing, rhonchi, rales.. Heart: RRR without murmur, gallop, or rubs. No ectopy. Abdomen: Normal abdominal exam, Abdomen soft, non-tender. Bowel sounds normal. No masses, organomegaly. Health Maintenance List Alpha-1 Antitrypsin Deficiency Screening Never done Lung Cancer Screening Never done RSV Vaccine(1 - 1-dose 60+ series) Never done Pneumococcal Vaccine: 65+(3 - PPSV23 or PCV20) due on 01/20/2022 Advance Directive Discussion Never done Depression Assessment Never done Covid-19 Vaccine( season) due on 10/09/2022 Mammogram Screening due on 08/18/2023 Annual PCP Team Chronic Disease Visit due on 09/23/2023 Diabetes Screening due on 10/06/2025 Lipid Screening due on 10/07/2027 Colorectal Cancer Screening due on 04/10/2029 DTa (more content not included)... [facility] 01-13-2023 History of Presen t illness Narrative Chief Complaint Patient presents with: Thyroid Problem: Abdominal Pain: Fell on trash can wheel x2 weeks ago, tightness and burning HPI Jaymie Jason is a 67 year old female who presents here today for Above Complaints.. Patient states that she was at appointment with Dr. Painting today and they noted a thyroid nodule on her physical exam. Recommended f/u with our office LORE. Patient has never noticed this and was not noted on her exam at our last OV. Admits to occasional dysphagia, but cannot specify where. Admits to fatigue, constipation, hair loss. Denies weight loss/gain, hot/cold intolerance, diarrhea. Fell on trash can more than a month ago. Had some epigastric bruising and lump which has resolved. No pain today. Past medical history, appointments, medications, allergies reviewed. Previous Medical History PAST MEDICAL HISTORY Diagnosis Date Abnormal liver function tests 05/05/2010 Anxiety attack 05/05/[address] Garay Benign neoplasm of colon BPPV (benign paroxysmal positional vertigo) Depression 05/05/2010 Elevated liver function tests 02/08/2009 Fibrocystic disease of breast 02/09/2008 Hyperlipidemia LDL goal <100 11/26/2014 Internal hemorrhoids without mention of complication Intervertebral disc disorder with radiculopathy of lumbar region 11/26/2014 Other chronic cystitis Tobacco abuse Previous Surgical History PAST SURGICAL HISTORY Procedure Laterality Date COLONOSCOPY 04/2019 repeat in 5 years. acute respiratory failure due to vocal cord muscle spasm with negative pressure pulmonary edema. COLONOSCOPY W/BIOPSY SINGLE/MULTIPLE 06/23/2011 repeat 5 years ROTATOR CUFF REPAIR Right STEREO LOC FOR CORE BRST BX RT 11/28/2008 TOTAL HIP REPLACEMENT Right 12/30/2021 Family History FAMILY HISTORY Problem Relation Age of Onset Breast Cancer Mother Cancer Father GI Sister twin sister with recurrent benign colon polyps Coronary Artery Disease Maternal Grandfather Heart Paternal Grandmother CHF Heart Paternal Grandfather CHF Coronary Artery Disease Maternal Uncle Patient Allergies ALLERGIES Allergen Reactions Ambien [Zolpidem Ta* Other: See Comments gave her strange sensations on the inside of her body Amoxicillin Other: See Comments itching Sulfa (Sulfonamide * Rash Current Medications Current Outpatient Medications on File Prior to Visit Medication Sig citalopram (CELEXA) 20 mg tablet Take 1 tablet by mouth once daily. montelukast chewable (SINGULAIR) 5 mg tablet Take 2 tablets by mouth daily at bedtime. meclizine (ANTIVERT) 25 mg tab Take 1 tablet by mouth three times daily as needed (dizziness). simvastatin (ZOCOR) 40 mg tablet TAKE 1 TABLET AT BEDTIME hydrOXYzine pamoate (VISTARIL) 25 mg capsule May take 1-2 tablets three times a day as needed for anxiety albuterol HFA (VENTOLIN HFA) 90 mcg/actuation inhaler Inhale 2 Puffs as instructed every 4 hours as needed for wheezing/shortness of breath. SYMBICORT 160-4.5 mcg/actuation inhaler Inhale 2 Puffs as instructed twice daily. budesonide-formoterol (SYMBICORT) 80-4.5 mcg/actuation inhaler Inhale 2 Puffs as instructed twice daily. No current facility-administered medications on file prior to visit. Social History Social History Tobacco Use Smoking status: Every Day Packs/day: 1.00 Years: 44.00 Additional pack years: 0.00 Total pack years: 44.00 Types: Cigarettes Smokeless tobacco: Never Vaping Use Vaping Use: Never used Substance Use Topics Alcohol use: Yes Comment: SOCIALLY Drug use: No Review of Symptoms REVIEW OF SYSTEMS See HPI EXAM: BP 130/80 Pulse 60 Resp 16 Wt 57.2 kg (126 lb) BMI 22.61 kg/m General Appearance: Well appearing, alert, in no acute distress, well-hydrated, well nourished.. Skin: Skin color, texture, turgor normal, no suspicious rashes or lesions. Neck: 3 cm left thyroid nodule which is mildly TTP. No increased vascularity noted on auscultation. Lungs: Lungs clear to auscultation. No wheezing, rhonchi, rales.. Heart: RRR without murmur, gallop, or rubs. No ectopy. Abdomen: Normal abdominal exam, Abdomen soft, non-tender. Bowel sounds normal. No masses, organomegaly. Health Maintenance List Alpha-1 Antitrypsin Deficiency Screening Never done Lung Cancer Screening Never done RSV Vaccine(1 - 1-dose 60+ series) Never done Pneumococcal Vaccine: 65+(3 - PPSV23 or PCV20) due on 01/20/2022 Advance Directive Discussion Never done Depression Assessment Never done Covid-19 Vaccine(2022- season) due on 10/09/2022 Mammogram Screening due on 08/18/2023 Annual PCP Team Chronic Disease Visit due on 09/23/2023 Diabetes Screening due on 10/06/2025 Lipid Screening due on 10/07/2027 Colorectal Cancer Screening due on 04/10/2029 DTaP,Tdap,Td Vaccine(3 - Td or Tdap) due on 07/31/2030 Bone Density Screening Completed Spirometry Completed Influenza Vaccine Completed Hepatitis C Screening Completed Shingrix Vaccine Completed Pap Testing Discontinued ASSESSMENT/PLAN: 1. Thyroid nodule - ICD9: 241.0, ICD10: E04.1 (primary diagnosis) Obtain STAT US and labs as ordered. Will likely need referral for biopsy vs excision. Will place referral once we get the imaging back based on results. Red flags for re-assessment reviewed with patient in detail. - US THYROID/PARATHYROID - TSH BLD - T4 FREE/FREE THYROX - THYROID PEROXIDASE ANTIBODY BLOOD - CBC + DIFF - COMP METABOLIC PANEL 2. Contusion of abdominal wall, initial encounter - ICD9: 922.2, ICD10: S30.1XXA Resolved. No pain today. Will monitor. Divina Forde MD documented in this encounter [facility] 11-17-2022 Note Patient Outreach (NE TNAV) EREN,HELEN ([id number]) 1955 F Date Time Provider Department 11/17/22 RAJAT SANON During your visit today, we recorded the following information about you: Rajat Sanon MA 11/17/2022 11:57 AM Signed POPULATION HEALTH NAVIGATION OUTREACH Action/FYI Updated HM for patient mammogram. Spoke to pt to schedule influenza, wellness due 09/24/2023. She will call back to schedule. Patient Identified by Name and : YES, via phone Outreach Outcome/Action Spoke to patient / parent / legal guardian: Patient will return the call or ask for return call Did you use a PCP flex slot to schedule this appointment? N/A Reason for Outreach Care Gap or Scheduling/Wellness visits Payer: Payor: [employer] MEDICARE / Plan: [employer] PPO / Product Type: PPO / Care Gap Reviewed:: Annual Wellness visit Flu Vaccine Reminder: Reminder note to check Health Maintenance for items below Health Maintenance items due: Alpha-1 Antitrypsin Deficiency Screening Never done Lung Cancer Screening Never done Pneumococcal Vaccine: 65+(3 - PPSV23 or PCV20) due on 01/20/2022 Advance Directive Discussion Never done Depression Assessment Never done Influenza Vaccine(1) due on 10/09/2022 Covid-19 Vaccine(4 - 2022-24 season) due on 10/09/2022 Navigation Signature: Rajat Sanon MA November 17, 2022 11:55 AM Allergies As of Date: 11/17/2022 Noted Allergy Reaction AMBIEN (ZOLPIDEM TARTRATE) 02/27/2005 14 - Other: See Comments Comments: gave her strange sensations on the inside of her body AMOXICILLIN 07/31/2020 14 - Other: See Comments Comments: itching SULFA (SULFONAMIDE ANTIBIOTICS) 02/27/2005 2 - Rash Date Reviewed: 09/22/2022 Reviewed by: Tiffany He OCCA - Fully Assessed Reason for Visit: Population Health Navigation Outreach [3910] Cmt: [employer] care gaps Prescriptions as of 11/17/2022 - albuterol HFA (VENTOLIN HFA) 90 mcg/actuation inhaler Inhale 2 Puffs as instructed every 4 hours as needed for wheezing/shortness of breath. - budesonide-formoterol (SYMBICORT) 80-4.5 mcg/actuation inhaler Inhale 2 Puffs as instructed twice daily. - citalopram (CELEXA) 20 mg tablet Take 1 tablet by mouth once daily. - hydrOXYzine pamoate (VISTARIL) 25 mg capsule May take 1-2 tablets three times a day as needed for anxiety - meclizine (ANTIVERT) 25 mg tab Take 1 tablet by mouth three times daily as needed (dizziness). - montelukast chewable (SINGULAIR) 5 mg tablet Take 2 tablets by mouth daily at bedtime. - simvastatin (ZOCOR) 40 mg tablet TAKE 1 TABLET AT BEDTIME - SYMBICORT 160-4.5 mcg/actuation inhaler Inhale 2 Puffs as instructed twice daily. Problem List As Of Date 11/17/2022 Noted Resolved Other chronic cystitis [N30.20] 11/26/2014 Anxiety state [F41.1] 03/02/2005 Disorders of bursae and tendons in shoulder reg*09/13/2007 11/26/2014 Adjustment disorder with depressed mood [F43.21]09/21/2008 11/26/2014 Elevated liver function tests 04/24/2009 05/05/2010 Fibrocystic Disease of Breast [N60.19] 04/24/2009 Tobacco Use Disorder [F17.200] 04/24/2009 Abnormal liver function tests [R79.89] 05/05/2010 11/26/2014 Depression [F32.A] 05/05/2010 11/26/2014 Anxiety attack [F41.0] 05/05/2010 11/26/2014 Internal hemorrhoids without mention of complic*06/23/2011 Tubular adenoma of colon [D12.6] 06/23/2011 Anxiety and depression [F41.9, F32.A] 08/08/2013 11/26/2014 Hyperlipidemia LDL goal <100 [E78.5] 11/26/2014 Intervertebral disc disorder with radiculopathy*11/26/2014 BPPV (benign paroxysmal positional vertigo), le*03/16/2017 Supraspinatus tendon tear, right, subsequent en*03/16/2017 Superior glenoid labrum lesion of right shoulde*03/16/2017 Chronic obstructive pulmonary disease (HCC) [J4*05/04/2019 Acute postprocedural respiratory failure (HCC) *05/04/2019 History of acute respiratory failure [Z87.09] 05/04/2019 Asthma [J45.909] Other osteoporosis without current pathological*11/07/2021 Encounter Status:Closed by RAJAT SANON on 11/17/22 [facility] 11-17-2022 Note HNO ID: [id number] Author: Rajat Sanon MA Service: ? Author Type: Histology Supervisor Type: Progress Notes Filed: 11/17/2022 11:57 AM Note Text: POPULATION HEALTH NAVIGATION OUTREACH Action/FYI Updated HM for patient mammogram. Spoke to pt to schedule influenza, wellness due 09/24/2023. She will call back to schedule. Patient Identified by Name and : YES, via phone Outreach Outcome/Action Spoke to patient / parent / legal guardian: Patient will return the call or ask for return call Did you use a PCP flex slot to schedule this appointment? N/A Reason for Outreach Care Gap or Scheduling/Wellness visits Payer: Payor: [employer]ARE / Plan: [employer] PPO / Product Type: PPO / Care Gap Reviewed:: Annual Wellness visit Flu Vaccine Reminder: Reminder note to check Health Maintenance for items below Health Maintenance items due: Alpha-1 Antitrypsin Deficiency Screening Never done Lung Cancer Screening Never done Pneumococcal Vaccine: 65+(3 - PPSV23 or PCV20) due on 01/20/2022 Advance Directive Discussion Never done Depression Assessment Never done Influenza Vaccine(1) due on 10/09/2022 Covid-19 Vaccine(2022-24 season) due on 10/09/2022 Navigation Signature: Rajat Sanon MA November 17, 2022 11:55 AM [facility] 11-17-2022 History of Presen t illness Narrative POPULATION HEALTH NAVIGATION OUTREACH Action/FYI Updated HM for patient mammogram. Spoke to pt to schedule influenza, wellness due 09/24/2023. She will call back to schedule. Patient Identified by Name and : YES, via phone Outreach Outcome/Action Spoke to patient / parent / legal guardian: Patient will return the call or ask for return call Did you use a PCP flex slot to schedule this appointment? N/A Reason for Outreach Care Gap or Scheduling/Wellness visits Payer: Payor: [employer] MEDICARE / Plan: [employer] MED[employer]ARE PPO / Product Type: PPO / Care Gap Reviewed:: Annual Wellness visit Flu Vaccine Reminder: Reminder note to check Health Maintenance for items below Health Maintenance items due: Alpha-1 Antitrypsin Deficiency Screening Never done Lung Cancer Screening Never done Pneumococcal Vaccine: 65+(3 - PPSV23 or PCV20) due on 01/20/2022 Advance Directive Discussion Never done Depression Assessment Never done Influenza Vaccine(1) due on 10/09/2022 Covid-19 Vaccine( season) due on 10/09/2022 Navigation Signature: Rajat Sanon MA November 17, 2022 11:55 AM documented in this encounter [facility] 10-23-2022 Note HNO ID: [id number] Author: Monisha Akins MA Service: ? Author Type: Histology Supervisor Type: Progress Notes Filed: 10/23/2022 9:42 AM Note Text: POPULATION HEALTH NAVIGATION OUTREACH Action/FYI Voicemail received from patient requesting return call Call placed to patient - Patient Identified by Name and : NO Outreach Outcome/Action Unable to reach patient: Left message Did you use a PCP flex slot to schedule this appointment? N/A Navigation Signature: Monisha Mullen MA October 23, 2022 9:41 AM [facility] 10-21-2022 Note Patient Outreach (NIK TNAV) JAYMIE JASON ([id number]) 1955 F Date Time Provider Department 10/21/22 MONISHA AKINS NETNAV During your visit today, we recorded the following information about you: Monisha Akins MA 10/21/2022 3:17 PM Signed POPULATION HEALTH NAVIGATION OUTREACH Action/FYI Mammogram ordered 07/14/2022 No active MyChart Patient Identified by Name and : NO Outreach Outcome/Action Unable to reach patient: Left message Did you use a PCP flex slot to schedule this appointment? N/A Reason for Outreach Care Gap or Scheduling/Wellness visits Payer: Payor: [employer] MEDICARE / Plan: [employer] PPO / Product Type: PPO / Care Gap Reviewed:: Breast Cancer screening Flu Vaccine Reminder: Reminder note to check Health Maintenance for items below Health Maintenance items due: Alpha-1 Antitrypsin Deficiency Screening Never done Lung Cancer Screening Never done Mammogram Screening due on 04/25/2020 Covid-19 Vaccine(4 - Moderna series) due on 04/15/2021 Pneumococcal Vaccine: 65+(3 - PPSV23 or PCV20) due on 01/20/2022 Advance Directive Discussion Never done Depression Assessment Never done Influenza Vaccine(1) due on 10/09/2022 Navigation Signature: Monisha Mullen MA October 21, 2022 11:53 AM Monisha Akins MA 10/23/2022 9:42 AM Signed POPULATION HEALTH NAVIGATION OUTREACH Action/FYI Voicemail received from patient requesting return call Call placed to patient - Patient Identified by Name and : NO Outreach Outcome/Action Unable to reach patient: Left message Did you use a PCP flex slot to schedule this appointment? N/A Navigation Signature: Monisha Mullen MA October 23, 2022 9:41 AM Allergies As of Date: 10/21/2022 Noted Allergy Reaction AMBIEN (ZOLPIDEM TARTRATE) 02/27/2005 14 - Other: See Comments Comments: gave her strange sensations on the inside of her body AMOXICILLIN 07/31/2020 14 - Other: See Comments Comments: itching SULFA (SULFONAMIDE ANTIBIOTICS) 02/27/2005 2 - Rash Date Reviewed: 09/22/2022 Reviewed by: Tiffany He OCCA - Fully Assessed Reason for Visit: Population Health Navigation Outreach [3910] Cmt: [employer] Care Gaps Prescriptions as of 10/23/2022 - meclizine (ANTIVERT) 25 mg tab Take 1 tablet by mouth three times daily as needed (dizziness). - simvastatin (ZOCOR) 40 mg tablet TAKE 1 TABLET AT BEDTIME - hydrOXYzine pamoate (VISTARIL) 25 mg capsule May take 1-2 tablets three times a day as needed for anxiety - montelukast chewable (SINGULAIR) 5 mg tablet Take 2 tablets by mouth daily at bedtime. - citalopram (CELEXA) 20 mg tablet Take 1 tablet by mouth once daily. - albuterol HFA (VENTOLIN HFA) 90 mcg/actuation inhaler Inhale 2 Puffs as instructed every 4 hours as needed for wheezing/shortness of breath. - budesonide-formoterol (SYMBICORT) 80-4.5 mcg/actuation inhaler Inhale 2 Puffs as instructed twice daily. - SYMBICORT 160-4.5 mcg/actuation inhaler Inhale 2 Puffs as instructed twice daily. Problem List As Of Date 10/21/2022 Noted Resolved Other chronic cystitis [N30.20] 11/26/2014 Anxiety state [F41.1] 03/02/2005 Disorders of bursae and tendons in shoulder reg*09/13/2007 11/26/2014 Adjustment disorder with depressed mood [F43.21]09/21/2008 11/26/2014 Elevated liver function tests 04/24/2009 05/05/2010 Fibrocystic Disease of Breast [N60.19] 04/24/2009 Tobacco Use Disorder [F17.200] 04/24/2009 Abnormal liver function tests [R79.89] 05/05/2010 11/26/2014 Depression [F32.A] 05/05/2010 11/26/2014 Anxiety attack [F41.0] 05/05/2010 11/26/2014 Internal hemorrhoids without mention of complic*06/23/2011 Tubular adenoma of colon [D12.6] 06/23/2011 Anxiety and depression [F41.9, F32.A] 08/08/2013 11/26/2014 Hyperlipidemia LDL goal <100 [E78.5] 11/26/2014 Intervertebral disc disorder with radiculopathy*11/26/2014 BPPV (benign paroxysmal positional vertigo), le*03/16/2017 Supraspinatus tendon tear, right, subsequent en*03/16/2017 Superior glenoid labrum lesion of right shoulde*03/16/2017 Chronic obstructive pulmonary disease (HCC) [J4*05/04/2019 Acute postprocedural respiratory failure (HCC) *05/04/2019 History of acute respiratory failure [Z87.09] 05/04/2019 Asthma [J45.909] Other osteoporosis without current pathological*11/07/2021 Encounter Status:Closed by MONISHA AKINS on 10/21/22 [facility] 10-21-2022 Note HNO ID: [id number] Author: Monisha Akins MA Service: ? Author Type: Histology Supervisor Type: Progress Notes Filed: 10/21/2022 3:17 PM Note Text: POPULATION HEALTH NAVIGATION OUTREACH Action/FYI Mammogram ordered 07/14/2022 No active MyChart Patient Identified by Name and : NO Outreach Outcome/Action Unable to reach patient: Left message Did you use a PCP flex slot to schedule this appointment? N/A Reason for Outreach Care Gap or Scheduling/Wellness visits Payer: Payor: [employer] MEDICARE / Plan: [employer] PPO / Product Type: PPO / Care Gap Reviewed:: Breast Cancer screening Flu Vaccine Reminder: Reminder note to check Health Maintenance for items below Health Maintenance items due: Alpha-1 Antitrypsin Deficiency Screening Never done Lung Cancer Screening Never done Mammogram Screening due on 04/25/2020 Covid-19 Vaccine(4 - Moderna series) due on 04/15/2021 Pneumococcal Vaccine: 65+(3 - PPSV23 or PCV20) due on 01/20/2022 Advance Directive Discussion Never done Depression Assessment Never done Influenza Vaccine(1) due on 10/09/2022 Navigation Signature: Monisha Mullen MA October 21, 2022 11:53 AM [facility] 10-21-2022 History of Presen t illness Narrative POPULATION HEALTH NAVIGATION OUTREACH Action/FYI Mammogram ordered 07/14/2022 No active MyChart Patient Identified by Name and : NO Outreach Outcome/Action Unable to reach patient: Left message Did you use a PCP flex slot to schedule this appointment? N/A Reason for Outreach Care Gap or Scheduling/Wellness visits Payer: Payor: [employer] MEDICARE / Plan: [employer] MED[employer]ARE PPO / Product Type: PPO / Care Gap Reviewed:: Breast Cancer screening Flu Vaccine Reminder: Reminder note to check Health Maintenance for items below Health Maintenance items due: Alpha-1 Antitrypsin Deficiency Screening Never done Lung Cancer Screening Never done Mammogram Screening due on 04/25/2020 Covid-19 Vaccine(4 - Moderna series) due on 04/15/2021 Pneumococcal Vaccine: 65+(3 - PPSV23 or PCV20) due on 01/20/2022 Advance Directive Discussion Never done Depression Assessment Never done Influenza Vaccine(1) due on 10/09/2022 Navigation Signature: Monisha Mullen MA October 21, 2022 11:53 AM documented in this encounter [facility] 09-22-2022 Note HNO ID: [id number] Author: Keyana Mcnulty APRN.B[employer] G[employer] WORKER Service: ? Author Type: Nurse Practitioner Type: Progress Notes Filed: 09/22/2022 2:03 PM Note Text: 09/22/2022 Patient presents with: Yearly Exam SUBJECTIVE: This is a 67 year old that is here today for Above Complaints.. Following with pulmnoly at [facility] for asthma. Last appointment on 09/02/2022. PFTs completed and ECHO ordered due to patient complaints for SOB. Using inhalers as prescribed without side effects. Has upcoming follow-up to discuss results Just lost mother July 14. Sisters are home from [place] and [place] helping clean mother's house. Overall she is coping alright Taking citalopram as prescribed without side effects. Helps some to control her anxiety. Does not attend counseling. Denies SI, HI or insomnia HYPERLIPIDEMIA: Patient is taking medications: Yes. Patient is watching diet: Yes. Patient denies myalgias: Yes. Patient denies gi upset: Yes Feels unbalanced especially when she first gets up. Denies falls Still getting episodes of a prism in her peripheral vision a few times a month. Completed MRI/MRA brain and MRA of carotids last year for this with no acute findings. Reports the eye doctor told her it was a migraine without the headaches. Denies double vision, slurred speech, facial drooping, extremity numbness, tingling or weakness PAST MEDICAL HISTORY Diagnosis Date Abnormal liver function tests 05/05/2010 Anxiety attack 05/05/[address] Garay Benign neoplasm of colon BPPV (benign paroxysmal positional vertigo) Depression 05/05/2010 Elevated liver function tests 02/08/2009 Fibrocystic disease of breast 02/09/2008 Hyperlipidemia LDL goal <100 11/26/2014 Internal hemorrhoids without mention of complication Intervertebral disc disorder with radiculopathy of lumbar region 11/26/2014 Other chronic cystitis Tobacco abuse ALLERGIES Ambien [Zolpidem Tartrate], Amoxicillin, and Sulfa (Sulfonamide Antibiotics) MEDICATIONS Current Outpatient Medications Medication Sig simvastatin (ZOCOR) 40 mg tablet TAKE 1 TABLET AT BEDTIME hydrOXYzine pamoate (VISTARIL) 25 mg capsule May take 1-2 tablets three times a day as needed for anxiety montelukast chewable (SINGULAIR) 5 mg tablet Take 2 tablets by mouth daily at bedtime. citalopram (CELEXA) 20 mg tablet Take 1 tablet by mouth once daily. meclizine (ANTIVERT) 25 mg tab Take 1 tablet by mouth three times daily as needed (dizziness). albuterol HFA (VENTOLIN HFA) 90 mcg/actuation inhaler Inhale 2 Puffs as instructed every 4 hours as needed for wheezing/shortness of breath. budesonide-formoterol (SYMBICORT) 80-4.5 mcg/actuation inhaler Inhale 2 Puffs as instructed twice daily. SYMBICORT 160-4.5 mcg/actuation inhaler Inhale 2 Puffs as instructed twice daily. (Patient not taking: No sig reported) No current facility-administered medications for this visit. Medications and allergies reviewed by this provider. SOCIAL HISTORY Social History Tobacco Use Smoking status: Every Day Packs/day: 1.00 Years: 44.00 Additional pack years: 0.00 Total pack years: 44.00 Types: Cigarettes Smokeless tobacco: Never Vaping Use Vaping Use: Never used Substance Use Topics Alcohol use: Yes Comment: SOCIALLY Drug use: No REVIEW OF SYSTEMS GENERAL: No weight loss, malaise or fevers RESPIRATORY: Negative for cough, hemoptysis, wheezing, COPD, dyspnea or shortness of breath CARDIOVASCULAR: Negative for chest pain, leg swelling, hypertension, CHF or palpitations All other reviewed and negative other than HPI. OBJECTIVE: BP 116/72 Pulse 68 Resp 20 Ht 159 cm (5' 2.6 ) Wt 54.9 kg (121 lb) SpO2 98% BMI 21.71 kg/m? . Vital signs reviewed by this provider. APPEARANCE Well appearing, alert, in no acute distress, well-hydrated, well nourished. EYES conjunctiva and sclera normal. EARS External ears normal, canals clear NECK Supple, no adenopathy; thyroid symmetric, normal size, no bruits HEART RRR with normal S1 and S2, no murmurs, no gallops, no JVD appreciated LUNG clear to auscultation. No wheezes, rhonchi or rales EXTREMITIES Extremities normal, No deformities, No skin discoloration, and No edema NEURO SKIN Skin color, texture, turgor normal, no suspicious rashes or lesions to exposes skin ALPHA-1 ANTITRYPSIN DEFICIENCY SCREENING Never done LUNG CANCER SCREENING Never done MAMMOGRAM due on 04/25/2020 COVID-19 VACCINE(4 - Moderna series) due on 04/15/2021 PNEUMOCOCCAL: 65+(3 - PPSV23 or PCV20) due on 01/20/2022 ADVANCE DIRECTIVE DISCUSSION Never done DEPRESSION ASSESSMENT Never done INFLUENZA(1) due on 10/09/2022 ANNUAL PCP TEAM CHRONIC DISEASE VISIT due on 11/07/2022 DIABETES SCREEN due on 10/07/2024 LIPID SCREEN due on 10/07/2026 COLORECTAL CANCER SCREENING due on 04/10/2029 DTAP,TDAP,TD(3 - Td or Tdap) due on 07/31/2030 BONE DENSITY Completed SPIROMETRY Completed HEP (more content not included)... [facility] 09-22-2022 Instructions Podlogar, CHERYL Morales.ANN - 09/22/2022 1:34 PM EDT Take 1200 mg of calcium and 2000 units of vitamin D daily Preventing Falls and Maintaining Balance Preventing falls is important at any age, but it is especially important in older adults. Each year, one out of three people age 65 years and older will fall. Falls can cause a wide range of problems including pain, loss of independence, and mental decline. They can also cause a decrease in physical and social activity level and inability to move (mobility). Some risk factors for falls, such as increasing age, cannot be changed. In addition, certain diseases can affect balance and walking ability and therefore increase the risk of falls. Among these diseases are Parkinson s disease, stroke, dementia, diabetes, osteoporosis, arthritis, bone cancer, and multiple sclerosis. However, the good news is that most falls can be prevented and many medical risk factors for falling can be controlled. What can older adults do to prevent falls? Older adults can reduce their risk of falling by taking an active role in their own health. A few suggestions include: Exercise. Regular exercise improves balance, coordination, and bone and muscle strength. Ask your doctor what exercises are best for you. Get your eyes and hearing checked. Limit your alcohol intake and stop smoking. Alcohol can cause unsteadiness and slow reaction times. Smoking decreases bone strength. Get enough sleep (7 to 9 hours/night). You are more likely to fall if you are sleepy. Eat a well-balanced diet and drink plenty of fluids (eight, 8-oz glasses of fluids/day). To learn more about healthy eating, visit the website: http://www.choosemyplate.gov/ Make sure your doctor knows all prescription and mvpa-fap-btoyldg drugs you take. Medicines such as sedatives, muscle relaxants, cold medicines, and blood pressure drugs can cause dizziness, lightheadedness, or loss of balance. When two or more prescription or cyhh-hep-rrzteyd medicines are used in combination, side effects might be worsened and can lead to falls. What can older adults do to maintain balance to help prevent falls? Learning how to keep your balance as you move about can help avoid falls. Here are a few tips: Keep at least one hand free at all times; try using a backpack or feroz pack to hold things rather than carrying them in your hands. Never carry objects in both hands when walking. Swing both arms from front to back while walking. This may require a conscious effort; however, it will help maintain balance, posture, and reduce fatigue. Concentrate on lifting your feet off of the ground when walking. Shuffling and dragging your feet is a common culprit in losing your balance. When trying to navigate turns, use a U technique of facing forward and making a wide turn, rather than pivoting sharply. Stand with feet shoulder length apart. When feet are close together for any length of time, you increase your risk of losing your balance and falling. Do one thing at a time! Don t try to walk and perform another task, such as reading, using your cell phone, or looking around. The less distractions, the better! Do not wear rubber- or gripping-soled shoes as they may catch on the floor and cause tripping. Move slowly when changing positions. Focus your attention on each movement. If needed, use a grab bar or walking aid. Count 15 seconds between each movement; for example, when rising from a seated position, wait 15 seconds after standing to begin walking. Take kimberly chi and/or yoga classes. These slow, gentle-motion exercises have been shown to improve balance, strength, flexibility, coordination, and stability. If balance is an ongoing problem, consider using a walking aid such as a cane, walking stick, or walker. References [employer] [employer]. Guidelines for Preventing Falls. http://orthoinfo.aaos.org/topi c.cfm?apror=l44912 Accessed 04/02/2015. National [place] on A[employer] (NCOA). Falls Prevention. https://www.ncoa.org/healthy-a ging/falls-prevention/ Accessed 04/02/2015. Centers for Disease Control & Prevention. Important Facts about Falls. http://www.cdc.gov/HomeandRecr eationalSafety/Falls/adultfall s.html Accessed 04/02/2014. National [place] on Aging. AgePage: Falls and Fractures https://www.víctor.nih.gov/health /publication/ikjeq-jqj-ilampbk es Accessed 04/02/2014. [place] Department of Agriculture. Choose MyPlate.gov. http://www.choosemyplate.gov/ Accessed 04/02/2014. Copyright 2127-0416 [facility]. All rights reserved. This document was last reviewed on: 2015 Index # [id number] documented in this encounter [facility] 09-22-2022 History of Presen t illness Narrative 09/22/2022 Patient presents with: Yearly Exam SUBJECTIVE: This is a 67 year old that is here today for Above Complaints.. Following with pulmnoly at [facility] for asthma. Last appointment on 09/02/2022. PFTs completed and ECHO ordered due to patient complaints for SOB. Using inhalers as prescribed without side effects. Has upcoming follow-up to discuss results Just lost mother July 14. Sisters are home from [place] and [place] helping clean mother's house. Overall she is coping alright Taking citalopram as prescribed without side effects. Helps some to control her anxiety. Does not attend counseling. Denies SI, HI or insomnia HYPERLIPIDEMIA: Patient is taking medications: Yes. Patient is watching diet: Yes. Patient denies myalgias: Yes. Patient denies gi upset: Yes Feels unbalanced especially when she first gets up. Denies falls Still getting episodes of a prism in her peripheral vision a few times a month. Completed MRI/MRA brain and MRA of carotids last year for this with no acute findings. Reports the eye doctor told her it was a migraine without the headaches. Denies double vision, slurred speech, facial drooping, extremity numbness, tingling or weakness PAST MEDICAL HISTORY Diagnosis Date Abnormal liver function tests 05/05/2010 Anxiety attack 05/05/[address] Garay Benign neoplasm of colon BPPV (benign paroxysmal positional vertigo) Depression 05/05/2010 Elevated liver function tests 02/08/2009 Fibrocystic disease of breast 02/09/2008 Hyperlipidemia LDL goal <100 11/26/2014 Internal hemorrhoids without mention of complication Intervertebral disc disorder with radiculopathy of lumbar region 11/26/2014 Other chronic cystitis Tobacco abuse ALLERGIES Ambien [Zolpidem Tartrate], Amoxicillin, and Sulfa (Sulfonamide Antibiotics) MEDICATIONS Current Outpatient Medications Medication Sig simvastatin (ZOCOR) 40 mg tablet TAKE 1 TABLET AT BEDTIME hydrOXYzine pamoate (VISTARIL) 25 mg capsule May take 1-2 tablets three times a day as needed for anxiety montelukast chewable (SINGULAIR) 5 mg tablet Take 2 tablets by mouth daily at bedtime. citalopram (CELEXA) 20 mg tablet Take 1 tablet by mouth once daily. meclizine (ANTIVERT) 25 mg tab Take 1 tablet by mouth three times daily as needed (dizziness). albuterol HFA (VENTOLIN HFA) 90 mcg/actuation inhaler Inhale 2 Puffs as instructed every 4 hours as needed for wheezing/shortness of breath. budesonide-formoterol (SYMBICORT) 80-4.5 mcg/actuation inhaler Inhale 2 Puffs as instructed twice daily. SYMBICORT 160-4.5 mcg/actuation inhaler Inhale 2 Puffs as instructed twice daily. (Patient not taking: No sig reported) No current facility-administered medications for this visit. Medications and allergies reviewed by this provider. SOCIAL HISTORY Social History Tobacco Use Smoking status: Every Day Packs/day: 1.00 Years: 44.00 Additional pack years: 0.00 Total pack years: 44.00 Types: Cigarettes Smokeless tobacco: Never Vaping Use Vaping Use: Never used Substance Use Topics Alcohol use: Yes Comment: SOCIALLY Drug use: No REVIEW OF SYSTEMS GENERAL: No weight loss, malaise or fevers RESPIRATORY: Negative for cough, hemoptysis, wheezing, COPD, dyspnea or shortness of breath CARDIOVASCULAR: Negative for chest pain, leg swelling, hypertension, CHF or palpitations All other reviewed and negative other than HPI. OBJECTIVE: BP 116/72 Pulse 68 Resp 20 Ht 159 cm (5' 2.6 ) Wt 54.9 kg (121 lb) SpO2 98% BMI 21.71 kg/m . Vital signs reviewed by this provider. APPEARANCE Well appearing, alert, in no acute distress, well-hydrated, well nourished. EYES conjunctiva and sclera normal. EARS External ears normal, canals clear NECK Supple, no adenopathy; thyroid symmetric, normal size, no bruits HEART RRR with normal S1 and S2, no murmurs, no gallops, no JVD appreciated LUNG clear to auscultation. No wheezes, rhonchi or rales EXTREMITIES Extremities normal, No deformities, No skin discoloration, and No edema NEURO SKIN Skin color, texture, turgor normal, no suspicious rashes or lesions to exposes skin ALPHA-1 ANTITRYPSIN DEFICIENCY SCREENING Never done LUNG CANCER SCREENING Never done MAMMOGRAM due on 04/25/2020 COVID-19 VACCINE(4 - Moderna series) due on 04/15/2021 PNEUMOCOCCAL: 65+(3 - PPSV23 or PCV20) due on 01/20/2022 ADVANCE DIRECTIVE DISCUSSION Never done DEPRESSION ASSESSMENT Never done INFLUENZA(1) due on 10/09/2022 ANNUAL PCP TEAM CHRONIC DISEASE VISIT due on 11/07/2022 DIABETES SCREEN due on 10/07/2024 LIPID SCREEN due on 10/07/2026 COLORECTAL CANCER SCREENING due on 04/10/2029 DTAP,TDAP,TD(3 - Td or Tdap) due on 07/31/2030 BONE DENSITY Completed SPIROMETRY Completed HEPATITIS C SCREENING Completed SHINGRIX VACCINE Completed PAP TESTING Discontinued ASSESSMENT/PLAN: 1. Hyperlipidemia LDL goal <100 - ICD9: 272.4, ICD10: E78.5 (primary diagnosis) - Control undetermined, due for labs - Continue current medications - Counseled on healthy diet and regular exercise - Follow up in 1 year, sooner should any other issues arise. - LIPID PANEL BASIC - COMP METABOLIC PANEL 2. Moderate persistent asthma without complication - ICD9: 493.90, ICD10: J45.40 - follow-up with pulmonology as scheduled 3. Anxiety with depression - ICD9: 300.4, ICD10: F41.8 - discussed counseling, patient will think about it - continue citalopram 4. BPPV (benign paroxysmal positional vertigo), left - ICD9: 386.11, ICD10: H81.12 - patient requesting refill - MECLIZINE 25 MG TABLET 5. Balance problems - ICD9: 781.99, ICD10: R26.89 - discussed referral to PT, declines at this time - handout on balance and fall prevention given - would recommend using cane or walker as needed for balance - discussed Kimberly chi 6. Osteoporosis without current pathological fracture, unspecified osteoporosis type - ICD9: 733.00, ICD10: M81.0 - Reviewed the need for Calcium and Vitamin D supplements and weight bearing exercise as tolerated - patient chews her pills so fosamax is not an option - reviewed potential adverse reaction with reclast and prolia. Verbalizes understanding - she will check with insurance on reclast or prolia and let me know what she decides Keyana Mcnulty APRN.B[employer] GANG WORKER Prescription instructions reviewed with patient as applicable. Patient advised if symptoms do not improve or if symptoms worsen sooner, to contact their primary care physician. Potential red flag symptoms discussed with the patient. Reviewed appropriate action plan to take if red flag symptoms occur. Patient agreeable to treatment plan. I spent a total of 40 minutes on the date of the service which included preparing to see the patient, feoe-qa-dxat patient care, completing clinical documentation, obtaining and/or reviewing separately obtained history, performing a medically appropriate examination, counseling and educating the patient/family/caregiver, and ordering medications, tests, or procedures. documented in this encounter [facility] 08-26-2022 Miscellaneous Notes Formattin g of this note is different from the original. Patient has been identified by name and date of : Yes, Provider Dr. Forde Date 08.26.22 Time 8:02 am Pharmacy phones for refill(s): Requested Prescriptions Pending Prescriptions Disp Refills simvastatin (ZOCOR) 40 mg tablet [Pharmacy Med Name: SIMVASTATIN 40 MG Tablet] 90 tablet 1 Sig: TAKE 1 TABLET AT BEDTIME Date of last office visit in primary care: 11/07/21 next apt 09/22/22 Last 2 Encounter Wt Readings: Date: Wt: 11/07/2021 56 kg (123 lb 6.4 oz) 11/05/2021 56.1 kg (123 lb 9.6 oz) Previous labs/tests for medication: Cholesterol: HDL Cholesterol (mg/dL) Date Value 07/29/2020 57 HDL Cholesterol, Nonfasting (mg/dL) Date Value 10/07/2021 65 LDL Cholesterol (mg/dL) Date Value 07/29/2020 123 LDL Cholesterol, Nonfasting (mg/dL) Date Value 10/07/2021 139 ALT (U/L) Date Value 10/07/2021 38 01/20/2021 36 Non HDL Cholesterol, Nonfasting (mg/dL) Date Value 10/07/2021 156 Non HDL Cholesterol (mg/dL) Date Value 07/29/2020 145 Thank you. Nuria Hook LPN documented in this encounter [facility] 07-14-2022 Miscellaneous Notes Formattin g of this note might be different from the original. Orders faxed. Twila Rodríguez LPN New order placed for mammogram. Please fax to [facility]. Keyana Mcnulty APRN.ANN Love with [facility] is calling to report they need a new order for nicho with candy since that is what they do at [facility]. Pt is coming in today for test. Please file. Fax to: [phone] Twila Rodríguez LPN documented in this encounter [facility] 05-28-2022 Note Patient Outreach (NIK WRIGHT) JAYMIE JASON ([id number]) 1955 F Date Time Provider Department 05/28/22 MARY TRINH During your visit today, we recorded the following information about you: Mary Trinh 05/28/2022 8:43 AM Signed POPULATION HEALTH NAVIGATION OUTREACH Action/FYI Left message to remind patient to schedule mammogram My chart not activated Patient Identified by Name and : NO Outreach Outcome/Action Unable to reach patient: Left message Did you use a PCP flex slot to schedule this appointment? N/A Reason for Outreach Care Gap or Scheduling/Wellness visits Payer: Payor: HU[employer] MEDICARE / Plan: [employer]NA [employer] PLUS / Product Type: HMO / Care Gap Reviewed:: N/A Reminder: Reminder note to check Health Maintenance for items below Health Maintenance items due: SPIROMETRY Never done ALPHA-1 ANTITRYPSIN DEFICIENCY SCREENING Never done LUNG CANCER SCREENING Never done MAMMOGRAM due on 04/25/2020 COVID-19 VACCINE(4 - Booster) due on 04/15/2021 PNEUMOCOCCAL: 65+(3 - PPSV23 if available, else PCV20) due on 01/20/2022 ADVANCE DIRECTIVE DISCUSSION Never done DEPRESSION ASSESSMENT Never done Navigation Signature: Mary Trinh May 28, 2022 8:42 AM Allergies As of Date: 05/28/2022 Noted Allergy Reaction AMBIEN (ZOLPIDEM TARTRATE) 02/27/2005 14 - Other: See Comments Comments: gave her strange sensations on the inside of her body AMOXICILLIN 07/31/2020 14 - Other: See Comments Comments: itching SULFA (SULFONAMIDE ANTIBIOTICS) 02/27/2005 2 - Rash Date Reviewed: 11/07/2021 Reviewed by: Isela Hernandez LPN - Fully Assessed Reason for Visit: Population Health Navigation Outreach [3910] Cmt: [employer] care gap Prescriptions as of 05/28/2022 - hydrOXYzine pamoate (VISTARIL) 25 mg capsule May take 1-2 tablets three times a day as needed for anxiety - simvastatin (ZOCOR) 40 mg tablet Take 1 tablet by mouth daily at bedtime. - montelukast chewable (SINGULAIR) 5 mg tablet Take 2 tablets by mouth daily at bedtime. - citalopram (CELEXA) 20 mg tablet Take 1 tablet by mouth once daily. - meclizine (ANTIVERT) 25 mg tab Take 1 tablet by mouth three times daily as needed (dizziness). - albuterol HFA (VENTOLIN HFA) 90 mcg/actuation inhaler Inhale 2 Puffs as instructed every 4 hours as needed for wheezing/shortness of breath. - budesonide-formoterol (SYMBICORT) 80-4.5 mcg/actuation inhaler Inhale 2 Puffs as instructed twice daily. - SYMBICORT 160-4.5 mcg/actuation inhaler Inhale 2 Puffs as instructed twice daily. Problem List As Of Date 05/28/2022 Noted Resolved Other chronic cystitis [N30.20] 11/26/2014 Anxiety state [F41.1] 03/02/2005 Disorders of bursae and tendons in shoulder reg*09/13/2007 11/26/2014 Adjustment disorder with depressed mood [F43.21]09/21/2008 11/26/2014 Elevated liver function tests 04/24/2009 05/05/2010 Fibrocystic Disease of Breast [N60.19] 04/24/2009 Tobacco Use Disorder [F17.200] 04/24/2009 Abnormal liver function tests [R79.89] 05/05/2010 11/26/2014 Depression [F32.A] 05/05/2010 11/26/2014 Anxiety attack [F41.0] 05/05/2010 11/26/2014 Internal hemorrhoids without mention of complic*06/23/2011 Tubular adenoma of colon [D12.6] 06/23/2011 Anxiety and depression [F41.9, F32.A] 08/08/2013 11/26/2014 Hyperlipidemia LDL goal <100 [E78.5] 11/26/2014 Intervertebral disc disorder with radiculopathy*11/26/2014 BPPV (benign paroxysmal positional vertigo), le*03/16/2017 Supraspinatus tendon tear, right, subsequent en*03/16/2017 Superior glenoid labrum lesion of right shoulde*03/16/2017 Chronic obstructive pulmonary disease (HCC) [J4*05/04/2019 Acute postprocedural respiratory failure (HCC) *05/04/2019 History of acute respiratory failure [Z87.09] 05/04/2019 Asthma [J45.909] Other osteoporosis without current pathological*11/07/2021 Encounter Status:Closed by MARY TRINH on 05/28/22 [facility] 05-28-2022 Note HNO ID: [id number] Author: Mary Trinh Service: ? Author Type: ? Type: Progress Notes Filed: 05/28/2022 8:43 AM Note Text: POPULATION HEALTH NAVIGATION OUTREACH Action/ Left message to remind patient to schedule mammogram My chart not activated Patient Identified by Name and : NO Outreach Outcome/Action Unable to reach patient: Left message Did you use a PCP flex slot to schedule this appointment? N/A Reason for Outreach Care Gap or Scheduling/Wellness visits Payer: Payor: [employer] MEDICARE / Plan: [employer] PLUS / Product Type: HMO / Care Gap Reviewed:: N/A Reminder: Reminder note to check Health Maintenance for items below Health Maintenance items due: SPIROMETRY Never done ALPHA-1 ANTITRYPSIN DEFICIENCY SCREENING Never done LUNG CANCER SCREENING Never done MAMMOGRAM due on 04/25/2020 COVID-19 VACCINE(4 - Booster) due on 04/15/2021 PNEUMOCOCCAL: 65+(3 - PPSV23 if available, else PCV20) due on 01/20/2022 ADVANCE DIRECTIVE DISCUSSION Never done DEPRESSION ASSESSMENT Never done Navigation Signature: Mary Trinh May 28, 2022 8:42 AM [facility] 05-28-2022 History of Presen t illness Narrative POPULATION HEALTH NAVIGATION OUTREACH Action/FYI Left message to remind patient to schedule mammogram My chart not activated Patient Identified by Name and : NO Outreach Outcome/Action Unable to reach patient: Left message Did you use a PCP flex slot to schedule this appointment? N/A Reason for Outreach Care Gap or Scheduling/Wellness visits Payer: Payor: HUMANA MEDICARE / Plan: [employer] / Product Type: HMO / Care Gap Reviewed:: N/A Reminder: Reminder note to check Health Maintenance for items below Health Maintenance items due: SPIROMETRY Never done ALPHA-1 ANTITRYPSIN DEFICIENCY SCREENING Never done LUNG CANCER SCREENING Never done MAMMOGRAM due on 04/25/2020 COVID-19 VACCINE(4 - Booster) due on 04/15/2021 PNEUMOCOCCAL: 65+(3 - PPSV23 if available, else PCV20) due on 01/20/2022 ADVANCE DIRECTIVE DISCUSSION Never done DEPRESSION ASSESSMENT Never done Navigation Signature: Mary Trinh May 28, 2022 8:42 AM documented in this encounter [facility] 05-06-2022 Miscellaneous Notes Formattin g of this note is different from the original. Patient has been identified by name and date of : Yes Requested Prescriptions Pending Prescriptions Disp Refills hydrOXYzine pamoate (VISTARIL) 25 mg capsule 60 capsule 1 Sig: May take 1-2 tablets three times a day as needed for anxiety TALIB-11/07/21 Labs-04/01/22 NOV-none med filled 03/03/21 RX INSTRUCTIONS: Patient aware RX escripted to mail away pharmacy. No need to notify patient. Mia Harris Pss documented in this encounter [facility] 04-29-2022 Note Patient Outreach (IN [facility]) JAYMIE JASON ([id number]) 1955 F Date Time Provider Department 04/29/22 DIVINA FORDE During your visit today, we recorded the following information about you: Allergies As of Date: 04/29/2022 Noted Allergy Reaction AMBIEN (ZOLPIDEM TARTRATE) 02/27/2005 14 - Other: See Comments Comments: gave her strange sensations on the inside of her body AMOXICILLIN 07/31/2020 14 - Other: See Comments Comments: itching SULFA (SULFONAMIDE ANTIBIOTICS) 02/27/2005 2 - Rash Date Reviewed: 11/07/2021 Reviewed by: Isela Hernandez LPN - Fully Assessed Visit Diagnosis:Encounter for screening mammogram for breast cancer [Z12.31] Order(s):[facility] SCREENING [[id number]] Order #: [id number] FUTURE Prescriptions as of 05/04/2022 - simvastatin (ZOCOR) 40 mg tablet Take 1 tablet by mouth daily at bedtime. - montelukast chewable (SINGULAIR) 5 mg tablet Take 2 tablets by mouth daily at bedtime. - citalopram (CELEXA) 20 mg tablet Take 1 tablet by mouth once daily. - meclizine (ANTIVERT) 25 mg tab Take 1 tablet by mouth three times daily as needed (dizziness). - hydrOXYzine pamoate (VISTARIL) 25 mg capsule May take 1-2 tablets three times a day as needed for anxiety - albuterol HFA (VENTOLIN HFA) 90 mcg/actuation inhaler Inhale 2 Puffs as instructed every 4 hours as needed for wheezing/shortness of breath. - budesonide-formoterol (SYMBICORT) 80-4.5 mcg/actuation inhaler Inhale 2 Puffs as instructed twice daily. - SYMBICORT 160-4.5 mcg/actuation inhaler Inhale 2 Puffs as instructed twice daily. Problem List As Of Date 04/29/2022 Noted Resolved Other chronic cystitis [N30.20] 11/26/2014 Anxiety state [F41.1] 03/02/2005 Disorders of bursae and tendons in shoulder reg*09/13/2007 11/26/2014 Adjustment disorder with depressed mood [F43.21]09/21/2008 11/26/2014 Elevated liver function tests 04/24/2009 05/05/2010 Fibrocystic Disease of Breast [N60.19] 04/24/2009 Tobacco Use Disorder [F17.200] 04/24/2009 Abnormal liver function tests [R79.89] 05/05/2010 11/26/2014 Depression [F32.A] 05/05/2010 11/26/2014 Anxiety attack [F41.0] 05/05/2010 11/26/2014 Internal hemorrhoids without mention of complic*06/23/2011 Tubular adenoma of colon [D12.6] 06/23/2011 Anxiety and depression [F41.9, F32.A] 08/08/2013 11/26/2014 Hyperlipidemia LDL goal <100 [E78.5] 11/26/2014 Intervertebral disc disorder with radiculopathy*11/26/2014 BPPV (benign paroxysmal positional vertigo), le*03/16/2017 Supraspinatus tendon tear, right, subsequent en*03/16/2017 Superior glenoid labrum lesion of right shoulde*03/16/2017 Chronic obstructive pulmonary disease (HCC) [J4*05/04/2019 Acute postprocedural respiratory failure (HCC) *05/04/2019 History of acute respiratory failure [Z87.09] 05/04/2019 Asthma [J45.909] Other osteoporosis without current pathological*11/07/2021 Encounter Status:Closed by REY PATEL on 05/04/22 [facility] 03-31-2022 Miscellaneous Notes Formattin g of this note is different from the original. Patient has been identified by name and date of : Yes Requested Prescriptions Pending Prescriptions Disp Refills simvastatin (ZOCOR) 40 mg tablet 90 tablet 1 Sig: Take 1 tablet by mouth daily at bedtime. RX INSTRUCTIONS: Patient aware RX escripted to mail away pharmacy. No need to notify patient. Anaid Comer Pss documented in this encounter [facility] 01-09-2022 Miscellaneous Notes Formattin g of this note is different from the original. Patient has been identified by name and date of : Yes Patient phones for refill(s): Requested Prescriptions Pending Prescriptions Disp Refills montelukast chewable (SINGULAIR) 5 mg tablet 180 tablet 1 Sig: Take 2 tablets by mouth daily at bedtime. Date of last office visit in primary care: 11/07/21 Last 2 Encounter Wt Readings: Date: Wt: 11/07/2021 56 kg (123 lb 6.4 oz) 11/05/2021 56.1 kg (123 lb 9.6 oz) Previous labs/tests for medication: Not applicable Please advise. Thank you. Lupe Gusman documented in this encounter [facility] 11-07-2021 History of Presen t illness Narrative 11/07/2021 Patient presents with: Discussion: Bone density SUBJECTIVE: This is a 66 year old that is here today for Above Complaints. Recently had bone density screening showed osteoporosis. Patient here to discuss treatment options PAST MEDICAL HISTORY Diagnosis Date Abnormal liver function tests 05/05/2010 Anxiety attack 05/05/[address] Garay Benign neoplasm of colon BPPV (benign paroxysmal positional vertigo) Depression 05/05/2010 Elevated liver function tests 02/08/2009 Fibrocystic disease of breast 02/09/2008 Hyperlipidemia LDL goal <100 11/26/2014 Internal hemorrhoids without mention of complication Intervertebral disc disorder with radiculopathy of lumbar region 11/26/2014 Other chronic cystitis Tobacco abuse ALLERGIES Ambien [Zolpidem Tartrate], Amoxicillin, and Sulfa (Sulfonamide Antibiotics) MEDICATIONS Current Outpatient Medications Medication Sig simvastatin (ZOCOR) 40 mg tablet Take 1 tablet by mouth daily at bedtime. citalopram (CELEXA) 20 mg tablet Take 1 tablet by mouth once daily. meclizine (ANTIVERT) 25 mg tab Take 1 tablet by mouth three times daily as needed (dizziness). hydrOXYzine pamoate (VISTARIL) 25 mg capsule May take 1-2 tablets three times a day as needed for anxiety montelukast chewable (SINGULAIR) 5 mg tablet Take 2 tablets by mouth daily at bedtime. albuterol HFA (VENTOLIN HFA) 90 mcg/actuation inhaler Inhale 2 Puffs as instructed every 4 hours as needed for wheezing/shortness of breath. budesonide-formoterol (SYMBICORT) 80-4.5 mcg/actuation inhaler Inhale 2 Puffs as instructed twice daily. SYMBICORT 160-4.5 mcg/actuation inhaler Inhale 2 Puffs as instructed twice daily. (Patient not taking: No sig reported) No current facility-administered medications for this visit. Medications and allergies reviewed by this provider. SOCIAL HISTORY Social History Tobacco Use Smoking status: Every Day Packs/day: 1.00 Years: 44.00 Pack years: 44.00 Types: Cigarettes Smokeless tobacco: Never Vaping Use Vaping Use: Never used Substance Use Topics Alcohol use: Yes Comment: SOCIALLY Drug use: No REVIEW OF SYSTEMS All other reviewed and negative other than HPI. OBJECTIVE: BP 124/82 Pulse 66 Temp 36.3 C (97.4 F) Resp 16 Wt 56 kg (123 lb 6.4 oz) SpO2 98% BMI 22.39 kg/m . Vital signs reviewed by this provider. APPEARANCE Well appearing, alert, in no acute distress, well-hydrated, well nourished. SPIROMETRY Never done ALPHA-1 ANTITRYPSIN DEFICIENCY SCREENING Never done LUNG CANCER SCREENING Never done MAMMOGRAM due on 04/25/2020 ADVANCE DIRECTIVE DISCUSSION Never done DEPRESSION ASSESSMENT Never done COVID-19 VACCINE(4 - Booster) due on 04/15/2021 COLORECTAL CANCER SCREENING due on 06/22/2021 INFLUENZA(1) due on 10/09/2021 PNEUMOCOCCAL: 65+(3 - PPSV23 or PCV20) due on 01/20/2022 ANNUAL PCP TEAM CHRONIC DISEASE VISIT due on 11/05/2022 DIABETES SCREEN due on 10/07/2024 LIPID SCREEN due on 10/07/2026 DTAP,TDAP,TD(3 - Td or Tdap) due on 07/31/2030 BONE DENSITY Completed HEPATITIS C SCREENING Completed SHINGRIX VACCINE Completed ASSESSMENT/PLAN: 1. Osteoporosis without current pathological fracture, unspecified osteoporosis type - ICD9: 733.00, ICD10: M81.0 - patient unable to swallow pills - discussed reclast vs prolia injection- patient thinks she would like prolia injection - handout on prolia given to patient to review - Reviewed the need for Calcium and Vitamin D supplements and weight bearing exercise as tolerated. Smoking cessation encouraged- patient verbalizes understanding - has upcoming hip surgery so she prefers to wait until after she hs this done - she will call when she is ready to start and we will have her bring medication and have a nurse visit to help teach administration Keyana Mcnulty APRN.ANN Prescription instructions reviewed with patient as applicable. Patient advised if symptoms do not improve or if symptoms worsen sooner, to contact their primary care physician. Potential red flag symptoms discussed with the patient. Reviewed appropriate action plan to take if red flag symptoms occur. Patient agreeable to treatment plan. I spent a total of 20 minutes on the date of the service which included preparing to see the patient, [id number] patient care, completing clinical documentation, obtaining and/or reviewing separately obtained history, and counseling and educating the patient/family/caregiver. documented in this encounter [facility] 11-05-2021 History of Presen t illness Narrative 11/05/2021 Patient presents with: ED Follow-up SUBJECTIVE: This is a 66 year old that is here today for Above Complaints. HOSPITAL/ER FOLLOW UP: Reason for visit: LLQ pain Which facility: [facility] Date of visit: 11/01/2021 Diagnosis: diverticulitis Testing done: CT ABD/PEL with IV contrast Treatment given: sent home with flagy,cefdinir and Hydrocodone-acetaminophen Current symptoms: pain has subsided some each daily Still with some cramping and diarrhea however pain is subsiding. Has been drinking plenty of fluids. Had some mashes potatoes earlier today. Stopped taking Vicodin yesterday. Taking prescribed antibiotics without side effects. Denies fevers, chills, nausea, vomiting, constipation, melana or hematochezia. ER records reviewed. PAST MEDICAL HISTORY Diagnosis Date Abnormal liver function tests 05/05/2010 Anxiety attack 05/05/[address] Garay Benign neoplasm of colon BPPV (benign paroxysmal positional vertigo) Depression 05/05/2010 Elevated liver function tests 02/08/2009 Fibrocystic disease of breast 02/09/2008 Hyperlipidemia LDL goal <100 11/26/2014 Internal hemorrhoids without mention of complication Intervertebral disc disorder with radiculopathy of lumbar region 11/26/2014 Other chronic cystitis Tobacco abuse ALLERGIES Ambien [Zolpidem Tartrate], Amoxicillin, and Sulfa (Sulfonamide Antibiotics) MEDICATIONS Current Outpatient Medications Medication Sig simvastatin (ZOCOR) 40 mg tablet Take 1 tablet by mouth daily at bedtime. citalopram (CELEXA) 20 mg tablet Take 1 tablet by mouth once daily. meclizine (ANTIVERT) 25 mg tab Take 1 tablet by mouth three times daily as needed (dizziness). hydrOXYzine pamoate (VISTARIL) 25 mg capsule May take 1-2 tablets three times a day as needed for anxiety montelukast chewable (SINGULAIR) 5 mg tablet Take 2 tablets by mouth daily at bedtime. albuterol HFA (VENTOLIN HFA) 90 mcg/actuation inhaler Inhale 2 Puffs as instructed every 4 hours as needed for wheezing/shortness of breath. budesonide-formoterol (SYMBICORT) 80-4.5 mcg/actuation inhaler Inhale 2 Puffs as instructed twice daily. SYMBICORT 160-4.5 mcg/actuation inhaler Inhale 2 Puffs as instructed twice daily. (Patient not taking: No sig reported) No current facility-administered medications for this visit. Medications and allergies reviewed by this provider. SOCIAL HISTORY Social History Tobacco Use Smoking status: Every Day Packs/day: 1.00 Years: 44.00 Pack years: 44.00 Types: Cigarettes Smokeless tobacco: Never Vaping Use Vaping Use: Never used Substance Use Topics Alcohol use: Yes Comment: SOCIALLY Drug use: No REVIEW OF SYSTEMS All other reviewed and negative other than HPI. OBJECTIVE: BP 122/80 Pulse 68 Temp 36.3 C (97.3 F) Resp 16 Wt 56.1 kg (123 lb 9.6 oz) SpO2 100% BMI 22.43 kg/m . Vital signs reviewed by this provider. APPEARANCE Well appearing, alert, in no acute distress, well-hydrated, well nourished. EYES PERRLA, conjunctiva and sclera normal. HEART RRR with normal S1 and S2, no murmurs, no gallops, no JVD appreciated LUNG clear to auscultation ABDOMEN bowel sounds normoactive, no bruits, soft,non-distended, without organomegaly or palpable masses. Mild TTP midline lower abdomen. No rebound tenderness or guarding SKIN Skin color, texture, turgor normal, no suspicious rashes or lesions to exposed skin SPIROMETRY Never done ALPHA-1 ANTITRYPSIN DEFICIENCY SCREENING Never done LUNG CANCER SCREENING Never done MAMMOGRAM due on 04/25/2020 ADVANCE DIRECTIVE DISCUSSION Never done DEPRESSION ASSESSMENT Never done COVID-19 VACCINE(4 - Booster) due on 04/15/2021 COLORECTAL CANCER SCREENING due on 06/22/2021 INFLUENZA(1) due on 10/09/2021 PNEUMOCOCCAL: 65+(3 - PPSV23 or PCV20) due on 01/20/2022 ANNUAL PCP TEAM CHRONIC DISEASE VISIT due on 11/01/2022 DIABETES SCREEN due on 10/07/2024 LIPID SCREEN due on 10/07/2026 DTAP,TDAP,TD(3 - Td or Tdap) due on 07/31/2030 BONE DENSITY Completed HEPATITIS C SCREENING Completed SHINGRIX VACCINE Completed' ASSESSMENT/PLAN: 1. Hospital discharge follow-up - ICD9: V67.59, ICD10: Z09 (primary diagnosis) -plan as below 2. Diverticulitis - ICD9: 562.11, ICD10: K57.92 - continue and complete current antibiotics - diet as recommend on home discharge papers from the hospital - no red flag symptoms or exam findings - red flag symptoms discussed, verbalizes understanding - follow-up if symptoms fail to fully resolve, to ER with red flag symptoms 3. Osteoporosis, unspecified osteoporosis type, unspecified pathological fracture presence - ICD9: 733.00, ICD10: M81.0 - will need to follow-up to discuss Keyana Mcnulty, [employer] Prescription instructions reviewed with patient as applicable. Patient advised if symptoms do not improve or if symptoms worsen sooner, to contact their primary care physician. Potential red flag symptoms discussed with the patient. Reviewed appropriate action plan to take if red flag symptoms occur. Patient agreeable to treatment plan. I spent a total of 40 minutes on the date of the service which included preparing to see the patient, [id number] patient care, completing clinical documentation, obtaining and/or reviewing separately obtained history, performing a medically appropriate examination, and counseling and educating the patient/family/caregiver. documented in this encounter [facility] 11-05-2021 Miscellaneous Notes Formattin g of this note might be different from the original. Reviewed. Keyana Mcnulty APRN.CNP Patient telephoned and made aware of message below. Voices understanding. Patient states concern about Wednesday ER visit and wants follow up this day to discuss further on another subject. Appointment made this day. Patient states she will follow up regarding bone density another day. Isela Hernandez LPN Can please let patient know that her dexa scan did return showing osteoporosis, which does increase her risk of a fracture. Recommend setting up appointment with primary team to discuss treatment options. Gayla Jung APRN.ANN documented in this encounter [facility] 11-04-2021 History of Presen t illness Narrative Radiology Service Progress Note PATIENT NAME: Jaymie Jason DATE OF SERVICE: November 04, 2021 TIME: 9:30 AM PATIENT IDENTITY VERIFICATION COMPLETED USING TWO (2) IDENTIFIERS: Name and Date of confirmed by patient verbally. FALL SCREENING: Has the patient had 2 falls in the last year or 1 fall with injury or currently using an Ambulatory Assistive Device (Walker, Cane, Wheelchair, Crutches, etc.)? No PATIENT GENDER DATA: Female. status: : No status: NO. PATIENT RELEVANT IMPLANT DATA REVIEWED: Not Applicable RADIOLOGY DEPARTMENT: Bone Density PERIPHERAL IV DATA: Not applicable SIGNED BY: RT Alex(R) November 04, 2021 9:30 AM documented in this encounter [facility] 11-01-2021 History of Presen t illness Narrative Patient presents with: UTI HPI: Patient presents today for office visit for possible uti. Having left sided abd pain. Started night. Took miralax and benefiber. No urinary symptoms at all. No dysuria, no frequency. No burning. Denies voiding small amounts as note says yesterday. Last normal bmp was Wed. Minimal bm yesterday and this am. No bloody or black stools. No diarrhea. No nausea or vomiting. Normal appetite. No fever. No vaginal discharge or bleeding. No back pain. MEDICATIONS: Current Outpatient Medications Medication Sig simvastatin (ZOCOR) 40 mg tablet Take 1 tablet by mouth daily at bedtime. citalopram (CELEXA) 20 mg tablet Take 1 tablet by mouth once daily. meclizine (ANTIVERT) 25 mg tab Take 1 tablet by mouth three times daily as needed (dizziness). hydrOXYzine pamoate (VISTARIL) 25 mg capsule May take 1-2 tablets three times a day as needed for anxiety montelukast chewable (SINGULAIR) 5 mg tablet Take 2 tablets by mouth daily at bedtime. albuterol HFA (VENTOLIN HFA) 90 mcg/actuation inhaler Inhale 2 Puffs as instructed every 4 hours as needed for wheezing/shortness of breath. budesonide-formoterol (SYMBICORT) 80-4.5 mcg/actuation inhaler Inhale 2 Puffs as instructed twice daily. SYMBICORT 160-4.5 mcg/actuation inhaler Inhale 2 Puffs as instructed twice daily. (Patient not taking: No sig reported) No current facility-administered medications for this visit. ALLERGIES: ALLERGIES Allergen Reactions Ambien [Zolpidem Ta* Other: See Comments gave her strange sensations on the inside of her body Amoxicillin Other: See Comments itching Sulfa (Sulfonamide * Rash PAST MEDICAL HISTORY Diagnosis Date Abnormal liver function tests 05/05/2010 Anxiety attack 05/05/[address] Garay Benign neoplasm of colon BPPV (benign paroxysmal positional vertigo) Depression 05/05/2010 Elevated liver function tests 02/08/2009 Fibrocystic disease of breast 02/09/2008 Hyperlipidemia LDL goal <100 11/26/2014 Internal hemorrhoids without mention of complication Intervertebral disc disorder with radiculopathy of lumbar region 11/26/2014 Other chronic cystitis Tobacco abuse PAST SURGICAL HISTORY Procedure Laterality Date COLONOSCOPY 04/2019 repeat in 5 years. acute respiratory failure due to vocal cord muscle spasm with negative pressure pulmonary edema. COLONOSCOPY W/BIOPSY SINGLE/MULTIPLE 06/23/2011 repeat 5 years ROTATOR CUFF REPAIR Right STEREO LOC FOR CORE BRST BX RT 11/28/2008 FAMILY HISTORY Problem Relation Age of Onset Breast Cancer Mother Cancer Father GI Sister twin sister with recurrent benign colon polyps Coronary Artery Disease Maternal Grandfather Heart Paternal Grandmother CHF Heart Paternal Grandfather CHF Coronary Artery Disease Maternal Uncle Social History Tobacco Use Smoking status: Every Day Packs/day: 1.00 Years: 44.00 Pack years: 44.00 Types: Cigarettes Smokeless tobacco: Never Vaping Use Vaping Use: Never used Substance Use Topics Alcohol use: Yes Comment: SOCIALLY Drug use: No Reviewed current medications, allergies, past medical history, surgical history, family history and social history today. REVIEW OF SYSTEMS All other reviewed and negative other than HPI. VITALS: BP 142/82 Temp 36.8 C (98.3 F) (Tympanic) Wt 56.2 kg (124 lb) BMI 22.50 kg/m Last 4 Encounter Wt Readings: Date: Wt: 11/01/2021 56.2 kg (124 lb) 10/07/2021 56.9 kg (125 lb 6.4 oz) 07/22/2021 57.3 kg (126 lb 6.4 oz) 01/20/2021 56.2 kg (124 lb) PHYSICAL EXAMINATION: General appearance: Well appearing, alert, in no acute distress, well-hydrated, well nourished. Skin: Skin color, texture, turgor normal, no suspicious rashes or lesions Head: Normocephalic, no masses, lesions, tenderness or abnormalities Lungs: Lungs clear to auscultation. No wheezing, rhonchi, rales Heart: RRR without murmur, gallop, or rubs. No ectopy Abdomen:bowel sounds positive. Mild rebound and llq tenderness. No masses. No distention Extremities: No deformities, edema, skin discoloration, clubbing or cyanosis. Good capillary refill. ASSESSMENT/PLAN: 1. Lower abdominal pain - ICD9: 789.09, ICD10: R10.30 New onset llq pain. Rule out diverticulitis. - UA DIP, URINE (POC)-trace hb pf questionable significance. To ER for eval. Sal Gonsales Medical Decision Making: Medical Decision Making Level: 1 - N/A documented in this encounter [facility] 11-01-2021 Miscellaneous Notes Formattin g of this note might be different from the original. Pt called and is notified of providers message and instructions. Pt voices understanding. Pt scheduled today with Dr Gonsales. Ruby Eller RN Agree with [facility] evaluation Keyana Mcnulty APRN.ANN Protocol Recommended (Upgraded): See provider within 24 hours for evaluation. Pt states she will be having a hip replacement in the near future and does not want to have any infection prior to surgery. Pt would like urine tested if possible. Recommended pt to be evaluated in [facility] in next 24 hours for evaluation. Jackie Cabello RN Reason for Disposition All other urine symptoms Answer Assessment - Initial Assessment Questions Patient reports last night she started to experience consistent pressure in her lower bladder area. Continues with it today. Reports voiding smaller amounts than usual at times (more than just drops). Denies urinary frequency, urgency or burning with urination. No foul odor to urine. Denies back pain, flank pain, fever or chills. 1. SYMPTOM: as above 2. ONSET: as above 3. PAIN:mild 4. CAUSE: Patient is not sure if getting a UTI 5. OTHER SYMPTOMS: as above Protocols used: Urinary [id number] documented in this encounter [facility] 10-10-2021 Miscellaneous Notes Formattin g of this note is different from the original. Patient has been identified by name and date of : Yes Patient phones for refill(s): Requested Prescriptions Pending Prescriptions Disp Refills simvastatin (ZOCOR) 40 mg tablet 90 tablet 1 Sig: Take 1 tablet by mouth daily at bedtime. citalopram (CELEXA) 20 mg tablet 90 tablet 1 Sig: Take 1 tablet by mouth once daily. Date of last office visit in primary care: 10/07/2021, no future appt scheduled Last 2 Encounter Wt Readings: Date: Wt: 10/07/2021 56.9 kg (125 lb 6.4 oz) 07/22/2021 57.3 kg (126 lb 6.4 oz) Previous labs/tests for medication: Cholesterol: HDL Cholesterol (mg/dL) Date Value 07/29/2020 57 HDL Cholesterol, Nonfasting (mg/dL) Date Value 10/07/2021 65 LDL Cholesterol (mg/dL) Date Value 07/29/2020 123 LDL Cholesterol, Nonfasting (mg/dL) Date Value 10/07/2021 139 ALT (U/L) Date Value 10/07/2021 38 01/20/2021 36 Non HDL Cholesterol, Nonfasting (mg/dL) Date Value 10/07/2021 156 Non HDL Cholesterol (mg/dL) Date Value 07/29/2020 145 Please advise. Thank you. Karina Reid LPN Patient calling rx for cholesterol medication was sent to local pharmacy patient said she has to use mail away [employer]. documented in this encounter [facility] 10-07-2021 Instructions Divina Forde MD - 10/07/2021 2:05 PM EDT BONE MINERAL DENSITY PATIENT INSTRUCTIONS Bone mineral density testing measures the amount of calcium in certain parts of your bones. This information determines how strong your bones are. The test is used to detect osteoporosis, a disease in which the bone's mineral content and density are low, increasing a person's risk of fractures. The lumbar spine (lower back) and the hip are the skeletal sites usually examined. For the test, remember that: 1. You cannot take this test if you are . 2. Eat a normal diet on the day of the test. 3. Take your medications as you normally would. 4. DO NOT take calcium supplements (such as Tums) for 24 hours before the test. 5. On the day of the test, leave valuables (jewelry or credit cards) at home. 6. The test should be performed prior to oral, rectal or IV contrast studies, or at least 7 days after any of these studies. For the test, you may be asked to wear a hospital gown. You will lie on your back, on a padded table, in a comfortable position. Generally, you can resume your usual activities immediately. documented in this encounter [facility] 10-07-2021 History of Presen t illness Narrative Chief Complaint Patient presents with: Pre-Op Exam: clearance HPI Jaymie Jsaon is a 66 year old female who presents here today for Pre operative clearance for right total hip arthroplasty to be performed by Dr. Auguste under general anesthesia for OA. Patient states that she does not have a date yet for this procedure. They are waiting on her clearance before they schedule the appointment. Patient notes that she has already had clearance from dentist and has appointment with chief design engineer because her surgeon would to start her on Ancef after procedure and she has PCN allergy. Also has to schedule appointment with her medical physics teacher for her asthma. States that her asthma is well controlled on her Symbicort and is not needing albuterol. Patient notes that she has had complications with anesthesia in the past. States she went into acute respiratory failure after she had colonoscopy in 2019. Dr. Caputo apparently told her that it was related to spasm. Able to climb a flight of stairs without chest pain or SOB. METS 5.5. Denies weight loss, fever, dyspnea, wheezing, edema, angina, palpitations, claudication. Past medical history, appointments, medications, allergies reviewed. Previous Medical History PAST MEDICAL HISTORY Diagnosis Date Abnormal liver function tests 05/05/2010 Anxiety attack 05/05/[address] Garay Benign neoplasm of colon BPPV (benign paroxysmal positional vertigo) Depression 05/05/2010 Elevated liver function tests 02/08/2009 Fibrocystic disease of breast 02/09/2008 Hyperlipidemia LDL goal <100 11/26/2014 Internal hemorrhoids without mention of complication Intervertebral disc disorder with radiculopathy of lumbar region 11/26/2014 Other chronic cystitis Tobacco abuse Previous Surgical History PAST SURGICAL HISTORY Procedure Laterality Date COLONOSCOPY 04/2019 repeat in 5 years. acute respiratory failure due to vocal cord muscle spasm with negative pressure pulmonary edema. COLONOSCOPY W/BIOPSY SINGLE/MULTIPLE 06/23/2011 repeat 5 years ROTATOR CUFF REPAIR Right STEREO LOC FOR CORE BRST BX RT 11/28/2008 Family History FAMILY HISTORY Problem Relation Age of Onset Breast Cancer Mother Cancer Father GI Sister twin sister with recurrent benign colon polyps Coronary Artery Disease Maternal Grandfather Heart Paternal Grandmother CHF Heart Paternal Grandfather CHF Coronary Artery Disease Maternal Uncle Patient Allergies ALLERGIES Allergen Reactions Ambien [Zolpidem Ta* Other: See Comments gave her strange sensations on the inside of her body Amoxicillin Other: See Comments itching Sulfa (Sulfonamide * Rash Current Medications Current Outpatient Medications on File Prior to Visit Medication Sig simvastatin (ZOCOR) 20 mg tablet Take 1 tablet by mouth daily at bedtime. meclizine (ANTIVERT) 25 mg tab Take 1 tablet by mouth three times daily as needed (dizziness). citalopram (CELEXA) 20 mg tablet Take 1 tablet by mouth once daily. hydrOXYzine pamoate (VISTARIL) 25 mg capsule May take 1-2 tablets three times a day as needed for anxiety montelukast chewable (SINGULAIR) 5 mg tablet Take 2 tablets by mouth daily at bedtime. albuterol HFA (VENTOLIN HFA) 90 mcg/actuation inhaler Inhale 2 Puffs as instructed every 4 hours as needed for wheezing/shortness of breath. budesonide-formoterol (SYMBICORT) 80-4.5 mcg/actuation inhaler Inhale 2 Puffs as instructed twice daily. SYMBICORT 160-4.5 mcg/actuation inhaler Inhale 2 Puffs as instructed twice daily. (Patient not taking: Reported on 07/22/2021 ) No current facility-administered medications on file prior to visit. Social History Social History Tobacco Use Smoking status: Every Day Packs/day: 1.00 Years: 44.00 Pack years: 44.00 Types: Cigarettes Smokeless tobacco: Never Vaping Use Vaping Use: Never used Substance Use Topics Alcohol use: Yes Comment: SOCIALLY Drug use: No Review of Symptoms REVIEW OF SYSTEMS GENERAL: No weight loss, malaise or fevers RESPIRATORY: Negative for cough, hemoptysis, wheezing, COPD, dyspnea or shortness of breath CARDIOVASCULAR: Negative for chest pain, leg swelling, hypertension, CHF or palpitations GI: No nausea, vomiting, or diarrhea SKIN: Negative for lesions, rash, and itching EXAM: BP 126/82 Pulse 68 Resp 16 Wt 56.9 kg (125 lb 6.4 oz) SpO2 96% BMI 22.75 kg/m General Appearance: Well appearing, alert, in no acute distress, well-hydrated, well nourished.. Skin: Skin color, texture, turgor normal, no suspicious rashes or lesions. Lungs: Lungs clear to auscultation. No wheezing, rhonchi, rales.. Heart: RRR without murmur, gallop, or rubs. No ectopy. Abdomen: Normal abdominal exam, Abdomen soft, non-tender. Bowel sounds normal. No masses, organomegaly. Extremities: No deformities, edema, skin discoloration, clubbing or cyanosis. Good capillary refill. Health Maintenance List SPIROMETRY Never done ALPHA-1 ANTITRYPSIN DEFICIENCY SCREENING Never done LUNG CANCER SCREENING Never done MAMMOGRAM due on 04/25/2020 BONE DENSITY Never done ADVANCE DIRECTIVE DISCUSSION Never done COVID-19 VACCINE(4 - Booster) due on 06/18/2021 DEPRESSION SCREENING due on 07/31/2021 INFLUENZA(1) due on 10/09/2021 PNEUMOCOCCAL: 65+(3 - PPSV23 or PCV20) due on 01/20/2022 ANNUAL PCP TEAM CHRONIC DISEASE VISIT due on 07/22/2022 DIABETES SCREEN due on 07/22/2024 LIPID SCREEN due on 07/29/2025 COLORECTAL CANCER SCREENING due on 04/10/2029 DTAP,TDAP,TD(3 - Td or Tdap) due on 07/31/2030 HEPATITIS C SCREENING Completed SHINGRIX VACCINE Completed Data reviewed EKG: NSR at 63 bpm. ASSESSMENT/PLAN: 1. Pre-operative clearance - ICD9: V72.84, ICD10: Z01.818 (primary diagnosis) Low risk patient for moderate risk procedure. Based on the patient's history, physical, functional status, and ACS risk score, she has an 0.4% chance of a serious adverse cardiac event. This is average risk for her age and the planned operation. The risk is below the recommended threshold for further evaluation. Therefore, I do not recommend further preoperative testing and she may proceed with the planned operation. I recommend this risk assessment be incorporated into the overall discussion on risks and benefits of this operation. - ECG COMPLETE - CBC + DIFF - COMP METABOLIC PANEL - LIPID PANEL, NONFASTING 2. Primary osteoarthritis of right hip - ICD9: 715.15, ICD10: M16.11 Patient to follow up with pulmonology prior to surgery and discuss previous complication of respiratory failure with anesthesiology before procedure. 3. Hip pain, right - ICD9: 719.45, ICD10: M25.551 F/u with Dr. Auguste for Total hip arthroplasty. 4. Asymptomatic postmenopausal status - ICD9: V49.81, ICD10: Z78.0 Patient requesting repeat order for DXA. Did not complete when ordered last January. - DXA-AXIAL SKELETON Divina Forde MD documented in this encounter [facility] 07-31-2021 Miscellaneous Notes Reviewed. Pt called in and reports that she has thought about the neurology appointment, and she wants to hold off. She states she has an eye appointment on August 12 and is going to talk to them about her balance and shaking and see if they come up with something. After she sees them she will call back in if she wishes to go ahead with the neurology consult. Ruby Eller RN documented in this encounter [facility] 07-30-2021 Miscellaneous Notes Kasia from [facility] calling to request patient's recent MRA orders. Faxed as requested to [phone]. Jackie Cabello RN documented in this encounter [facility] 07-28-2021 Miscellaneous Notes Detailed message left on pt identified VM. Advised pt that if she would like to proceed with Neurology consult she could call office to request this. Crystal Chappell Ma Phoned patient and results left on secure VM. Requested patient return call and advise is she would like a referral to neurology? MRI Brain, MRA of head and neck are negative for stroke or arterial disease/narrowing, occlusion or aneurysm. If dizziness symptoms have persisted, would recommend follow up with neurology. Would she like me to place referral? documented in this encounter [facility] 07-25-2021 History of Presen t illness Narrative Radiology Service Progress Note PATIENT NAME: Jaymie Jason DATE OF SERVICE: July 25, 2021 TIME: 3:42 PM PATIENT IDENTITY VERIFICATION COMPLETED USING TWO (2) IDENTIFIERS: Name and Date of confirmed by patient verbally. FALL SCREENING: Has the patient had 2 falls in the last year or 1 fall with injury or currently using an Ambulatory Assistive Device (Walker, Cane, Wheelchair, Crutches, etc.)? No PATIENT GENDER DATA: Female. status: : No status: NO. PATIENT RELEVANT IMPLANT DATA REVIEWED: Yes RADIOLOGY DEPARTMENT: MR; Exam(s) Completed: Head: Routine Brain [place] MRA Neck: Carotids MRA, bilateral PERIPHERAL IV DATA: Not applicable SIGNED BY: RT Gianna(R) July 25, 2021 3:42 PM documented in this encounter [facility] 07-23-2021 Miscellaneous Notes Patient notified. Sadie Carroll MA New orders approved. Previous orders cancelled. Able to have patient scheduled this Wednesday at [facility] for imaging. Orders have to be ordered WO IVCON. Pended orders. Sadie Carroll MA Ruth from [facility] calling asking for revised order for the MRA Brain needs new order says without contrast please. Fax order to [phone]. Please advise Patient needs STAT MRA & MRI. Sadie Carroll MA Agree with trying to get MRI earlier through [facility]. Patient reports pcp wants her to have a stat MRI. Reports she spoke with [facility] who has the order but informed her they could not get her in for MRI for 2-3 weeks. Transferred patient to [facility] to find out how soon she can get stat MRI at [facility]. documented in this encounter [facility] 07-23-2021 Miscellaneous Notes Patient notified of results. Sadie Carroll MA ----- Message from Divina Forde MD sent at 07/23/2021 8:03 AM EDT ----- Your lab results are normal. No new changes to your regimen. Please follow up as scheduled. Divina Forde MD documented in this encounter [facility] 07-22-2021 History of Presen t illness Narrative Chief Complaint Patient presents with: Dizziness: vertigo HPI Jaymie Jason is a 65 year old female who presents here today for Above Complaints.. Patient states that on Wednesday she was with her mother getting ready to take her to her appointment when everything went haywife. Walking around the kitchen and suddenly felt like the room was moving around her. Symptoms lasted several minutes and then states the rest of the day she did not feel well. States she felt lousy and cannot elaborate further. Admits to occasional Prisms in her peripheral vision and has appointment with optho next month.Denies headache, vomiting, loss of vision, slurred, facial droop, numbness/tingling/weakness. Has not had an episode like that since Wednesday. Last time she had vertigo was years ago. Patient had appointment with Dr. Washington this morning who cleaned out her ears and told her she did not have any fluid. Recommended she get MRI of her brain, but did not order one. Past medical history, appointments, medications, allergies reviewed. Previous Medical History PAST MEDICAL HISTORY Diagnosis Date Abnormal liver function tests 05/05/2010 Anxiety attack 05/05/[address] Garay Benign neoplasm of colon BPPV (benign paroxysmal positional vertigo) Depression 05/05/2010 Elevated liver function tests 02/08/2009 Fibrocystic disease of breast 02/09/2008 Hyperlipidemia LDL goal <100 11/26/2014 Internal hemorrhoids without mention of complication Intervertebral disc disorder with radiculopathy of lumbar region 11/26/2014 Other chronic cystitis Tobacco abuse Previous Surgical History PAST SURGICAL HISTORY Procedure Laterality Date COLONOSCOPY 04/2019 repeat in 5 years. acute respiratory failure due to vocal cord muscle spasm with negative pressure pulmonary edema. COLONOSCOPY W/BIOPSY SINGLE/MULTIPLE 06/23/2011 repeat 5 years ROTATOR CUFF REPAIR Right STEREO LOC FOR CORE BRST BX RT 11/28/2008 Family History FAMILY HISTORY Problem Relation Age of Onset Breast Cancer Mother Cancer Father GI Sister twin sister with recurrent benign colon polyps Coronary Artery Disease Maternal Grandfather Heart Paternal Grandmother CHF Heart Paternal Grandfather CHF Coronary Artery Disease Maternal Uncle Patient Allergies ALLERGIES Allergen Reactions Ambien [Zolpidem Ta* Other: See Comments gave her strange sensations on the inside of her body Amoxicillin Other: See Comments itching Sulfa (Sulfonamide * Rash Current Medications Current Outpatient Medications on File Prior to Visit Medication Sig citalopram (CELEXA) 20 mg tablet Take 1 tablet by mouth once daily. hydrOXYzine pamoate (VISTARIL) 25 mg capsule May take 1-2 tablets three times a day as needed for anxiety montelukast chewable (SINGULAIR) 5 mg tablet Take 2 tablets by mouth daily at bedtime. simvastatin (ZOCOR) 20 mg tablet Take 1 tablet by mouth daily at bedtime. albuterol HFA (VENTOLIN HFA) 90 mcg/actuation inhaler Inhale 2 Puffs as instructed every 4 hours as needed for wheezing/shortness of breath. budesonide-formoterol (SYMBICORT) 80-4.5 mcg/actuation inhaler Inhale 2 Puffs as instructed twice daily. SYMBICORT 160-4.5 mcg/actuation inhaler Inhale 2 Puffs as instructed twice daily. (Patient not taking: Reported on 07/22/2021 ) meclizine (ANTIVERT) 25 mg tab Take 1 tablet by mouth three times daily as needed (dizziness). (Patient not taking: Reported on 07/22/2021 ) No current facility-administered medications on file prior to visit. Social History Social History Tobacco Use Smoking status: Current Every Day Smoker Packs/day: 1.00 Years: 44.00 Pack years: 44.00 Types: Cigarettes Smokeless tobacco: Never Used Vaping Use Vaping Use: Never used Substance Use Topics Alcohol use: Yes Comment: SOCIALLY Drug use: No Review of Symptoms REVIEW OF SYSTEMS GENERAL: No weight loss, malaise or fevers RESPIRATORY: Negative for cough, hemoptysis, wheezing, COPD, dyspnea or shortness of breath CARDIOVASCULAR: Negative for chest pain, leg swelling, hypertension, CHF or palpitations GI: No nausea, vomiting, or diarrhea SKIN: Negative for lesions, rash, and itching EXAM: BP 116/70 Pulse 68 Resp 16 Wt 57.3 kg (126 lb 6.4 oz) SpO2 95% BMI 22.93 kg/m General Appearance: Well appearing, alert, in no acute distress, well-hydrated, well nourished.. Skin: Skin color, texture, turgor normal, no suspicious rashes or lesions. Lungs: Lungs clear to auscultation. No wheezing, rhonchi, rales.. Heart: RRR without murmur, gallop, or rubs. No ectopy. Neurologic: Negative findings: speech normal, mental status intact, cranial nerves 2-12 intact, gait, including heel, toe, and tandem walking normal, muscle tone normal, muscle strength normal, sensation to light touch and pinprick normal, reflexes normal and symmetric, [place] halpike negative bilaterally. Health Maintenance List SPIROMETRY Never done MAMMOGRAM due on 04/25/2020 BONE DENSITY Never done ADVANCE DIRECTIVE DISCUSSION Never done COVID-19 VACCINE(4 - Booster) due on 06/18/2021 LUNG CANCER SCREENING due on 07/31/2021 DEPRESSION SCREENING due on 07/31/2021 ANNUAL PCP TEAM CHRONIC DISEASE VISIT due on 01/20/2022 PNEUMOCOCCAL: 65+(3 - PPSV23 or PCV20) due on 01/20/2022 DIABETES SCREEN due on 01/21/2024 LIPID SCREEN due on 07/29/2025 COLORECTAL CANCER SCREENING due on 04/10/2029 DTAP,TDAP,TD(3 - Td or Tdap) due on 07/31/2030 INFLUENZA Completed HEPATITIS C SCREENING Completed HIV SCREENING Completed SHINGRIX VACCINE Completed ASSESSMENT/PLAN: 1. Vertigo - ICD9: 780.4, ICD10: R42 (primary diagnosis) Normal exam today. Will obtain labs and STAT MRI/MRA of head and neck for further evaluation. Will give meclizine for mild symptoms, but advised patient to go to ED with persistent vertigo, vision changes, slurred speech, facial droop, numbness/tingling/weakness. - MRA BRAIN WO/W IVCON - IV CONTRAST (RADIOLOGY PROCEDURE) - MRA CAROTID WO/W IVCON - IV CONTRAST (RADIOLOGY PROCEDURE) - CBC - COMP METABOLIC PANEL - TSH BLD 2. Hyperlipidemia LDL goal <100 - ICD9: 272.4, ICD10: E78.5 Requesting refill. - SIMVASTATIN 20 MG TABLET 3. Transient cerebral ischemia, unspecified type - ICD9: 435.9, ICD10: G45.9 Possible TIA vs stroke. See above. - MRA BRAIN WO/W IVCON - MRA CAROTID WO/W IVCON Divina Forde MD documented in this encounter [facility] 07-11-2021 Miscellaneous Notes Patient calls to request order for mammogram be sent to [facility]. Order faxed to [phone] per patient request. Mini Pitt RN documented in this encounter [facility] documented as of this encounter (statuses as of 05/19/2021) [facility]07-01-2014 History of Past illness Narrative* Problem Noted Date Resolved Date Anxiety and depression 08/08/2013 5 Abnormal liver function tests 05/05/2010 Depression 05/05/2010 11/26/2014 Anxiety attack 05/05/2010 11/26/2014 Elevated liver function tests 04/24/2009 Adjustment disorder with depressed mood 09/22/19 09 11/26/2014 Disorders of bursae and tend ons in shoulder region, unspecified 09/13/2007 11/26/2014 Other chronic cystitis 5 documented as of this encounter (statuses as of 07/11/2021) [facility] History of Past illness Narrative* Problem Noted Date Resolved Date Anxiety and depression 08/08/2013 5 Abnormal liver function tests 05/05/2010 Depression 05/05/2010 11/26/2014 Anxiety attack 05/05/2010 11/26/2014 Elevated liver function tests 04/24/2009 Adjustment disorder with depressed mood 09/22/19 09 11/26/2014 Disorders of bursae and tend ons in shoulder region, unspecified 09/13/2007 11/26/2014 Other chronic cystitis 5 documented as of this encounter (statuses as of 07/22/2021) [facility] History of Past illness Narrative* Problem Noted Date Resolved Date Anxiety and depression 08/08/2013 5 Abnormal liver function tests 05/05/2010 Depression 05/05/2010 11/26/2014 Anxiety attack 05/05/2010 11/26/2014 Elevated liver function tests 04/24/2009 Adjustment disorder with depressed mood 09/22/19 09 11/26/2014 Disorders of bursae and tend ons in shoulder region, unspecified 09/13/2007 11/26/2014 Other chronic cystitis 5 documented as of this encounter (statuses as of 07/23/2021) [facility]07-01-2014 History of Past illness Narrative* Problem Noted Date Resolved Date Anxiety and depression 08/08/2013 5 Abnormal liver function tests 05/05/2010 Depression 05/05/2010 11/26/2014 Anxiety attack 05/05/2010 11/26/2014 Elevated liver function tests 04/24/2009 Adjustment disorder with depressed mood 09/22/19 09 11/26/2014 Disorders of bursae and tend ons in shoulder region, unspecified 09/13/2007 11/26/2014 Other chronic cystitis 5 documented as of this encounter (statuses as of 07/23/2021) [facility]07-01[facility]2014 History of Past illness Narrative* Problem Noted Date Resolved Date Anxiety and depression 08/08/2013 5 Abnormal liver function tests 05/05/2010 Depression 05/05/2010 11/26/2014 Anxiety attack 05/05/2010 11/26/2014 Elevated liver function tests 04/24/2009 Adjustment disorder with depressed mood 09/22/19 09 11/26/2014 Disorders of bursae and tend ons in shoulder region, unspecified 09/13/2007 11/26/2014 Other chronic cystitis 5 documented as of this encounter (statuses as of 07/26/2021) [facility]2014 History of Past illness Narrative* Problem Noted Date Resolved Date Anxiety and depression 08/08/2013 5 Abnormal liver function tests 05/05/2010 Depression 05/05/2010 11/26/2014 Anxiety attack 05/05/2010 11/26/2014 Elevated liver function tests 04/24/2009 Adjustment disorder with depressed mood 09/22/19 09 11/26/2014 Disorders of bursae and tend ons in shoulder region, unspecified 09/13/2007 11/26/2014 Other chronic cystitis 5 documented as of this encounter (statuses as of 07/28/2021) [facility] History of Past illness Narrative* Problem Noted Date Resolved Date Anxiety and depression 08/08/2013 5 Abnormal liver function tests 05/05/2010 Depression 05/05/2010 11/26/2014 Anxiety attack 05/05/2010 11/26/2014 Elevated liver function tests 04/24/2009 Adjustment disorder with depressed mood 09/22/19 09 11/26/2014 Disorders of bursae and tend ons in shoulder region, unspecified 09/13/2007 11/26/2014 Other chronic cystitis 5 documented as of this encounter (statuses as of 07/30/2021) [facility] History of Past illness Narrative* Problem Noted Date Resolved Date Anxiety and depression 08/08/2013 5 Abnormal liver function tests 05/05/2010 Depression 05/05/2010 11/26/2014 Anxiety attack 05/05/2010 11/26/2014 Elevated liver function tests 04/24/2009 Adjustment disorder with depressed mood 09/22/19 09 11/26/2014 Disorders of bursae and tend ons in shoulder region, unspecified 09/13/2007 11/26/2014 Other chronic cystitis 5 documented as of this encounter (statuses as of 07/31/2021) [facility] History of Past illness Narrative* Problem Noted Date Resolved Date Anxiety and depression 08/08/2013 5 Abnormal liver function tests 05/05/2010 Depression 05/05/2010 11/26/2014 Anxiety attack 05/05/2010 11/26/2014 Elevated liver function tests 04/24/2009 Adjustment disorder with depressed mood 09/22/19 09 11/26/2014 Disorders of bursae and tend ons in shoulder region, unspecified 09/13/2007 11/26/2014 Other chronic cystitis 5 documented as of this encounter (statuses as of 10/08/2021) [facility] History of Past illness Narrative* Problem Noted Date Resolved Date Anxiety and depression 08/08/2013 5 Abnormal liver function tests 05/05/2010 Depression 05/05/2010 11/26/2014 Anxiety attack 05/05/2010 11/26/2014 Elevated liver function tests 04/24/2009 Adjustment disorder with depressed mood 09/22/19 09 11/26/2014 Disorders of bursae and tend ons in shoulder region, unspecified 09/13/2007 11/26/2014 Other chronic cystitis 5 documented as of this encounter (statuses as of 10/10/2021) [facility] History of Past illness Narrative* Problem Noted Date Resolved Date Anxiety and depression 08/08/2013 5 Abnormal liver function tests 05/05/2010 Depression 05/05/2010 11/26/2014 Anxiety attack 05/05/2010 11/26/2014 Elevated liver function tests 04/24/2009 Adjustment disorder with depressed mood 09/22/19 09 11/26/2014 Disorders of bursae and tend ons in shoulder region, unspecified 09/13/2007 11/26/2014 Other chronic cystitis 5 documented as of this encounter (statuses as of 11/01/2021) [facility] History of Past illness Narrative* Problem Noted Date Resolved Date Anxiety and depression 08/08/2013 5 Abnormal liver function tests 05/05/2010 Depression 05/05/2010 11/26/2014 Anxiety attack 05/05/2010 11/26/2014 Elevated liver function tests 04/24/2009 Adjustment disorder with depressed mood 09/22/19 09 11/26/2014 Disorders of bursae and tend ons in shoulder region, unspecified 09/13/2007 11/26/2014 Other chronic cystitis 5 documented as of this encounter (statuses as of 11/03/2021) [facility] History of Past illness Narrative* Problem Noted Date Resolved Date Anxiety and depression 08/08/2013 5 Abnormal liver function tests 05/05/2010 Depression 05/05/2010 11/26/2014 Anxiety attack 05/05/2010 11/26/2014 Elevated liver function tests 04/24/2009 Adjustment disorder with depressed mood 09/22/19 09 11/26/2014 Disorders of bursae and tend ons in shoulder region, unspecified 09/13/2007 11/26/2014 Other chronic cystitis 5 documented as of this encounter (statuses as of 11/05/2021) [facility] History of Past illness Narrative* Problem Noted Date Resolved Date Anxiety and depression 08/08/2013 5 Abnormal liver function tests 05/05/2010 Depression 05/05/2010 11/26/2014 Anxiety attack 05/05/2010 11/26/2014 Elevated liver function tests 04/24/2009 Adjustment disorder with depressed mood 09/22/19 09 11/26/2014 Disorders of bursae and tend ons in shoulder region, unspecified 09/13/2007 11/26/2014 Other chronic cystitis 5 documented as of this encounter (statuses as of 11/05/2021) [facility] History of Past illness Narrative* Problem Noted Date Resolved Date Anxiety and depression 08/08/2013 5 Abnormal liver function tests 05/05/2010 Depression 05/05/2010 11/26/2014 Anxiety attack 05/05/2010 11/26/2014 Elevated liver function tests 04/24/2009 Adjustment disorder with depressed mood 09/22/19 09 11/26/2014 Disorders of bursae and tend ons in shoulder region, unspecified 09/13/2007 11/26/2014 Other chronic cystitis 5 documented as of this encounter (statuses as of 11/07/2021) [facility] History of Past illness Narrative* Problem Noted Date Resolved Date Anxiety and depression 08/08/2013 5 Abnormal liver function tests 05/05/2010 Depression 05/05/2010 11/26/2014 Anxiety attack 05/05/2010 11/26/2014 Elevated liver function tests 04/24/2009 Adjustment disorder with depressed mood 09/22/19 09 11/26/2014 Disorders of bursae and tend ons in shoulder region, unspecified 09/13/2007 11/26/2014 Other chronic cystitis 5 documented as of this encounter (statuses as of 01/12/2022) [facility]2014 History of Past illness Narrative* Problem Noted Date Resolved Date Anxiety and depression 08/08/2013 5 Abnormal liver function tests 05/05/2010 Depression 05/05/2010 11/26/2014 Anxiety attack 05/05/2010 11/26/2014 Elevated liver function tests 04/24/2009 Adjustment disorder with depressed mood 09/22/19 09 11/26/2014 Disorders of bursae and tend ons in shoulder region, unspecified 09/13/2007 11/26/2014 Other chronic cystitis 5 documented as of this encounter (statuses as of 02/11/2022) [facility] History of Past illness Narrative* Problem Noted Date Resolved Date Anxiety and depression 08/08/2013 5 Abnormal liver function tests 05/05/2010 Depression 05/05/2010 11/26/2014 Anxiety attack 05/05/2010 11/26/2014 Elevated liver function tests 04/24/2009 Adjustment disorder with depressed mood 09/22/19 09 11/26/2014 Disorders of bursae and tend ons in shoulder region, unspecified 09/13/2007 11/26/2014 Other chronic cystitis 5 documented as of this encounter (statuses as of 04/01/2022) [facility] History of Past illness Narrative* Problem Noted Date Resolved Date Anxiety and depression 08/08/2013 5 Abnormal liver function tests 05/05/2010 Depression 05/05/2010 11/26/2014 Anxiety attack 05/05/2010 11/26/2014 Elevated liver function tests 04/24/2009 Adjustment disorder with depressed mood 09/22/19 09 11/26/2014 Disorders of bursae and tend ons in shoulder region, unspecified 09/13/2007 11/26/2014 Other chronic cystitis 5 documented as of this encounter (statuses as of 05/04/2022) [facility] History of Past illness Narrative* Problem Noted Date Resolved Date Anxiety and depression 08/08/2013 5 Abnormal liver function tests 05/05/2010 Depression 05/05/2010 11/26/2014 Anxiety attack 05/05/2010 11/26/2014 Elevated liver function tests 04/24/2009 Adjustment disorder with depressed mood 09/22/19 09 11/26/2014 Disorders of bursae and tend ons in shoulder region, unspecified 09/13/2007 11/26/2014 Other chronic cystitis 5 documented as of this encounter (statuses as of 05/06/2022) [facility] History of Past illness Narrative* Problem Noted Date Resolved Date Anxiety and depression 08/08/2013 5 Abnormal liver function tests 05/05/2010 Depression 05/05/2010 11/26/2014 Anxiety attack 05/05/2010 11/26/2014 Elevated liver function tests 04/24/2009 Adjustment disorder with depressed mood 09/22/19 09 11/26/2014 Disorders of bursae and tend ons in shoulder region, unspecified 09/13/2007 11/26/2014 Other chronic cystitis 5 documented as of this encounter (statuses as of 05/28/2022) [facility]2014 History of Past illness Narrative* Problem Noted Date Resolved Date Anxiety and depression 08/08/2013 5 Abnormal liver function tests 05/05/2010 Depression 05/05/2010 11/26/2014 Anxiety attack 05/05/2010 11/26/2014 Elevated liver function tests 04/24/2009 Adjustment disorder with depressed mood 09/22/19 09 11/26/2014 Disorders of bursae and tend ons in shoulder region, unspecified 09/13/2007 11/26/2014 Other chronic cystitis 5 documented as of this encounter (statuses as of 07/14/2022) [facility]2014 History of Past illness Narrative* Problem Noted Date Diagnosed Date Resolved Date Anxiety and depression 08/08/201311/26 Abnormal liver function tests 05/05/2010 11/26/2014 Depression 05/05/2010 11/26/2014 Anxiety attack 05/05/2010 11/26/2014 Elevated liver function tests 04/24/2009 05/05/2010 Adjustment disorder with depressed mood 09/21/2008 11/26/2014 Disorders of bursae and tend ons in shoulder region, unspecified 09/13/2007 11/26/2014 Other chronic cystitis 11/26 documented as of this encounter (statuses as of 08/26/2022) [facility]2014 History of Past illness Narrative* Problem Noted Date Diagnosed Date Resolved Date Anxiety and depression 08/08/201311/26 Abnormal liver function tests 05/05/2010 11/26/2014 Depression 05/05/2010 11/26/2014 Anxiety attack 05/05/2010 11/26/2014 Elevated liver function tests 04/24/2009 05/05/2010 Adjustment disorder with depressed mood 09/21/2008 11/26/2014 Disorders of bursae and tend ons in shoulder region, unspecified 09/13/2007 11/26/2014 Other chronic cystitis 11/26 documented as of this encounter (statuses as of 09/23/2022) [facility]2014 History of Past illness Narrative* Problem Noted Date Diagnosed Date Resolved Date Anxiety and depression 08/08/201311/26 Abnormal liver function tests 05/05/2010 11/26/2014 Depression 05/05/2010 11/26/2014 Anxiety attack 05/05/2010 11/26/2014 Elevated liver function tests 04/24/2009 05/05/2010 Adjustment disorder with depressed mood 09/21/2008 11/26/2014 Disorders of bursae and tend ons in shoulder region, unspecified 09/13/2007 11/26/2014 Other chronic cystitis 11/26 documented as of this encounter (statuses as of 10/22/2022) [facility] History of Past illness Narrative* Problem Noted Date Diagnosed Date Resolved Date Anxiety and depression 08/08/201311/26 Abnormal liver function tests 05/05/2010 11/26/2014 Depression 05/05/2010 11/26/2014 Anxiety attack 05/05/2010 11/26/2014 Elevated liver function tests 04/24/2009 05/05/2010 Adjustment disorder with depressed mood 09/21/2008 11/26/2014 Disorders of bursae and tend ons in shoulder region, unspecified 09/13/2007 11/26/2014 Other chronic cystitis 11/26 documented as of this encounter (statuses as of 11/17/2022) [facility]2014 History of Past illness Narrative* Problem Noted Date Diagnosed Date Resolved Date Anxiety and depression 08/08/201311/26 Abnormal liver function tests 05/05/2010 11/26/2014 Depression 05/05/2010 11/26/2014 Anxiety attack 05/05/2010 11/26/2014 Elevated liver function tests 04/24/2009 05/05/2010 Adjustment disorder with depressed mood 09/21/2008 11/26/2014 Disorders of bursae and tend ons in shoulder region, unspecified 09/13/2007 11/26/2014 Other chronic cystitis 11/26 documented as of this encounter (statuses as of 01/14/2023) [facility]2014 History of Past illness Narrative* Problem Noted Date Diagnosed Date Resolved Date Anxiety and depression 08/08/201311/26 Abnormal liver function tests 05/05/2010 11/26/2014 Depression 05/05/2010 11/26/2014 Anxiety attack 05/05/2010 11/26/2014 Elevated liver function tests 04/24/2009 05/05/2010 Adjustment disorder with depressed mood 09/21/2008 11/26/2014 Disorders of bursae and tend ons in shoulder region, unspecified 09/13/2007 11/26/2014 Other chronic cystitis 11/26 documented as of this encounter (statuses as of 01/15/2023) [facility]2014 History of Past illness Narrative* Problem Noted Date Diagnosed Date Resolved Date Anxiety and depression 08/08/201311/26 Abnormal liver function tests 05/05/2010 11/26/2014 Depression 05/05/2010 11/26/2014 Anxiety attack 05/05/2010 11/26/2014 Elevated liver function tests 04/24/2009 05/05/2010 Adjustment disorder with depressed mood 09/21/2008 11/26/2014 Disorders of bursae and tend ons in shoulder region, unspecified 09/13/2007 11/26/2014 Other chronic cystitis 11/26 documented as of this encounter (statuses as of 01/16/2023) [facility] Diagnosis Encounter for screening mammogram for breast cancer [facility] Diagnosis Vertigo- Primary Dizziness and giddiness Hyperlipidemia LDL goal <100 Other and unspecified hyperlipidemia Transient cerebral ischemia, unspecified type BPPV (benign paroxysmal positional vertigo), left [facility] Diagnosis BPPV (benign paroxysmal positional vertigo), left- Primary Vertigo Dizziness and giddiness Transient cerebral ischemia, unspecified type [facility] Diagnosis Transient cerebral ischemia, unspecified type Vertigo Dizziness and giddiness [facility] Diagnosis Pre-operative clearance- Primary Preoperative examination, unspecified Primary osteoarthritis of right hip Primary localized osteoarthrosis, pelvic region and thigh Hip pain, right Pain in joint, pelvic region and thigh Asymptomatic postmenopausal status documented [facility] this [facility] Diagnosis Hyperlipidemia LDL goal <100 Other and unspecified hyperlipidemia Anxiety state Anxiety state, unspecified documented [facility] Diagnosis Lower abdominal pain- Primary Abdominal pain, other specified site documented [facility] this encounter [facility] Diagnosis Asymptomatic postmenopausal status [facility] this [facility] Diagnosis Hospital discharge follow-up- Primary Other follow-up examination Diverticulitis Diverticulitis of colon (without mention of hemorrhage) Osteoporosis, unspecified osteoporosis type, unspecified pathological fracture presence [facility] Diagnosis Osteoporosis without current pathological fracture, unspecified osteoporosis type- Primary [facility] Diagnosis Hyperlipidemia LDL goal <100 Other and unspecified hyperlipidemia [facility] Diagnosis Encounter for screening mammogram for breast cancer [facility] Diagnosis Encounter for screening mammogram for breast cancer- Primary [facility] Diagnosis Hyperlipidemia LDL goal <100 Other and unspecified hyperlipidemia documented in this encounter [facility] note* Diagnosis Hyperlipidemia LDL goal <100- Primary Other and unspecified hyperlipidemia Moderate persistent asthma without complication Unspecified asthma Anxiety with depression BPPV (benign paroxysmal positional vertigo), left Balance problems Other symptoms involving nervous and musculoskeletal systems Osteoporosis without current pathological fracture, unspecified osteoporosis type documented in this encounter [facility] note* Diagnosis Thyroid nodule- Primary Nontoxic uninodular goiter Contusion of abdominal wall, initial encounter documented in this encounter [facility] note* Diagnosis Multiple thyroid nodules- Primary Nontoxic multinodular goiter documented in this encounter [facility] note* Diagnosis Thyroid nodule Nontoxic uninodular goiter documented in this encounter [facility] for referral (narrative)* Diagnostic Procedure Only (Routine) - Pending Review Specialty Diagnoses / Procedures Referred By Sravan del castillo Referred To Contact [facility] Diagnoses Encounter for screening mammogram for breast cancer Procedures NICHO SCREENING SCREENING MAMMOGRAPHY BI 2-VIEW BREAST INC CAD Divina Forde MD [address] [place] [address] [facility] [address] [place] [phone] Referral ID Status Reason Start Date Expiration Date Visits Requested Visits Authorized [id number] Pending Review Auto-Generat ed Referral 05/14/2021 06/13/2022 1 1 [facility] for referral (narrative)* Outpatient Procedure (Routine) - Authorized Specialty Diagnoses / Procedures Referred By Sravan del castillo Ref[facility] Diagnoses Pre-operative clearance Procedures ECG COMPLETE ECG ROUTINE ECG W/LEAST 12 LDS W/I&R Divina Forde MD [address] [place] [address] [facility] [address] [place] [id number] Referral ID Status Reason Start Date Expiration Date Visits Requested Visits Authorized [id number] Authorized Auto-Generat ed Referral 10/07/2021 10/07/2022 1 1 [facility] for referral (narrative)* Diagnostic Procedure Only (Routine) - Pending Review Specialty Diagnoses / Procedures Referred By Sravan t Referred To Contact [facility] Diagnoses Encounter for screening mammogram for breast cancer Procedures NICHO SCREENING SCREENING MAMMOGRAPHY BI 2-VIEW BREAST INC CAD Divina Forde MD [address] [place] [id number] [facility] [address] [place] [phone] Referral ID Status Reason Start Date Expiration Date Visits Requested Visits Authorized [id number] Pending Review Auto-Generat ed Referral 04/29/2022 05/29/2023 1 1 [facility] for referral (narrative)* Diagnostic Procedure Only (Routine) - Pending Review Specialty Diagnoses / Procedures Referred By Isakac t Referred To Contact [facility] Diagnoses Encounter for screening mammogram for breast cancer Procedures NICHO SCREENING W CANDY SCREENING DIGITAL BREAST TOMOSYNTHESIS BI SCREENING MAMMOGRAPHY BI 2-VIEW BREAST INC CAD Keyana Mcnulty APRN.CNP [address] [place] [address] [facility] [address] [place] [phone] Referral ID Status Reason Start Date Expiration Date Visits Requested Visits Authorized [id number] Pending Review Auto-Generat ed Referral 07/14/2022 08/13/2023 1 1 [facility] for referral (narrative)* Diagnostic Procedure Only (Urgent) - Authorized Specialty Diagnoses / Procedures Referred By Contac t Referred To Contact [facility] Diagnoses Thyroid nodule Procedures US THYROID/PARATHYROID US SOFT TISSUE HEAD & NECK REAL TIME IMGE Divina Morgan MD [address] [place], [place] [id number] [place] [address] Referral ID Status Reason Start Date Expiration Date Visits Requested Visits Authorized [id number] Authorized Auto-Generat ed Referral 01/13/2023 02/12/2024 [facility] Diagnostic Procedure Only (Urgent) - Closed Specialty Diagnoses / Procedures Referred By Sravan del castillo Referred To Contact [facility] Diagnoses Thyroid nodule Procedures US THYROID/PARATHYROID US SOFT TISSUE HEAD & [place] [address] [place] [id number] [place] [address] Referral ID Status Reason Start Date Expiration Date V isits Requested Visits Authorized [id number] Closed Auto-Generate d Referral 01/13/2023 02/12/2024 1 1 [facility] Advance Directives There may be information available, but it has not been provided by the sender. No Advanced Directives Records Found Assessments There may be information available, but it has not been provided by the sender. Review of System There may be information available, but it has not been provided by the sender. Family History There may be information available, but it has not been provided by the sender.No Family History Records Found Reason for Referral Specialty Diagnoses / Procedures Referred By Sravan del castillo Referred To Contact [facility] Diagnoses Transient cerebral ischemia, unspecified type Vertigo Procedures MRA CAROTID WO/W IVCON MRA,NECK; W/WO CONTRAST Divina Forde MD [address] [place] [address] [facility] Referral ID Status Reason Start Date Expiration Date Visits Requested Visits Authorized [id number] Pending Review Auto-Generat ed Referral 07/22/2021 08/21/2022 1 1 Specialty Diagnoses / Procedures Referred By Sravan del castillo Referred To Contact [facility] Diagnoses Transient cerebral ischemia, unspecified type Vertigo Procedures MRA BRAIN WO/W IVCON MRA; HEAD W & WO CONTRAST Divina Forde MD [address] [place] [address] [facility] Referral ID Status Reason Start Date Expiration Date Visits Requested Visits Authorized [id number] Pending Review Auto-Generat ed Referral 07/22/2021 08/21/2022 1 1 Specialty Diagnoses / Procedures Referred By Contac t Referred To Contact [facility] Diagnoses Vertigo Transient cerebral ischemia, unspecified type Procedures MRA CAROTID WO IVCON MRA, NECK; W/O CONTRAST Divina Forde MD [address] [place] [address] [facility] Referral ID Status Reason Start Date Expiration Date Visits Requested Visits Authorized [id number] Pending Review Auto-Generat ed Referral 07/23/2021 08/22/2022 1 1 Specialty Diagnoses / Procedures Referred By Contac t Referred To Contact MR IMAGING Diagnoses Vertigo Transient cerebral ischemia, unspecified type Procedures MRA BRAIN WO IVCON MRA, HEAD W/O CONTRAST Divina Forde MD [address] [place] [address] Mr Imaging Referral ID Status Reason Start Date Expiration Date Visits Requested Visits Authorized [id number] Pending Review Auto-Generat ed Referral 07/23/2021 08/22/2022 1 1 Referral ID Status Reason Start Date Expiration Date V isits Requested Visits Authorized [id number] Closed Patient Cleared - Admin/Chairm an/Director advise to proceed 07/23/2021 08/22/2022 1 1 Referral ID Status Reason Start Date Expiration Date V isits Requested Visits Authorized [id number] Closed Patient Cleared - Admin/Chairm an/Director advise to proceed 07/23/2021 08/22/2022 1 1 Specialty Diagnoses / Procedures Referred By Contac t Referred To Contact MR IMAGING Diagnoses Transient cerebral ischemia, unspecified type Procedures MRI BRAIN WO IVCON MRI BRAIN BRAIN STEM W/O CONTRAST MATERIAL MRA, NECK; W/O CONTRAST MRA, HEAD W/O CONTRAST Divina Forde MD [address] [place] [address] Mr Imaging Referral ID Status Reason Start Date Expiration Date V isits Requested Visits Authorized [id number] Closed Patient Cleared - Admin/Chairm an/Director advise to proceed 07/25/2021 08/24/2021 1 1 Specialty Diagnoses / Procedures Referred By Contac t Referred To Contact General Surgery Diagnoses Multiple thyroid nodules Procedures CONSULT TO GENERAL SURGERY OFFICE/OUTPATIENT CARE ONE AT [facility] 60-74 MINUTES Divina Forde MD [address] [place] [address] Referral ID Status Reason Start Date Expiration Date Visits Requested Visits Authorized [id number] Authorized PCP Requested Referral 01/15/2023 01/15/2024 1 1 Summary Purpose Additional Source Comments Source Comments (unrecognize d section and content) In the event this informatio n is protected by the Federal Confidentiality of Alcohol and Drug Abuse Patient Records regulations: The Federal rules restrict any use of the information to criminally investigate or prosecute any alcohol or drug abuse patient.[facility] [place] the event this information is protected by the Federal Confidentiality of Alcohol and Drug Abuse Patient Records regulations: The Federal rules restrict any use of the information to criminally investigate or prosecute any alcohol or drug abuse patient.[facility] [place] the event this information is protected by the Federal Confidentiality of Alcohol and Drug Abuse Patient Records regulations: The Federal rules restrict any use of the information to criminally investigate or prosecute any alcohol or drug abuse patient.[facility] [place] the event this information is protected by the Federal Confidentiality of Alcohol and Drug Abuse Patient Records regulations: The Federal rules restrict any use of the information to criminally investigate or prosecute any alcohol or drug abuse patient.[facility] [place] the event this information is protected by the Federal Confidentiality of Alcohol and Drug Abuse Patient Records regulations: The Federal rules restrict any use of the information to criminally investigate or prosecute any alcohol or drug abuse patient.[facility] [place] the event this information is protected by the Federal Confidentiality of Alcohol and Drug Abuse Patient Records regulations: The Federal rules restrict any use of the information to criminally investigate or prosecute any alcohol or drug abuse patient.[facility] [place]In the event this information is protected by the Federal Confidentiality of Alcohol and Drug Abuse Patient Records regulations: The Federal rules restrict any use of the information to criminally investigate or prosecute any alcohol or drug abuse patient.[facility] [place]In the event this information is protected by the Federal Confidentiality of Alcohol and Drug Abuse Patient Records regulations: The Federal rules restrict any use of the information to criminally investigate or prosecute any alcohol or drug abuse patient.[facility] [place]In the event this information is protected by the Federal Confidentiality of Alcohol and Drug Abuse Patient Records regulations: The Federal rules restrict any use of the information to criminally investigate or prosecute any alcohol or drug abuse patient.[facility] [place]In the event this information is protected by the Federal Confidentiality of Alcohol and Drug Abuse Patient Records regulations: The Federal rules restrict any use of the information to criminally investigate or prosecute any alcohol or drug abuse patient.[facility] [place]In the event this information is protected by the Federal Confidentiality of Alcohol and Drug Abuse Patient Records regulations: The Federal rules restrict any use of the information to criminally investigate or prosecute any alcohol or drug abuse patient.[facility] [place]In the event this information is protected by the Federal Confidentiality of Alcohol and Drug Abuse Patient Records regulations: The Federal rules restrict any use of the information to criminally investigate or prosecute any alcohol or drug abuse patient.[facility] [place]In the event this information is protected by the Federal Confidentiality of Alcohol and Drug Abuse Patient Records regulations: The Federal rules restrict any use of the information to criminally investigate or prosecute any alcohol or drug abuse patient.[facility] [place]In the event this information is protected by the Federal Confidentiality of Alcohol and Drug Abuse Patient Records regulations: The Federal rules restrict any use of the information to criminally investigate or prosecute any alcohol or drug abuse patient.[facility] [place]In the event this information is protected by the Federal Confidentiality of Alcohol and Drug Abuse Patient Records regulations: The Federal rules restrict any use of the information to criminally investigate or prosecute any alcohol or drug abuse patient.[facility] [place]In the event this information is protected by the Federal Confidentiality of Alcohol and Drug Abuse Patient Records regulations: The Federal rules restrict any use of the information to criminally investigate or prosecute any alcohol or drug abuse patient.[facility] [place]In the event this information is protected by the Federal Confidentiality of Alcohol and Drug Abuse Patient Records regulations: The Federal rules restrict any use of the information to criminally investigate or prosecute any alcohol or drug abuse patient.[facility] [place]In the event this information is protected by the Federal Confidentiality of Alcohol and Drug Abuse Patient Records regulations: The Federal rules restrict any use of the information to criminally investigate or prosecute any alcohol or drug abuse patient.[facility] [place]In the event this information is protected by the Federal Confidentiality of Alcohol and Drug Abuse Patient Records regulations: The Federal rules restrict any use of the information to criminally investigate or prosecute any alcohol or drug abuse patient.[facility] [place]In the event this information is protected by the Federal Confidentiality of Alcohol and Drug Abuse Patient Records regulations: The Federal rules restrict any use of the information to criminally investigate or prosecute any alcohol or drug abuse patient.[facility] [place]In the event this information is protected by the Federal Confidentiality of Alcohol and Drug Abuse Patient Records regulations: The Federal rules restrict any use of the information to criminally investigate or prosecute any alcohol or drug abuse patient.[facility] [place]In the event this information is protected by the Federal Confidentiality of Alcohol and Drug Abuse Patient Records regulations: The Federal rules restrict any use of the information to criminally investigate or prosecute any alcohol or drug abuse patient.[facility] [place]In the event this information is protected by the Federal Confidentiality of Alcohol and Drug Abuse Patient Records regulations: The Federal rules restrict any use of the information to criminally investigate or prosecute any alcohol or drug abuse patient.[facility] [place]In the event this information is protected by the Federal Confidentiality of Alcohol and Drug Abuse Patient Records regulations: The Federal rules restrict any use of the information to criminally investigate or prosecute any alcohol or drug abuse patient.[facility] [place]In the event this information is protected by the Federal Confidentiality of Alcohol and Drug Abuse Patient Records regulations: The Federal rules restrict any use of the information to criminally investigate or prosecute any alcohol or drug abuse patient.[facility] [place]In the event this information is protected by the Federal Confidentiality of Alcohol and Drug Abuse Patient Records regulations: The Federal rules restrict any use of the information to criminally investigate or prosecute any alcohol or drug abuse patient.[facility] [place]In the event this information is protected by the Federal Confidentiality of Alcohol and Drug Abuse Patient Records regulations: The Federal rules restrict any use of the information to criminally investigate or prosecute any alcohol or drug abuse patient.[facility] [place]In the event this information is protected by the Federal Confidentiality of Alcohol and Drug Abuse Patient Records regulations: The Federal rules restrict any use of the information to criminally investigate or prosecute any alcohol or drug abuse patient.[facility] [place]In the event this information is protected by the Federal Confidentiality of Alcohol and Drug Abuse Patient Records regulations: The Federal rules restrict any use of the information to criminally investigate or prosecute any alcohol or drug abuse patient.[facility] [place]In the event this information is protected by the Federal Confidentiality of Alcohol and Drug Abuse Patient Records regulations: The Federal rules restrict any use of the information to criminally investigate or prosecute any alcohol or drug abuse patient.[facility] [place] Care Teams (unrecognized sec tion and content) Cyber Software Engineer Relationship Specialty Start Date End Date Divina Forde MD [address] [place] [address] PCP - General Family Practice 07/31/20 Cyber Software Engineer Relationship Specialty Start Date End Date Divina Forde MD [address] [place] [address] PCP - General Family Practice 07/31/20 Cyber Software Engineer Relationship Specialty Start Date End Date Divina Forde MD [address] [place] [address] PCP - General Family Practice 07/31/20 Cyber Software Engineer Relationship Specialty Start Date End Date Divina Forde MD [facility] [place] [address] PCP - General Family Practice 07/31/20 Cyber Software Engineer Relationship Specialty Start Date End Date Divina Forde MD [address] [place] [address] PCP - General Family Practice 07/31/20 Cyber Software Engineer Relationship Specialty Start Date End Date Divina Forde MD [address] [place] [address] PCP - General Family Practice 07/31/20 Cyber Software Engineer Relationship Specialty Start Date End Date Divina Forde MD [address] [place] [address] PCP - General Family Practice 07/31/20 Cyber Software Engineer Relationship Specialty Start Date End Date Divina Forde MD [address] [place] [address] PCP - General Family Practice 07/31/20 Cyber Software Engineer Relationship Specialty Start Date End Date Divina Forde MD [address] [place] [address] PCP - General Family Medicine 07/31/20 Cyber Software Engineer Relationship Specialty Start Date End Date Divina Forde MD [address] [place] [address] PCP - General Family Medicine 07/31/20 Cyber Software Engineer Relationship Specialty Start Date End Date Divina Forde MD [address] [place] [address] PCP - General Family Medicine 07/31/20 Cyber Software Engineer Relationship Specialty Start Date End Date Divina Forde MD [address] [place] [address] PCP - General Family Medicine 07/31/20 Cyber Software Engineer Relationship Specialty Start Date End Date Divina Forde MD [address] [place] [address] PCP - General Family Medicine 07/31/20 Cyber Software Engineer Relationship Specialty Start Date End Date Divina Forde MD [address] [place] [address] PCP - General Family Medicine 07/31/20 Cyber Software Engineer Relationship Specialty Start Date End Date Divina Forde MD [address] [place] [address] PCP - General Family Medicine 07/31/20 Cyber Software Engineer Relationship Specialty Start Date End Date Divina Forde MD [address] [place] [address] PCP - General Family Medicine 07/31/20 Cyber Software Engineer Relationship Specialty Start Date End Date Divina Forde MD [address] [place] [address] PCP - General Family Medicine 07/31/20 Cyber Software Engineer Relationship Specialty Start Date End Date Divina Forde MD [address] [place], [place] [address] PCP - General Family Medicine 07/31/20 Cyber Software Engineer Relationship Specialty Start Date End Date Divina Forde MD [address] [place], [place] [address] PCP - General Family Medicine 07/31/20 Cyber Software Engineer Relationship Specialty Start Date End Date Divina Forde MD [address] [place], [place] [id number] PCP - General Family Medicine 07/31/20 Cyber Software Engineer Relationship Specialty Start Date End Date Divina Forde MD [address] [place], [place] [id number] PCP - General Family Medicine 07/31/20 Reason for Visit (unrecogniz ed section and content) Reason Comments Dizziness vertigo Reason Comments Results Reason Comments MRI concern Specialty Diagnoses / Procedures Referred By Contac t Referred To Contact MR IMAGING Diagnoses Transient cerebral ischemia, unspecified type Procedures MRI BRAIN WO IVCON MRI BRAIN BRAIN STEM W/O CONTRAST MATERIAL MRA, NECK; W/O CONTRAST MRA, HEAD W/O CONTRAST Divina Forde MD [address] [place] [address] Mr Imaging Referral ID Status Reason Start Date Expiration Date V isits Requested Visits Authorized [id number] Closed Patient Cleared - Admin/Chairm an/Director advise to proceed 07/25/2021 08/24/2021 1 1 Reason Comments Patient Request Reason Comments Patient Update Reason Comments Pre-Op Exam clearance Reason Comments UTI Reason Comments urinary symptoms Reason Comments ED Follow-up Reason Comments Discussion Bone density Reason Onset Date Comments Refill Request 01/09/2022 Reason Onset Date Comments Refill Request 03/31/2022 Reason Onset Date Comments Refill Request 05/06/2022 Reason Onset Date Comments Population Health Navigation Outreach 05/28/2022 [employer] care gap Reason Comments revised order Reason Comments Refill Request Reason Comments Yearly Exam Reason Onset Date Comments Population Health Navigation Outreach 10/21/2022 [employer] Care Gaps Reason Onset Date Comments Population Health Navigation Outreach 11/17/2022 [employer] care gaps Reason Comments Thyroid Problem Abdominal Pain Fell on trash can wh eel x2 weeks ago, tightness and burning Reason Comments Results Reason Comments Radiology US Specialty Diagnoses / Procedures Referred By Contac t Referred To Contact US IMAGING Diagnoses Thyroid nodule Procedures US THYROID/PARATHYROID US SOFT TISSUE HEAD & NECK REAL TIME IMGE Divina Morgan MD [address] [place] [address] [place] [address] Referral ID Status Reason Start Date Expiration Date V isits Requested Visits Authorized [id number] Closed Auto-Generate d Referral 01/13/2023 02/12/2024 1 1 INFORMATION SOURCE (unrecogn ized section and content) FOR RECORDS PERTAINING TO PATIENTS WHO ARE OR HAVE BEEN ENROLLED IN A CHEMICAL DEPENDENCY/SUBSTANCEABUSE PROGRAM, SOME INFORMATION MAY BE OMITTED. This clinical summary was aggregated from multiple sources. Caution should be exercised in using it in the provision of clinical care. This summary normalizes information from multiple sources, and as a consequence, information in this document may materially change the coding, format and clinical context of patient data. In addition, data may be omitted in some cases. CLINICAL DECISIONS SHOULD BE BASED ON THE PRIMARY CLINICAL RECORDS. [employer] provides no warranty or guarantee of the accuracy or completeness of information in this document.
== END | disposition home or self-care (01) ==
PROVIDERS: PCP Family Medicine; Referring Provider Surgery; Visit Provider Surgery
DX: E04.1 Nontoxic single thyroid nodule (principal)
CPT/HCPCS: 88161; 88313

== ENCOUNTER → 2023-03-03 | Outpatient (CLI) | payer MEDICARE, SELFPAY ==
--- OUTSIDE RECORDS SUMMARY | 2023-03-03 06:42 | XMS RPT_ITS | CCD ---
Author Name Unknown Address [address] [place] [address] Organization [facility] Care Team Providers Care Seam Finisher Name Role Phone Vin Davila MD Unavailable [...] source) sulfacetamide Drug Allergy [address] [facility] Work Phone: (20 sources) Amoxicillin; Translations: [AMOXICILLIN] Drug Allergy 1 Other: See Comments [facility] (20 sources) Sulfonamides (Antibiotic); Translations: [SULFA (SULFONAMIDE ANTIBIOTICS)] Drug Allergy 6 Kevin [facility] (20 sources) zolpidem; Translations: [ZOLPIDEM TARTRATE] Drug Allergy 6 Other: See Comments [facility] Medications Current Medications Medication Drug Class(es) Dates Sig (Normalized) Sig (Original) citalopram 20 mg oral tablet (20 sources) Serotonin Reuptake Inhibitor Start: 01-05-2023 End: 07-04-2023 take 1 tablet by mouth once daily citalopram (CELEXA) 20 mg tablet Indications: Anxiety state Take 1 tablet by mouth once daily. 90 tablet 1 01/05/2023 07/04/2023 Active Completed/Discontinued Medications Medication Drug Class(es) Dates Sig (Normalized) Sig (Original) [id number] 200 actuat albuterol 0.09 mg/actuat metered dose [...] 57.15 kg Divina Forde MD Work Phone: [facility] 01-13-2023 16:20-0500 Diastolic blood pressure 80 mm[Hg] Divina Forde MD Work Phone: [facility] 01-13-2023 16:20-0500 Heart rate 60 /min Divina Forde MD Work Phone: [facility] 01-13-2023 16:20-0500 Respiratory rate 16 /min Divina Forde MD Work Phone: [facility] 01-13-2023 16:20-0500 Systolic blood pressure 130 mm[Hg] Divina Forde MD Work Phone: [facility] 09-22-2022 13:01-0400 Body height 159 cm Keyana Mcnulty APRN.CNP Work Phone: [facility] 09-22-2022 13:01-0400 Body weight 54.88 kg Keyana Podlogar DIRECTOR [employer] Work Phone: [facility] 09-22-2022 13:01-0400 Diastolic blood pressure 72 mm[Hg] Keyana Podlogar DIRECTOR [employer] Work Phone: [facility] 09-22-2022 13:01-0400 Heart rate 68 /min Keyana Podlogar DIRECTOR [employer] Work Phone: [facility] 09-22-2022 13:01-0400 Respiratory rate 20 /min Keyana Podlogar DIRECTOR [employer] Work Phone: [facility] 09-22-2022 13:01-0400 SaO2% (BldA) [Mass fraction] 98 % Keyana Podlogar DIRECTOR [employer] Work Phone: [facility] 09-22-2022 13:01-0400 Systolic blood pressure 116 mm[Hg] Keyana Podlogar DIRECTOR [employer] Work Phone: [facility] 11-07-2021 11:41-0400 Body temperature 97.39 [degF] Keyana Podlogar DIRECTOR [employer] Work Phone: [facility] 11-07-2021 11:41-0400 Body weight 55.97 kg Keyana Podlogar DIRECTOR [employer] Work Phone: [facility] 11-07-2021 11:41-0400 Diastolic blood pressure 82 mm[Hg] Keyana Podlogar DIRECTOR [employer] Work Phone: [facility] 11-07-2021 11:41-0400 Heart rate 66 /min Keyana Podlogar DIRECTOR [employer] Work Phone: [facility] 11-07-2021 11:41-0400 Respiratory rate 16 /min Keyana Podlogar DIRECTOR [employer] Work Phone: [facility] 11-07-2021 11:41-0400 SaO2% (BldA) [Mass fraction] 98 % Keyana Podlogar DIRECTOR [employer] Work Phone: [facility] 11-07-2021 11:41-0400 Systolic blood pressure 124 mm[Hg] Keyana Podlogar DIRECTOR [employer] Work Phone: [facility] 11-05-2021 10:36-0400 Body temperature 97.3 [degF] Keyana Podlogar DIRECTOR [employer] Work Phone: [facility] 11-05-2021 10:36-0400 Body weight 56.06 kg Keyana Podlogar DIRECTOR [employer] Work Phone: [facility] 11-05-2021 10:36-0400 Diastolic blood pressure 80 mm[Hg] Keyana Podlogar DIRECTOR [employer] Work Phone: [facility] 11-05-2021 10:36-0400 Heart rate 68 /min Keyana Podlogar DIRECTOR [employer] Work Phone: [facility] 11-05-2021 10:36-0400 Respiratory rate 16 /min Keyana Podlogar DIRECTOR [employer] Work Phone: [facility] 11-05-2021 10:36-0400 SaO2% (BldA) [Mass fraction] 100 % Keyana Podlogar DIRECTOR [employer] Work Phone: [facility] 11-05-2021 10:36-0400 Systolic blood pressure 122 mm[Hg] Keyana Podlogar DIRECTOR [employer] Work Phone: [facility] 11-01-2021 10:21-0400 Body temperature 98.29 [degF] Sal Gonsales MD Work Phone: [facility] 11-01-2021 10:21-0400 Body weight 56.25 kg Sal Gonsales MD Work Phone: [facility] 11-01-2021 10:21-0400 Diastolic blood pressure 82 mm[Hg] Sal Gonsales MD Work Phone: [facility] 11-01-2021 10:21-0400 Systolic blood pressure 142 mm[Hg] Sal Gonsales MD Work Phone: [facility] 10-07-2021 13:33-0400 Body weight 56.88 kg Divina Forde MD Work Phone: [facility] 10-07-2021 13:33-0400 Diastolic blood pressure 82 mm[Hg] Divina Forde MD Work Phone: [facility] 10-07-2021 13:33-0400 Heart rate 68 /min Divina Forde MD Work Phone: [facility] 10-07-2021 13:33-0400 Respiratory rate 16 /min Divina Forde MD Work Phone: [facility] 10-07-2021 13:33-0400 SaO2% (BldA) [Mass fraction] 96 % Divina Forde MD Work Phone: [facility] 10-07-2021 13:33-0400 Systolic blood pressure 126 mm[Hg] Divina Forde MD Work Phone: [facility] 07-22-2021 15:37-0400 Body weight 57.34 kg Divina Forde MD Work Phone: [facility] 07-22-2021 15:37-0400 Diastolic blood pressure 70 mm[Hg] Divina Forde MD Work Phone: [facility] 07-22-2021 15:37-0400 Heart rate 68 /min Divina Forde MD Work Phone: [facility] 07-22-2021 15:37-0400 Respiratory rate 16 /min Divina Forde MD Work Phone: [facility] 07-22-2021 15:37-0400 SaO2% (BldA) [Mass fraction] 95 % Divina Forde MD Work Phone: [facility] 07-22-2021 15:37-0400 Systolic blood pressure 116 mm[Hg] Divina Forde MD Work Phone: [facility] NEGATED: Highlighted [id number] 08:32-0400 BMI (Body Mass Index) 25.6 kg/m2 Sam Spencer OT-C [facility] Work Phone: NEGATED: Highlighted [id number] 08:32-0400 BP Diastolic 79 mm[Hg] Sam Spencer OT-C [facility] Work Phone: NEGATED: Highlighted [id number] 08:32-0400 BP Systolic 113 mm[Hg] Sam Spencer OT-C [facility] Work Phone: NEGATED: Highlighted [id number] 08:32-0400 Height 160.02 cm Sam Spencer OT-C [facility] Work Phone: NEGATED: Highlighted [id number] 08:32-0400 Height 160 cm Sam Specner OT-C [facility] Work Phone: NEGATED: Highlighted [id number] 08:32-0400 Pulse (Heart Rate) 68 /min Sam Spencer OT-C [facility] Work Phone: NEGATED: Highlighted [id number] 08:32-0400 Weight 65.32 kg Sam Spencer OT-C [facility] Work Phone: NEGATED: Highlighted [id number] 08:32-0400 Weight 65 kg Sam Spencer OT-C [facility] Work Phone: Encounters Encounter Date Encounter Type Care Provider Facility Start: 01-26-2023 End: 01-27-2023 ambulatory DIVINA FORDE Facility:[facility] Start: 01-15-2023 Telephone encounter Juan Manuel Forde MD Work Phone: [facility] Procedures Date Procedure Procedure Detail Performing Clinician Start: 01-15-2023 Us soft tissue head & neck real time imge docm Divina Forde MD Work Phone: Start: 10-06-2022 Lipid 1996 panel - S jeinfer or Plasma Monisha Mullen MA Start: 11-04-2021 [...] Detail Author Start: 07-31-2030 Urine microalbumin profile [facility] Start: 04-10-2029 Colonoscopy COLONOSCOPY [facility] Start: 04-10-2029 COLORECTAL CANCER SCREENING COLORECTAL CANCER SCREENING [facility] Start: 10-07-2027 Lipid 1996 panel - Serum or Plasma Lipid Screening [facility] Start: 10-07-2026 LIPID SCREEN LIPID SCREEN [facility] Start: 01-13-2026 Diabetes Screening Diabetes Screening [facility] Start: 10-06-2025 Diabetes Screening Diabetes Screening [facility] Start: 07-29-2025 LIPID SCREEN LIPID SCREEN [facility] Start: 10-07-2024 DIABETES SCREEN DIABETES SCREEN [facility] Start: 07-22-2024 DIABETES SCREEN DIABETES SCREEN [facility] Start: 01-21-2024 DIABETES SCREEN DIABETES SCREEN [facility] Start: 01-14-2024 Annual PCP Team Chronic Disease Visit Annual PCP Team Chronic Disease Visit [facility] Start: 09-23-2023 ANNUAL PCP TEAM CHRONIC DISEASE VISIT ANNUAL PCP TEAM CHRONIC DISEASE VISIT [facility] Start: 08-18-2023 Mammography Mammogram Screening [facility] Start: 11-07-2022 ANNUAL PCP TEAM CHRONIC DISEASE VISIT ANNUAL PCP TEAM CHRONIC DISEASE VISIT [facility] Start: 11-05-2022 ANNUAL PCP TEAM CHRONIC DISEASE VISIT ANNUAL PCP TEAM CHRONIC DISEASE VISIT [facility] Start: 11-01-2022 ANNUAL PCP TEAM CHRONIC DISEASE VISIT ANNUAL PCP TEAM CHRONIC DISEASE VISIT [facility] Start: 10-09-2022 Covid-19 Vaccine ( season) Covid-19 Vaccine () [facility] Start: 10-09-2022 Influenza vaccination [facility] Start: 10-07-2022 ANNUAL PCP TEAM CHRONIC DISEASE VISIT ANNUAL PCP TEAM CHRONIC DISEASE VISIT [facility] Start: 09-22-2022 End: 11-22-2022 Comprehensive metabolic 2000 panel - Serum or Plasma COMP METABOLIC PANEL Lab Routine Hyperlipidemia LDL goal <100 Expected: 09/22/2022, Expires: 11/22/2022 [facility] Work Phone: Immunizations Immunization Date Immunization Notes Care Provider Fa ciliinna 01-20-2021 influenza, high-dose , quadrivalent vaccine (FLUZONE HIGH DOSE QUADRIVALENT) Divina Forde MD Work Phone: [facility] 01-20-2021 pneumococcal conjuga te vaccine, 13 valent Divina Forde MD Work Phone: [facility] 01-20-2021 influenza virus vaccine, unspecified formulation Monishaantonina Mullen [facility] 07-31-2020 tetanus toxoid, redu jeremi diphtheria toxoid, and acellular pertussis vaccine, adsorbed Divina Forde MD Work Phone: [facility] 05-16-2020 COVID-19 vaccine, fu ll dose (MODERNA) Divina Forde MD Work Phone: [facility] 04-25-2020 COVID-19 vaccine, fu ll dose (MODERNA) Divina Forde MD Work Phone: [facility] 03-21-2020 zoster vaccine recombinant Divina Forde MD Work Phone: [facility] 12-28-2019 zoster vaccine recombinant Divina Forde MD Work Phone: [facility] 11-26-2014 pneumococcal polysaccharide vaccine, 23 valent Divina Forde MD Work Phone: [facility] 04-22-2006 tetanus toxoid, redu jeremi diphtheria toxoid, and acellular pertussis vaccine, adsorbed Divina Forde MD Work Phone: [facility] Work Phone: No information available. Sam ROSARIO [facility] Work Phone: Payers Date Payer Category Payer Medicare HUMANA MEDICARE HU[employer]NA GOLD PLUS [id number] 2021-Present [phone] [address] [address] [place] [address] O [id number] 2021 Medicare [id number] 2021 Medicare [id number] Social History Date Type Detail Facility Start: 07-20-2017 End: 07-20-2017 Assertion Unknown if ever smoked [facility] Work Phone: Start: 10-07-2021 Tobacco smoking status NHIS Smokes tobacco daily [facility] History of tobacco use Cigarette Smoker [facility] Start: 01-20-2021 End: 01-13-2023 Alcohol intake Current drinker of alcohol (finding) [facility] Start: 1955 Sex Assigned At Not on file [facility] Start: 07-12-2021 End: 11-01-2021 Exposure to SARS-CoV-2 (event) Not sure [facility] Start: 10-07-2021 End: 09-22-2022 Cigarettes smoked current (pack per day) - Reported 1 [facility] Start: 10-07-2021 Tobacco use and exposure Smokeless tobacco non-user [facility] Start: 11-01-2021 End: 09-22-2022 Tobacco use panel [facility] Adult Depression Screening Assessment 0 [facility] NEGATED: Highlighted rowStart: 07-20-2017 End: 07-20-2017 Employment detail Current every day smoker [facility] Work Phone: Clinical Notes 08-08-2013 to 01-26-2023 Telephone Encounter - [address]ata [address] LPN - 01/15/2023 12:26 PM ESTTelephone Encounter - Divina Forde MD - 01/15/2023 11:54 AM Shannan Robles RDMS - 01/15/2023 10:30 AM EST Note Date & Type Note Facility 01-26-2023 Note HNO ID: [id number] Author: Maricarmen Barcenas MD Service: ? Author [...] denies a histo (more content not included)... [facility] 01-15-2023 Note HNO ID: [id number] Author: Shannan Brown RDMS Service: ? Author Type: Radiation Oncology Nurse Type: Progress Notes Filed: 01/15/2023 11:04 AM [...] Brown RDMS January 15, 2023 11:[address] [facility] 01-15-2023 Miscellaneous Notes Formattin g of this [...] assist with scheduling. documented in this encounter [facility] 01-15-2023 History of Presen t illness Narrative [...] 2023 11:04 AM documented in this encounter [facility] 01-13-2023 Note HNO ID: [id number] Author: Divina Forde MD Service: ? Author [...] on 04/10/2029 DTa (more content not included)... [facility] 01-13-2023 History of Presen t illness Narrative [...] Divina Forde MD documented in this encounter [facility] 11-17-2022 Note Patient Outreach (NE TNAV) EREN,HELEN ([id number]) 1955 F Date Time Provider Department 11/17/22 [...] Encounter Status:Closed by RAJAT SANON on 11/17/22 [facility] 11-17-2022 Note HNO ID: [id number] Author: Rajat Sanon MA Service: ? Author Type: Signing Teacher Type: Progress Notes Filed: 11/17/2022 11:57 AM [...] Sanon MA November 17, 2022 11:[address] [facility] 11-17-2022 History of Presen t illness Narrative [...] 2022 11:55 AM documented in this encounter [facility] 10-23-2022 Note HNO ID: [id number] Author: Monisha Akins MA Service: ? Author Type: Signing Teacher Type: Progress Notes Filed: 10/23/2022 9:42 AM Note Text: POPULATION HEALTH NAVIGATION OUTREACH Action/FYI Voicemail received from patient requesting return call Call placed to patient - Patient Identified by Name and : NO Outreach Outcome/Action Unable to reach patient: Left message Did you use a PCP flex slot to schedule this appointment? N/A Navigation Signature: Monisha Mullen MA October 23, 2022 9:[address] [facility] 10-21-2022 Note Patient Outreach (NIK TNAV) JAYMIE JASON ([id number]) 1955 F Date Time Provider Department 10/21/22 [...] Encounter Status:Closed by MONISHA AKINS on 10/21/22 [facility] 10-21-2022 Note HNO ID: [id number] Author: Monisha Akins MA Service: ? Author Type: Signing Teacher Type: Progress Notes Filed: 10/21/2022 3:17 PM [...] Mullen MA October 21, 2022 11:[address] [facility] 10-21-2022 History of Presen t illness Narrative [...] 2022 11:53 AM documented in this encounter [facility] 09-22-2022 Note HNO ID: [id number] Author: Keyana Mcnulty APRN.[employer] Service: ? Author Type: Nurse Practitioner Type: Progress Notes Filed: 09/22/2022 2:03 PM Note Text: 09/22/2022 Patient presents with: Yearly Exam SUBJECTIVE: This is a 67 year old that is here today for Above Complaints.. Following with pulmnoly at [facility] for asthma. Last appointment on 09/02/2022. PFTs completed and ECHO ordered due to patient complaints for SOB. Using inhalers as prescribed without side effects. Has upcoming follow-up to discuss results Just lost mother July 14. Sisters are home from [place] and [place] helping clean mother's house. Overall she is [...] SPIROMETRY Completed HEP (more content not included)... [facility] 09-22-2022 Instructions Podlogar, CHERYL Morales.ANN - 09/22/2022 [...] sure your doctor knows all prescription and vzwt-grx-oengomn drugs you take. Medicines such as sedatives, muscle relaxants, cold medicines, and blood pressure drugs can cause dizziness, lightheadedness, or loss of balance. When two or more prescription or gcwd-pcu-rawjcos medicines are used in combination, side effects [...] a cane, walking stick, or walker. References [place] [employer]. Guidelines for Preventing Falls. http://orthoinfo.aaos.org/topi c.cfm?unens=b47196 Accessed 04/02/2015. National [place] on Aging (NCOA). Falls Prevention. https://www.ncoa.org/healthy-a ging/falls-prevention/ Accessed 04/02/2015. Centers for Disease Control & Prevention. Important Facts about Falls. http://www.cdc.gov/HomeandRecr eationalSafety/Falls/adultfall s.html Accessed 04/02/2014. National [place] on Aging. AgePage: Falls and Fractures https://www.víctor.nih.gov/health /publication/yicps-rjv-pepsnjf es Accessed 04/02/2014. [place] Department of Agriculture. Choose MyPlate.gov. http://www.choosemyplate.gov/ Accessed 04/02/2014. Copyright 9320-9130 [facility]. All rights reserved. This document was last reviewed on: 2015 Index # [id number] documented in this encounter [facility] 09-22-2022 History of Presen t illness Narrative 09/22/2022 Patient presents with: Yearly Exam SUBJECTIVE: This is a 67 year old that is here today for Above Complaints.. Following with pulmnoly at [facility] for asthma. Last appointment on 09/02/2022. PFTs completed and ECHO ordered due to patient complaints for SOB. Using inhalers as prescribed without side effects. Has upcoming follow-up to discuss results Just lost mother July 14. Sisters are home from [place] and [place] helping clean mother's house. Overall she is [...] me know what she decides Keyana Mcnulty APRN.[employer] Prescription instructions reviewed with patient as applicable. [...] which included preparing to see the patient, mnlh-xi-aqdp patient care, completing clinical documentation, obtaining and/or reviewing separately obtained history, performing a medically appropriate examination, counseling and educating the patient/family/caregiver, and ordering medications, tests, or procedures. documented in this encounter [facility] 08-26-2022 Miscellaneous Notes Formattin g of this [...] Nuria Hook LPN documented in this encounter [facility] 07-14-2022 Miscellaneous Notes Formattin g of this note might be different from the original. Orders faxed. Twila Rodríguez LPN New order placed for mammogram. Please fax to [facility]. Keyana Mcnulty APRN.ANN Love with [facility] Mammography is calling to report they need a new order for nicho with candy since that is what they do at [facility]. Pt is coming in today for test. Please file. Fax to: [phone] Twila Rodríguez LPN documented in this encounter [facility] 05-28-2022 Note Patient Outreach (NIK WRIGHT) JAYMIE JASON ([id number]) 1955 F Date Time Provider Department 05/28/22 [...] Payer: Payor: HUMANA MEDICARE / Plan: HUMANA zkipster PLUS / Product Type: HMO / Care [...] Encounter Status:Closed by MARY TRINH on 05/28/22 [facility] 05-28-2022 Note HNO ID: [id number] Author: Mary Trinh Service: ? Author Type: [...] visits Payer: Payor: HUMANA MEDICARE / Plan: [employer] PLUS / Product Type: HMO / Care [...] Mary Trinh May 28, 2022 8:[address] [facility] 05-28-2022 History of Presen t illness Narrative [...] visits Payer: Payor: HUMANA MEDICARE / Plan: Rabbit / Product Type: HMO / Care Gap [...] 2022 8:42 AM documented in this encounter [facility] 05-06-2022 Miscellaneous Notes Formattin g of this [...] Mia Harris Pss documented in this encounter [facility] 04-29-2022 Note Patient Outreach (IN TMMN) JAYMIE JASON ([id number]) 1955 F Date Time Provider Department 04/29/22 [...] for screening mammogram for breast cancer [Z12.31] Order(s):[facility] SCREENING [[id number]] Order #: [id number] FUTURE Prescriptions as of 05/04/2022 - simvastatin [...] Encounter Status:Closed by REY PATEL on 05/04/22 [facility] 03-31-2022 Miscellaneous Notes Formattin g of this [...] Anaid Comer Pss documented in this encounter [facility] 01-09-2022 Miscellaneous Notes Formattin g of this [...] you. Lupe Gusman documented in this encounter [facility] 11-07-2021 History of Presen t illness Narrative [...] which included preparing to see the patient, gfmp-zn-nxji patient care, completing clinical documentation, obtaining and/or reviewing separately obtained history, and counseling and educating the patient/family/caregiver. documented in this encounter [facility] 11-05-2021 History of Presen t illness Narrative 11/05/2021 Patient presents with: ED Follow-up SUBJECTIVE: This is a 66 year old that is here today for Above Complaints. HOSPITAL/ER FOLLOW UP: Reason for visit: LLQ pain Which facility: [facility] Date of visit: 11/01/2021 Diagnosis: diverticulitis Testing [...] need to follow-up to discuss Keyana Mcnulty, DIRECTOR PART.[employer] Prescription instructions reviewed with patient as applicable. [...] which included preparing to see the patient, rfwd-lt-ffqj patient care, completing clinical documentation, obtaining and/or reviewing separately obtained history, performing a medically appropriate examination, and counseling and educating the patient/family/caregiver. documented in this encounter [facility] 11-05-2021 Miscellaneous Notes Formattin g of this [...] primary team to discuss treatment options. Gayla uJng APRN.ANN documented in this encounter [facility] 11-04-2021 History of Presen t illness Narrative [...] 2021 9:30 AM documented in this encounter [facility] 11-01-2021 History of Presen t illness Narrative [...] 1 - N/A documented in this encounter [facility] 11-01-2021 Miscellaneous Notes Formattin g of this [...] OTHER SYMPTOMS: as above Protocols used: Urinary [id number] documented in this encounter [facility] 10-10-2021 Miscellaneous Notes Formattin g of this [...] mail away [employer]. documented in this encounter [facility] 10-07-2021 Instructions Divina Forde MD - 10/07/2021 [...] usual activities immediately. documented in this encounter [facility] 10-07-2021 History of Presen t illness Narrative Chief Complaint Patient presents with: Pre-Op Exam: clearance HPI Jaymie Jason is a 66 year old female who presents here today for Pre operative clearance for right total hip arthroplasty to be performed by Dr. uAguste under general anesthesia for OA. Patient states that she does not have a date yet for this procedure. They are waiting on her clearance before they schedule the appointment. Patient notes that she has already had clearance from dentist and has appointment with wafer line worker because her surgeon would to start her on Ancef after procedure and she has PCN allergy. Also has to schedule appointment with her supervisor tan room for her asthma. States that her asthma [...] Divina Forde MD documented in this encounter [facility] 07-31-2021 Miscellaneous Notes Reviewed. Pt called in [...] Ruby Eller RN documented in this encounter [facility] 07-30-2021 Miscellaneous Notes Kaisa from [facility] calling to request patient's recent MRA orders. Faxed as requested to [phone]. Jackie Cabello RN documented in this encounter [facility] 07-28-2021 Miscellaneous Notes Detailed message left on [...] to place referral? documented in this encounter [facility] 07-25-2021 History of Presen t illness Narrative [...] DEPARTMENT: MR; Exam(s) Completed: Head: Routine Brain [place] of [place] MRA Neck: Carotids MRA, bilateral PERIPHERAL IV DATA: Not applicable SIGNED BY: RT Gianna(R) July 25, 2021 3:42 PM documented in this encounter [facility] 07-23-2021 Miscellaneous Notes Patient notified. Sadie Carroll MA New orders approved. Previous orders cancelled. Able to have patient scheduled this Wednesday at [facility] for imaging. Orders have to be ordered WO IVCON. Pended orders. Sadie Carroll MA Ruth from [facility] calling asking for revised order for the MRA Brain needs new order says without contrast please. Fax order to [phone]. Please advise Patient needs STAT MRA & MRI. Sadie Carroll MA Agree with trying to get MRI earlier through [facility]. Patient reports pcp wants her to have a stat MRI. Reports she spoke with [facility] who has the order but informed her they could not get her in for MRI for 2-3 weeks. [facility]red [facility] to find out how soon she can get stat MRI at [facility]. documented in this encounter [facility] 07-23-2021 Miscellaneous Notes Patient notified of results. Sadie Carroll MA ----- Message from Divina Forde MD sent at 07/23/2021 8:03 AM EDT ----- Your lab results are normal. No new changes to your regimen. Please follow up as scheduled. Divina Forde MD documented in this encounter [facility] 07-22-2021 History of Presen t illness Narrative [...] and pinprick normal, reflexes normal and symmetric, [place] halpike negative bilaterally. Health Maintenance List SPIROMETRY [...] Divina Forde MD documented in this encounter [facility] 07-11-2021 Miscellaneous Notes Patient calls to request order for mammogram be sent to [facility]. Order faxed to [phone] per patient request. Mini Pitt RN documented in this encounter [facility] documented as of this encounter (statuses as of 05/19/2021) [facility] History of Past illness Narrative* Problem Noted [...] of this encounter (statuses as of 07/11/2021) [facility] Narrative* Problem Noted [...] of this encounter (statuses as of 07/22/2021) [facility] N[facility]ative* Problem Noted [...] of this encounter (statuses as of 07/23/2021) [facility] N[facility]* Problem Noted [...] of this encounter (statuses as of 07/23/2021) [facility] N[facility]ative* Problem Noted [...] of this encounter (statuses as of 07/26/2021) [facility] N[facility]* Problem Noted [...] of this encounter (statuses as of 07/28/2021) [facility] N[facility]* Problem Noted [...] of this encounter (statuses as of 07/30/2021) [facility] N[facility]* Problem Noted [...] of this encounter (statuses as of 07/31/2021) [facility] N[facility]* Problem Noted [...] of this encounter (statuses as of 10/08/2021) [facility] N[facility]* Problem Noted [...] of this encounter (statuses as of 10/10/2021) [facility] N[facility]* Problem Noted [...] of this encounter (statuses as of 11/01/2021) [facility] N[facility]* Problem Noted [...] of this encounter (statuses as of 11/03/2021) [facility] N[facility]* Problem Noted [...] of this encounter (statuses as of 11/05/2021) [facility] N[facility]* Problem Noted [...] of this encounter (statuses as of 11/05/2021) [facility]* Problem Noted [...] of this encounter (statuses as of 11/07/2021) [facility] N[facility]* Problem Noted [...] of this encounter (statuses as of 01/12/2022) [facility]* Problem Noted [...] of this encounter (statuses as of 02/11/2022) [facility]* Problem Noted [...] of this encounter (statuses as of 04/01/2022) [facility]* Problem Noted [...] of this encounter (statuses as of 05/04/2022) [facility]* Problem Noted [...] of this encounter (statuses as of 05/06/2022) [facility]* Problem Noted [...] of this encounter (statuses as of 05/28/2022) [facility] N[facility]* Problem Noted [...] of this encounter (statuses as of 07/14/2022) [facility] N[facility]* Problem Noted [...] of this encounter (statuses as of 08/26/2022) [facility] N[facility]* Problem Noted [...] of this encounter (statuses as of 09/23/2022) [facility] N[facility]* Problem Noted [...] of this encounter (statuses as of 10/22/2022) [facility] N[facility]* Problem Noted [...] of this encounter (statuses as of 11/17/2022) [facility] N[facility]* Problem Noted [...] of this encounter (statuses as of 01/14/2023) [facility] N[facility]* Problem Noted [...] of this encounter (statuses as of 01/15/2023) [facility] N[facility]* Problem Noted [...] of this encounter (statuses as of 01/16/2023) [facility] Diagnosis Encounter for screening mammogram for breast cancer [facility] Diagnosis Vertigo- Primary Dizziness and giddiness Hyperlipidemia LDL goal <100 Other and unspecified hyperlipidemia Transient cerebral ischemia, unspecified type BPPV (benign paroxysmal positional vertigo), left [facility] Diagnosis BPPV (benign paroxysmal positional vertigo), left- Primary Vertigo Dizziness and giddiness Transient cerebral ischemia, unspecified type [facility] Diagnosis Transient cerebral ischemia, unspecified type Vertigo Dizziness and giddiness [facility] Diagnosis Pre-operative clearance- Primary Preoperative examination, unspecified Primary osteoarthritis of right hip Primary localized osteoarthrosis, pelvic region and thigh Hip pain, right Pain in joint, pelvic region and thigh Asymptomatic postmenopausal status [facility] Diagnosis Hyperlipidemia LDL goal <100 Other and unspecified hyperlipidemia Anxiety state Anxiety state, unspecified [facility] Diagnosis Lower abdominal pain- Primary Abdominal pain, other specified site [facility] Diagnosis Asymptomatic postmenopausal status [facility] Diagnosis Hospital discharge follow-up- Primary Other follow-up examination Diverticulitis Diverticulitis of colon (without mention of hemorrhage) Osteoporosis, unspecified osteoporosis type, unspecified pathological fracture presence [facility] Diagnosis Osteoporosis without current pathological fracture, unspecified osteoporosis type- Primary [facility] Diagnosis Hyperlipidemia LDL goal <100 Other and unspecified hyperlipidemia [facility] Diagnosis Encounter for screening mammogram for breast cancer [facility] Diagnosis Encounter for screening mammogram for breast cancer- Primary [facility] Diagnosis Hyperlipidemia LDL goal <100 Other and unspecified hyperlipidemia documented in this encounter [facility] note* Diagnosis Hyperlipidemia LDL goal <100- Primary Other and unspecified hyperlipidemia Moderate persistent asthma without complication Unspecified asthma Anxiety with depression BPPV (benign paroxysmal positional vertigo), left Balance problems Other symptoms involving nervous and musculoskeletal systems Osteoporosis without current pathological fracture, unspecified osteoporosis type documented in this encounter [facility] note* Diagnosis Thyroid nodule- Primary Nontoxic uninodular goiter Contusion of abdominal wall, initial encounter documented in this encounter [facility] note* Diagnosis Multiple thyroid nodules- Primary Nontoxic multinodular goiter documented in this encounter [facility] note* Diagnosis Thyroid nodule Nontoxic uninodular goiter documented in this encounter [facility] for referral (narrative)* Diagnostic Procedure Only (Routine) - Pending Review Specialty Diagnoses / Procedures Referred By Sravan del castillo Referred To Contact [facility] Diagnoses Encounter for screening mammogram for breast cancer Procedures NICHO SCREENING SCREENING MAMMOGRAPHY BI 2-VIEW BREAST INC CAD Divina Forde MD [address] [place] [address] [facility] [address] [place] [phone] Referral ID Status Reason Start Date Expiration Date Visits Requested Visits Authorized [id number] Pending Review Auto-Generat ed Referral 05/14/2021 06/13/2022 1 1 [facility] for referral (narrative)* Outpatient Procedure (Routine) - Authorized Specialty Diagnoses / Procedures Referred By Sravan del castillo Ref[facility] Diagnoses Pre-operative clearance Procedures ECG COMPLETE ECG ROUTINE ECG W/LEAST 12 LDS W/I&R Divina Forde MD [address] [place] [address] [facility] [place] [address] [place] [id number] Referral ID Status Reason Start Date Expiration Date Visits Requested Visits Authorized [id number] Authorized Auto-Generat ed Referral 10/07/2021 10/07/2022 1 1 [facility] for referral (narrative)* Diagnostic Procedure Only (Routine) - Pending Review Specialty Diagnoses / Procedures Referred By Sravan t Referred To Contact [facility] Diagnoses Encounter for screening mammogram for breast cancer Procedures NICHO SCREENING SCREENING MAMMOGRAPHY BI 2-VIEW BREAST INC CAD Divina Forde MD [address] [place] [address] [facility] [address] [place] [phone] Referral ID Status Reason Start Date Expiration Date Visits Requested Visits Authorized [id number] Pending Review Auto-Generat ed Referral 04/29/2022 05/29/2023 1 1 [facility] for referral (narrative)* Diagnostic Procedure Only (Routine) - Pending Review Specialty Diagnoses / Procedures Referred By Isakac t Referred To Contact [facility] Diagnoses Encounter for screening mammogram for breast cancer Procedures NICHO SCREENING W CANDY SCREENING DIGITAL BREAST TOMOSYNTHESIS BI SCREENING MAMMOGRAPHY BI 2-VIEW BREAST INC CAD Keyana Mcnulty APRN.CNP [address] [place] [address] [facility] [address] [place] [phone] Referral ID Status Reason Start Date Expiration Date Visits Requested Visits Authorized [id number] Pending Review Auto-Generat ed Referral 07/14/2022 08/13/2023 1 1 [facility] for referral (narrative)* Diagnostic Procedure Only (Urgent) - Authorized Specialty Diagnoses / Procedures Referred By Contac t Referred To Contact [facility] Diagnoses Thyroid nodule Procedures US THYROID/PARATHYROID US SOFT TISSUE HEAD & NECK REAL TIME IMGE Divina Morgan MD [address] [place], [place] [id number] [place] [address] Referral ID Status Reason Start Date Expiration Date Visits Requested Visits Authorized [id number] Authorized Auto-Generat ed Referral 01/13/2023 02/12/2024 1 [facility] Diagnostic Procedure Only (Urgent) - Closed Specialty Diagnoses / Procedures Referred By Sravan del castillo Referred To Contact [facility] Diagnoses Thyroid nodule Procedures US THYROID/PARATHYROID US SOFT TISSUE HEAD & [place] [address] [place] [address] [place] [address] Referral ID Status Reason Start Date Expiration Date V isits Requested Visits Authorized [id number] Closed Auto-Generate d Referral 01/13/2023 02/12/2024 1 1 [facility] Advance Directives There may be information available, [...] IVCON MRA,NECK; W/WO CONTRAST Divina Forde MD [address] [place] [address] [facility] Referral ID Status Reason Start Date Expiration Date Visits Requested Visits Authorized [id number] Pending Review Auto-Generat ed Referral 07/22/2021 08/21/2022 1 1 Specialty Diagnoses / Procedures Referred By Sravan del castillo Referred To Contact [facility] Diagnoses Transient cerebral ischemia, unspecified type Vertigo Procedures MRA BRAIN WO/W IVCON MRA; HEAD W & WO CONTRAST Divina Forde MD [address] [place] [address] [facility] Referral ID Status Reason Start Date Expiration Date Visits Requested Visits Authorized [id number] Pending Review Auto-Generat ed Referral 07/22/2021 08/21/2022 1 1 Specialty Diagnoses / Procedures Referred By Contac t Referred To Contact [facility] Diagnoses Vertigo Transient cerebral ischemia, unspecified type Procedures MRA CAROTID WO IVCON MRA, NECK; W/O CONTRAST Divina Forde MD [address] [place] [address] [facility] Referral ID Status Reason Start Date Expiration Date Visits Requested Visits Authorized [id number] Pending Review Auto-Generat ed Referral 07/23/2021 08/22/2022 1 1 Specialty Diagnoses / Procedures Referred By Contac t Referred To Contact [facility] Diagnoses Vertigo Transient cerebral ischemia, unspecified type Procedures MRA BRAIN WO IVCON MRA, HEAD W/O CONTRAST Divina Forde MD [address] [place] [address] [facility] Referral ID Status Reason Start Date Expiration Date Visits Requested Visits Authorized [id number] Pending Review Auto-Generat ed Referral 07/23/2021 08/22/2022 1 1 Referral ID Status Reason Start Date Expiration Date V isits Requested Visits Authorized [id number] Closed Patient Cleared - Admin/Chairm an/Director advise to proceed 07/23/2021 08/22/2022 1 1 Referral ID Status Reason Start Date Expiration Date V isits Requested Visits Authorized [id number] Closed Patient Cleared - Admin/Chairm an/Director advise to proceed 07/23/2021 08/22/2022 1 1 Specialty Diagnoses / Procedures Referred By Contac t Referred To Contact [facility] Diagnoses Transient cerebral ischemia, unspecified type Procedures MRI BRAIN WO IVCON MRI BRAIN BRAIN STEM W/O CONTRAST MATERIAL MRA, NECK; W/O CONTRAST MRA, HEAD W/O CONTRAST Divina Forde MD [address] [place] [address] [facility] Referral ID Status Reason Start Date Expiration Date V isits Requested Visits Authorized [id number] Closed Patient Cleared - Admin/Chairm an/Director advise to proceed 07/25/2021 08/24/2021 1 1 Specialty Diagnoses / Procedures Referred By Contac t Referred To Contact General Surgery Diagnoses Multiple thyroid nodules Procedures CONSULT TO GENERAL SURGERY OFFICE/OUTPATIENT [facility] 60-74 MINUTES Divina Forde MD [address] [place] [address] Referral ID Status Reason Start Date Expiration Date Visits Requested Visits Authorized [id number] Authorized PCP Requested Referral 01/15/2023 01/15/2024 1 1 Summary Purpose Additional Source Comments Source Comments (unrecognize d section and content) In the event this informatio n is protected by the Federal Confidentiality of Alcohol and Drug Abuse Patient Records regulations: The Federal rules restrict any use of the information to criminally investigate or prosecute any alcohol or drug abuse patient.[facility] the event this information is protected by the Federal Confidentiality of Alcohol and Drug Abuse Patient Records regulations: The Federal rules restrict any use of the information to criminally investigate or prosecute any alcohol or drug abuse patient.[facility] the event this information is protected by the Federal Confidentiality of Alcohol and Drug Abuse Patient Records regulations: The Federal rules restrict any use of the information to criminally investigate or prosecute any alcohol or drug abuse patient.[facility] the event this information is protected by the Federal Confidentiality of Alcohol and Drug Abuse Patient Records regulations: The Federal rules restrict any use of the information to criminally investigate or prosecute any alcohol or drug abuse patient.[facility] the event this information is protected by the Federal Confidentiality of Alcohol and Drug Abuse Patient Records regulations: The Federal rules restrict any use of the information to criminally investigate or prosecute any alcohol or drug abuse patient.[facility] the event this information is protected by the Federal Confidentiality of Alcohol and Drug Abuse Patient Records regulations: The Federal rules restrict any use of the information to criminally investigate or prosecute any alcohol or drug abuse patient.[facility] the event this information is protected by the Federal Confidentiality of Alcohol and Drug Abuse Patient Records regulations: The Federal rules restrict any use of the information to criminally investigate or prosecute any alcohol or drug abuse patient.[facility] the event this information is protected by the Federal Confidentiality of Alcohol and Drug Abuse Patient Records regulations: The Federal rules restrict any use of the information to criminally investigate or prosecute any alcohol or drug abuse patient.[facility] the event this information is protected by the Federal Confidentiality of Alcohol and Drug Abuse Patient Records regulations: The Federal rules restrict any use of the information to criminally investigate or prosecute any alcohol or drug abuse patient.[facility] the event this information is protected by the Federal Confidentiality of Alcohol and Drug Abuse Patient Records regulations: The Federal rules restrict any use of the information to criminally investigate or prosecute any alcohol or drug abuse patient.[facility] the event this information is protected by the Federal Confidentiality of Alcohol and Drug Abuse Patient Records regulations: The Federal rules restrict any use of the information to criminally investigate or prosecute any alcohol or drug abuse patient.[facility] the event this information is protected by the Federal Confidentiality of Alcohol and Drug Abuse Patient Records regulations: The Federal rules restrict any use of the information to criminally investigate or prosecute any alcohol or drug abuse patient.[facility] the event this information is protected by the Federal Confidentiality of Alcohol and Drug Abuse Patient Records regulations: The Federal rules restrict any use of the information to criminally investigate or prosecute any alcohol or drug abuse patient.[facility] the event this information is protected by the Federal Confidentiality of Alcohol and Drug Abuse Patient Records regulations: The Federal rules restrict any use of the information to criminally investigate or prosecute any alcohol or drug abuse patient.[facility] the event this information is protected by the Federal Confidentiality of Alcohol and Drug Abuse Patient Records regulations: The Federal rules restrict any use of the information to criminally investigate or prosecute any alcohol or drug abuse patient.[facility] the event this information is protected by the Federal Confidentiality of Alcohol and Drug Abuse Patient Records regulations: The Federal rules restrict any use of the information to criminally investigate or prosecute any alcohol or drug abuse patient.[facility] the event this information is protected by the Federal Confidentiality of Alcohol and Drug Abuse Patient Records regulations: The Federal rules restrict any use of the information to criminally investigate or prosecute any alcohol or drug abuse patient.[facility] the event this information is protected by the Federal Confidentiality of Alcohol and Drug Abuse Patient Records regulations: The Federal rules restrict any use of the information to criminally investigate or prosecute any alcohol or drug abuse patient.[facility] the event this information is protected by the Federal Confidentiality of Alcohol and Drug Abuse Patient Records regulations: The Federal rules restrict any use of the information to criminally investigate or prosecute any alcohol or drug abuse patient.[facility] the event this information is protected by the Federal Confidentiality of Alcohol and Drug Abuse Patient Records regulations: The Federal rules restrict any use of the information to criminally investigate or prosecute any alcohol or drug abuse patient.[facility] the event this information is protected by the Federal Confidentiality of Alcohol and Drug Abuse Patient Records regulations: The Federal rules restrict any use of the information to criminally investigate or prosecute any alcohol or drug abuse patient.[facility] the event this information is protected by the Federal Confidentiality of Alcohol and Drug Abuse Patient Records regulations: The Federal rules restrict any use of the information to criminally investigate or prosecute any alcohol or drug abuse patient.[facility] the event this information is protected by the Federal Confidentiality of Alcohol and Drug Abuse Patient Records regulations: The Federal rules restrict any use of the information to criminally investigate or prosecute any alcohol or drug abuse patient.[facility] the event this information is protected by the Federal Confidentiality of Alcohol and Drug Abuse Patient Records regulations: The Federal rules restrict any use of the information to criminally investigate or prosecute any alcohol or drug abuse patient.[facility] the event this information is protected by the Federal Confidentiality of Alcohol and Drug Abuse Patient Records regulations: The Federal rules restrict any use of the information to criminally investigate or prosecute any alcohol or drug abuse patient.[facility] CenterIn the event this information is protected by the Federal Confidentiality of Alcohol and Drug Abuse Patient Records regulations: The Federal rules restrict any use of the information to criminally investigate or prosecute any alcohol or drug abuse patient.[facility] CenterIn the event this information is protected by the Federal Confidentiality of Alcohol and Drug Abuse Patient Records regulations: The Federal rules restrict any use of the information to criminally investigate or prosecute any alcohol or drug abuse patient.[facility] CenterIn the event this information is protected by the Federal Confidentiality of Alcohol and Drug Abuse Patient Records regulations: The Federal rules restrict any use of the information to criminally investigate or prosecute any alcohol or drug abuse patient.[facility] CenterIn the event this information is protected by the Federal Confidentiality of Alcohol and Drug Abuse Patient Records regulations: The Federal rules restrict any use of the information to criminally investigate or prosecute any alcohol or drug abuse patient.[facility] CenterIn the event this information is protected by the Federal Confidentiality of Alcohol and Drug Abuse Patient Records regulations: The Federal rules restrict any use of the information to criminally investigate or prosecute any alcohol or drug abuse patient.[facility] Care Teams (unrecognized sec tion and content) Seam Finisher Relationship Specialty Start Date End Date Divina Forde MD [address] [facility] [place] [address] PCP - General Family Practice 07/31/20 Seam Finisher Relationship Specialty Start Date End Date Divina Fored MD [address] [facility] [place] [address] PCP - General Family Practice 07/31/20 Seam Finisher Relationship Specialty Start Date End Date Divina Forde MD [address] [facility] [address] PCP - General Family Practice 07/31/20 Seam Finisher Relationship Specialty Start Date End Date Divina Forde MD [facility] [facility] [place] [address] PCP - General Family Practice 07/31/20 Seam Finisher Relationship Specialty Start Date End Date Divina Forde MD [address] [facility] [address] PCP - General Family Practice 07/31/20 Seam Finisher Relationship Specialty Start Date End Date Divina Forde MD [address] [facility] [address] PCP - General Family Practice 07/31/20 Seam Finisher Relationship Specialty Start Date End Date Divina Forde MD [address] [facility] [address] PCP - General Family Practice 07/31/20 Seam Finisher Relationship Specialty Start Date End Date Divina Forde MD [address] [facility] [address] PCP - General Family Practice 07/31/20 Seam Finisher Relationship Specialty Start Date End Date Divina Forde MD [address] [facility] [place] [address] PCP - General Family Medicine 07/31/20 Seam Finisher Relationship Specialty Start Date End Date Divina Forde MD [address] [facility] [address] PCP - General Family Medicine 07/31/20 Seam Finisher Relationship Specialty Start Date End Date Divina Forde MD [address] [facility] [address] PCP - General Family Medicine 07/31/20 Seam Finisher Relationship Specialty Start Date End Date Divina Forde MD [address] [facility] [address] PCP - General Family Medicine 07/31/20 Seam Finisher Relationship Specialty Start Date End Date Divina Forde MD [address] [facility] [place] [address] PCP - General Family Medicine 07/31/20 Seam Finisher Relationship Specialty Start Date End Date Divina Forde MD [address] [facility] [place] [address] PCP - General Family Medicine 07/31/20 Seam Finisher Relationship Specialty Start Date End Date Divina Forde MD [address] [facility] [place] [address] PCP - General Family Medicine 07/31/20 Seam Finisher Relationship Specialty Start Date End Date Divina Forde MD [address] [facility] [address] PCP - General Family Medicine 07/31/20 Seam Finisher Relationship Specialty Start Date End Date Divina Forde MD [address] [facility] [place] [address] PCP - General Family Medicine 07/31/20 Seam Finisher Relationship Specialty Start Date End Date Divina Forde MD [address] [place], [place] [id number] PCP - General Family Medicine 07/31/20 Seam Finisher Relationship Specialty Start Date End Date Divina Forde MD [address] [place], [place] [address] PCP - General Family Medicine 07/31/20 Seam Finisher Relationship Specialty Start Date End Date Divina Forde MD [address] [place], [place] [id number] PCP - General Family Medicine 07/31/20 Seam Finisher Relationship Specialty Start Date End Date Divina Forde MD [address] [place], [place] [id number] PCP - General Family Medicine 07/31/20 Reason [...] HEAD W/O CONTRAST Divina Forde MD [address] [place] [address] Mr Imaging Referral ID Status Reason Start Date Expiration Date V isits Requested Visits Authorized [id number] Closed Patient Cleared - Admin/Chairm an/Director advise [...] NECK REAL TIME IMGE Divina Morgan MD [address] [place] [address] [place] [id number] Referral ID Status Reason Start Date Expiration Date V isits Requested Visits Authorized [id number] Closed Auto-Generate d Referral 01/13/2023 02/12/2024 1 [...] BE BASED ON THE PRIMARY CLINICAL RECORDS. [employer] provides no warranty or guarantee of the accuracy or completeness of information in this document.
--- NOTE | 2023-03-03 18:24 | STRESSREP ---
Stress Test Report Exercise myocardial perfusion stress test. 67-year-old lady with a history of dyspnea Stress protocol: Resting EKG demonstrates sinus bradycardia with a rate of 56 bpm resting blood pressure is 118/82 mmHg. The patient exercised according to the regular Shahzad protocol for a total duration of 3 minutes and 46 seconds attaining a maximum heart rate of 139 bpm which was 90% of maximum predicted heart rate; the maximum workload was 6.4 metabolic equivalents. At rest there were no ST or T wave changes noted to suggest ischemia and at peak exercise upsloping ST changes only were noted which did not meet the criteria for ischemia. No clinical angina was noted the test was terminated due to the target heart rate being achieved/fatigue. The peak blood pressure was 132/88 mmHg. Rate-pressure product was 17,000. Myocardial perfusion protocol. 11.7 mCi of technetium 99m sestamibi was injected at rest. The patient exercised according to regular Shahzad protocol for total duration of 3 minutes and 46 seconds and at peak exercise 34.8 mCi of technetium 99m sestamibi was injected stress images were obtained stress and rest images were reconstructed in comparing the short axis vertical long and horizontal long axis. Gated images were also obtained. Perfusion SPECT analysis: Review of the stress images demonstrate normal uptake of tracer noted in all areas of the myocardium small to moderate anterior septal perfusion defect. The resting images similarly demonstrate normal uptake of tracer noted in all areas of the myocardium except for a small portion in the anterior septal wall with a perfusion defect. The above is suggestive of a previous infarct. Gated SPECT analysis: The gated ejection fraction is 78%. Conclusion: Normal exercise myocardial perfusion stress test at a low to moderate workload with a previous anteroseptal infarct. No ischemia noted Preserved ejection fraction.
== END | disposition home or self-care (01) ==
LOC: CVS 06:37
PROVIDERS: PCP Family Medicine; Referring Provider Internal Medicine Cardiovascular Disease; Visit Provider Internal Medicine Cardiovascular Disease
DX: R06.02 Shortness of breath (principal)
CPT/HCPCS: 78452; 93017; A9500; A4216

== ENCOUNTER → 2023-04-13 | Outpatient (CLI) | payer MEDICARE, SELFPAY ==
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
--- OUTSIDE RECORDS SUMMARY | 2023-04-13 13:48 | XMS RPT_ITS | CCD ---
Author Name Unknown Address [address] [place] [address] Organization [facility] Care Team Providers Care Security Trainer Name Role Phone Vni Davila MD Unavailable Divina Forde MD Primary Care Provider Divina Forde MD Primary Care Provider Divina Forde MD Primary Care Provider Divina Forde MD Primary Care Provider DIVINA FORDE Attending Unavailab TERA Adams Referring Unavailable DIVINA FORDE Primary Care Unavailab le PODKEYANA LEDESMA Referring Unavailable DIVINA FORDE Primary Care Unavailab le KEYANA MCNULTY Attending Unavailable DIVINA FORDE Primary Care Unavailab DIVINA Carranza Referring Unavailab le DIVINA FORDE Primary Care Unavailab MARICARMEN Campbell Attending Unavailable DIVINA FORDE Referring Unavailab le DIVINA FORDE Primary Care Unavailab DIVINA Carranza Referring Unavailab le DIVINA FORDE Primary Care Unavailab le Allergies Allergy Classification Reported Allergen(s) Allergy Type Date of Onset Reaction(s) Facility (1 source) sulfacetamide Drug Allergy 8 rash [facility] Work Phone: (20 sources) Amoxicillin; Translations: [AMOXICILLIN] Drug Allergy 1 Other: See Comments [facility] (20 sources) Sulfonamides (Antibiotic); Translations: [SULFA (SULFONAMIDE ANTIBIOTICS)] Drug Allergy 6 Rash [facility] (20 sources) zolpidem; Translations: [ZOLPIDEM TARTRATE] Drug Allergy 6 Other: See Comments [facility] Medications Current Medications Medication Drug Class(es) Dates Sig (Normalized) Sig (Original) citalopram 20 mg oral tablet (20 sources) Serotonin Reuptake Inhibitor Start: 01-05-2023 End: 07-04-2023 take 1 tablet by mouth once daily citalopram (CELEXA) 20 mg tablet Indications: Anxiety state Take 1 tablet by mouth once daily. 90 tablet 1 01/05/2023 07/04/2023 Active Completed/Discontinued Medications Medication Drug Class(es) Dates Sig (Normalized) Sig (Original) [id number] 200 actuat albuterol 0.09 mg/actuat metered dose [...] [Unilateral primary osteoarthritis, right hip] Chronic Osteoporosis (20 sources) Osteoporosis; Translations: [Age-related osteoporosis without current [...] Work Phone: [facility] 01-13-2023 16:20-0500 Diastolic blood pressure 80 mm[Hg] Divina Forde MD Work Phone: [facility] 01-13-2023 16:20-0500 Heart rate 60 /min Divina Forde MD Work Phone: [facility] 01-13-2023 16:20-0500 Respiratory rate 16 /min Divina Forde MD Work Phone: [facility] 01-13-2023 16:20-0500 Systolic blood pressure 130 mm[Hg] Divina Forde MD Work Phone: [facility] 09-22-2022 13:01-0400 Body height 159 cm Keyana Mcnulty APRN.CNP Work Phone: [facility] 09-22-2022 13:01-0400 Body weight 54.88 kg Keyana Podlogar MECHANICAL TECHNICAL SERVICE SPECIALIST.APARTMENT COMMUNITY MANAGER Work Phone: [facility] 09-22-2022 13:01-0400 Diastolic blood pressure 72 mm[Hg] Keyana Podlogar MECHANICAL TECHNICAL SERVICE SPECIALIST.APARTMENT COMMUNITY MANAGER Work Phone: [facility] 09-22-2022 13:01-0400 Heart rate 68 /min Keyana Podlogar MECHANICAL TECHNICAL SERVICE SPECIALIST.APARTMENT COMMUNITY MANAGER Work Phone: [facility] 09-22-2022 13:01-0400 Respiratory rate 20 /min Keyana Podlogar MECHANICAL TECHNICAL SERVICE SPECIALIST.APARTMENT COMMUNITY MANAGER Work Phone: [facility] 09-22-2022 13:01-0400 SaO2% (BldA) [Mass fraction] 98 % Keyana Podlogar MECHANICAL TECHNICAL SERVICE SPECIALIST.APARTMENT COMMUNITY MANAGER Work Phone: [facility] 09-22-2022 13:01-0400 Systolic blood pressure 116 mm[Hg] Keyana Podlogar MECHANICAL TECHNICAL SERVICE SPECIALIST.APARTMENT COMMUNITY MANAGER Work Phone: [facility] 11-07-2021 11:41-0400 Body temperature 97.39 [degF] Keyana Podlogar MECHANICAL TECHNICAL SERVICE SPECIALIST.APARTMENT COMMUNITY MANAGER Work Phone: [facility] 11-07-2021 11:41-0400 Body weight 55.97 kg Keyana Podlogar MECHANICAL TECHNICAL SERVICE SPECIALIST.APARTMENT COMMUNITY MANAGER Work Phone: [facility] 11-07-2021 11:41-0400 Diastolic blood pressure 82 mm[Hg] Keyana Podlogar MECHANICAL TECHNICAL SERVICE SPECIALIST.APARTMENT COMMUNITY MANAGER Work Phone: [facility] 11-07-2021 11:41-0400 Heart rate 66 /min Keyana Podlogar MECHANICAL TECHNICAL SERVICE SPECIALIST.APARTMENT COMMUNITY MANAGER Work Phone: [facility] 11-07-2021 11:41-0400 Respiratory rate 16 /min Keyana Podlogar MECHANICAL TECHNICAL SERVICE SPECIALIST.APARTMENT COMMUNITY MANAGER Work Phone: [facility] 11-07-2021 11:41-0400 SaO2% (BldA) [Mass fraction] 98 % Keyana Podlogar MECHANICAL TECHNICAL SERVICE SPECIALIST.APARTMENT COMMUNITY MANAGER Work Phone: [facility] 11-07-2021 11:41-0400 Systolic blood pressure 124 mm[Hg] Keyana Podlogar MECHANICAL TECHNICAL SERVICE SPECIALIST.APARTMENT COMMUNITY MANAGER Work Phone: [facility] 11-05-2021 10:36-0400 Body temperature 97.3 [degF] Keyana Podlogar MECHANICAL TECHNICAL SERVICE SPECIALIST.APARTMENT COMMUNITY MANAGER Work Phone: [facility] 11-05-2021 10:36-0400 Body weight 56.06 kg Keyana Podlogar MECHANICAL TECHNICAL SERVICE SPECIALIST.APARTMENT COMMUNITY MANAGER Work Phone: [facility] 11-05-2021 10:36-0400 Diastolic blood pressure 80 mm[Hg] Keyana Podlogar MECHANICAL TECHNICAL SERVICE SPECIALIST.APARTMENT COMMUNITY MANAGER Work Phone: [facility] 11-05-2021 10:36-0400 Heart rate 68 /min Keyana Podlogar MECHANICAL TECHNICAL SERVICE SPECIALIST.APARTMENT COMMUNITY MANAGER Work Phone: [facility] 11-05-2021 10:36-0400 Respiratory rate 16 /min Keyana Podlogar MECHANICAL TECHNICAL SERVICE SPECIALIST.APARTMENT COMMUNITY MANAGER Work Phone: [facility] 11-05-2021 10:36-0400 SaO2% (BldA) [Mass fraction] 100 % Keyana Podlogar MECHANICAL TECHNICAL SERVICE SPECIALIST.APARTMENT COMMUNITY MANAGER Work Phone: [facility] 11-05-2021 10:36-0400 Systolic blood pressure 122 mm[Hg] Keyana Podlogar MECHANICAL TECHNICAL SERVICE SPECIALIST.APARTMENT COMMUNITY MANAGER Work Phone: [facility] 11-01-2021 10:21-0400 Body temperature 98.29 [degF] Sal Gonsales MD Work Phone: [facility] 11-01-2021 10:21-0400 Body weight 56.25 kg Sal Gonsales MD Work Phone: [facility] 11-01-2021 10:21-0400 Diastolic blood pressure 82 mm[Hg] Sal Gonsales MD Work Phone: [facility] 11-01-2021 10:21-0400 Systolic blood pressure 142 mm[Hg] Sal Gonsales MD Work Phone: [facility] 10-07-2021 13:33-0400 Body weight 56.88 kg Divina Forde MD Work Phone: [facility] 10-07-2021 13:33-0400 Diastolic blood pressure 82 mm[Hg] Divina Forde MD Work Phone: [facility] 10-07-2021 13:33-0400 Heart rate 68 /min Divina Forde MD Work Phone: [facility] 10-07-2021 13:33-0400 Respiratory rate 16 /min Divina Forde MD Work Phone: [facility] 10-07-2021 13:33-0400 SaO2% (BldA) [Mass fraction] 96 % Divina Forde MD Work Phone: [facility] 10-07-2021 13:33-0400 Systolic blood pressure 126 mm[Hg] Divina Forde MD Work Phone: [facility] 07-22-2021 15:37-0400 Body weight 57.34 kg Divina Forde MD Work Phone: [facility] 07-22-2021 15:37-0400 Diastolic blood pressure 70 mm[Hg] Divina Forde MD Work Phone: [facility] 07-22-2021 15:37-0400 Heart rate 68 /min Divina Forde MD Work Phone: [facility] 07-22-2021 15:37-0400 Respiratory rate 16 /min Divina Forde MD Work Phone: [facility] 07-22-2021 15:37-0400 SaO2% (BldA) [Mass fraction] 95 % Divina Forde MD Work Phone: [facility] 07-22-2021 15:37-0400 Systolic blood pressure 116 mm[Hg] Divina Forde MD Work Phone: [facility] NEGATED: Highlighted [id number] 08:32-0400 BMI (Body Mass Index) 25.6 kg/m2 Sam Spencer OT-C [facility] Work Phone: NEGATED: Highlighted [id number] 08:32-0400 BP Diastolic 79 mm[Hg] Sam Spencer OT-C [facility] Work Phone: NEGATED: Highlighted [id number] 08:32-0400 BP Systolic 113 mm[Hg] Sam Spencer OT-C [facility] Work Phone: NEGATED: Highlighted [id number] 08:32-0400 Height 160.02 cm Sam Spencer OT-C [facility] Work Phone: NEGATED: Highlighted [id number] 08:32-0400 Height 160 cm Sam Spencer OT-C [facility] Work Phone: NEGATED: Highlighted [id number] 08:32-0400 Pulse (Heart Rate) 68 /min Sam Spencer OT[facility]C [facility] Work Phone: NEGATED: Highlighted [id number] 08:32-0400 Weight 65.32 kg Sam Spencer OT-C [facility] Work Phone: NEGATED: Highlighted [id number] 08:32-0400 Weight 65 kg Sam Spencer OT-C [facility] Work Phone: Encounters Encounter Date Encounter Type Care Provider Facility Start: 03-19-2023 ambulatory Monisha Mullen MA [facility] [place] Procedures Date Procedure Procedure Detail Performing Clinician [...] microalbumin profile [facility] Start: 04-10-2029 Colonoscopy COLONOSCOPY [facility] Start: 04-10-2029 COLORECTAL CANCER SCREENING COLORECTAL CANCER SCREENING [facility] Start: 04-10-2029 Screening for malignant neoplasm of colon [facility] Start: 10-07-2027 Lipid 1996 panel - Serum or Plasma Lipid Screening [facility] Start: 10-07-2027 Lipid panel Lipid Screening [facility] Start: 10-07-2026 LIPID SCREEN LIPID SCREEN [facility] Start: 01-13-2026 Diabetes Screening Diabetes Screening [facility] Start: 10-06-2025 Diabetes Screening Diabetes Screening [facility] Start: 07-29-2025 LIPID SCREEN LIPID SCREEN [facility] Start: 10-07-2024 DIABETES SCREEN DIABETES SCREEN [facility] Start: 07-22-2024 DIABETES SCREEN DIABETES SCREEN [facility] Start: 01-21-2024 DIABETES SCREEN DIABETES SCREEN [facility] Start: 01-14-2024 Annual PCP Team Chronic Disease Visit Annual PCP Team Chronic Disease Visit [facility] Start: 09-23-2023 ANNUAL PCP TEAM CHRONIC DISEASE VISIT ANNUAL PCP TEAM CHRONIC DISEASE VISIT [facility] Start: 08-18-2023 Mammography Mammogram Screening [facility] Start: 08-18-2023 Screening for malignant neoplasm of breast Mammogram Screening [facility] Start: 02-08-2023 Advance Directive Discussion Advance Directive Discussion [facility] Start: 02-08-2023 Depression Assessment Depression Assessment [facility] Start: 11-07-2022 ANNUAL PCP TEAM CHRONIC DISEASE VISIT ANNUAL PCP TEAM CHRONIC DISEASE VISIT [facility] Start: 11-05-2022 ANNUAL PCP TEAM CHRONIC DISEASE VISIT ANNUAL PCP TEAM CHRONIC DISEASE VISIT [facility] Start: 11-01-2022 ANNUAL PCP TEAM CHRONIC DISEASE VISIT ANNUAL PCP TEAM CHRONIC DISEASE VISIT [facility] Start: 10-09-2022 Covid-19 Vaccine ( season) Covid-19 Vaccine () [facility] Start: 10-09-2022 Influenza vaccination [facility] Start: 10-07-2022 ANNUAL PCP TEAM CHRONIC DISEASE VISIT ANNUAL PCP TEAM CHRONIC DISEASE VISIT [facility] Start: 09-22-2022 End: 11-22-2022 Comprehensive metabolic 2000 panel - Serum or Plasma COMP METABOLIC PANEL Lab Routine Hyperlipidemia LDL goal <100 Expected: 09/22/2022, Expires: 11/22/2022 [facility] Work Phone: Immunizations Immunization Date Immunization Notes Care Provider Fa cility 01-20-2021 influenza, high-dose , quadrivalent vaccine (FLUZONE HIGH DOSE QUADRIVALENT) Divina Forde MD Work Phone: [facility] 01-20-2021 pneumococcal conjuga te vaccine, 13 valent Divina Forde MD Work Phone: [facility] 01-20-2021 influenza virus vaccine, unspecified formulation Monishaantonina Mullen ADDI [facility] 07-31-2020 tetanus toxoid, redu jeremi diphtheria toxoid, and acellular pertussis vaccine, adsorbed Divina Forde MD Work Phone: [facility] 05-16-2020 COVID-19 vaccine, fu ll dose (MODERNA) Divina Forde MD Work Phone: [facility] 04-25-2020 COVID-19 vaccine, fu ll dose (MODERNA) Divina Forde MD Work Phone: [facility] 03-21-2020 zoster vaccine recombinant Divina Forde MD Work Phone: [facility] 12-28-2019 zoster vaccine recombinant Divina Forde MD Work Phone: [facility] 11-26-2014 pneumococcal polysaccharide vaccine, 23 valent Divina Forde MD Work Phone: [facility] 04-22-2006 tetanus toxoid, redu jeremi diphtheria toxoid, and acellular pertussis vaccine, adsorbed Divina Forde MD Work Phone: [facility] Work Phone: No information available. Sam Palmer OT-C [facility] Work Phone: Payers Date Payer Category Payer Medicare [employer] MEDICARE [employer] GOLD PLUS [id number] 2021-Present [phone] [address] [address] [place] [address] [facility] [id number] 2021 Medicare [id number] 2021 Medicare [id number] Social History Date Type Detail Facility Start: 07-20-2017 End: 07-20-2017 Assertion Unknown if ever smoked [facility] Work Phone: Start: 10-07-2021 Tobacco smoking status NHIS Smokes tobacco daily [facility] History of tobacco use Cigarette Smoker [facility] Start: 01-20-2021 End: 01-26-2023 Alcohol intake Current drinker of alcohol (finding) [facility] Start: 1955 Sex Assigned At Not on file [facility] Start: 07-12-2021 End: 11-01-2021 Exposure to SARS-CoV-2 (event) Not sure [facility] Start: 10-07-2021 End: 09-22-2022 Cigarettes smoked current (pack per day) - Reported 1 [facility] Start: 10-07-2021 Tobacco use and exposure Smokeless tobacco non-user [facility] Start: 11-01-2021 End: 09-22-2022 Tobacco use panel [facility] Adult Depression Screening Assessment 0 [facility] NEGATED: Highlighted rowStart: 07-20-2017 End: 07-20-2017 Employment detail Current every day smoker [facility] Work Phone: Clinical Notes 08-08-2013 to 03-19-2023 Monisha Akins MA - 03/19/2023 12:49 PM ESTTelephone Encounter - [address] LPN - 01/15/2023 12:26 PM ESTTelephone Encounter - Divina Forde MD - 01/15/2023 11:54 AM EST Note Date & Type Note Facility 03-19-2023 Note HNO ID: [id number] Author: MONISHA AKINS MA Service: ? Author Type: Emergency Crew Supervisor Type: Progress Notes Filed: 03/19/2023 12:58 Note Text: POPULATION HEALTH NAVIGATION OUTREACH Action/FYI Spoke with patient - agreeable to schedule Medicare Wellness exam with PCP Patient Identified by Name and : YES, via phone Outreach Outcome/Action Spoke to patient / parent / legal guardian: Patient scheduled Did you use a PCP flex slot to schedule this appointment? No Reason for Outreach Care Gap or Scheduling/Wellness visits Payer: Payor: HU[employer]NA MEDICARE / Plan: [employer]NA MEDICARE PPO / Product Type: PPO / Care Gap Reviewed:: Annual Wellness visit Reminder: Reminder note to check Health Maintenance for items below Health Maintenance items due: Alpha-1 Antitrypsin Deficiency Screening Never done Lung Cancer Screening Never done RSV Vaccine(1 - 1-dose 60+ series) Never done Pneumococcal Vaccine: 65+(3 of 3 - PPSV23 or PCV20) due on 01/20/2022 Covid-19 Vaccine(2022- season) due on 10/09/2022 Advance Directive Discussion Never done Depression Assessment Never done Navigation Signature: Monisha Mullen MA March 19, 2023 12:49 PM [facility] 03-19-2023 Note Patient Outreach (NIK TRISTANAV) JAYMIE JASON ([id number]) 1955 F Date Time Provider Department 03/19/23 MONISHA AKINS During your visit today, we recorded the following information about you: Monisha Akins MA 03/19/2023 12:58 PM Signed POPULATION HEALTH NAVIGATION OUTREACH Action/FY Spoke with patient - agreeable to schedule Medicare Wellness exam with PCP Patient Identified by Name and : YES, via phone Outreach Outcome/Action Spoke to patient / parent / legal guardian: Patient scheduled Did you use a PCP flex slot to schedule this appointment? No Reason for Outreach Care Gap or Scheduling/Wellness visits Payer: Payor: HU[employer]NA MEDICARE / Plan: [employer]NA MEDICARE PPO / Product Type: PPO / Care Gap Reviewed:: Annual Wellness visit Reminder: Reminder note to check Health Maintenance for items below Health Maintenance items due: Alpha-1 Antitrypsin Deficiency Screening Never done Lung Cancer Screening Never done RSV Vaccine(1 - 1-dose 60+ series) Never done Pneumococcal Vaccine: 65+(3 of 3 - PPSV23 or PCV20) due on 01/20/2022 Covid-19 Vaccine( season) due on 10/09/2022 Advance Directive Discussion Never done Depression Assessment Never done Navigation Signature: Monisha Mullen MA March 19, 2023 12:49 PM Allergies As of Date: 03/19/2023 Noted Allergy Reaction AMBIEN (ZOLPIDEM TARTRATE) 02/27/2005 14 - Other: See Comments Comments: gave her strange sensations on the inside of her body AMOXICILLIN 07/31/2020 14 - Other: See Comments Comments: itching SULFA (SULFONAMIDE ANTIBIOTICS) 02/27/2005 2 - Rash Date Reviewed: 01/26/2023 Reviewed by: Iesha Nixon LPN - Fully Assessed Reason for Visit: Population Health Navigation Outreach [3910] Cmt: [employer] Care Gaps Prescriptions as of 03/19/2023 - citalopram (CELEXA) 20 mg tablet Take 1 tablet by mouth once daily. - montelukast chewable (SINGULAIR) 5 mg tablet Take 2 tablets by mouth daily at bedtime. - meclizine (ANTIVERT) 25 mg tab Take [...] twice daily. Problem List As Of Date 03/19/2023 Noted Resolved Other chronic cystitis [N30.20] 11/26/2014 [...] pathological*11/07/2021 Encounter Status:Closed by MONISHA AKINS on 03/19/23 [facility] 03-19-2023 History of Presen t illness Narrative POPULATION HEALTH NAVIGATION OUTREACH Action/I Spoke with patient - agreeable to schedule Medicare Wellness exam with PCP Patient Identified by Name and : YES, via phone Outreach Outcome/Action Spoke to patient / parent / legal guardian: Patient scheduled Did you use a PCP flex slot to schedule this appointment? No Reason for Outreach Care Gap or Scheduling/Wellness visits Payer: Payor: HUMANA MEDICARE / Plan: New[employer] MEDICARE PPO / Product Type: PPO / Care Gap Reviewed:: Annual Wellness visit Reminder: Reminder note to check Health Maintenance for items below Health Maintenance items due: Alpha-1 Antitrypsin Deficiency Screening Never done Lung Cancer Screening Never done RSV Vaccine(1 - 1-dose 60+ series) Never done Pneumococcal Vaccine: 65+(3 of 3 - PPSV23 or PCV20) due on 01/20/2022 Covid-19 Vaccine( season) due on 10/09/2022 Advance Directive Discussion Never done Depression Assessment Never done Navigation Signature: Monisha Mullen MA March 19, 2023 12:49 PM documented in this encounter [facility] 01-26-2023 Note HNO ID: [id number] Author: Maricarmen Barcenas MD Service: ? Author Type: Physician Type: Progress Notes Filed: 01/28/2023 6:50 PM Note Text: Jaymie Jason 1955 REFERRING PHYSICIAN: Divina Forde,* CHIEF COMPLAINT: [...] entered by the nurse and reviewed by de Nursing Notes: Iesha Nixon LPN 01/26/2023 3:03 PM Signed REVIEW OF SYSTEMS: [...] denies a histo (more content not included)... [facility] 01-15-2023 Note HNO ID: [id number] Author: Shannan Brown RDMS Service: ? Author Type: Rehab Aide Type: Progress Notes Filed: 01/15/2023 11:04 AM [...] Brown RDMS January 15, 2023 11:04 AM [facility] 01-15-2023 Miscellaneous Notes Formattin g of this [...] this encounter [facility] 01-15-2023 History of Presen t illness Narrative [...] this encounter [facility] 01-13-2023 Note HNO ID: [id number] Author: Divina Forde MD Service: ? Author [...] on 04/10/2029 DTa (more content not included)... [facility] 01-13-2023 History of Presen t illness Narrative [...] this encounter [facility] 11-17-2022 Note Patient Outreach (NIK TNAV) JAYMIE JASON ([id number]) 1955 F Date Time Provider Department 11/17/22 RAJAT SANON During your visit today, we recorded the following information about you: Rajat Sanon MA 11/17/2022 11:57 AM Signed POPULATION HEALTH NAVIGATION OUTREACH Action/ Updated HM for patient mammogram. Spoke to [...] Care Gap or Scheduling/Wellness visits Payer: Payor: New[employer] MEDICARE / Plan: HU[employer]NA MEDICARE PPO / [...] Vaccine(1) due on 10/09/2022 Covid-19 Vaccine(4 - season) due on 10/09/2022 Navigation Signature: Rajat [...] Encounter Status:Closed by RAJAT SANON on 11/17/22 [facility] 11-17-2022 Note HNO ID: [id number] Author: Rajat Sanon MA Service: ? Author Type: Emergency Crew Supervisor Type: Progress Notes Filed: 11/17/2022 11:57 [...] Sanon MA November 17, 2022 11:55 AM [facility] 11-17-2022 History of Presen t illness Narrative [...] this encounter [facility] 10-23-2022 Note HNO ID: [id number] Author: Monisha Akins MA Service: ? Author Type: Emergency Crew Supervisor Type: Progress Notes Filed: 10/23/2022 9:42 [...] Mullen MA October 23, 2022 9:41 AM [facility] 10-21-2022 Note Patient Outreach (NE TNAV) JAYMIE JASON ([id number]) 1955 F Date Time Provider Department 10/21/22 [...] Care Gap or Scheduling/Wellness visits Payer: Payor: New[employer] MEDICARE / Plan: New[employer] MEDICARE PPO / Product Type: PPO / [...] Encounter Status:Closed by MONISHA AKINS on 10/21/22 [facility] 10-21-2022 Note HNO ID: [id number] Author: Monisha Akins MA Service: ? Author Type: Emergency Crew Supervisor Type: Progress Notes Filed: 10/21/2022 3:17 PM Note Text: POPULATION HEALTH NAVIGATION OUTREACH Action/I Mammogram ordered 07/14/2022 No active MyChart Patient [...] Mullen MA October 21, 2022 11:53 AM [facility] 10-21-2022 History of Presen t illness Narrative [...] this encounter [facility] 09-22-2022 Note HNO ID: [id number] Author: Keyana Mcnulty APRN.APARTMENT COMMUNITY MANAGER Service: ? Author Type: Nurse Practitioner Type: Progress Notes Filed: 09/22/2022 2:03 PM Note Text: 09/22/2022 Patient presents with: Yearly Exam SUBJECTIVE: This is a 67 year old that is here today for Above Complaints.. Following with pulzak at [facility] for asthma. Last appointment on 09/02/2022. PFTs completed and ECHO ordered due to patient complaints for SOB. Using inhalers as prescribed without side effects. Has upcoming follow-up to discuss results Just lost mother July 14. Sisters are home from [place] and [place] helping clean mother's house. Overall she is [...] SPIROMETRY Completed HEP (more content not included)... [facility] 09-22-2022 Instructions PodlogarKeyana APRN.APARTMENT COMMUNITY MANAGER - 09/22/2022 1:34 PM EDT Take 1200 [...] sure your doctor knows all prescription and ucbc-zji-gewlhzp drugs you take. Medicines such as sedatives, muscle relaxants, cold medicines, and blood pressure drugs can cause dizziness, lightheadedness, or loss of balance. When two or more prescription or xwqc-bsg-rvkvedx medicines are used in combination, side effects [...] a cane, walking stick, or walker. References [employer]. Guidelines for Preventing Falls. http://orthoinfo.aaos.org/topi c.cfm?yhszq=s38615 Accessed 04/02/2015. National [place] on Aging (NCOA). Falls Prevention. https://www.ncoa.org/healthy-a ging/falls-prevention/ Accessed 04/02/2015. Centers for Disease Control & Prevention. Important Facts about Falls. http://www.cdc.gov/HomeandRecr eationalSafety/Falls/adultfall s.html Accessed 04/02/2014. National [place] on Aging. AgePage: Falls and Fractures https://www.víctor.nih.gov/health /publication/clapd-cki-juoalct es Accessed 04/02/2014. United [place] Department of Agriculture. Choose MyPlate.gov. http://www.choosemyplate.gov/ Accessed 04/02/2014. Copyright 0042-6970 [facility]. All rights reserved. This document was last reviewed on: 2015 Index # [id number] documented in this encounter [facility] 09-22-2022 History of Presen t illness Narrative 09/22/2022 Patient presents with: Yearly Exam SUBJECTIVE: This is a 67 year old that is here today for Above Complaints.. Following with pulzak at [facility] for asthma. Last appointment on 09/02/2022. PFTs completed and ECHO ordered due to patient complaints for SOB. Using inhalers as prescribed without side effects. Has upcoming follow-up to discuss results Just lost mother July 14. Sisters are home from [place] and [place] helping clean mother's house. Overall she is [...] 781.99, ICD10: R26.89 - discussed referral to PT declines at this time - handout on [...] me know what she decides Keyana Mcnulty APRN.APARTMENT COMMUNITY MANAGER Prescription instructions reviewed with patient as applicable. [...] which included preparing to see the patient, olym-bf-sugp patient care, completing clinical documentation, obtaining and/or reviewing separately obtained history, performing a medically appropriate examination, counseling and educating the patient/family/caregiver, and ordering medications, tests, or procedures. documented in this encounter [facility] 08-26-2022 Miscellaneous Notes Formattin g of this [...] this encounter [facility] 07-14-2022 Miscellaneous Notes Formattin g of this note might be different from the original. Orders faxed. Twila Rodríguez LPN New order placed for mammogram. Please fax to [facility]. Keyana Mcnulty APRN.ANN Love with [facility] Mammography is calling to report they need a new order for nicho with candy since that is what they do at [facility]. Pt is coming in today for test. Please file. Fax to: [phone] Twila Rodríguez LPN documented in this encounter [facility] 05-28-2022 Note Patient Outreach (NIK WRIGHT) JAYMIE JASON ([id number]) 1955 F Date Time Provider Department 05/28/22 MARY TRINHTahira During your visit today, we recorded the following information about you: Mary Wildecisco 05/28/2022 8:43 AM Signed POPULATION HEALTH NAVIGATION OUTREACH Action/FYI Left message to remind patient to schedule mammogram My chart not activated Patient Identified by Name and : NO Outreach Outcome/Action Unable to reach patient: Left message Did you use a PCP flex slot to schedule this appointment? N/A Reason for Outreach Care Gap or Scheduling/Wellness visits Payer: Payor: HUMANA MEDICARE / Plan: [employer] / Product Type: HMO / Care Gap [...] DEPRESSION ASSESSMENT Never done Navigation Signature: Mary Jennifer May 28, 2022 8:42 AM Allergies As of Date: 05/28/2022 Noted Allergy Reaction DESMOND (ZOLPIDEM TARTRATE) 02/27/2005 14 - Other: See [...] Encounter Status:Closed by MARY TRINH on 05/28/22 [facility] 05-28-2022 Note HNO ID: [id number] Author: Mary Trinh Service: ? Author Type: ? Type: Progress Notes Filed: 05/28/2022 8:43 AM Note Text: POPULATION HEALTH NAVIGATION OUTREACH Action/FYI Left message to remind patient to schedule mammogram My chart not activated Patient Identified by Name and : NO Outreach Outcome/Action Unable to reach patient: Left message Did you use a PCP flex slot to schedule this appointment? N/A Reason for Outreach Care Gap or Scheduling/Wellness visits Payer: Payor: [employer] MEDICARE / Plan: HUMANA GOLD PLUS / Product Type: HMO / Care [...] Mary Trinh May 28, 2022 8:42 AM [facility] 05-28-2022 History of Presen t illness Narrative [...] Payer: Payor: HUMANA MEDICARE / Plan: HUMANA GOLD PLUS / Product Type: HMO / Care [...] this encounter [facility] 05-06-2022 Miscellaneous Notes Formattin g of this [...] this encounter [facility] 04-29-2022 Note Patient Outreach (IN TMMN) JAYMIE JASON ([id number]) 1955 F Date Time Provider Department 04/29/22 [...] for screening mammogram for breast cancer [Z12.31] Order(s):NICHO SCREENING [[id number]] Order #: [id number] FUTURE Prescriptions as of 05/04/2022 - simvastatin [...] osteoporosis without current pathological*11/07/2021 Encounter Status:Closed by [facility] on 05/04/22 [facility] 03-31-2022 Miscellaneous Notes Formattin g of this note is different from the original. Patient has been identified by name and date of : Yes Requested Prescriptions Pending Prescriptions Disp Refills simvastatin (ZOCOR) 40 mg tablet 90 tablet 1 Sig: Take 1 tablet by mouth daily at bedtime. RX INSTRUCTIONS: Patient aware RX escripted to mail away pharmacy. No need to notify patient. Aanid Comer Pss documented in this encounter [facility] 01-09-2022 Miscellaneous Notes Formattin g of this [...] this encounter [facility] 11-07-2021 History of Presen t illness Narrative [...] visit to help teach administration Keyana Mcnulty APRN.CNP Prescription instructions reviewed with patient as applicable. [...] which included preparing to see the patient, uybu-hl-mmwy patient care, completing clinical documentation, obtaining and/or reviewing separately obtained history, and counseling and educating the patient/family/caregiver. documented in this encounter [facility] 11-05-2021 History of Presen t illness Narrative 11/05/2021 Patient presents with: ED Follow-up SUBJECTIVE: This is a 66 year old that is here today for Above Complaints. HOSPITAL/ER FOLLOW UP: Reason for visit: LLQ pain Which facility: [facility] Date of visit: 11/01/2021 Diagnosis: diverticulitis [...] will need to follow-up to discuss Keyana Mcnulty APRN.CNP Prescription instructions reviewed with patient as applicable. [...] which included preparing to see the patient, zghm-uu-fxlc patient care, completing clinical documentation, obtaining and/or reviewing separately obtained history, performing a medically appropriate examination, and counseling and educating the patient/family/caregiver. documented in this encounter [facility] 11-05-2021 Miscellaneous Notes Formattin g of this [...] team to discuss treatment options. Gayla Jung APRN.CNP documented in this encounter [facility] 11-04-2021 History of Presen t illness Narrative [...] this encounter [facility] 11-01-2021 History of Presen t illness Narrative [...] this encounter [facility] 11-01-2021 Miscellaneous Notes Formattin g of this note might be different from the original. Pt called and is notified of providers message and instructions. Pt voices understanding. Pt scheduled today with Dr Gonsales. Ruby Eller, RN Agree with [facility] evaluation Keyana Mcnulty APRN.ANN Protocol Recommended (Upgraded): See provider within 24 hours for evaluation. Pt states she will be having a hip replacement in the near future and does not want to have any infection prior to surgery. Pt would like urine tested if possible. Recommended pt to be evaluated in [facility] in next 24 hours for evaluation. [...] OTHER SYMPTOMS: as above Protocols used: Urinary Hmumgiqg-XHKPO-JT documented in this encounter [facility] 10-10-2021 Miscellaneous Notes Formattin g of this [...] this encounter [facility] 10-07-2021 Instructions Divina Forde MD - 10/07/2021 [...] this encounter [facility] 10-07-2021 History of Presen t illness Narrative [...] clearance from dentist and has appointment with museum assistant because her surgeon would to start her on Ancef after procedure and she has PCN allergy. Also has to schedule appointment with her middleware administrator for her asthma. States that her asthma [...] this encounter [facility] 07-31-2021 Miscellaneous Notes Reviewed. Pt called in [...] this encounter [facility] 07-30-2021 Miscellaneous Notes Kasia from [facility] MRI calling to request patient's recent MRA orders. Faxed as requested to [phone]. Jackie Cabello RN documented in this encounter [facility] 07-28-2021 Miscellaneous Notes Detailed message left on [...] this encounter [facility] 07-25-2021 History of Presen t illness Narrative [...] DEPARTMENT: MR; Exam(s) Completed: Head: Routine Brain [place] MRA Neck: Carotids MRA, bilateral PERIPHERAL IV DATA: Not applicable SIGNED BY: RT Gianna(R) July 25, 2021 3:42 PM documented in this encounter [facility] 07-23-2021 Miscellaneous Notes Patient notified. Sadie Carroll MA New orders approved. Previous orders cancelled. Able to have patient scheduled this Wednesday at [facility] for imaging. Orders have to be ordered WO IVCON. Pended orders. Sadie Carroll MA Ruth from [facility] MRI calling asking for revised order for the MRA Brain needs new order says without contrast please. Fax order to [phone]. Please advise Patient needs STAT MRA & MRI. Sadie Carroll MA Agree with trying to get MRI earlier through [facility]. Patient reports pcp wants her to have a stat MRI. Reports she spoke with [facility] who has the order but informed her they could not get her in for MRI for 2-3 weeks. Transferred patient to [facility] to find out how soon she can get stat MRI at [facility]. documented in this encounter [facility] 07-23-2021 Miscellaneous Notes Patient notified of results. Sadie Carroll MA ----- Message from Divina Forde MD sent at 07/23/2021 8:03 AM EDT ----- Your lab results are normal. No new changes to your regimen. Please follow up as scheduled. Divina Forde MD documented in this encounter [facility] 07-22-2021 History of Presen t illness Narrative [...] and pinprick normal, reflexes normal and symmetric, [place] halpike negative bilaterally. Health Maintenance List SPIROMETRY [...] this encounter [facility] 07-11-2021 Miscellaneous Notes Patient calls to request order for mammogram be sent to [facility]. Order faxed to [phone] per patient request. Mini Pitt RN documented in this encounter [facility] documented as of this encounter (statuses as of 05/19/2021) [facility] History of Past illness Narrative* Problem Noted [...] of 07/11/2021) [facility] History of Past illness Narrative* Problem Noted [...] of 07/22/2021) [facility] History of Past illness Narrative* Problem Noted [...] of 07/23/2021) [facility] History of Past illness Narrative* Problem Noted [...] of 07/23/2021) [facility] History of Past illness Narrative* Problem Noted [...] of 07/26/2021) [facility] History of Past illness Narrative* Problem Noted [...] of 07/28/2021) [facility] History of Past illness Narrative* Problem Noted [...] of 07/30/2021) [facility] History of Past illness Narrative* Problem Noted [...] of 07/31/2021) [facility] History of Past illness Narrative* Problem Noted [...] of 10/08/2021) [facility] History of Past illness Narrative* Problem Noted [...] of 10/10/2021) [facility] History of Past illness Narrative* Problem Noted [...] of 11/01/2021) [facility] History of Past illness Narrative* Problem Noted [...] of 11/03/2021) [facility] History of Past illness Narrative* Problem Noted [...] of 11/05/2021) [facility] History of Past illness Narrative* Problem Noted [...] of 11/05/2021) [facility] History of Past illness Narrative* Problem Noted [...] of 11/07/2021) [facility] History of Past illness Narrative* Problem Noted [...] of 01/12/2022) [facility] History of Past illness Narrative* Problem Noted [...] of 02/11/2022) [facility] History of Past illness Narrative* Problem Noted [...] of 04/01/2022) [facility] History of Past illness Narrative* Problem Noted [...] of 05/04/2022) [facility] History of Past illness Narrative* Problem Noted [...] of 05/06/2022) [facility] History of Past illness Narrative* Problem Noted [...] of 05/28/2022) [facility] History of Past illness Narrative* Problem Noted [...] of 07/14/2022) [facility] History of Past illness Narrative* Problem Noted [...] of 08/26/2022) [facility] History of Past illness Narrative* Problem Noted [...] of 09/23/2022) [facility] History of Past illness Narrative* Problem Noted [...] of 10/22/2022) [facility] History of Past illness Narrative* Problem Noted [...] of 11/17/2022) [facility] History of Past illness Narrative* Problem Noted [...] of 01/14/2023) [facility] History of Past illness Narrative* Problem Noted [...] of 01/15/2023) [facility] History of Past illness Narrative* Problem Noted [...] of this encounter (statuses as of 01/16/2023) [facility] History of Past illness Narrative* Problem Noted [...] as of this encounter (statuses as of 03/19/2023) [facility] note* Diagnosis Encounter for screening mammogram for breast cancer [facility] Diagnosis Vertigo- Primary Dizziness and giddiness Hyperlipidemia LDL goal <100 Other and unspecified hyperlipidemia Transient cerebral ischemia, unspecified type BPPV (benign paroxysmal positional vertigo), left [facility] Diagnosis BPPV (benign paroxysmal positional vertigo), left- Primary Vertigo Dizziness and giddiness Transient cerebral ischemia, unspecified type [facility] Diagnosis Transient cerebral ischemia, unspecified type Vertigo Dizziness and giddiness [facility]* Diagnosis Pre-operative clearance- Primary Preoperative examination, unspecified Primary osteoarthritis of right hip Primary localized osteoarthrosis, pelvic region and thigh Hip pain, right Pain in joint, pelvic region and thigh Asymptomatic postmenopausal status [facility]* Diagnosis Hyperlipidemia LDL goal <100 Other and unspecified hyperlipidemia Anxiety state Anxiety state, unspecified [facility] Diagnosis Lower abdominal pain- Primary Abdominal pain, other specified site [facility] Diagnosis Asymptomatic postmenopausal status [facility] Diagnosis Hospital discharge follow-up- Primary Other follow-up examination Diverticulitis Diverticulitis of colon (without mention of hemorrhage) Osteoporosis, unspecified osteoporosis type, unspecified pathological fracture presence [facility] Diagnosis Osteoporosis without current pathological fracture, unspecified osteoporosis type- Primary [facility] Diagnosis Hyperlipidemia LDL goal <100 Other and unspecified hyperlipidemia [facility]* Diagnosis Encounter for screening mammogram for breast cancer [facility]* Diagnosis Encounter for screening mammogram for breast cancer- Primary [facility] Diagnosis Hyperlipidemia LDL goal <100 Other and unspecified hyperlipidemia [facility] Diagnosis Hyperlipidemia LDL goal <100- Primary Other and unspecified hyperlipidemia Moderate persistent asthma without complication Unspecified asthma Anxiety with depression BPPV (benign paroxysmal positional vertigo), left Balance problems Other symptoms involving nervous and musculoskeletal systems Osteoporosis without current pathological fracture, unspecified osteoporosis type [facility] Diagnosis Thyroid nodule- Primary Nontoxic uninodular goiter Contusion of abdominal wall, initial encounter documented in this encounter [facility] note* Diagnosis Multiple thyroid nodules- Primary Nontoxic multinodular goiter documented in this encounter [facility] note* Diagnosis Thyroid nodule Nontoxic uninodular goiter documented in this encounter [facility] for referral (narrative)* Diagnostic Procedure Only (Routine) - Pending Review Specialty Diagnoses / Procedures Referred By Sravan t Referred To Contact [facility] Diagnoses Encounter for screening mammogram for breast cancer Procedures NICHO SCREENING SCREENING MAMMOGRAPHY BI 2-VIEW BREAST INC Divina Urban MD [address] [place] [address] [facility] [address] [place] [id number] Referral ID Status Reason Start Date Expiration Date Visits Requested Visits Authorized [id number] Pending Review Auto-Generat ed Referral 05/14/2021 06/13/2022 1 1 [facility] for referral (narrative)* Outpatient Procedure (Routine) - Authorized Specialty Diagnoses / Procedures Referred By Sravan del castillo Ref[facility] Diagnoses Pre-operative clearance Procedures ECG COMPLETE ECG ROUTINE ECG W/LEAST 12 LDS W/I&R Divina Forde MD [address] [place] [address] [facility] [address] [place] [address] Referral ID Status Reason Start Date Expiration Date Visits Requested Visits Authorized [id number] Authorized Auto-Generat ed Referral 10/07/2021 10/07/2022 1 1 [facility] for referral (narrative)* Diagnostic Procedure Only (Routine) - Pending Review Specialty Diagnoses / Procedures Referred By Sravan t Referred To Contact [facility] Diagnoses Encounter for screening mammogram for breast cancer Procedures NICHO SCREENING SCREENING MAMMOGRAPHY BI 2-VIEW BREAST INC Divina Urban MD [address] [place] [address] [facility] [address] [place] [address] Referral ID Status Reason Start Date Expiration Date Visits Requested Visits Authorized [id number] Pending Review Auto-Generat ed Referral 04/29/2022 05/29/2023 1 1 [facility] for referral (narrative)* Diagnostic Procedure Only (Routine) - Pending Review Specialty Diagnoses / Procedures Referred By Contac t Referred To Contact [facility] Diagnoses Encounter for screening mammogram for breast cancer Procedures NICHO SCREENING W CANDY SCREENING DIGITAL BREAST TOMOSYNTHESIS BI SCREENING MAMMOGRAPHY BI 2-VIEW BREAST INC Keyana Rodriguez APRN.CNP [address] [place] [address] [facility] [address] [place] [address] Referral ID Status Reason Start Date Expiration Date Visits Requested Visits Authorized [id number] Pending Review Auto-Generat ed Referral 07/14/2022 08/13/2023 1 1 [facility] for referral (narrative)* Diagnostic Procedure Only (Urgent) - Authorized Specialty Diagnoses / Procedures Referred By Contac t Referred To Contact [facility] Diagnoses Thyroid nodule Procedures US THYROID/PARATHYROID US SOFT TISSUE HEAD & NECK REAL TIME IMGE Divina Morgan MD [address] [place] [address] [place] [address] Referral ID Status Reason Start Date Expiration Date Visits Requested Visits Authorized [id number] Authorized Auto-Generat ed Referral 01/13/2023 02/12/2024 1 1 [facility] for referral (narrative)* Diagnostic Procedure Only (Urgent) - Closed Specialty Diagnoses / Procedures Referred By Contac t Referred To Contact [facility] Diagnoses Thyroid nodule Procedures US THYROID/PARATHYROID US SOFT TISSUE HEAD & NECK REAL TIME IMDivina Glasgow MD [address] [place] [address] [facility] [address] Referral ID Status Reason Start Date Expiration Date V isits Requested Visits Authorized [id number] Closed Auto-Generate d Referral 01/13/2023 02/12/2024 1 1 [place] Advance Directives There may be information available, [...] Referral Specialty Diagnoses / Procedures Referred By Contac t Referred To Contact MR IMAGING Diagnoses Transient cerebral ischemia, unspecified type Vertigo Procedures MRA CAROTID WO/W IVCON MRA,NECK; W/WO CONTRAST Divina Forde MD [facility] [place] [id number] Mr Imaging Referral ID Status Reason Start Date Expiration Date Visits Requested Visits Authorized [id number] Pending Review Auto-Generat ed Referral 07/22/2021 08/21/2022 1 1 Specialty Diagnoses / Procedures Referred By Contac t Referred To Contact MR IMAGING Diagnoses Transient cerebral ischemia, unspecified type Vertigo Procedures MRA BRAIN WO/W IVCON MRA; HEAD W & WO CONTRAST Divina Forde MD [facility] [place] [address] Mr Imaging Referral ID Status Reason Start Date Expiration Date Visits Requested Visits Authorized [id number] Pending Review Auto-Generat ed Referral 07/22/2021 08/21/2022 1 1 Specialty Diagnoses / Procedures Referred By Contac t Referred To Contact MR IMAGING Diagnoses Vertigo Transient cerebral ischemia, unspecified type Procedures MRA CAROTID WO IVCON MRA, NECK; W/O CONTRAST Divina Forde MD [address] [place] [id number] Mr Imaging Referral ID Status Reason Start Date Expiration Date Visits Requested Visits Authorized [id number] Pending Review Auto-Generat ed Referral 07/23/2021 08/22/2022 1 1 Specialty Diagnoses / Procedures Referred By Contac t Referred To Contact MR IMAGING Diagnoses Vertigo Transient cerebral ischemia, unspecified type Procedures MRA BRAIN WO IVCON MRA, HEAD W/O CONTRAST Divina Forde MD [address] [place] [address] Mr Imaging Referral ID Status Reason Start Date Expiration Date Visits Requested Visits Authorized [id number] Pending Review Auto-Generat ed Referral 07/23/2021 08/22/2022 1 1 Referral ID Status Reason Start Date Expiration Date V isits Requested Visits Authorized [id number] Closed Patient Cleared - Admin/Chairm an/Director advise to proceed 07/23/2021 08/22/2022 1 1 Referral ID Status Reason Start Date Expiration Date V isits Requested Visits Authorized [id number] Closed Patient Cleared - Admin/Chairm an/Director advise to proceed 07/23/2021 08/22/2022 1 1 Specialty Diagnoses / Procedures Referred By Contac t Referred To Contact MR IMAGING Diagnoses Transient cerebral ischemia, unspecified type Procedures MRI BRAIN WO IVCON MRI BRAIN BRAIN STEM W/O CONTRAST MATERIAL MRA, NECK; W/O CONTRAST MRA, HEAD W/O CONTRAST Divina Forde MD [address] [place] [address] Mr Imaging Referral ID Status Reason Start Date Expiration Date V isits Requested Visits Authorized [id number] Closed Patient Cleared - Admin/Chairm an/Director advise to proceed 07/25/2021 08/24/2021 1 1 Specialty Diagnoses / Procedures Referred By Contac t Referred To Contact General Surgery Diagnoses Multiple thyroid nodules Procedures CONSULT TO GENERAL SURGERY OFFICE/OUTPATIENT [facility] 60-74 MINUTES Divina Forde MD [address] [place] [address] Referral ID Status Reason Start Date Expiration Date Visits Requested Visits Authorized [id number] Authorized PCP Requested Referral 01/15/2023 01/15/2024 1 [...] drug abuse patient.[facility] the event this information is protected by the Federal Confidentiality of Alcohol and Drug Abuse Patient Records regulations: The Federal rules restrict any use of the information to criminally investigate or prosecute any alcohol or drug abuse patient.[facility] the event this information is protected by the Federal Confidentiality of Alcohol and Drug Abuse Patient Records regulations: The Federal rules restrict any use of the information to criminally investigate or prosecute any alcohol or drug abuse patient.[facility] the event this information is protected by the Federal Confidentiality of Alcohol and Drug Abuse Patient Records regulations: The Federal rules restrict any use of the information to criminally investigate or prosecute any alcohol or drug abuse patient.[facility]In the event this information is protected by the Federal Confidentiality of Alcohol and Drug Abuse Patient Records regulations: The Federal rules restrict any use of the information to criminally investigate or prosecute any alcohol or drug abuse patient.[facility]In the event this information is protected by the Federal Confidentiality of Alcohol and Drug Abuse Patient Records regulations: The Federal rules restrict any use of the information to criminally investigate or prosecute any alcohol or drug abuse patient.[facility] ColumbusIn the event this information is protected by the Federal Confidentiality of Alcohol and Drug Abuse Patient Records regulations: The Federal rules restrict any use of the information to criminally investigate or prosecute any alcohol or drug abuse patient.[facility]In the event this information is protected by the Federal Confidentiality of Alcohol and Drug Abuse Patient Records regulations: The Federal rules restrict any use of the information to criminally investigate or prosecute any alcohol or drug abuse patient.[facility] ColumbusIn the event this information is protected by the Federal Confidentiality of Alcohol and Drug Abuse Patient Records regulations: The Federal rules restrict any use of the information to criminally investigate or prosecute any alcohol or drug abuse patient.[facility]In the event this information is protected by the Federal Confidentiality of Alcohol and Drug Abuse Patient Records regulations: The Federal rules restrict any use of the information to criminally investigate or prosecute any alcohol or drug abuse patient.[facility] ColumbusIn the event this information is protected by the Federal Confidentiality of Alcohol and Drug Abuse Patient Records regulations: The Federal rules restrict any use of the information to criminally investigate or prosecute any alcohol or drug abuse patient.[facility] ColumbusIn the event this information is protected by the Federal Confidentiality of Alcohol and Drug Abuse Patient Records regulations: The Federal rules restrict any use of the information to criminally investigate or prosecute any alcohol or drug abuse patient.[facility]In the event this information is protected by the Federal Confidentiality of Alcohol and Drug Abuse Patient Records regulations: The Federal rules restrict any use of the information to criminally investigate or prosecute any alcohol or drug abuse patient.[facility]In the event this information is protected by the Federal Confidentiality of Alcohol and Drug Abuse Patient Records regulations: The Federal rules restrict any use of the information to criminally investigate or prosecute any alcohol or drug abuse patient.[facility] ColumbusIn the event this information is protected by the Federal Confidentiality of Alcohol and Drug Abuse Patient Records regulations: The Federal rules restrict any use of the information to criminally investigate or prosecute any alcohol or drug abuse patient.[facility] ColumbusIn the event this information is protected by the Federal Confidentiality of Alcohol and Drug Abuse Patient Records regulations: The Federal rules restrict any use of the information to criminally investigate or prosecute any alcohol or drug abuse patient.[facility] ColumbusIn the event this information is protected by the Federal Confidentiality of Alcohol and Drug Abuse Patient Records regulations: The Federal rules restrict any use of the information to criminally investigate or prosecute any alcohol or drug abuse patient.[facility] ColumbusIn the event this information is protected by the Federal Confidentiality of Alcohol and Drug Abuse Patient Records regulations: The Federal rules restrict any use of the information to criminally investigate or prosecute any alcohol or drug abuse patient.[facility] ColumbusIn the event this information is protected by the Federal Confidentiality of Alcohol and Drug Abuse Patient Records regulations: The Federal rules restrict any use of the information to criminally investigate or prosecute any alcohol or drug abuse patient.[facility] ColumbusIn the event this information is protected by the Federal Confidentiality of Alcohol and Drug Abuse Patient Records regulations: The Federal rules restrict any use of the information to criminally investigate or prosecute any alcohol or drug abuse patient.[facility] ColumbusIn the event this information is protected by the Federal Confidentiality of Alcohol and Drug Abuse Patient Records regulations: The Federal rules restrict any use of the information to criminally investigate or prosecute any alcohol or drug abuse patient.[facility] ColumbusIn the event this information is protected by the Federal Confidentiality of Alcohol and Drug Abuse Patient Records regulations: The Federal rules restrict any use of the information to criminally investigate or prosecute any alcohol or drug abuse patient.[facility] ColumbusIn the event this information is protected by the Federal Confidentiality of Alcohol and Drug Abuse Patient Records regulations: The Federal rules restrict any use of the information to criminally investigate or prosecute any alcohol or drug abuse patient.[facility] ColumbusIn the event this information is protected by the Federal Confidentiality of Alcohol and Drug Abuse Patient Records regulations: The Federal rules restrict any use of the information to criminally investigate or prosecute any alcohol or drug abuse patient.[facility] ColumbusIn the event this information is protected by the Federal Confidentiality of Alcohol and Drug Abuse Patient Records regulations: The Federal rules restrict any use of the information to criminally investigate or prosecute any alcohol or drug abuse patient.[facility] ColumbusIn the event this information is protected by the Federal Confidentiality of Alcohol and Drug Abuse Patient Records regulations: The Federal rules restrict any use of the information to criminally investigate or prosecute any alcohol or drug abuse patient.[facility] ColumbusIn the event this information is protected by the Federal Confidentiality of Alcohol and Drug Abuse Patient Records regulations: The Federal rules restrict any use of the information to criminally investigate or prosecute any alcohol or drug abuse patient.[facility] ColumbusIn the event this information is protected by the Federal Confidentiality of Alcohol and Drug Abuse Patient Records regulations: The Federal rules restrict any use of the information to criminally investigate or prosecute any alcohol or drug abuse patient.[facility] ColumbusIn the event this information is protected by the Federal Confidentiality of Alcohol and Drug Abuse Patient Records regulations: The Federal rules restrict any use of the information to criminally investigate or prosecute any alcohol or drug abuse patient.[facility] ColumbusIn the event this information is protected by the Federal Confidentiality of Alcohol and Drug Abuse Patient Records regulations: The Federal rules restrict any use of the information to criminally investigate or prosecute any alcohol or drug abuse patient.[facility] ColumbusIn the event this information is protected by the Federal Confidentiality of Alcohol and Drug Abuse Patient Records regulations: The Federal rules restrict any use of the information to criminally investigate or prosecute any alcohol or drug abuse patient.[facility] Care Teams (unrecognized sec tion and content) Security Trainer Relationship Specialty Start Date End Date Divina Forde MD [address] [facility] [place] [address] PCP - General Family Practice 07/31/20 Security Trainer Relationship Specialty Start Date End Date Divina Forde MD [facility] [facility] [place] [address] PCP - General Family Practice 07/31/20 Security Trainer Relationship Specialty Start Date End Date Divina Forde MD [facility] [facility] [place] [address] PCP - General Family Practice 07/31/20 Security Trainer Relationship Specialty Start Date End Date Divina Forde MD [facility] [facility] [place] [address] PCP - General Family Practice 07/31/20 Security Trainer Relationship Specialty Start Date End Date Divina Forde MD [facility] [facility] [place] [address] PCP - General Family Practice 07/31/20 Security Trainer Relationship Specialty Start Date End Date Divina Forde MD [facility] [facility] [place] [address] PCP - General Family Practice 07/31/20 Security Trainer Relationship Specialty Start Date End Date Divina Forde MD [facility] [facility] [place] [address] PCP - General Family Practice 07/31/20 Security Trainer Relationship Specialty Start Date End Date Divina Forde MD [address] [place] [address] [place] [address] PCP - General Family Practice 07/31/20 Security Trainer Relationship Specialty Start Date End Date Divina Forde MD [address] [facility] [place] [address] PCP - General Family Medicine 07/31/20 Security Trainer Relationship Specialty Start Date End Date Divina Forde MD [address] [place] [address] PCP - General Family Medicine 07/31/20 Security Trainer Relationship Specialty Start Date End Date Divina Forde MD [address] [place] [address] PCP - General Family Medicine 07/31/20 Security Trainer Relationship Specialty Start Date End Date Divina Forde MD [address] [place] [address] PCP - General Family Medicine 07/31/20 Security Trainer Relationship Specialty Start Date End Date Divina Forde MD [address] [place] [address] PCP - General Family Medicine 07/31/20 Security Trainer Relationship Specialty Start Date End Date Divina Forde MD [address] [place] [address] PCP - General Family Medicine 07/31/20 Security Trainer Relationship Specialty Start Date End Date Divina Forde MD [address] [place] [address] PCP - General Family Medicine 07/31/20 Security Trainer Relationship Specialty Start Date End Date Divina Forde MD [address] [place] [address] PCP - General Family Medicine 07/31/20 Security Trainer Relationship Specialty Start Date End Date Divina Forde MD [address] [place] [address] PCP - General Family Medicine 07/31/20 Security Trainer Relationship Specialty Start Date End Date Divina Forde MD [address] [place], [place] [address] PCP - General Family Medicine 07/31/20 Security Trainer Relationship Specialty Start Date End Date Divina Forde MD [address] [place], [place] [address] PCP - General Family Medicine 07/31/20 Security Trainer Relationship Specialty Start Date End Date Divina Forde MD [address] [place] [address] PCP - General Family Medicine 07/31/20 Security Trainer Relationship Specialty Start Date End Date Divina Forde MD [address] [place] [address] PCP - General Family Medicine 07/31/20 Security Trainer Relationship Specialty Start Date End Date Diivna Forde MD [address] [place] [address] PCP - General Family Medicine 07/31/20 Reason for Visit (unrecogniz ed section and content) Reason Comments Dizziness vertigo Reason Comments Results Reason Comments MRI concern Specialty Diagnoses / Procedures Referred By Sravan t Referred To Contact MR IMAGING Diagnoses Transient cerebral ischemia, unspecified type Procedures MRI BRAIN WO IVCON MRI BRAIN BRAIN STEM W/O CONTRAST MATERIAL MRA, NECK; W/O CONTRAST MRA, HEAD W/O CONTRAST Divina Forde MD [address] [place] [address] Mr Imaging Referral ID Status Reason Start Date Expiration Date V isits Requested Visits Authorized [id number] Closed Patient Cleared - Admin/Chairm an/Director advise [...] US Specialty Diagnoses / Procedures Referred By Sravan del castillo Referred To Contact US IMAGING Diagnoses Thyroid nodule Procedures US THYROID/PARATHYROID US SOFT TISSUE HEAD & NECK REAL TIME IMGE Divina Morgan MD [address] [place] [address] [place] [address] Referral ID Status Reason Start Date Expiration Date V isits Requested Visits Authorized [id number] Closed Auto-Generate d Referral 01/13/2023 02/12/2024 1 1 Reason Onset Date Comments Population Health Navigation Outreach 03/19/2023 [employer] Gaps INFORMATION SOURCE (unrecogn ized section and content) [...] BE BASED ON THE PRIMARY CLINICAL RECORDS. [employer] provides no warranty or guarantee of the accuracy or completeness of information in this document.
== END | disposition home or self-care (01) ==
LOC: RAD 12:49
PROVIDERS: PCP Family Medicine; Referring Provider Surgery; Visit Provider Surgery
DX: R13.10 Dysphagia, unspecified (principal)
CPT/HCPCS: 74230; 92611

== ENCOUNTER → 2023-05-11 | Outpatient (CLI) | payer MEDICARE, SELFPAY ==
--- NOTE | 2023-05-11 13:55 | RAD_ITS ---
INDICATION: Cardiac Cath EXAMINATION/TECHNIQUE: X-RAY - XR Chest 2 Views COMPARISON: No relevant prior comparison study available FINDINGS: LINES/DEVICES: None. LUNGS: No consolidation, edema or effusion. No pneumothorax. MEDIASTINUM AND CARDIOVASCULAR STRUCTURES: Cardiac silhouette not enlarged. Mild tortuosity of the thoracic aorta. Central airways and mediastinal contour are unremarkable. BONES AND SOFT TISSUES: Unremarkable. RAD/Chest PA and Lateral IMPRESSION: No radiographic evidence of acute cardiopulmonary disease. Electronically Signed: Alvaro Donovan MD at 8:38 EDT ,
[2023-05-11 14:54] LABS: Absolute Lymphocyte Count 2.29 X10^3/uL (0.83-4.51); Absolute Neutrophil Count 4.6 X10^3/uL (2.0-7.7); Basophil# 0.04 X10^3/uL; Basophil% 0.5 % (0-1); Eosinophil# 0.08 X10^3/uL; Eosinophils% 1.1 % (0-5); Hematocrit 38.7 % (37-47); Hemoglobin 12.8 g/dL (12.0-15.0); Lymphocyte # 2.29 X10^3/ul (0.83-4.51); Lymphocyte % 30.5 % (19-41); Mean Corp Hgb Conc 33.1 g/dL (32-36); Mean Corpuscular Hgb 32.1 pg (27.0-32.0); Mean Platelet Vol. 9.2 fl (6.2-12.0); Monocyte# 0.52 X10^3/uL; Monocyte% 6.9 % (0-10); NRBC Flagged by Analyzer 0 % (0-5); Neutrophil # 4.57 X10^3/uL (2.7-7.7); Neutrophil % 60.7 % (47-70); Platelet Count 265 K/mm3 (150-450); RBC Distribution Width CV 13.2 % (11.6-14.6); RBC Distribution Width SD 46.9 fl (35.1-43.9); Red Blood Count 3.99 M/mm3 (4.2-5.4); White Blood Count 7.5 K/mm3 (4.4-11.0)
[2023-05-11 15:32] LABS: BNP,B-Type NATRIURETIC PEPTIDE 19.4 pg/mL (0-100)
[2023-05-11 15:34] LABS: Anion Gap 3 (5-15); BUN 15 mg/dL (7-18); BUN/Creat Ratio 21.1 RATIO (10-20); Calcium,Total 9.3 mg/dL (8.5-10.1); Chloride 108 mmol/L (98-107); Creatinine, Serum 0.71 mg/dL (0.55-1.02); EST Glomerular Filtration Rate 87 mL/min (>60); Est Glom Filt Rate - Afr Amer 105 mL/min (>60); Glucose 97 mg/dL (74-106); Potassium 4.4 mmol/L (3.5-5.1); Sodium Level 139 mmol/L (136-145)
== END | disposition home or self-care (01) ==
LOC: RAD 13:54
PROVIDERS: PCP Family Medicine; Referring Provider Nurse Practitioner Gerontology; Visit Provider Nurse Practitioner Gerontology
DX: R06.02 Shortness of breath (principal); R53.83 Other fatigue
CPT/HCPCS: 36415; 71046; 80048; 83880; 85025

== ENCOUNTER → 2023-07-02 | Outpatient (CLI) | payer MEDICARE, SELFPAY ==
[2023-07-02 15:53] LABS: Absolute Lymphocyte Count 2.55 X10^3/uL (0.83-4.51); Absolute Neutrophil Count 4.1 X10^3/uL (2.0-7.7); Basophil# 0.05 X10^3/uL; Basophil% 0.7 % (0-1); Eosinophil# 0.16 X10^3/uL; Eosinophils% 2.2 % (0-5); Hematocrit 41.2 % (37-47); Hemoglobin 13.6 g/dL (12.0-15.0); Lymphocyte # 2.55 X10^3/ul (0.83-4.51); Lymphocyte % 34.9 % (19-41); Mean Corpuscular Hgb 31.6 pg (27.0-32.0); Mean Corpuscular Volume 95.8 fL (81-99); Mean Platelet Vol. 9.6 fl (6.2-12.0); Monocyte# 0.46 X10^3/uL; Monocyte% 6.3 % (0-10); NRBC Flagged by Analyzer 0 % (0-5); Neutrophil # 4.06 X10^3/uL (2.7-7.7); Neutrophil % 55.5 % (47-70); Platelet Count 279 K/mm3 (150-450); RBC Distribution Width CV 12.9 % (11.6-14.6); RBC Distribution Width SD 45.4 fl (35.1-43.9); White Blood Count 7.3 K/mm3 (4.4-11.0)
[2023-07-02 16:11] LABS: Anion Gap 5 (5-15); BUN 21 mg/dL (7-18); BUN/Creat Ratio 24.8 RATIO (10-20); Calcium,Total 9.4 mg/dL (8.5-10.1); Chloride 108 mmol/L (98-107); Creatinine, Serum 0.85 mg/dL (0.55-1.02); EST Glomerular Filtration Rate 71 mL/min (>60); Est Glom Filt Rate - Afr Amer 86 mL/min (>60); Glucose 106 mg/dL (74-106); Potassium 4.1 mmol/L (3.5-5.1); Sodium Level 138 mmol/L (136-145)
== END | disposition home or self-care (01) ==
LOC: LAB 14:52
PROVIDERS: PCP Family Medicine; Referring Provider Nurse Practitioner Gerontology; Visit Provider Nurse Practitioner Gerontology
DX: R94.39 Abnormal result of other cardiovascular function study (principal); R06.02 Shortness of breath
CPT/HCPCS: 80048; 84703; 85025

== ENCOUNTER 2023-07-13 07:25 | Day surgery (SDC) | payer MEDICARE, SELFPAY ==
--- NOTE | 2023-07-08 16:00 | PCM.HP.BLA ---
History and Physical Date of Admission: 07/13/23 Pleasant 67-year-old lady who presents today for a heart catheterization. She has no previous cardiac history but a history of dyspnea. She apparently has been seeing the putty maker to have evaluated her with multiple testing. As part of her testing she underwent an echocardiographic evaluation which demonstrated an ejection fraction of 55%, mild aortic regurgitation. From a cardiac standpoint, the patient is doing well. She denies any palpitations, chest pain, pressure, or heaviness. She doesn't feel like she can get a full breath. She states she has felt like this since she went into respiratory failure-2019. She does acknowledge SOB. She denies Orthopnea, and PND. She does not have bleeding issues; no blood in urine, stool or nosebleeds. She does acknowledge a decrease in energy level. She denies myalgias, or claudication. She does not have edema, or sudden weight gain. She denies dizziness, lightheadedness, syncopal or near syncopal episodes, and headaches. Intake Vital Signs: See EMR Intake Visit Reasons: [facility] Allergies amoxicillin Allergy (Intermediate, Verified 05/11/23 13:10) Rash Sulfa (Sulfonamide Antibiotics) Allergy (Verified 05/11/23 13:10) not known zolpidem [From Ambien] Allergy (Verified 05/11/23 13:10) Unknown Medications See EMR [facility] Medical History Acute respiratory failure with hypoxia Anxiety and depression Arthritis Asthma Benign paroxysmal positional vertigo COPD (chronic obstructive pulmonary disease) Difficulty swallowing GERD (gastroesophageal reflux disease) History of pain when walking HLD (hyperlipidemia) Injury of head and neck Migraine headache Respiratory failure Restless legs Thyroid nodule Tortuous colon Vasovagal episode Vertigo Surgical History History of total right hip replacement Hx of colonoscopy Hx of rotator cuff surgery S/P thyroid biopsy S/P total right hip arthroplasty Family History Aunt Cancer BreastMother Heart diseaseFather COPD (chronic obstructive pulmonary disease) Concurrent tobacco use history. Liver cancer Unclear if was metastatic, was not worked up. Social History Smoking Status: Current every day smoker tobacco type: cigarettes Tobacco: How many years used: 40 how long ago did patient quit smoking: Decreased chronic 1ppd->2-3 cig x 4-6 weeks, now no cig x 1 week. substance use type: does not use ROS Const Const: Positive for fatigue; Negative for weakness, fever(s), headache(s), chills, frequent falls, weight gain or weight loss Eyes Eyes: Negative for blind spots, loss of peripheral vision, transient loss of vision, blurry vision, change in vision, double vision, floaters or tunnel vision ENT ENT: Negative for headache(s), dizziness, Nosebleed/epistaxis, balance problems or neck pain Cardio Chest Pain: No Palpitations: No Edema: None Muscle aches with walking: None Resp Respiratory: Positive for SOB with activity; Negative for SOB at rest or SOB orthopnea\SOB lying down GI GI: Negative nausea, vomiting, heartburn, bloating, vomiting blood/hematemesis, bright, red blood in stools or black,tarry stools Musc Musc: Negative for muscle aches/ myalgia, muscle weakness, joint pain or balance problems Neuro Neuro: Negative for dizziness, lightheadedness, near syncope, syncope, orthostatic symptoms, frequent falls, headache(s), weakness, blurry vision or double vision Jean Marie Hematologic/Lymphatic: Negative for easy bleeding or easy bruising Endo Endo: Positive for fatigue Cardiology Exam Const Appearance: cooperative, healthy appearing, no acute distress, well developed and well groomed Nutritional Appearance: average body habitus and well nourished Orientation: alert, awake and oriented x3 Head Head: normal to inspection, normocephalic and atraumatic Ears: hearing grossly normal bilaterally and external ears normal Nose: external nose normal and nares normal Face and Sinus: face symmetric Eyes General: appearance normal, both eyes and all related structures Eyelids: eyelids normal Conjunctivae: conjunctivae normal Pupils: PERRL, normal by confrontation and accommodation normal EOM: EOM intact bilaterally Neck Neck: normal visual inspection, trachea midline and no JVD JVD: +5 Carotids: normal carotid upstroke and bounding pulses Chest Chest inspection: normal inspection of the chest, symmetric chest movement and normal respiratory effort Auscultation: Bilateral: Clear to Auscultation Cardio Palpation: normal PMI Rate: regular rate Rhythm: regular rhythm Heart sounds: S1 normal, S2 normal and normal, physiologic split S2; Negative rub, gallop or murmur GI GI: normal to inspection and soft Neuro General: patient alert, patient awake, patient oriented x3, gait normal, moves all extremities and no focal sensory deficit Skin Skin: no rashes or lesions noted Extremities Pulses: Normal: Right Posterior Tibial Pulse, Left Posterior Tibial Pulse, Right Radial Pulse and Left Radial Pulse Lower Extremity Edema: None: Bilateral Musculoskel Musculoskeletal: No joint tenderness Psych Psychological: normal affect Supplemental Info Supplemental Information Echocardiogram 09/10/22: Interpretation Summary The estimated ejection fraction is 55 %. No evidence for diastolic dysfunction. Mild (1+) aortic valve insufficiency. Stress test from 03/03/2023: Conclusion: Normal exercise myocardial perfusion stress test at a low to moderate workload with a previous anteroseptal infarct. No ischemia noted Preserved ejection fraction. Assessment and Plan Assessment and Plan (1) Dyspnea: Status: Chronic Qualifiers: Dyspnea type: shortness of breath Qualified Code(s): R06.02 - Shortness of breath Plan: Patient acknowledges dyspnea. Her stress test on 03/03/2023 demonstrated a normal stress test at a low to moderate workload with a previous anteroseptal infarct. Will proceed with a cardiac catheterization to further assess her dyspnea and fatigue. Depending on results, further recommendations will be made. (2) Fatigue: Status: Acute Plan: Patient acknowledges fatigue. Her most recent stress test was reviewed with her. Will await heart catheterization results for further input.
[2023-07-12 08:21] VITALS: BMI 22.4
--- NOTE | 2023-07-13 09:17 | CL.D_ITS ---
Patient Name: SAKINA JASON Study Date: 07/13/2023 Performing: Kem Painting MD Ht: 63 inches 160.02 cm : 1955 Wt: 127.01 lbs 57.61 kg Age: 67 Gender: female BSA: 1.59 PROCEDURE(S) PERFORMED DC01-([id number])LHC/COR/LV CLINICAL PROFILE AND INDICATIONS Indications: Suspected CAD Heart Failure: None Stress/Imaging Stress/Image Study Performed: No CAD Presentations: Symptom unlikely to be ischemic. CONCLUSIONS Non obstructive coronary arteries Normal LV size, wall motion,and systolic function RECOMMENDATIONS Medical therapy and treatment for anxiety. DESCRIPTION OF PROCEDURE The patient arrived to the procedure lab. The risks and benefits of the procedure as well as a full description of our services here and current unavailability of surgical backup were fully explained to the patient and/or their significant other prior to the catheterization. The Timeout was completed, verifying the correct patient and procedure. The patient's procedural site was prepped and draped in the usual fashion. Local anesthetic was given subcutaneously to right radial region with Lidocaine 2%. Using a modified Seldinger technique, arterial access was obtained via the right radial artery, a 6Fr sheath was inserted. Left Coronary Artery selective angiography was performed in multiple views using a 5 Fr. 4.0 Somerset catheter. Right Coronary Artery selective angiography was then performed in multiple views using a 5 Fr. 4.0 [place] catheter. Left Ventriculography was performed in CELAYA projection using a 5 Fr. Pigtail catheter. LV to AO pullback pressures were then recorded.The arterial sheath was pulled and a TR Band was applied for hemostasis w/11ml air CORONARY ANGIOGRAPHY DOMINANCE: Right Dominant LEFT HEART ASSESSMENT Left Ventricular Ejection Fraction: by LV Gram 60 % Normal LV wall motion Normal Left Ventricular systolic function LEFT MAIN: Angiographically normal LEFT ANTERIOR DESCENDING ARTERY: Mild luminal irregularities CIRCUMFLEX ARTERY: Mild luminal irregularities RIGHT CORONARY ARTERY: Mild luminal irregularities less than 30% COMPLICATIONS No Complications PROCEDURE MEDICATIONS Versed 1 mg IV Fentanyl 50 mcg IV Versed 1 mg IV Oxygen: 2 L/min via nasal cannula Heparin given IA 07/13/2023 08:59:20 Verapamil 2.5mg, Ntg 100mcgs, 3000 units of Heparin given IA 07/13/2023 08:59:20 SUMMARY OF HEMODYNAMIC DATA Time AIR REST ECG 07:45:09 AO 107/65 (82) SA 09:03:47 LV 130/1, 10 09:09:50 LV 115/1, 4 09:09:56 LV 125/2, 13 09:10:26 LV 117/1, 7 09:10:32 LVp 105/1, 6 09:10:36 AOp 114/32 (48) 09:10:41 Signed By Kem Painting MD On 07/13/2023 09:15:55 Kem Painting MD
== END 2023-07-13 11:20 | disposition home or self-care (01) ==
PROVIDERS: PCP Family Medicine; Referring Provider Internal Medicine Cardiovascular Disease; Visit Provider Internal Medicine Cardiovascular Disease
DX: I25.10 Atherosclerotic heart disease of native coronary artery without angina pectoris (principal); J44.9 Chronic obstructive pulmonary disease, unspecified; F17.210 Nicotine dependence, cigarettes, uncomplicated; E78.5 Hyperlipidemia, unspecified; F41.9 Anxiety disorder, unspecified; F32.A Depression, unspecified; K21.9 Gastro-esophageal reflux disease without esophagitis; R53.83 Other fatigue; Z79.51 Long term (current) use of inhaled steroids; Z79.82 Long term (current) use of aspirin; Z79.899 Other long term (current) drug therapy
CPT/HCPCS: 93458; 99152; 99153; J7040; C1769; C1894

== ENCOUNTER 2023-07-16 17:29 | Emergency (ER) | payer MEDICARE, SELFPAY ==
[2023-07-16 17:30] VITALS: BP 118/84; PULSE 91; RESP 16; TEMP 36.7; O2SAT 99
--- NOTE | 2023-07-16 17:48 | EKG12_ITS ---
Test Reason : DIZZY Blood Pressure : / mmHG Vent. Rate : 065 BPM Atrial Rate : 065 BPM P-R Int : 172 ms QRS Dur : 070 ms QT Int : 386 ms P-R-T Axes : 074 040 058 degrees QTc Int : 401 ms Normal sinus rhythm Normal ECG Confirmed by MINI FREY, GUSTAVO ([id number]), index editor JIGAR HERNANDEZ ([id number]) on 07/19/2023 10:47:27 AM Referred By: Confirmed By:GUSTAVO MORSE MD
--- NOTE | 2023-07-16 17:50 | EX.ED.DYSGE1 ---
HPI <SAGRARIO Hairston - Last Filed: 07/16/23 19:26> History of Present Illness Chief Complaint: Dizziness Narrative Narrative: Patient is a 67-year-old female with history of diverticulitis, GERD hyperlipidemia, COPD who presents to the emergency department for feeling of chills for 2 to 3 days, syncopal episode while getting up and going to the bathroom today as well as the nausea and vomiting episode. Patient states that today she had some diarrhea, she thought she might be having some diverticulitis however she has no significant abdominal pain. Patient went to get up to have a bowel movement, when she felt sweaty, and she then believes she passed out. Patient did also have a vomitus episode x 1. Patient states she now feels tired, and has a slight headache. Patient 3 days ago did have a cardiac cath completed where they inserted to her right wrist artery, I did look at the stress test, this was a negative examination. PFSH <SAGRARIO Hairston - Last Filed: 07/16/23 19:26> [facility] Medical History Acute respiratory failure with hypoxia Anxiety and depression Arthritis Asthma Benign paroxysmal positional vertigo COPD (chronic obstructive pulmonary disease) Difficulty swallowing GERD (gastroesophageal reflux disease) History of pain when walking HLD (hyperlipidemia) Injury of head and neck Migraine headache Respiratory failure Restless legs Thyroid nodule Tortuous colon Vasovagal episode Vertigo Home Medications ?Medication ?Instructions ?Recorded ?Last Taken ?Type citalopram 10 mg tablet 20 mg PO DAILY 12/18/13 Unknown History meclizine 25 mg tablet 25 mg PO TID PRN dizziness 08/20/21 Unknown History simvastatin 20 mg tablet 40 mg PO DAILY 08/20/21 Unknown History albuterol sulfate 90 mcg/actuation 1 inh inhalation Q6H PRN SOB 11/24/21 Unknown History aerosol inhaler hydroxyzine HCl 10 mg tablet 25 mg PO 4X/DAY PRN PRN Anxiety 11/24/21 12/08/21 History montelukast 5 mg chewable tablet 10 mg PO QHS 11/24/21 Unknown History acetaminophen 650 mg/20.3 mL oral 650 mg (20.3 mL) PO Q4H PRN PRN 12/09/21 Unknown Rx solution Pain 1-10 Or Fever #2,030 mL naproxen sodium 220 mg capsule 220 mg PO Q12H PRN pain 02/24/22 Unknown History (Aleve) budesonide-formoterol HFA 80 2 inh inhalation BID #3 device 03/04/23 Unknown Rx mcg-4.5 mcg/actuation aerosol inhaler aspirin 81 mg tablet,delayed 81 mg PO DAILY #30 tabs 06/29/23 07/13/23 Rx release (Adult Aspirin Regimen) doxycycline hyclate 100 mg capsule 100 mg PO BID #14 caps 07/16/23 Unknown Rx ondansetron 4 mg disintegrating 4 mg PO Q8H PRN PRN Nausea #10 tabs 07/16/23 Unknown Rx tablet Allergy/AdvReac Type Severity Reaction Status Date / Time amoxicillin Allergy Intermediate Rash Verified 07/16/23 17:30 Sulfa (Sulfonamide Allergy not known Verified 07/16/23 17:30 Antibiotics) zolpidem (From Ambien) Allergy Unknown Verified 07/16/23 17:30 Family History Aunt Cancer Breast Mother Heart disease Father COPD (chronic obstructive pulmonary disease) Concurrent tobacco use history. Liver cancer Unclear if was metastatic, was not worked up. Surgical History History of total right hip replacement Hx of colonoscopy Hx of rotator cuff surgery S/P thyroid biopsy S/P total right hip arthroplasty Social History Smoking Status: Current every day smoker tobacco type: cigarettes Tobacco: How many years used: 40 how long ago did patient quit smoking: Decreased chronic 1ppd->2-3 cig x 4-6 weeks, now no cig x 1 week. substance use type: does not use ROS <SAGRARIO Hairston - Last Filed: 07/16/23 19:26> ROS ED ROS Narrative Constitutional: Negative for fever, chills, weight loss. Positive for weakness Eyes: Negative for vision loss, vision change, double vision ENT: Negative for any sore throat, ear pain, congestion Cardiovascular: Negative for any chest pain, tightness, palpitations Respiratory: Negative for any cough, sputum production, hemoptysis, dyspnea, dyspnea on exertion, orthopnea Gastrointestinal: Negative for any abdominal pain, diarrhea, constipation, blood in stool, blood in vomit. Positive for nausea and vomiting : Negative for any urinary frequency, dysuria, retention, blood in urine Muscle skeletal: Negative for any neck pain, back pain Neurological: Negative for any headache. Positive for dizziness, syncope Skin: Negative for any rashes, itching, abrasions, lacerations Psychiatric: Negative for any depression, anxiety, stress, suicidal ideation, homicidal ideation Hematologic: Negative for any excessive bruising, easy bleeding EXAM <SAGRARIO Hairston - Last Filed: 07/16/23 19:26> Physical Exam Narrative Exam Narrative: Vital signs reviewed. Patient is alert and orient x 4. Patient is in no distress. HEET: Head normocephalic atraumatic, TMs clear bilaterally. Posterior pharynx is clear, dry mucous membranes. Nares clear bilaterally. Neck: Supple with no lymphadenopathy or tenderness. No signs of meningismus. Cardiac: Regular rate and rhythm no murmurs gallops or rubs, equal peripheral pulses bilaterally. Respiratory: Lungs clear to auscultation bilaterally. No chest tenderness. Abdomen: Soft, nontender, nondistended. No abdominal bruit or pulsatile masses. No hepatosplenomegaly Extremities: No peripheral edema, no signs of gross trauma or deformity. Active full range of motion of all extremities. Patient does have ecchymosis to the right radial area where they completed the cardiac catheterization. Neuro: Cranial nerves II through XII intact, no focal neurological deficits. Denies show scale 0. Skin: Clean dry and intact with no rash, purpura, petechiae, vesicles or pustules. Backs/flank: No CVA tenderness, no midline spinal tenderness, no deformity. Psych: Normal mood and affect. No SI, HI or acute psychosis. Const Vital Signs: 07/16/23 17:30 07/16/23 17:52 07/16/23 19:30 Temperature 98.1 F 96.9 F L Temperature Source Temporal Pulse Rate 91 60 Pulse Rate [Lying] 75 Pulse Rate [Sitting (for 1 minute prior to obtaining)] 76 Respiratory Rate 16 16 Blood Pressure 118/84 H 131/83 H Blood Pressure [Lying] 112/80 Blood Pressure [Sitting (for 1 minute prior to obtaining)] 103/70 Blood Pressure Mean 95 99 Blood Pressure Mean [Lying] 90 Blood Pressure Mean [Sitting (for 1 minute prior to obtaining)] 81 Pulse Ox 99 97 Oxygen Delivery Method Room Air Positive well nourished and well developed General Appearance ED: well developed <Dr. Axel Mota DO - Last Filed: 07/16/23 22:59> Physical Exam Const Vital Signs: 07/16/23 17:30 07/16/23 17:52 07/16/23 19:30 Temperature 98.1 F 96.9 F L Temperature Source Temporal Pulse Rate 91 60 Pulse Rate [Lying] 75 Pulse Rate [Sitting (for 1 minute prior to obtaining)] 76 Respiratory Rate 16 16 Blood Pressure 118/84 H 131/83 H Blood Pressure [Lying] 112/80 Blood Pressure [Sitting (for 1 minute prior to obtaining)] 103/70 Blood Pressure Mean 95 99 Blood Pressure Mean [Lying] 90 Blood Pressure Mean [Sitting (for 1 minute prior to obtaining)] 81 Pulse Ox 99 97 Oxygen Delivery Method Room Air MDM <SAGRARIO Hairston - Last Filed: 07/16/23 19:26> MDM Lab Data Labs: Laboratory Results - last 24 hr 07/16/23 07/16/23 17:50 18:38 WBC 13.6 H RBC 4.11 L Hgb 13.0 Hct 39.2 MCV 95.4 MCH 31.6 MCHC 33.2 RDW Std Deviation 44.7 H RDW Coeff of Twan 12.7 Plt Count 222 MPV 9.3 Immature Gran % (Auto) 0.400 Neut % (Auto) 84.0 H Lymph % (Auto) 8.7 L [place] % (Auto) 6.6 Eos % (Auto) 0.0 Baso % (Auto) 0.3 Absolute Neuts (auto) 11.4 H Absolute Lymphs (auto) 1.19 Nucleated RBC % 0 Sodium 132 L Potassium 4.0 Chloride 101 Carbon Dioxide 24.0 Anion Gap 7 BUN 13 Creatinine 0.83 Est GFR (MDRD) Af Amer 88 Est GFR (MDRD) Non-Af 73 BUN/Creatinine Ratio 15.7 Glucose 115 H Calcium 9.5 Total Bilirubin 0.50 AST 30 ALT 48 Alkaline Phosphatase 113 Troponin I High Sens 3 Total Protein 7.6 Albumin 3.9 Globulin 3.7 Albumin/Globulin Ratio 1.1 Lipase 21 Urine Color Yellow Urine Clarity Sl. Cloudy Urine pH 6.5 Ur Specific [place] 1.005 Urine Protein Negative Urine Glucose (UA) Normal Urine Ketones Negative Urine Occult Blood 10 H Urine Nitrite Negative Urine Bilirubin Negative Urine Urobilinogen Normal Ur Leukocyte Esterase Negative Urine RBC 0 SEEN Urine WBC 0 SEEN Ur Squamous Epith Cells 0 SEEN Urine Bacteria 0 SEEN Urine Mucus 0 SEEN Radiography Diagnostic Testing: Clinical Impression(s) from Imaging Studies Chest X-Ray 07/16/23 18:00 IMPRESSION: Patchy opacities in the right upper lobe is most concerning for right upper lobe pneumonia. Electronically Signed: Richie Medrano MD at 18:40 EDT , EKG EKG shows normal sinus rhythm rate of 65: Attestation: I personally reviewed and interpreted this EKG as follows: Interpretation: Sinus Rhythm Comments: EKG shows normal sinus rhythm, rate of 65 bpm, IN interval 172 ms, QRS duration 70 ms, no acute ST elevation, no acute infarct noted. Treatment and Re-Evaluation :: Differential diagnosis includes however is not limited to: Vasovagal syncope, dehydration, acute kidney injury, cardiac arrhythmia, infection, viral syndrome Patient appears to be in no obvious respiratory distress, patient's vital signs are stable, patient presents to the emergency department with dizziness, syncope, nausea or vomiting. I did perform orthostatic vital signs myself, there is slightly positive, patient started off with a blood pressure 112/60, heart rate is 70, while standing, the patient's heart rate was 80, blood pressure dropped to 103/55, patient states she does feel slightly weak however no dizziness. Patient will receive basic laboratory values including troponin, urinalysis, COVID-19/influenza/RSV. IV fluids will be ordered. Zofran as well as Tylenol will be ordered. Chest x-ray will be completed. All radiologic examinations were read, reviewed by the emergency department attending. From these reads, a plan of care will be put in place. Patient's vital signs remained stable. Patient's laboratory values show slight leukocytosis with a white blood count of 13.6, patient's chemistries show slight hyponatremia with a sodium 132. Glucose was 115, patient's patient lipase was unremarkable. Patient troponin was negative. Patient's influenza, COVID, RSV was negative. Urinalysis was negative for any infection. Patient's chest x-ray shows a patchy opacity in the right upper lobe which is most concerning for right upper lobe pneumonia. Patient be ambulated with a pulse ox to ensure that she is stable. Patient ambulated well. Patient was redosed with IV Toradol, she was started on doxycycline twice a day for 7 days. She will follow-up closely with her PCP. She was given strict return precautions. Patient does feel better after IV fluids. Patient stable for discharge. <Dr. Axel Mota, DO - Last Filed: 07/16/23 22:59> [facility] Lab Data Attestation: I reviewed the patient's lab results. Labs: Laboratory Results - last 24 hr 07/16/23 07/16/23 17:50 18:38 WBC 13.6 H RBC 4.11 L Hgb 13.0 Hct 39.2 MCV 95.4 MCH 31.6 MCHC 33.2 RDW Std Deviation 44.7 H RDW Coeff of Twan 12.7 Plt Count 222 MPV 9.3 Immature Gran % (Auto) 0.400 Neut % (Auto) 84.0 H Lymph % (Auto) 8.7 L [place] % (Auto) 6.6 Eos % (Auto) 0.0 Baso % (Auto) 0.3 Absolute Neuts (auto) 11.4 H Absolute Lymphs (auto) 1.19 Nucleated RBC % 0 Sodium 132 L Potassium 4.0 Chloride 101 Carbon Dioxide 24.0 Anion Gap 7 BUN 13 Creatinine 0.83 Est GFR (MDRD) Af Amer 88 Est GFR (MDRD) Non-Af 73 BUN/Creatinine Ratio 15.7 Glucose 115 H Calcium 9.5 Total Bilirubin 0.50 AST 30 ALT 48 Alkaline Phosphatase 113 Troponin I High Sens 3 Total Protein 7.6 Albumin 3.9 Globulin 3.7 Albumin/Globulin Ratio 1.1 Lipase 21 Urine Color Yellow Urine Clarity Sl. Cloudy Urine pH 6.5 Ur Specific [place] 1.005 Urine Protein Negative Urine Glucose (UA) Normal Urine Ketones Negative Urine Occult Blood 10 H Urine Nitrite Negative Urine Bilirubin Negative Urine Urobilinogen Normal Ur Leukocyte Esterase Negative Urine RBC 0 SEEN Urine WBC 0 SEEN Ur Squamous Epith Cells 0 SEEN Urine Bacteria 0 SEEN Urine Mucus 0 SEEN Radiography Diagnostic Testing: Clinical Impression(s) from Imaging Studies Chest X-Ray 07/16/23 18:00 IMPRESSION: Patchy opacities in the right upper lobe is most concerning for right upper lobe pneumonia. Electronically Signed: Richie Medrano MD at 18:40 EDT , Treatment and Re-Evaluation :: Differential diagnosis includes however is not limited to: Vasovagal syncope, dehydration, acute kidney injury, cardiac arrhythmia, infection, viral syndrome Patient appears to be in no obvious respiratory distress, patient's vital signs are stable, patient presents to the emergency department with dizziness, syncope, nausea or vomiting. I did perform orthostatic vital signs myself, there is slightly positive, patient started off with a blood pressure 112/60, heart rate is 70, while standing, the patient's heart rate was 80, blood pressure dropped to 103/55, patient states she does feel slightly weak however no dizziness. Patient will receive basic laboratory values including troponin, urinalysis, COVID-19/influenza/RSV. IV fluids will be ordered. Zofran as well as Tylenol will be ordered. Chest x-ray will be completed. All radiologic examinations were read, reviewed by the emergency department attending. From these reads, a plan of care will be put in place. Patient's vital signs remained stable. Patient's laboratory values show slight leukocytosis with a white blood count of 13.6, patient's chemistries show slight hyponatremia with a sodium 132. Glucose was 115, patient's patient lipase was unremarkable. Patient troponin was negative. Patient's influenza, COVID, RSV was negative. Urinalysis was negative for any infection. Patient's chest x-ray shows a patchy opacity in the right upper lobe which is most concerning for right upper lobe pneumonia. Patient be ambulated with a pulse ox to ensure that she is stable. Patient ambulated well. Patient was redosed with IV Toradol, she was started on doxycycline twice a day for 7 days. She will follow-up closely with her PCP. She was given strict return precautions. Patient does feel better after IV fluids. Patient stable for discharge. 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 I perform my own [id number] evaluation. I agree with the plan of work-up. 3-day postcardiac cath due to abnormal stress test. No intervention. Following day noticed some chills today, dyspnea. No significant cough. No myalgias. Had nausea some diarrhea has resolved. No pain. Had concerns for her history of diverticulitis for which she had pain with. No urinary symptoms. She reports a syncopal episode today after having weakness. No chest pains. Exam alert nontoxic no acute distress soft abdomen no guarding or rebound. Patient infectious workup due to her chills symptoms COVID and flu negative. 1 view chest x-ray interpreted myself at the radiology right upper lobe infiltrate. White count returned at 13.6. Urine neck for infection. Discussed findings with the patient. She was ambulated pulse ox stable. Started on doxycycline for pneumonia coverage. Consider hospitalization however clinically she is stable pulse ox is stable. Outpatient follow-up with strict return precautions. Discharge Plan Triage Chief Complaint: Dizziness ED Midlevel Provider: Ky Palomino ED Provider: Axel Mota Dx/Rx/DC Orders Clinical Impression: Community acquired pneumonia, Vasovagal syncope Instructions: Causes of Syncope, ED Pneumonia (Adult) Prescriptions: New doxycycline hyclate 100 mg capsule 100 mg PO BID Qty: 14 0RF ondansetron 4 mg tablet,disintegrating 4 mg PO Q8H PRN PRN (Reason: Nausea) Qty: 10 0RF No Action meclizine 25 mg tablet 25 mg PO TID PRN (Reason: dizziness) simvastatin 20 mg tablet 40 mg PO DAILY naproxen sodium [Aleve] 220 mg capsule 220 mg PO Q12H PRN (Reason: pain) budesonide-formoterol 80-4.5 mcg/actuation HFA aerosol inhaler 2 inh inhalation BID Qty: 3 3RF citalopram 10 MG tablet 20 mg PO DAILY montelukast 5 mg tablet,chewable 10 mg PO QHS hydroxyzine HCl 10 MG tablet 25 mg PO 4X/DAY PRN PRN (Reason: Anxiety) albuterol sulfate 90 mcg/actuation Hfa Aerosol Inhaler 1 inh INHALATION Q6H PRN (Reason: SOB) acetaminophen 650 mg/20.3 mL Solution 650 mg PO Q4H PRN PRN (Reason: Pain 1-10 Or Fever) Qty: 2030 0RF aspirin [Adult Aspirin Regimen] 81 mg tablet,delayed release (DR/EC) 81 mg PO DAILY Qty: 30 0RF Primary Care Provider: Juan Manuel Forde Referrals: Juan Manuel Forde MD [Primary Care Provider] - Activity Restrictions/Additional Instructions: You have pneumonia to the right upper lobe, take the antibiotics until finished. Use the nausea medicine as needed. Make sure that you maintain hydration and eat a balanced diet. Return for worsening symptoms. Print Language: [place] Irish Disposition Disposition: Home, Self Care Discharge Date/Time: 07/16/23 19:46
[2023-07-16 17:52] VITALS: BP 103/70; BP 112/80; PULSE 75; PULSE 76
[2023-07-16] MEDS: Acetaminophen 500 MG Tablet 1000 MG PO (17:58)
[2023-07-16] MEDS: Ondansetron 4 MG/2 ML Vial IV (18:00)
--- NOTE | 2023-07-16 18:00 | RAD_ITS ---
INDICATION: cough EXAMINATION/TECHNIQUE: X-RAY - XR Chest 1 View COMPARISON: 05/11/2023 FINDINGS: Patchy opacities in the right upper lobe. The cardiomediastinal silhouette is unremarkable. No pleural effusion or pneumothorax. Degenerative changes of the thoracic spine and shoulders. RAD/Chest 1 View (Portable) IMPRESSION: Patchy opacities in the right upper lobe is most concerning for right upper lobe pneumonia. Electronically Signed: Richie Medrano MD at 18:40 EDT ,
[2023-07-16] MEDS: 0.9% Normal Saline (1000mL) 1,000 ML 999 ML IV (18:01)
[2023-07-16 18:03] LABS: Absolute Lymphocyte Count 1.19 X10^3/uL (0.83-4.51); Absolute Neutrophil Count 11.4 X10^3/uL (2.0-7.7); Basophil# 0.04 X10^3/uL; Basophil% 0.3 % (0-1); Hematocrit 39.2 % (37-47); Lymphocyte # 1.19 X10^3/ul (0.83-4.51); Lymphocyte % 8.7 % (19-41); Mean Corp Hgb Conc 33.2 g/dL (32-36); Mean Corpuscular Hgb 31.6 pg (27.0-32.0); Mean Corpuscular Volume 95.4 fL (81-99); Mean Platelet Vol. 9.3 fl (6.2-12.0); Monocyte% 6.6 % (0-10); NRBC Flagged by Analyzer 0 % (0-5); Neutrophil # 11.44 X10^3/uL (2.7-7.7); Platelet Count 222 K/mm3 (150-450); RBC Distribution Width CV 12.7 % (11.6-14.6); RBC Distribution Width SD 44.7 fl (35.1-43.9); Red Blood Count 4.11 M/mm3 (4.2-5.4); White Blood Count 13.6 K/mm3 (4.4-11.0)
[2023-07-16 18:24] LABS: ALB/GLOB Ratio 1.1 RATIO (0.9-2.4); AST(SGOT) 30 U/L (15-37); Alanine Aminotransfer ALT/SGPT 48 U/L (13-56); Albumin, Serum 3.9 g/dL (3.2-5.0); Alkaline Phosphatase 113 U/L (45-117); Anion Gap 7 (5-15); BUN 13 mg/dL (7-18); BUN/Creat Ratio 15.7 RATIO (10-20); Calcium,Total 9.5 mg/dL (8.5-10.1); Chloride 101 mmol/L (98-107); Creatinine, Serum 0.83 mg/dL (0.55-1.02); EST Glomerular Filtration Rate 73 mL/min (>60); Est Glom Filt Rate - Afr Amer 88 mL/min (>60); Globulin 3.7 g/dL (2.2-4.2); Glucose 115 mg/dL (74-106); Lipase 21 U/L (13-75); Protein, Total 7.6 g/dL (6.4-8.2); Sodium Level 132 mmol/L (136-145); Troponin-I HS 3 pg/mL (3.0-54.0)
[2023-07-16 18:45] LABS: Bacteria 0 SEEN /hpf (None Seen); Mucous, Urine 0 SEEN /hpf (<or=2+); Red Blood Cells-Urine 0 SEEN /hpf (0-5); Squamous Epithelial Cells - UA 0 SEEN /hpf (5-10); White Blood Cells 0 SEEN /hpf (0-5)
[2023-07-16 18:57] LABS: Color, Urine Yellow (Yellow); Glucose, Dipstick Normal (Normal); Ketone-Dipstick Negative (Negative); Leukocyte Esterase-Dipstick Negative /ul (Negative); Nitrite-Dipstick Negative (Negative); Occult Blood-Urine 10 /ul (Negative); Protein-Dipstick Negative (Negative); Specific Gravity, Urine 1.005 (1.002-1.030); Urine Bilirubin Dipstick Negative (Negative); Urine Clarity Sl. Cloudy (Clear); Urine Urobilinogen Normal (Normal); Urine pH 6.5 (5.0 - 8.0)
[2023-07-16 19:15] VITALS: O2SAT 95
[2023-07-16 19:30] VITALS: BP 131/83; PULSE 60; RESP 16; TEMP 36.1; O2SAT 97
[2023-07-16] MEDS: Doxycycline 100 MG CAPSULE PO (19:37)
[2023-07-16] MEDS: Ketorolac 15 MG/ML Vial IV (19:37)
== END 2023-07-16 19:46 | disposition home or self-care (01) ==
PROVIDERS: Nurse Practitioner; Emergency Provider Emergency Medicine; PCP Family Medicine; Visit Provider Emergency Medicine
DX: J18.9 Pneumonia, unspecified organism (principal); J44.9 Chronic obstructive pulmonary disease, unspecified; R42 Dizziness and giddiness; F17.210 Nicotine dependence, cigarettes, uncomplicated; R55 Syncope and collapse; K21.9 Gastro-esophageal reflux disease without esophagitis; E78.5 Hyperlipidemia, unspecified
CPT/HCPCS: 71045; 80053; 81001; 83690; 84484; 85025; 87631; 93005; 96361; 96374; 96375; 99285; J7030; A4216; J2405

== ENCOUNTER → 2023-08-20 | Outpatient (CLI) | payer MEDICARE, SELFPAY ==
--- NOTE | 2023-08-20 13:02 | BI_ITS ---
MAMMOGRAPHY - BILATERAL SCREENING REASON FOR EXAM: Female, 68 years old. Routine annual screening examination. PERTINENT HISTORY: Mother with breast cancer. Aunts with breast cancer. History of prior right stereotactic breast biopsy. TECHNIQUE: Digital bilateral breast candy (3D mammographic acquisition) in the CC and MLO projections. 2-D mediolateral oblique (MLO) and craniocaudad (CC) views of both breasts were obtained. CAD: Full Field Digital Mammography with Computer Added Detection was performed. COMPARISON: Comparison is made with prior study August 17, 2022 and July 15, 2021. FINDINGS: Breast Composition: There are scattered areas of fibroglandular density. There are no dominant masses or suspicious calcifications. A tissue clip marker is once again seen in the upper midportion of the right breast. Stable small benign-appearing bilateral axillary lymph nodes. No other significant abnormalities are identified. There has been no significant change since the prior study. BI/SCRN MAMM (CAD)W/CANDY BILAT IMPRESSION: Stable bilateral screening mammogram. Yearly follow-up mammogram recommended. (A) ASSESSMENT CATEGORY: BIRADS Category 2: Benign. A letter regarding these results will be sent to the patient by the facility within 30 days. Approximately 10% of breast cancers are not detected by mammography. A normal mammogram should not delay biopsy of a clinically suspicious abnormality. [id number] Electronically Signed: Ronnie Noriega MD at 14:22 EDT ,
== END | disposition home or self-care (01) ==
PROVIDERS: PCP Family Medicine; Referring Provider Family Medicine; Visit Provider Family Medicine
DX: Z12.31 Encounter for screening mammogram for malignant neoplasm of breast (principal); Z80.3 Family history of malignant neoplasm of breast
CPT/HCPCS: 77063; 77067

== ENCOUNTER → 2023-09-06 | Outpatient (CLI) | payer MEDICARE, SELFPAY ==
[2023-09-06 12:46] LABS: Absolute Lymphocyte Count 2.45 X10^3/uL (0.83-4.51); Absolute Neutrophil Count 5.4 X10^3/uL (2.0-7.7); Basophil# 0.06 X10^3/uL; Basophil% 0.7 % (0-1); Eosinophil# 0.18 X10^3/uL; Hematocrit 37.9 % (37-47); Hemoglobin 12.5 g/dL (12.0-15.0); Lymphocyte # 2.45 X10^3/ul (0.83-4.51); Lymphocyte % 27.8 % (19-41); Mean Corpuscular Hgb 31.4 pg (27.0-32.0); Mean Corpuscular Volume 95.2 fL (81-99); Mean Platelet Vol. 8.9 fl (6.2-12.0); Monocyte# 0.71 X10^3/uL; NRBC Flagged by Analyzer 0 % (0-5); Neutrophil # 5.39 X10^3/uL (2.7-7.7); Neutrophil % 61.2 % (47-70); Platelet Count 260 K/mm3 (150-450); RBC Distribution Width CV 13.5 % (11.6-14.6); RBC Distribution Width SD 47.8 fl (35.1-43.9); Red Blood Count 3.98 M/mm3 (4.2-5.4); White Blood Count 8.8 K/mm3 (4.4-11.0)
[2023-09-06 13:24] LABS: ALB/GLOB Ratio 1.3 RATIO (0.9-2.4); AST(SGOT) 24 U/L (15-37); Alanine Aminotransfer ALT/SGPT 51 U/L (13-56); Albumin, Serum 4.1 g/dL (3.2-5.0); Alkaline Phosphatase 86 U/L (45-117); Anion Gap 5 (5-15); BUN 12 mg/dL (7-18); BUN/Creat Ratio 14.3 RATIO (10-20); Calcium,Total 9.1 mg/dL (8.5-10.1); Chloride 108 mmol/L (98-107); Creatinine, Serum 0.84 mg/dL (0.55-1.02); EST Glomerular Filtration Rate 72 mL/min (>60); Est Glom Filt Rate - Afr Amer 87 mL/min (>60); Free T3 2.9 pg/mL (2.18-3.98); Globulin 3.2 g/dL (2.2-4.2); Glucose 99 mg/dL (74-106); Magnesium 2.3 mg/dL (1.6-2.6); Potassium 3.7 mmol/L (3.5-5.1); Protein, Total 7.3 g/dL (6.4-8.2); Sodium Level 138 mmol/L (136-145); Thyroid Stim Hormone (TSH) 1.19 uIU/mL (0.358-3.74)
== END | disposition home or self-care (01) ==
LOC: LAB 11:59
PROVIDERS: PCP Family Medicine; Referring Provider Nurse Practitioner Gerontology; Visit Provider Nurse Practitioner Gerontology
DX: R00.2 Palpitations (principal); R53.83 Other fatigue
CPT/HCPCS: 36415; 80053; 83735; 84439; 84443; 84481; 85025

== ENCOUNTER 2023-10-09 17:34 | Emergency (ER) | payer MEDICARE, SELFPAY ==
[2023-10-09 17:35] VITALS: BP 131/85; PULSE 75; RESP 16; TEMP 36.6; O2SAT 98; BMI 22.1
--- NOTE | 2023-10-09 18:20 | RAD_ITS ---
INDICATION: injury and pain EXAMINATION/TECHNIQUE: X-RAY - XR Hip Unilateral with Pelvis when performed; 2-3 Views COMPARISON: 12/08/2021 FINDINGS: PELVIC BONES: No displaced fracture, destructive or sclerotic lesions. Note that overlapping bowel shadows may however obscure fine detail. Sacroiliac joints are unremarkable. No widening of the pubic symphysis. HIPS: There is a RIGHT hip arthroplasty in normal alignment. No fractures noted. No evidence of loosening of hardware. Visualized LEFT hip has normal appearance. No displaced fracture seen in this frontal view. SOFT TISSUES: No soft tissue swelling or gas. RAD/HIP, UNI W/ Pelvis 2-3 Views IMPRESSION: 1. No evidence fracture, malalignment or focal bony or joint space abnormality. 2. RIGHT hip arthroplasty in normal alignment. No loosening of hardware. No dislocation. No hardware failure. Electronically Signed: Kraig Santizo MD at 18:38 EDT ,
--- NOTE | 2023-10-09 18:23 | ED.VIS.FALL ---
HPI HPI - Fall History of Present Illness Chief Complaint: Fall Informant: patient Narrative Narrative: 68-year-old female presenting posttrauma day 4 from a fall. Patient fell on Wednesday onto her left side noted contusion to the left hip left elbow and head. No loss of consciousness. No vomiting. She does not take any blood thinners. She states that those injuries have slowly improved but she has had increasing pain on the right inguinal hip region. She states it feels like sandpaper when she moves. She has had prior right hip replacement about 2 years ago with [facility]-Dr. Auguste. She has been able to ambulate. She states that she did not want a wait and wanted to be certain that nothing was wrong with her prosthesis. [facility] Medical History Thyroid nodule HLD (hyperlipidemia) GERD (gastroesophageal reflux disease) Anxiety and depression Arthritis Restless legs Vertigo Migraine headache Injury of head and neck Difficulty swallowing Vasovagal episode Tortuous colon Asthma History of pain when walking Benign paroxysmal positional vertigo Respiratory failure COPD (chronic obstructive pulmonary disease) Acute respiratory failure with hypoxia Home Medications ?Medication ?Instructions ?Recorded ?Last Taken ?Type citalopram 10 mg tablet 20 mg PO DAILY 12/18/13 Unknown History meclizine 25 mg tablet 25 mg PO TID PRN dizziness 08/20/21 Unknown History simvastatin 20 mg tablet 40 mg PO DAILY 08/20/21 Unknown History albuterol sulfate 90 mcg/actuation 1 inh inhalation Q6H PRN SOB 11/24/21 Unknown History aerosol inhaler hydroxyzine HCl 10 mg tablet 25 mg PO 4X/DAY PRN PRN Anxiety 11/24/21 12/08/21 History montelukast 5 mg chewable tablet 10 mg PO QHS 11/24/21 Unknown History budesonide-formoterol HFA 80 2 inh inhalation BID #3 device 03/04/23 Unknown Rx mcg-4.5 mcg/actuation aerosol inhaler Allergy/AdvReac Type Severity Reaction Status Date / Time amoxicillin Allergy Intermediate Rash Verified 10/09/23 17:39 Sulfa (Sulfonamide Allergy not known Verified 10/09/23 17:39 Antibiotics) zolpidem (From Ambien) Allergy Unknown Verified 10/09/23 17:39 Family History Aunt Cancer Breast Mother Heart disease Father COPD (chronic obstructive pulmonary disease) Concurrent tobacco use history. Liver cancer Unclear if was metastatic, was not worked up. Surgical History S/P thyroid biopsy S/P total right hip arthroplasty History of total right hip replacement Hx of colonoscopy Hx of rotator cuff surgery Social History Smoking Status: Current every day smoker tobacco type: cigarettes Tobacco: How many years used: 40 how long ago did patient quit smoking: Decreased chronic 1ppd->2-3 cig x 4-6 weeks, now no cig x 1 week. substance use type: does not use ROS ROS ED Constitutional Constitutional ED: Denies chills or weight loss Eyes Eyes: Denies change in vision or diplopia ENT ENT ED: Denies ear pain, rhinorrhea or sore throat Cardiovascular Cardiovascular: Denies chest pain, orthopnea, palpitations or racing heartbeat Respiratory/Chest Respiratory/Chest: Denies cough, dyspnea or orthopnea Gastrointestinal Gastrointestinal: Denies abdominal pain, diarrhea, nausea or vomiting Genitourinary Genitourinary ED: Denies dysuria, hematuria or urinary frequency Musculoskeletal Musculoskeletal: Reports other Details: See history of present illness ; Denies arthralgias or myalgias Integumentary Denies abscess or rash Neurologic Neurologic: Denies headache(s) or weakness Psychiatric Psychiatric: Denies anxiety, depression, suicidal ideation or suicidal thoughts Endocrine Endocrinology: Denies polydipsia, polyphagia or polyuria Allergic/Immunologic Allergic/Immunologic ED: Denies mouth swelling, tongue swelling or urticaria EXAM Physical Exam Const Vital Signs: 10/09/23 17:35 10/09/23 18:10 Temperature 97.8 F Temperature Source Temporal Pulse Rate 75 Respiratory Rate 16 Respiratory Effort Normal Respiratory Depth Normal Respiratory Pattern Normal Blood Pressure 131/85 H Blood Pressure Mean 100 Pulse Ox 98 Oxygen Delivery Method Room Air Positive well nourished and well developed General Appearance ED: well developed and NAD HEENT Reports normocephalic, head/scalp atraumatic and moist mucous membranes Eyes PERRL and EOMs intact bilaterally Neck no lymphadenopathy, supple and no JVD Resp normal respiratory effort and clear to auscultation bilaterally Cardio regular rate, regular rhythm and no murmurs GI normal to inspection, nondistended, normoactive bowel sounds and non-tender Palpation: soft Back/Spine no CVA tenderness and normal ROM Extremity Extremity Narrative: There is a contusion to the posterior left elbow. Full range of motion neurovascular intact. No palpable joint effusion. Left hip is mildly tender over the greater trochanter. Right hip is diffusely tender mildly. No shortening of the leg. Full range of motion. There is no back contusion noted. Neurovascularly intact distal General Extremety ED: Negative for edema General Extremity: Negative for edema Neuro oriented x3 and CN's II-XII intact bilaterally Sensorium / Orientation: alert Motor Exam: strength 5/5 throughout Psych mental status grossly normal Mood & Affect: Negative for depressed or tearful Skin no rashes or lesions noted and no wounds MDM MDM MDM Narrative Medical decision making narrative: Differential diagnosis includes but not limited to fracture dislocation loosening of hardware pelvic fracture sprain strain. My independent interpretation of the plain films of the right hip and pelvis is no acute fracture or dislocation. Patient notes most of her discomfort with movement tends to be more inguinal I suspect she has more of a sprain strain. Would recommend heat anti-inflammatories gentle stretching and rest. Follow-up as needed return if worsening History & Record Review Discussion w/independent historian: Patient Radiography Diagnostic Testing: Clinical Impression(s) from Imaging Studies Hip/Pelvis X-Ray 10/09/23 18:20 IMPRESSION: 1. No evidence fracture, malalignment or focal bony or joint space abnormality. 2. RIGHT hip arthroplasty in normal alignment. No loosening of hardware. No dislocation. No hardware failure. Electronically Signed: Kraig Santizo MD at 18:38 EDT , Discharge Plan Triage Chief Complaint: Fall ED Provider: Aaron Poon Dx/Rx/DC Orders Clinical Impression: Hip sprain, Acute hip pain Instructions: ED Hip Strain Prescriptions: No Action meclizine 25 mg tablet 25 mg PO TID PRN (Reason: dizziness) simvastatin 20 mg tablet 40 mg PO DAILY budesonide-formoterol 80-4.5 mcg/actuation HFA aerosol inhaler 2 inh inhalation BID Qty: 3 3RF citalopram 10 MG tablet 20 mg PO DAILY montelukast 5 mg tablet,chewable 10 mg PO QHS hydroxyzine HCl 10 MG tablet 25 mg PO 4X/DAY PRN PRN (Reason: Anxiety) albuterol sulfate 90 mcg/actuation Hfa Aerosol Inhaler 1 inh INHALATION Q6H PRN (Reason: SOB) Primary Care Provider: Juan Manuel Forde Referrals: Juan Manuel Forde MD [Primary Care Provider] - As Needed Print Language: Cook Islander Disposition Disposition: Home, Self Care
== END 2023-10-09 19:11 | disposition home or self-care (01) ==
PROVIDERS: Emergency Provider Emergency Medicine; PCP Family Medicine; Visit Provider Emergency Medicine
DX: S73.101A Unspecified sprain of right hip, initial encounter (principal); J44.9 Chronic obstructive pulmonary disease, unspecified; E78.5 Hyperlipidemia, unspecified; F17.210 Nicotine dependence, cigarettes, uncomplicated; Z96.641 Presence of right artificial hip joint; K21.9 Gastro-esophageal reflux disease without esophagitis; W19.XXXA Unspecified fall, initial encounter
CPT/HCPCS: 73502; 99282

== ENCOUNTER → 2023-12-20 | Outpatient (CLI) | payer MEDICARE, SELFPAY ==
--- NOTE | 2023-12-20 18:38 | CT_ITS ---
HISTORY: SMOKER. TECHNIQUE: Helically acquired images were obtained of the chest without contrast. A radiation dose optimization technique was used for this scan. 731 images. COMPARISON: 12/09/2022. FINDINGS: LARGE AIRWAYS: Patent. LUNGS: Mild hyperinflation. Stable 2 mm right upper lobe nodule on image 81/[id number]. No new suspicious nodule. PLEURA: No pneumothorax or significant pleural effusion. HEART/PERICARDIUM: Heart within normal limits in size with mild coronary artery calcification. No pericardial effusion. VESSELS: Thoracic aorta nondilated. MEDIASTINUM/MACARIO: No pathologically enlarged adenopathy. BONES: Mild degenerative change. CT/Low Dose CT Lung Screening IMPRESSION: Lung-RADS category 2: Continue annual screening with low dose CT. Electronically Signed: Nathalia Fernández MD at 11:09 EST ,
== END | disposition home or self-care (01) ==
PROVIDERS: PCP Family Medicine; Referring Provider Nurse Practitioner Acute Care; Visit Provider Nurse Practitioner Acute Care
DX: F17.210 Nicotine dependence, cigarettes, uncomplicated (principal)
CPT/HCPCS: 71271

== ENCOUNTER 2024-03-07 13:00 | Outpatient (RCR) | payer MEDICARE, SELFPAY ==
--- NOTE | 2024-01-28 15:34 | HP.PTEVAL_ITS ---
Patient's Visit Information Visit Information Visit Information: SAKINA JASON is a 68 year old F referred to Physical Therapy by Dr. Juan Manuel Forde MD with a diagnosis of R hip pain/groin pain. Date of Evaluation: 01/28/24 Physical Therapist: Lucio Rush, DPT, OCS, CSCS Visit Plan Frequency: 2-3x /Week Duration: 2-4 Weeks Plan: 2-3x/week for 4 weeks for. IE HEP: pendulum hip, ice anterior hip, MH gluts, REst from aggravating activities. SLR ext adn abduction 2x10 all daily Treat with STM rollout to lateral and posterior R hip, CFM to psaos anterior R hip, ROM exercises to hip and hip stabilizer strength to HEP progression, ice as needed. Consider US posteriorlyat pirifomris if that pain not improving. pROM, leg pull R hip and eccentric strength psoas Subjective Subjective: R hip pain, started 3 months ago when she fell due to poor balance but not sure why. No other falls in last couple years. Also got bruised L hip and L side. R hip hurt 3 days later and has worsened. No history except for R ALVARO 3 yrs ago. Was fully recovered. Went to ER after fall and x ray was fine. Saw [facility] also and thought groin strain. Feels hard to lift R leg when lying down due to groin pain. Still hurts to march on r side lifting also. Also hurts posteriorly. Not that painful to walk unless she overdoes it. Took alleve for 2 weeks but did not help. Worsening overall. Avoids bending and lifting RLE, rolling in bed is painful Not employed. Basic ADLS all I. Hard to get socks on R side posterior pain with reaching down. Fills day with housework. slowly due to pain. Was doing AP, QS, GS, and hip abd stand.EXt, marching needs to hold on to do the steps but not overly painful Pain R groin: Pain Intensity (Out of 10): 1 Pain Intensity Range: 0 and 6 Comment: lifting flexing R hip Objective Objective: Walks into PT slowly but I and without antalgia today. Trasnfers bed and chair I, hard to lift R LE to hip flexion to roll due to pain. Tends to help with hands. LB AROM WFL and without pain. knee and ankle B AROM WFL. L hip AROM WFL and no pain. R hip AROM painful to flex even heel slide max in groin, abd 35 no pain, ext 5 and no pain,. PROM hip flexion not painful R and to 100 degrees. reflexes 2/3 patella and achilles sensation LE WNL to gross light touch. strength hip flexion 3 on R and 4 on L, abd 3 R and 4- L, extension 3+ R and 4- L. knee ext and flexion 4-/5 B without pain. ankle 4+ strength B without pain. Max tender psoas in anterior R hip and mod tender posterior piriformis and glut area. R, not L. Good balance as she walks today b ut obvious hesitant to move quick due to pain. Balance/Special Test Scores Lower Extremity Functional Score: 15 Goals Goal 1:: Pain free at rest and able to don socks without pain R anterior hip Goal Time Frame: 4-6 Weeks Goal 2:: I appropriate HEP to minimize future problems Goal Time Frame: 4-6 Weeks Goal 3:: Pt feel pain 80% improved and mnageable Goal Time Frame: 4-6 Weeks Goal 4:: LEFFS 40 Goal Time Frame: 4-6 Weeks Rehabilitation Potential Physical Therapy Diagnosis: Pain R anterior hip limiting comfortable function. Rehabilitation Potential: Fair Anticipated Interventions Patient/Client Instruction: Educate patient on: Condition and Plan of Care For the Purpose of:: To decrease pain, To decrease swelling/inflammation, To increase ROM, To improve muscle performance and motor function and To increase tolerance to activity/condition/position Therapeutic Exercise to Include: Strength training, Postural training, Flexibilty training, Passive ROM and Active ROM For the Purpose of:: To decrease pain, To increase ROM, To improve nutrient delivery to tissue, To improve muscle performance and motor function, To increase tolerance to activity/condition/position, To improve ability of physical actions for home/community/work/leisure and To improve gait and loc omotor functions Manual Therapy Techniques to Include: Mobilization, Passive ROM and Soft tissue mobilization For the Purpose of:: To decrease pain, To decrease swelling/inflammation, To increase ROM, To improve nutrient delivery to tissue and To increase tolerance to activity/condition/position Cryotherapy (ice pack, ice massage): Yes Thermo therapy (hot pack): Yes For the Purpose of:: To decrease swelling/inflammation and To improve nutrient delivery to tissue Text: Thank you for the opportunity to evaluate your patient. For Medicare and Medicare HMO plans, please review the plan of care and approve it. It will need to be FAXED BACK to us at [phone] for Medicare purposes. For Medicare only, by signing this I certify the plan of care. Please let me know if there are questions or concerns regarding this plan of care. Physician Signature: Date:
--- NOTE | 2024-03-07 13:59 | HP.PTREVAL ---
Re-Evaluation Intro: Dr. Juan Manuel Forde MD, It has been my pleasure to treat SAKINA JASON over the last 8 visits for R hip pain/groin pain. Please see the progress note below for an update on the physical therapy plan of care! Subjective Subjective: I feel good. Doing HEP 7 days per week. Lifting R leg is still the painful part 7/10, 0/10 at rest. Now and again it just hurts anterior. Sleeping is OK. Rolling hurts. Doesn't limp but cannot lift it comfortably. Is the same as a month ago. Activities are funcitonal, avoids lifting heavy stuff. Avoids carrying firewood. Objective Objective/Function: No antalgia in gait today. Still has hard timne lifting R LE onto table, into car etc due to pain. Able to SLR with pain adn max tender over psoas and joint line of hip anteriorly. No clunking. AROM WFL but painful flexion. bnt leg raise much easier. Due to lack of improvement in pain, Pt to contact doctor regarding next step. Plan Plan Plan: pt to call doctor for next mdical step due to lack of improvement. If no options, may come back for aggressive psoas DTR and ecc bent leg lowering but not promising base don current situation. Balance/Gait/Functional tests Balance/Special Test Scores Lower Extremity Functional Score: 22 Goals Goals Goal 1:: Pain free at rest and able to don socks without pain R anterior hip Goal Time Frame: 4-6 Weeks Goal Progress: Not Progressing Goal 2:: I appropriate HEP to minimize future problems Goal Time Frame: 4-6 Weeks Goal Progress: Goal Met Goal 3:: Pt feel pain 80% improved and mnageable Goal Time Frame: 4-6 Weeks Goal Progress: Goal Met Goal 4:: LEFFS 40 Goal Time Frame: 4-6 Weeks Goal Progress: Goal Met Anticipated Interventions Anticipated Interventions Patient/Client Instruction: Educate patient on: Condition and Plan of Care For the Purpose of:: To decrease pain, To decrease swelling/inflammation, To increase ROM, To improve muscle performance and motor function and To increase tolerance to activity/condition/position Therapeutic Exercise to Include: Strength training, Postural training, Flexibilty training, Passive ROM and Active ROM For the Purpose of:: To decrease pain, To increase ROM, To improve nutrient delivery to tissue, To improve muscle performance and motor function, To increase tolerance to activity/condition/position, To improve ability of physical actions for home/community/work/leisure and To improve gait and locomotor functions Manual Therapy Techniques to Include: Mobilization, Passive ROM and Soft tissue mobilization For the Purpose of:: To decrease pain, To decrease swelling/inflammation, To increase ROM, To improve nutrient delivery to tissue and To increase tolerance to activity/condition/position Cryotherapy (ice pack, ice massage): Yes Thermo therapy (hot pack): Yes For the Purpose of:: To decrease swelling/inflammation and To improve nutrient delivery to tissue Re-Evaluation Ending Re-evaluation ending: Please do not hesitate to contact me at [phone] by phone or if you have questions or concerns regarding this new plan of care! Sincerely, Lucio Rush, DPT, OCS, CSCS
--- NOTE | 2024-04-11 14:17 | HP.PT.NRP ---
Patient Information Patient Information: SAKINA JASON was seen in my office for initial evaluation on 01/28/24. The following Plan of Care was established for this patient: POC Established Initial Frequency: 2-3x /Week Initial Duration: 2-4 Weeks Anticipated Interventions Patient/Client Instruction: Educate patient on: Condition and Plan of Care For the Purpose of:: To decrease pain, To decrease swelling/inflammation, To increase ROM, To improve muscle performance and motor function and To increase tolerance to activity/condition/position Therapeutic Exercise to Include: Strength training, Postural training, Flexibilty training, Passive ROM and Active ROM For the Purpose of:: To decrease pain, To increase ROM, To improve nutrient delivery to tissue, To improve muscle performance and motor function, To increase tolerance to activity/condition/position, To improve ability of physical actions for home/community/work/leisure and To improve gait and locomotor functions Manual Therapy Techniques to Include: Mobilization, Passive ROM and Soft tissue mobilization For the Purpose of:: To decrease pain, To decrease swelling/inflammation, To increase ROM, To improve nutrient delivery to tissue and To increase tolerance to activity/condition/position Cryotherapy (ice pack, ice massage): Yes Thermo therapy (hot pack): Yes For the Purpose of:: To decrease swelling/inflammation and To improve nutrient delivery to tissue Last Seen Last Seen: This patient was last seen in our office 03/07/24. Pertinent comments regarding their Physical therapy will appear below: Pt seen for 8 visits but is not improving. Was sent back to doctor for next step. At this point, it has chioma over 4 weeks and I will discontinue from my care. At this point I will be discontinuing this patient from physical therapy. I would be happy to see this patient again in the future if found appropriate by the physician. Thank you! Lucio Rush, DPT, OCS, CSCS Balance/Gait/Functional tests Balance/Special Test Scores Lower Extremity Functional Score: 22
== END 2024-03-07 19:00 | disposition home or self-care (01) ==
LOC: PT 13:00
PROVIDERS: PCP Family Medicine; Referring Provider Family Medicine; Visit Provider Family Medicine
DX: R10.31 Right lower quadrant pain (principal); M25.551 Pain in right hip
CPT/HCPCS: 97035; 97110; 97140; 97161; 97530

== ENCOUNTER → 2024-03-14 | Outpatient (CLI) | payer MEDICARE, SELFPAY ==
--- NOTE | 2024-03-14 11:40 | US_ITS ---
PROCEDURE: ULTRASOUND THYROID REASON FOR EXAM: FOLLOW-UP NODULES. TECHNIQUE: Real-time grayscale and color imaging was performed. Routine image documentation. COMPARISON: 02/16/2023 ULTRASOUND THYROID. FINDINGS: Right thyroid lobe measures 5.2 x 1.4 x 2.0 cm. Left thyroid lobe measures 4.0 x 1.5 x 1.2 cm. Isthmus thickness is0.20 cm.. Thyroid Size: Normal Background Echotexture: Heterogeneous. Thyroid Nodules: Bilateral. RIGHT: Medial midpole, mixed cystic and solid, 0.6 x 0.5 x 0.6 cm, rounded, isoechogenic, no calcification, TR 2. Lateral inferior pole, mixed cystic and solid, 0.7 x 0.7 x 0.3 cm, wider than tall, isoechogenic, no calcification, TR 2. LEFT: Medial inferior pole, mixed cystic and solid, 2.4 x 2.2 x 1.1 cm, wider than tall, isoechogenic, no calcifications, TR 2. US/Thyroid IMPRESSION: 1. TR 2 category micronodules in the right thyroid lobe. No FNA warranted. 2. TR 2 nodule in the left thyroid lobe. No FNA warranted. 3. Follow-up ultrasound recommended in 12 months. Reading Location: [facility]
== END | disposition home or self-care (01) ==
LOC: US 11:40
PROVIDERS: PCP Family Medicine; Referring Provider Surgery; Visit Provider Surgery
DX: E04.1 Nontoxic single thyroid nodule (principal)
CPT/HCPCS: 76536

== ENCOUNTER → 2024-08-21 | Outpatient (CLI) | payer MEDICARE, SELFPAY ==
--- NOTE | 2024-08-21 12:17 | BI_ITS ---
EXAM: SCRN MAMM (CAD)W/CANDY BILAT DATE: 08/21/2024 CLINICAL HISTORY: F, Age 69 y/o , SCREENING Mother with breast cancer. Aunts with breast cancer. History of prior right stereotactic breast biopsy. TECHNIQUE: SCRN MAMM (CAD)W/CANDY BILAT COMPARISON: Prior exam(s) dated prior study dated August 20, 2023.. FINDINGS: TISSUE DENSITY: There are scattered areas of fibroglandular density. Bilateral Breast Mammographic Findings: No significant masses, calcifications or other abnormalities are identified. A tissue clip marker is once again seen in the upper slightly medial aspect of the right breast. Stable small benign-appearing bilateral axillary lymph nodes. No suspicious masses, areas of developing architectural distortion, or suspicious calcifications. There has been no significant interval change. BI/SCRN MAMM (CAD)W/CANDY BILAT IMPRESSION: Stable examination. OVERALL FINAL ASSESSMENT BI-RADS 2: BENIGN RECOMMENDATION: Routine annual follow-up in 1 Year A letter with findings and recommendations will be mailed to the patient. Reading Location: [place] [id number]
== END | disposition home or self-care (01) ==
LOC: OPBI 12:16
PROVIDERS: PCP Family Medicine; Referring Provider Family Medicine; Visit Provider Family Medicine
DX: Z12.31 Encounter for screening mammogram for malignant neoplasm of breast (principal)
CPT/HCPCS: 77063; 77067

== ENCOUNTER → 2024-12-22 | Outpatient (CLI) | payer MEDICARE, SELFPAY ==
--- NOTE | 2024-12-22 14:44 | CT_ITS ---
PROCEDURE: LOW DOSE CT LUNG SCREENING 12/22/2024 REASON FOR EXAM: SMOKER TECHNIQUE: Procedure Code: [id number] Modality: CT Procedure: LOW DOSE CT LUNG SCREENING Coronal and Sagittal reconstruction series were provided. One or more dose reduction techniques were used (e.g., Automated exposure control, adjustment of the mA and/or kV according to patient size, use of iterative reconstruction technique). REFERENCE LINK: [email or web address] Lung-RADS RADIATION DOSE SUMMARY: CTDlvol: 1.59 mGy DLP: 48.64 mGycm COMPARISON: Low-dose lung screening, 12/20/2023. FINDINGS: PULMONARY NODULES: (Only nodules >3mm are reported) Lower neck:Thyroid gland is grossly unremarkable. There is no supraclavicular lymphadenopathy. Mediastinum:There is no significant lymphadenopathy. Heart and thoracic aorta:The heart size is normal. There is a minimal pericardial effusion. There is mild calcific vascular disease of the coronary arteries and thoracic aorta. Esophagus:Normal. Upper Abdomen:Limited unenhanced images of the upper abdomen are unremarkable. Chest wall:The soft tissues of the chest wall appear unremarkable. There are few reactive axillary lymph nodes bilaterally. There is [id number] multilevel degenerative disc disease of the thoracic spine. Lungs, airways and pleura: There is no significant lung disease. There are no significant pulmonary nodules or masses. There are no pleural effusions. CT/Low Dose CT Lung Screening IMPRESSION: 1. No significant lung disease. 2. No new pulmonary nodules. 3. Calcific vascular disease. 4. Other findings as noted. Lung-RADS Category: 1 S: Negative. Calcific vascular disease. Recommendation: Follow up low-dose chest CT in 12 months. Reading Location: [place] [id number]
== END | disposition home or self-care (01) ==
LOC: CT 14:40
PROVIDERS: PCP Family Medicine; Referring Provider Nurse Practitioner Acute Care; Visit Provider Nurse Practitioner Acute Care
DX: F17.210 Nicotine dependence, cigarettes, uncomplicated (principal)
CPT/HCPCS: 71271